=== PATIENT | male | born 1960 | race Caucasian/White ===

== ENCOUNTER → 2020-07-27 09:45 | Outpatient (BNVA) | payer OTHER, SELFPAY | PROVIDERS: PCP Family Medicine; Visit Provider Internal Medicine | DX: Z11.59 Encounter for screening for other viral diseases (principal) | CPT/HCPCS: 87635 ==

== ENCOUNTER → 2020-07-28 11:45 | Outpatient (BNVA) | payer SELFPAY | PROVIDERS: PCP Family Medicine; Referring Provider Podiatrist Foot & Ankle Surgery; Visit Provider Podiatrist Foot & Ankle Surgery | DX: F15.251 Other stimulant dependence with stimulant-induced psychotic disorder with hallucinations (principal); F10.20 Alcohol dependence, uncomplicated | CPT/HCPCS: 80305; 80306 ==

== ENCOUNTER 2020-07-31 06:17 | Day surgery (SDC) | payer SELFPAY ==
[2020-07-30 11:30] VITALS: BMI 22.1
--- NOTE | 2020-07-31 | SCC_ITS ---
Procedure Done: Closed reduction with percutaneous fixation right Lisfranc fracture dislocation CPT code 96736 17 seconds of fluoroscopic guidance, for a cumulative dose of 0.25 mGy, was provided to Dr. Staley by the radiology department. C-arm images of the RIGHT foot were saved for the patient's permanent record. [facility]
[2020-07-31 06:53] VITALS: BP 201/113; PULSE 105; RESP 18; TEMP 35.8; O2SAT 95
[2020-07-31] MEDS: sodium chloride 0.9% 1,000 ML 30 ML IV (07:01)
[2020-07-31] MEDS: labetalol 5 mg/mL SDV 20mL IVP ×2 (07:15→08:13)
[2020-07-31 07:28] LABS: Amphetamines Screen Urine Negative (Negative); Barbiturates Screen Urine Negative (Negative); Benzodiazepines Screen Urine Negative (Negative); Cocaine Screen Urine Negative (Negative); Opiate Screen Urine Negative (Negative); PCP Screen Urine Negative (Negative); THC Screen Urine Negative (Negative)
[2020-07-31 07:32] VITALS: BP 174/104; PULSE 81
--- NOTE | 2020-07-31 08:04 | P.ANESASSM_ITS ---
Pre-Anesthetic Assessment Pre-Anesthetic Assessment: Height/Weight: Height 1.75 m Weight 68.039 kg Temp Pulse Resp BP Pulse Ox 96.5 F L 81 18 174/104 95 07/31/20 06:53 07/31/20 07:32 07/31/20 06:53 07/31/20 07:32 07/31/20 06:53 Preop Diagnosis: Right Lisfranc fracture dislocation Proposed Procedure: Operation Date: 07/31/20 09:20 Proposed Procedures p Closed reduction with percutaneous fixation right tarsometatarsal fracture dislocation 03417(Right) - Kenton Staley DPM Familial anesthetic complications: No hx aneshtesia Was Beta Manuelito taken within 24 hours: Yes Last intake: Intake Last Liquid Date 07/31/20 Last Liquid Time 06:30 (water) Last Solid Date 07/30/20 Last Solid Time 19:00 Social: Social History: Alcohol and Tobacco Comment: denies recent drug us e; 1 drink daily - has been trying to reduce Exam: Pre-Anes Outpt Exam: alert, oriented x 3, clear to auscultation bilaterally and regular rate & rhythm Airway: Cervical ROM: WNL MP: 2 Dentition: False CV/HEM: CV/HEM: HTN Neuropsych: Comments: drug abuse Anesthetic Plan: Anesthesia: MAC Risk of > 500 ml blood loss (7ml/kg in children): No Meds/Allergies Current Medications: Current Medications Generic Name Dose Route Start Last Admin Trade Name Freq PRN Reason Stop Dose Admin Sodium Chloride 1,000 mls @ 30 ml s/hr 07/31/20 06:45 07/31/20 07:01 Sodium Chloride 0.9% IV 08/01/20 06:44 30 mls/hr .Q24H ROMEL Administration PFSH Anesthesia 2 PFSH: Medical History (Updated 07/28/20 @ 12:18 by Kenton Staley DPM) Alcohol dependence, uncomplicated Dyskinesia, tardive Nicotine dependence, cigarettes, uncomplicated 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 Family History Other Cancer Denies family history of CAD (coronary artery disease) Clotting disorder Chronic kidney disease (CKD) Anesthesia complication Bleeding disorder Social History Smoking and tobacco status: current every day smoker cigarettes Packs smoked per day: 1 Alcohol intake: current Alcohol intake frequency: 0-2 Drinks per Day Alcohol type: beer Data Anesthesia Other Labs: Laboratory Results - last 48 hr 07/31/20 07:05 Urine Opiates Screen Negative Ur Barbiturates Screen Negative Ur Phencyclidine Scrn Negative Ur Amphetamines Screen Negative U Benzodiazepines Scrn Negative Urine Cocaine Screen Negative U Marijuana (THC) Screen Negative Cardiac Studies: No Data to Display
--- NOTE | 2020-07-31 10:04 | W.PM.OPSUD ---
Surgery/Procedure H&P Update DATE OF PROCEDURE: July 31, 2020 DATE H&P PERFORMED: 07/28/20 H&P UPDATE INFORMATION: I have reviewed H&P completed within last 30 days, I have examined patient prior to procedure, No changes to prior documentation and H&P is in [facility] EMR on date indicated PREOP DIAGNOSIS: Right Lisfranc fracture dislocation PLANNED PROCEDURE: Operation Date: 07/31/20 09:20 Proposed Procedures p Closed reduction with percutaneous fixation right tarsometatarsal fracture dislocation 25515(Right) - Kenton Staley DPM
[2020-07-31 10:59] VITALS: BP 160/86; PULSE 74; RESP 18; TEMP 36.2; O2SAT 98
--- NOTE | 2020-07-31 11:01 | XR_ITS ---
WS: [id number] RIGHT FOOT: 3 VIEW(S) TECHNIQUE: AP, oblique and lateral. HISTORY: post op COMPARISON: 07/23/2020 Percutaneous pinning across the first tarsal metatarsal joint space. There are 2 pins crossing the lidia int space. There is a single short wire centered in the navicular. There is significant displacement along the tarsometatarsal line with the metatarsals displaced later ally with relationship to the tarsal bones. Casting material is present at the foot. XR/XR foot RT min 3V* [id number] IMPRESSION: 1. Status post percutaneous pinning across the first tarsometatarsal joint. 2. Lateral displacement of the second through fifth metatarsals with respect t o the tarsals.
[2020-07-31 11:11] VITALS: BP 174/79; PULSE 76; RESP 18; O2SAT 95
--- NOTE | 2020-07-31 11:40 | ANE.PACU2 ---
Inpatient post-anesthesia follow up: Airway intact: Yes Vital signs: Temperature 97.2 F Pulse Rate 76 Respiratory Rate 18 Blood Pressure 174/79 Pulse Oximetry 95 Oxygen Delivery Me thod Room Air Oxygen Flow Rate Fraction of Inspir ed Oxygen Hydration adequate: Yes Nausea and vomiting: No Pain level: 1 Mental status: Baseline
--- NOTE | 2020-07-31 11:47 | SUR.PHASEII ---
Pt's ride was not in the parking lot as the pt had stated. Pt was able to give a phone number. I reached someone who said they would inform the pt's sister to come back to the hospital and get him. I sat the pt in the waiting room with a drink and crackers and told him to notify Earle to call us if he needed anything, Earle, the volunteer was notified of the situation.
--- NOTE | 2020-07-31 19:40 | P.OP_ITS ---
Operative Report Date of procedure: July 31, 2020 Pre-op Diagnosis: Right Lisfranc fracture dislocation Post-op diagnosis: same Post-op Findings: Reduced first tarsometatarsal fracture dislocation right foot Procedure Done: Closed reduction with percutaneous fixation right Lisfranc fracture dislocation CPT code 50825 Implants: 0.062 K wire x2 Specimens removed/disposition: None Pathology: none sent Surgeon: Kenton Staley D.P.M. Field Account Manager: Fuad Anesthesia: MAC Estimated blood loss: Less than 5 mL Tourniquet time: No tourniquet utilized IV fluids: None Urine output: None Complications: None Findings: Displaced tarsometatarsal fracture dislocation consistent with Lisfranc injury right foot Condition: stable Disposition: PACU Brief History: Patient is a 60-year-old male who sustained a right fracture dislocation of his Lisfranc complex. Due to poor soft tissue quality swelling, fracture blister present open reduction internal fixation has not advised at this time. Visible tenting of the skin at the first metatarsal base medial cuneiform fracture dislocation with dorsal tenting of the first metatarsal base. Due to concern for localized ischemia and wound formation I am recommending a closed reduction and percutaneous pinning of the right Lisfranc injury under anesthesia. Risks include pain, bleeding, numbness, infection, failure to correct deformity, overcorrection of deformity, painful retained hardware, need for further surgical intervention, damage to adjacent soft tissue structures. Patient is agreeable wishes to proceed. Procedure: Under mild sedation the patient was brought to the operating room and placed on the operating table in supine position. A timeout was performed. Anesthesia was then administered by the anesthesia service. Local anesthesia injected by myself consisting of 30 cc of 0.5% Marcaine plain and a right ankle block fashion. Well-padded pneumatic tourniquet applied to the right ankle however this was never inflated or utilized throughout the duration of the procedure. Right lower extremity was scrubbed, prepped and draped utilizing normal aseptic technique. Attention was directed to the right dorsal foot where a fracture blister was appreciated at the dorsum of the right forefoot. This area of skin was left undisturbed. Tenting of the first metatarsal base dorsally was appreciated. Utilizing traction of the first ray and applying manual pressure at the fracture site from dorsal to plantar the fracture was reduced to anatomical position at the first metatarsal base and medial cuneiform articulation. Significant improvement in appropriate alignment appreciated followed by fixation of crossing K wires these were 0.062 K wires x2. Stability appreciated at the first metatarsal base. Further reduction of the lesser metatarsals attempted this was unsuccessful. The greatest concern was the first metatarsal due to its dorsal dislocation. This was adequately reduced. Applied Adaptic to the fracture blister site, Adaptic around the K wires followed by 4 x 4's, Kerlix, cast padding and multilayer compressive Lynn posterior splint. Patient tolerated the procedure well and was transferred to the PACU with vital signs stable and vascular status intact. Following a period of postoperative monitoring he will be discharged home is to remain strict nonweightbearing to the right foot. He was also given follow-up and discharge instructions on discharge paperwork.
== END 2020-07-31 11:47 | disposition home or self-care (01) ==
PROVIDERS: PCP Family Medicine; Visit Provider Podiatrist Foot & Ankle Surgery
PROC: (CPT 28606; principal; 2020-07-31 09:20)
DX: S93.324A Dislocation of tarsometatarsal joint of right foot, initial encounter (principal); I10 Essential (primary) hypertension; F17.210 Nicotine dependence, cigarettes, uncomplicated; W18.39XA Other fall on same level, initial encounter
CPT/HCPCS: 28606; 12345; 73630; 76000; 80306; 96365; C1713; J0690; J2704; J3010; J3490; J7030

== ENCOUNTER → 2020-08-07 10:26 | Outpatient (BNVA) | payer SELFPAY | PROVIDERS: PCP Family Medicine; Visit Provider Podiatrist Foot & Ankle Surgery | DX: Z47.89 Encounter for other orthopedic aftercare (principal); S93.324D Dislocation of tarsometatarsal joint of right foot, subsequent encounter; W19.XXXD Unspecified fall, subsequent encounter | CPT/HCPCS: 73630 ==

== ENCOUNTER → 2020-08-14 15:23 | Outpatient (BNVA) | payer SELFPAY | PROVIDERS: PCP Family Medicine; Visit Provider Podiatrist Foot & Ankle Surgery | DX: S93.324A Dislocation of tarsometatarsal joint of right foot, initial encounter (principal); S92.321A Displaced fracture of second metatarsal bone, right foot, initial encounter for closed fracture; S92.331A Displaced fracture of third metatarsal bone, right foot, initial encounter for closed fracture; S93.335A Other dislocation of left foot, initial encounter; W19.XXXA Unspecified fall, initial encounter | CPT/HCPCS: 73630 ==

== ENCOUNTER → 2020-08-18 13:37 | Outpatient (BNVA) | payer OTHER, SELFPAY | PROVIDERS: PCP Family Medicine; Visit Provider Podiatrist Foot & Ankle Surgery | DX: Z20.828 Contact with and (suspected) exposure to other viral communicable diseases (principal) | CPT/HCPCS: 87635 ==

== ENCOUNTER 2020-08-21 09:15 | Day surgery (SDC) | payer SELFPAY ==
[2020-08-21] VITALS (12 sets, daily range): BP systolic 157–196; BP diastolic 86–116; PULSE 66–99; RESP 9–31; TEMP 36.1–36.4; O2SAT 96–100
--- NOTE | 2020-08-21 | SCC_ITS ---
Procedure Done: Arthrodesis Foot midtarsal joint right 78560 [id number] ORIF second Metatarsal versus arthrodesis, right, percutaneous fixation of fourth and fifth tarsometatarsal joints,right 12 seconds of fluoroscopic guidance, for a cumulative dose of 0.3mGy, was provided to Dr. Staley by the radiology department. C-arm images of the RIGHT foot were saved for the patient's permanent record. ERIC
[2020-08-21] MEDS: sodium chloride 0.9% 1,000 ML 30 ML IV (09:56)
--- NOTE | 2020-08-21 10:07 | P.ANESASSM_ITS ---
Pre-Anesthetic Assessment Pre-Anesthetic Assessment: Height/Weight: Height 1.78 m Weight 63.503 kg Temp Pulse Resp BP Pulse Ox 96.9 F L 66 18 178/94 96 08/21/20 09:37 08/21/20 09:37 08/21/20 09:37 08/21/20 09:37 08/21/20 09:37 Preop Diagnosis: Dislocation of tarsometatarsal joint and fracture of tarsometatarsal joint right foot. Proposed Procedure: Operation Date: 08/21/20 11:15 Proposed Procedures p Arthrodesis Foot midtarsal joint right 46517 40929 18369 s93.331D s9.335F S92.321D(Right) - Kenton Staley DPM s ORIF second Metatarsal versus arthrodesis, right, percutaneous fixation of fourth and fifth tarsometatarsal joints,right(Right) - Kenton Staley DPM Was Beta Manuelito taken within 24 hours: Yes Last intake: Intake Last Liquid Date 08/20/20 Last Liquid Time 23:00 Last Solid Date 08/20/20 Last Solid Time 17:00 Social: Social History: Alcohol and Tobacco Exam: Pre-Anes Outpt Exam: alert, oriented x 3, clear to auscultation bilaterally and regular rate & rhythm Airway: Submandibular: WNL Cervical ROM: WNL MP: 1 Dentition: Full History/ROS: No significant complaints Pulmonary: Pulmonary: COPD and Cough CV/HEM: CV/HEM: None reported : : None reported Hepatic: Hepatic: None reported GI: GI: None reported Metabolic: Metabolic: None reported Musc/skel: Musc/skel: None reported Neuropsych: Neuropsych: Bipolar Anesthetic Plan: ASA status: 3 Anesthesia: General Meds/Allergies Current Medications: Current Medications Generic Name Dose Route Start Last Admin Trade Name Freq PRN Reason Stop Dose Admin Sodium Chloride 1,000 mls @ 30 ml s/hr 08/21/20 08:00 08/21/20 09:56 Sodium Chloride 0.9% IV 08/22/20 07:59 30 mls/hr .Q24H ROMEL Administration PFSH Anesthesia PFSH: Medical History (Updated 08/14/20 @ 16:06 by Kenton Staley DPM) Alcohol dependence, uncomplicated Dyskinesia, tardive Nicotine dependence, cigarettes, uncomplicated Other stimulant dependence with stimulant-induced psychotic disorder with dahiana lucinations Family History Other Cancer Denies family history of CAD (coronary artery disease) Clotting disorder Chronic kidney disease (CKD) Anesthesia complication Bleeding disorder Social History Smoking and tobacco status: current every day smoker cigarettes Packs smoked per day: 1 Alcohol intake: current Alcohol intake frequency: 0-2 Drinks per Day Alcohol type: beer Data Anesthesia Cardiac Studies: No Data to Display
[2020-08-21] MEDS: fentaNYL 50 mcg/mL INJ 2mL IVP (11:55)
--- NOTE | 2020-08-21 12:02 | P.OP_ITS ---
Operative Report Date of procedure: August 21, 2020 Pre-op Diagnosis: Dislocation of tarsometatarsal joint and fracture of tarsometatarsal joint right foot. Post-op diagnosis: same Procedure Done: Arthrodesis Foot midtarsal joint right 98433, arthrodesis of right second and third tarsometatarsal joints 08901 percutaneous pinning of right fourth and fifth tarsometatarsal joints 62379 Implants: Lisandra 4.0 mm headless compression screw x2. Fenwick 28 Lisfranc dual ray second and third tarsometatarsal plate, right, small. 3.5 mm locking screw by 24 mm, 26 mm, 28 mm and 22 mm. Fenwick 28 3.5 mm x 14 mm and 12 mm long locking screws. Specimens removed/disposition: None Pathology: none sent Surgeon: Kenton Staley D.P.M. Distribution Manager: Diandra Anesthesia: MAC and General Estimated blood loss: 5 mL Tourniquet time: See intraoperative documentation IV fluids: None Urine output: None Complications: None Findings: Dislocation of the right first tarsometatarsal joint. Fracture at the base of the right second and third metatarsals with displacement, displacement of right fourth and fifth tarsometatarsal joints. Condition: stable Disposition: PACU Brief History: Is a 60-year-old male with history of right foot trauma, sustained a right Lisfranc dislocation with fractures including the right second and third metatarsals. Post injury he developed significant fracture blisters with poor soft tissue quality, underwent percutaneous pinning with closed reduction under anesthesia for the first tarsometatarsal joint and staged procedure for open reduction internal fixation versus arthrodesis with per cutaneous pinning 1 soft tissue was amenable to surgery. Risks include pain, bleeding, numbness, infection, hardware failure, delayed healing, nonhealing, hardware irritation, persistent swelling, damage to adjacent soft tissue structures, permanent numbness, chronic swelling, loss of function and need for further surgical intervention. Patient is agreeable wishes to proceed. Patient evaluated preoperatively, informed consent obtained and signed by myself and patient, I initialed the patient's right foot, no guarantees written, expressed or implied. Patient wishes to proceed Procedure: Under sedation the patient was brought to the operating room and placed on the operating table in supine position. A timeout was performed. Anesthesia was then administered by the anesthesia service. Local anesthesia injected by myself consisting of 30 cc of 0.5% Marcaine plain and a right ankle block fashion. K wires were removed by hand at the right foot x2 without incident. Well-padded pneumatic tourniquet was applied to the right ankle. The right lower extremity was then scrubbed, prepped and draped utilizing normal aseptic technique. Right foot was examined a weighted with an Esmarch bandage and tourniquet inflated to 250 mmHg. Attention was directed to the right foot first tarsometatarsal joint where a dorsal lateral incision was made medial and parallel to the extensor pollicis longus tendon with dissection carried down through skin and subcutaneous tissue utilizing a combination of blunt and sharp technique. Care was taken to retract to preserve neurovascular and tendinous structures. All bleeders were ligated and cauterized as necessary. Periosteal incision was made at the base of the first metatarsal distal aspect of the medial cuneiform which were then evaluated, instability with tendency for dorsal dislocation of the first metatarsal base appreciated intraoperatively with complete ligamentous interruption. I proceeded with first tarsometatarsal arthrodesis by performing joint preparation via power bur, curettage, subchondral drilling and fishtailing with osteotome. Once the joint surfaces at the base of the first metatarsal and distal aspect of the medial cuneiform were appropriately prepped and reduced in close proximity with compression, utilizing standard AO technique to Lisandra 4.0 headless compression screws were inserted from dorsal distal to proximal plantar in a crossing fashion with excellent bony apposition and compression noted at the arthrodesis site. Incision site was flushed with copious amounts of sterile saline solution. Periosteal and deep structures reapproximated utilizing 2-0 Vicryl. Subcutaneous tissue reapproximated utilizing 4-0 Vicryl and skin reapproximated utilizing 4-0 nylon. Attention was then directed to the dorsum of the right foot where a linear longitudinal incision was made at the second intermetatarsal space as to access the second and third metatarsal fractures, dissection carried down through subcutaneous tissue utilizing a combination of blunt and sharp technique. Care was taken to retract and preserve neurovascular and tendinous structures. All bleeders were ligated and cauterized as necessary. Dorsal venous arch was retracted and protected distally throughout the procedure utilizing self- retaining retractor. Intraoperatively I was able to appreciate a displaced fracture at the metaphyseal diaphyseal junction of the base of the second metatarsal and third metatarsal these were evacuated of hematoma formation, I opted to fuse the second and third tarsometatarsal joints once the fractures were reduced medially and plantarly utilizing a [id number] bone reduction forcep. Articular surfaces at the second and third tarsometatarsal joints were prepped and denuded of articular surface and drilled through subchondral plate distally and proximally followed by application of Fenwick 28 dual ray plate dorsally with fixation performed utilizing accommodation of locking and nonlocking screws with excellent bony apposition and compression noted and reduction of the second third metatarsals in an anatomically corrected position. Incision site was flushed with copious amounts of sterile saline solution. Intraoperative fluoroscopy utilized to confirm placement and reduction of metatarsals noted to be appropriate. Periosteum reapproximate utilizing 2-0 Vicryl. Subcutaneous tissue reapproximated lysing 4-0 Vicryl and skin reapproximated lysing 4-0 nylon in a running interlocking fashion. Attention was then directed to the fourth and fifth tarsometatarsal joints appreciated dorsal and slight lateral displacement under live fluoroscopy these were reduced into anatomical position in all 3 cardinal planes medially and perc utaneously fixated utilizing a 0.063 K wire from dorsal distal to proximal plantar, K wires were bent at a 90 degree angle and trimmed and covered with a Darin ball. Complete reduction of the tarsometatarsal joint was appreciated. Incision sites were dressed with Adaptic, K wires also dressed with Adaptic at the pin and soft tissue interface. Further dressings consist of sterile 4 x 4's, Kerlix, cast padding and Faustino wrap. Followed by application of cam boot. Tourniquet was deflated and a prompt hyperemic response was noted to the distal digits of the right foot. Patient tolerated the procedure well and was transferred to the PACU with vital signs stable and vascular status intact. Following a period of postop monitoring he will be discharged home was given discharge at home instructions and my personal contact information on discharge paperwork with follow-up appointment.
--- NOTE | 2020-08-21 12:02 | W.PM.OPSUD ---
Surgery/Procedure H&P Update DATE OF PROCEDURE: August 21, 2020 DATE H&P PERFORMED: 08/14/20 H&P UPDATE INFORMATION: I have reviewed H&P completed within last 30 days, I have examined patient prior to procedure, No changes to prior documentation and H&P is in [facility] EMR on date indicated PREOP DIAGNOSIS: Dislocation of tarsometatarsal joint and fracture of tarsometatarsal joint right foot. PLANNED PROCEDURE: Operation Date: 08/21/20 11:15 Proposed Procedures p Arthrodesis Foot midtarsal joint right 12003 39172 09675 s93.331D s9.335F S92.321D(Right) - Kenton Staley DPM s ORIF second Metatarsal versus arthrodesis, right, percutaneous fixation of fourth and fifth tarsometatarsal joints,right(Right) - Kenton Staley DPM
--- NOTE | 2020-08-21 14:12 | SUR.PHASEI ---
1410 PATIENT TO PACU FROM OR. ORAL AIRWAY IN PLACE. SPO2 100% ON SIMPLE MASK AT 8L. PATIENT RESTING COMFORTABLE ON GURNEY, APPEARS IN NO DISTRESS. WALKING BOOT IN PLACE TO RIGHT FOOT.
--- NOTE | 2020-08-21 14:26 | SUR.PHASEI ---
1426 ORAL AIRWAY REMOVED AT THIS TIME. SPO2 100% ON SIMPLE MASK AT 8L.
[2020-08-21] MEDS: labetalol 5 mg/mL SDV 20mL IVP (14:33)
--- NOTE | 2020-08-21 14:59 | SUR.PHASEI ---
1454 PATIENT TO OPS. RR EVEN AND UNLABORED. TOLERATING ICE CHIPS. BOOT IN PLACE TO RIGHT FOOT.
[2020-08-21] MEDS: HYDROcodone-acetaminophen 5-325 mg Tablet 1 TAB PO (15:22)
--- NOTE | 2020-08-21 16:11 | SUR.PHASEII ---
pt was getting changed to be discharge and right foot leaking blood from the boot. Patient laid back in bed with foot elevated. I contacted Dr. Staley about bleeding, he came back to OPS to redo dressing. patient instructed to stay off of foot and to keep it elevated at all times, pt sister instructed as well when pt was taken to the car.
== END 2020-08-21 16:00 | disposition home or self-care (01) ==
PROVIDERS: Visit Provider Podiatrist Foot & Ankle Surgery
PROC: (CPT 28740; principal; 2020-08-21 11:15)
PROC: (CPT 28485; 2020-08-21 11:15)
PROC: (CPT 28485; 2020-08-21 11:15)
DX: S92.321A Displaced fracture of second metatarsal bone, right foot, initial encounter for closed fracture (principal); S93.324A Dislocation of tarsometatarsal joint of right foot, initial encounter; S93.331A Other subluxation of right foot, initial encounter; X58.XXXA Exposure to other specified factors, initial encounter; J44.9 Chronic obstructive pulmonary disease, unspecified; F17.210 Nicotine dependence, cigarettes, uncomplicated
CPT/HCPCS: 28485; 28606; 28730; 12345; 76000; 96365; C1713; J0690; J1100; J1885; J2405; J2704; J3010; J3490; J7030

== ENCOUNTER → 2020-09-03 15:55 | Outpatient (BNVA) | payer SELFPAY | PROVIDERS: Visit Provider Podiatrist Foot & Ankle Surgery | DX: S99.921A Unspecified injury of right foot, initial encounter (principal) | CPT/HCPCS: 73630 ==

== ENCOUNTER → 2020-09-16 11:13 | Outpatient (BNVA) | payer SELFPAY | PROVIDERS: Visit Provider Podiatrist Foot & Ankle Surgery | DX: Z47.89 Encounter for other orthopedic aftercare (principal); M81.0 Age-related osteoporosis without current pathological fracture | CPT/HCPCS: 73630 ==

== ENCOUNTER → 2020-10-05 11:17 | Outpatient (BNVA) | payer SELFPAY | PROVIDERS: Visit Provider Podiatrist Foot & Ankle Surgery | DX: Z47.1 Aftercare following joint replacement surgery (principal); S92.321D Displaced fracture of second metatarsal bone, right foot, subsequent encounter for fracture with routine healing; S92.331D Displaced fracture of third metatarsal bone, right foot, subsequent encounter for fracture with routine healing; S93.335D Other dislocation of left foot, subsequent encounter; X58.XXXD Exposure to other specified factors, subsequent encounter | CPT/HCPCS: 73630 ==

== ENCOUNTER 2021-05-18 13:10 | Inpatient (IN) | payer SELFPAY ==
[2021-05-18] VITALS (16 sets, daily range): BP systolic 76–178; BP diastolic 41–113; PULSE 89–152; RESP 13–25; TEMP 34.7; O2SAT 91–100
--- NOTE | 2021-05-18 13:14 | CTR_ITS ---
PROCEDURE INFORMATION: Exam: CT Angiography Head With Contrast, Arteriography Exam date and time: 05/18/2021 1:14 PM Age: 61 years old Clinical indication: Dizziness and giddiness and other: Fall; Patient HX: PT got dizzy and fell last night and shortly after couldn't talk. Still can't currently talk or follow commands; Additional info: Aphasia TECHNIQUE: Imaging protocol: Computed tomography angiography of the head with contrast. Exam focused on the arteries. 3D rendering (Not supervised by radiologist): MIP and/or 3D reconstructed images were created by the technologist. Radiation optimization: All CT scans at this facility use at least one of these dose optimization techniques: automated exposure control; mA and/or kV adjustment per patient size (includes targeted exams where dose is matched to clinical indication); or iterative reconstruction. Contrast material: VISI 320; Contrast volume: 95 ml; Contrast route: INTRAVENOUS (IV); COMPARISON: CT head wo con* [id number] 05/18/2021 1:08 PM RADIATION DOSE METRICS: Total DLP (mGy-cm): 2243.77 FINDINGS: ANTERIOR CIRCULATION: Right internal carotid artery: Unremarkable. Intracranial segment is patent with no significant stenosis. No aneurysm. Right middle cerebral artery: Unremarkable. No occlusion or significant stenosis. No aneurysm. Right anterior cerebral artery: Unremarkable. No occlusion or significant stenosis. No aneurysm. Left internal carotid artery: Unremarkable. Intracranial segment is patent with no significant stenosis. No aneurysm. Left middle cerebral artery: Unremarkable. No occlusion or significant stenosis. No aneurysm. Left anterior cerebral artery: Unremarkable. No occlusion or significant stenosis. No aneurysm. POSTERIOR CIRCULATION: Right vertebral artery: Unremarkable. No occlusion or significant stenosis. No aneurysm. Left vertebral artery: This vessel is not visualized and may be congenitally absent. Basilar artery: Unremarkable. No occlusion or significant stenosis. No aneurysm. Right posterior cerebral artery: Unremarkable. No occlusion or significant stenosis. No aneurysm. Left posterior cerebral artery: Unremarkable. No occlusion or significant stenosis. No aneurysm. Brain: No definite mass, mass effect, or midline shift. Cerebral ventricles: There is moderate ventriculomegaly. Bones/joints: Unremarkable. No acute fracture. Soft tissues: Unremarkable. Other findings: Otherwise No occlusion or significant stenosis. No aneurysm. IMPRESSION: 1. No large vessel stenosis or occlusion. 2. Moderate ventriculomegaly. 3. The left vertebral is not visible and may be congenitally absent PROCEDURE INFORMATION: Exam: CT Angiography Neck With Contrast Exam date and time: 05/18/2021 1:14 PM Age: 61 years old Clinical indication: Dizziness and giddiness and other: Fall; Patient HX: PT got dizzy and fell last night and shortly after couldn't talk. Still can't currently talk or follow commands; Additional info: Aphasia TECHNIQUE: Imaging protocol: Computed tomography angiography of the neck with contrast. 3D rendering (Not supervised by radiologist): MIP and/or 3D reconstructed images were created by the technologist. Radiation optimization: All CT scans at this facility use at least one of these dose optimization techniques: automated exposure control; mA and/or kV adjustment per patient size (includes targeted exams where dose is matched to clinical indication); or iterative reconstruction. Contrast material: VISI 320; Contrast volume: 95 ml; Contrast route: INTRAVENOUS (IV); COMPARISON: CT head wo con* [id number] 05/18/2021 1:08 PM RADIATION DOSE METRICS: Total DLP (mGy-cm): 2243.77 FINDINGS: Right common carotid artery: Calcifications are seen in the bulb. No stenosis. No dissection or occlusion. Right internal carotid artery: No stenosis of the extracranial segment. No dissection or occlusion. The right internal carotid is somewhat tortuous above the bifurcation. Right external carotid artery: No occlusion or stenosis of the origin. Left common carotid artery: Calcifications are present in the carotid bulb No stenosis. No dissection or occlusion. Left internal carotid artery: No stenosis of the extracranial segment. No dissection or occlusion. Left external carotid artery: No occlusion or stenosis of the origin. Right vertebral artery: No stenosis. No dissection or occlusion. Left vertebral artery: Is not visualized this may reflect congenital variation Soft tissues: Normal. No significant soft tissue swelling. Bones/joints: No acute fracture. CT/CT angio headneck* [id number] IMPRESSION: 1. Nonocclusive calcifications are present in the carotid bulb bilaterally. 2. The left vertebral artery is not well visualized and may be congenitally absent. 3. Otherwise No stenosis or occlusion. REFERENCES: NASCET CRITERIA. The degree of internal carotid artery stenosis is based on NASCET criteria. Normal is no stenosis. Mild is less than 50% stenosis. Moderate is 50-69% stenosis. Severe is 70% to 99% stenosis. Total occlusion is no detectable patent lumen. Radiation Dose CTDIVOL = (mGy): DLP = 2243.77~2243.77 (mGy-cm)
--- NOTE | 2021-05-18 13:14 | XRR_ITS ---
PROCEDURE INFORMATION: Exam: XR Chest Exam date and time: 05/18/2021 1:14 PM Age: 61 years old Clinical indication: Injury or trauma; Fall; Blunt trauma (contusions or hematomas); Patient HX: PT unable to answer questions, AMS; Additional info: Fatigue, head trauma TECHNIQUE: Imaging protocol: XR of the chest. Views: 1 view. COMPARISON: SR C-arm Mini [id number] 08/21/2020 1:04 PM FINDINGS: Lungs: Unremarkable. No consolidation. Pleural spaces: Unremarkable. No pleural effusion. No pneumothorax. Heart/Mediastinum: Unremarkable. No cardiomegaly. Bones/joints: Unremarkable. XR/XR chest 1V portable [id number] IMPRESSION: No acute findings.
--- NOTE | 2021-05-18 13:15 | ECG_ITS ---
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: : 1960 Requested By: Nate Pacheco Order Number: [id number] Reading MD: LAURO CURIEL Measurements Intervals Melba Rate: 88 P: 82 WY: 166 QRS: 47 QRSD: 79 T: 75 QT: 324 QTc: 394 Interpretive Statements SINUS RHYTHM POSSIBLE LEFT ATRIAL ENLARGEMENT [-0.1mV P WAVE IN V1/V2] SEPTAL MYOCARDIAL INFARCTION [40+ ms Q WAVE IN V1/V2], indeterminate aga Compared to ECG 07/18/2017 18:39:27 Myocardial infarct finding now present Electronically Signed On 05-18-2021 20:12:08 CDT by LAURO CURIEL [id number] f
--- NOTE | 2021-05-18 13:15 | CT_ITS ---
WS: [id number] CT HEAD NONCONTRAST HISTORY: Aphasia TECHNIQUE: Contiguous axial imaging performed through the brain in 2.5 mm imaging. Bone and soft tiss ue windows. Sagittal and coronal reformats reviewed. All CT scans at [facility] use at ast one of these dose optimization techniques: automated exposure control; mA and/or kV adjustment pe r patient size (includes targeted exams where dose is matched to clinical indication); or iterative r econstruction. DLP: 959.58 mGy-cm. COMPARISON: None available. No acute intracranial hemorrhage, midline shift or mass effect. Mild atrophy and several small lacunar infarcts are noted within the basal ganglia and external capsu les. Ventricles: Normal size with no hydrocephalus. Paranasal sinuses: Small amount of fluid in the RIGHT maxillary sinus. Mucoperiosteal thickening in t he posterior RIGHT sphenoid sinus. Mastoid air cells: Well pneumatized. Calvarium and scalp: Skull is intact with no soft tissue edema or swelling. Mild atherosclerotic plaque within the intracranial carotid arteries above the cavernous sinuses. CT/CT head wo con* [id number] IMPRESSION: 1. No acute intracranial hemorrhage or edema. 2. Mild atrophy and a few scattered lacunar infarcts. No acute infarct identif ied. 3. Intracranial atherosclerosis carotid arteries.
--- NOTE | 2021-05-18 13:34 | W.ED.AMS ---
HPI - Altered Mental Status General: Chief Complaint: Altered Mental Status Stated Complaint: FALL, AMS Time Seen by Provider: 05/18/21 13:14 Source: EMS Mode of arrival: EMS Limitations: altered mental status (Patient is awake but obviously confused. Patient is also cold.) History of Present Illness: HPI narrative: See nursing assessment. Patient is unable to give any history. He does mumble a little bit. Patient is cold to the touch. He appears to be moving all his extremities fairly well. Patient appears delirious. Patient reportedly had a fall last night. Appears to have a superficial abrasion to his right forehead. Someone called paramedics as a due to decreased responsiveness today. MD complaint: altered mental status, confusion and decreased responsiveness Onset (ago): day(s) (1; patient reportedly had a fall last night. Someone called EMS today) Timing confirmed by: other (Unknown; last known well time last night.) Severity: severe Consistency of symptoms: Constant Context: other (Patient has psychiatric history.) Treatments prior to arrival: other (See nursing assessment) Review of Systems General: Reports: ROS unobtainable due to medical condition, ROS unobtainable due to mental status and Other (Patient is unable to give a history.) Neuro: Reports: behavioral changes and other (Patient is unable give any history.) [facility] ED PFSH: Medical History (Updated 05/18/21 @ 16:27 by Nate Ramírez MD) Alcohol dependence, uncomplicated Dyskinesia, tardive Nicotine dependence, cigarettes, uncomplicated 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 ) NUTRITIONAL APPEARANCE: thin OTHER: Patient cold to touch. Slightly catatonic HENMT: COMMON NORMALS: normocephalic and Normal external nose present HEAD & SCALP: normocephalic and abrasion (Mild superficial abrasion to right lower forehead. No step-off.) FACE & SINUS: normal facial exam NOSE: Normal external nose present MOUTH: other (Membranes in the mouth appear slightly dry.) THROAT: posterior oropharynx normal Eye: COMMON NORMALS: Equal, round and reactive pupils present and EOMs intact bilaterally PUPIL: Yes Equal, round and reactive pupils present Neck/C-Spine: COMMON NORMALS: full ROM, no lymphadenopathy, supple, no meningeal signs and no JVD GENERAL: Yes normal visual inspection Lymph: LYMPHATIC: no lymphadenopathy noted Chest: COMMONS NORMALS: normal inspection of the chest and normal palpation of entire chest wall CHEST: No Ecchymosis present and No rash Resp: COMMON NORMALS: normal respiratory effort, No retractions and clear to auscultation bilaterally EFFORT & INSPECTION: No respiratory distress AUSCULTATION: clear to auscultation bilaterally Cardio: COMMON NORMALS: no JVD, regular rate, regular rhythm and Peripheral pulses 2+ throughout JUGULAR VENOUS DISTENTION: no JVD RATE: regular rate RHYTHM: regular rhythm PERIPHERAL PULSES: Peripheral pulses 2+ throughout GI: COMMON NORMALS: Normal to inspection, nondistended, normoactive bowel sounds present, Soft to palpation, non-tender and No hepatosplenomegaly present PALPATION: Yes Soft to palpation and Yes No hepatosplenomegaly present Extremity: COMMON NORMALS: full ROM and capillary refill normal NARRATIVE EXTREMITY EXAM: Patient has some mild trauma to the left first toenail. Toenail appears to be lifted up a little bit. Neuro: QUETA COMA SCALE: document GCS findings [place] coma scale eye opening: To sound [place] coma scale verbal response: Words [place] coma scale motor response: Localising [place] coma scale total score: 11 COMMON NORMALS: CN's II-XII intact bilaterally SENSORIUM/ORIENTATION: Yes somnolent and Yes other (Patient appears slightly catatonic. He does move all extremities well.) MENINGEAL SIGNS: Yes no meningeal signs SPEECH: abnormal speech and expressive aphasia Psych: COMMON NORMALS: mental status grossly normal and Normal thought process present THOUGHT PROCESS: Normal thought process present Skin: COMMON NORMALS: no rashes or lesions noted and no wounds GENERAL SKIN EXAM: no rashes or lesions noted Course Vital Signs: Vital signs: Vital Signs Temperature 94.5 F L 05/18/21 13:19 Pulse Rate 89 07/06/21 13:27 Respiratory Rate 16 05/18/21 13:19 Blood Pressure 153/105 05/18/21 13:27 Pulse Oximetry 93 05/18/21 13:27 MDM - Altered Mental Status MDM Narrative: Medical decision making narrative: 1625: Discussed with Dr. Panchal hospitalist. He will admit the patient to the ICU. He will order hypertonic saline. Lab Data: Attestation: I reviewed the patient's lab results. Labs: Lab Results 05/18/21 05/18/21 05/18/21 Range/Units 13:50 13:50 13:50 WBC 17.3 H (4.0-10.0) 10^3/ uL RBC 4.24 (4.1-5.3) 10^6/u L Hgb 15.1 (11.7-16.6) g/dL Hct 39.2 L (42.0-52.0) % MCV 92.5 (80-94) fL MCH 35.6 H (28.0-34.0) pg MCHC 38.5 H (30.0-36.0) g/dL RDW 11.2 L (12.1-15.1) % Plt Count 185 (130-400) 10^3/c mm MPV 9.6 (7.4-10.4) fL Neut % (Auto) 90.5 % Lymph % (Auto) 2.5 % Hooker % (Auto) 5.8 % Eos % (Auto) 0.5 % Baso % (Auto) 0.2 % Neut # (Auto) 15.62 H (1.8-7.7) 10^3/u L Lymph # (Auto) 0.4 L (0.8-4.8) 10^3/u L Hooker # (Auto) 1.0 H (0.2-0.9) 10^3/u L Eos # (Auto) 0.1 (0.0-0.8) 10^3/u L Baso # (Auto) 0.0 (0.0-0.1) 10^3/u L Nucleated RBC % (a uto) 0 % Nucleated RBCs # 0.0 /100WBC Sodium 103 L* (136-145) mmol/L Potassium 5.8 H (3.5-5.1) mmol/L Chloride 67 L (98-107) mmol/L Carbon Dioxide 21 L (22-29) mmol/L Anion Gap 20.8 H (5-19) BUN 20 (6-20) mg/dL Creatinine 0.6 L (0.7-1.2) mg/dL GFR Calculation 137.9 H (90-130) mL/min Glucose 109 (65-115) mg/dL POC Glucose (70-110) mg/dL Calculated Osmolal ity 219 L (285-295) mOsm/k g Lactate 3.6 H (0.5-2.2) mmol/L Calcium 8.8 (8.5-10.5) mg/dL Total Bilirubin 1.8 H (0.15-1.2) mg/dL AST 521 H (0-40) U/L ALT 277 H (0-41) U/L Alkaline Phosphata se 102 (40-130) IU/L Ammonia Troponin T Baselin e (0-15) ng/L Total Protein 5.5 L (6.6-8.7) g/dL Albumin 3.6 (3.5-5.2) g/dL Globulin 1.9 (1.3-4.6) g/dL Salicylates < 0.3 L (3-10) mg/dL Acetaminophen < 5.0 L (10-30) ug/mL Ethyl Alcohol < 10 (0-10) mg/dL 05/18/21 05/18/21 05/18/21 Range/Units 13:50 13:58 15:59 WBC (4.0-10.0) 10^3/ uL RBC (4.1-5.3) 10^6/u L Hgb (11.7-16.6) g/dL Hct (42.0-52.0) % MCV (80-94) fL MCH (28.0-34.0) pg MCHC (30.0-36.0) g/dL RDW (12.1-15.1) % Plt Count (130-400) 10^3/c mm MPV (7.4-10.4) fL Neut % (Auto) % Lymph % (Auto) % Hooker % (Auto) % Eos % (Auto) % Baso % (Auto) % Neut # (Auto) (1.8-7.7) 10^3/u L Lymph # (Auto) (0.8-4.8) 10^3/u L Hooker # (Auto) (0.2-0.9) 10^3/u L Eos # (Auto) (0.0-0.8) 10^3/u L Baso # (Auto) (0.0-0.1) 10^3/u L Nucleated RBC % (a uto) % Nucleated RBCs # /100WBC Sodium (136-145) mmol/L Potassium (3.5-5.1) mmol/L Chloride (98-107) mmol/L Carbon Dioxide (22-29) mmol/L Anion Gap (5-19) BUN (6-20) mg/dL Creatinine (0.7-1.2) mg/dL GFR Calculation (90-130) mL/min Glucose (65-115) mg/dL POC Glucose 133 H (70-110) mg/dL Calculated Osmolal ity (285-295) mOsm/k g Lactate (0.5-2.2) mmol/L Calcium (8.5-10.5) mg/dL Total Bilirubin (0.15-1.2) mg/dL AST (0-40) U/L ALT (0-41) U/L Alkaline Phosphata se (40-130) IU/L Ammonia Cancelled Troponin T Baselin e 20 H (0-15) ng/L Total Protein (6.6-8.7) g/dL Albumin (3.5-5.2) g/dL Globulin (1.3-4.6) g/dL Salicylates (3-10) mg/dL Acetaminophen (10-30) ug/mL Ethyl Alcohol (0-10) mg/dL Imaging Data^: CXR: Attestation: I personally reviewed and interpreted this imaging study as follows: My impression: copd; ? mild fibrosis Radiologist's impression: Fred SamanoUnit #: [id number]: 2Acct#:[id number]/Sex: 61 / MADM Date: 05/18/21Loc: ERRoom/Bed:Attending Dr: Ordering Provider/Ordering MD: Nate Ramírez MD Date of Service: 05/18/21 Procedure(s): XR chest 1V portable [id number] Accession Number(s): [id number] Report Number: [id number] PROCEDURE INFORMATION: Exam: XR Chest Exam date and time: 05/18/2021 1:14 PM Age: 61 years old Clinical indication: Injury or trauma; Fall; Blunt trauma (contusions or hematomas); Patient HX: PT unable to answer questions, AMS; Additional info: Fatigue, head trauma TECHNIQUE: Imaging protocol: XR of the chest. Views: 1 view. COMPARISON: SR C-arm Mini [id number] 08/21/2020 1:04 PM FINDINGS: Lungs: Unremarkable. No consolidation. Pleural spaces: Unremarkable. No pleural effusion. No pneumothorax. Heart/Mediastinum: Unremarkable. No cardiomegaly. Bones/joints: Unremarkable. XR/XR chest 1V portable [id number] IMPRESSION: No acute findings. Dictated By:Dean Lynn By:Dean Lynn Date/Time:05/18/[address] Head: Radiologist's impression: Fred SamanoUnit #: [id number]: 2Acct#:[id number]/Sex: 61 / MADM Date: 05/18/21Loc: ERRoom/Bed:Attending Dr: Ordering Provider/Ordering MD: Nate Ramírez MD Date of Service: 05/18/21 Procedure(s): CT head wo con* [id number] Accession Number(s): [id number] Report Number: [id number] WS: [id number] CT HEAD NONCONTRAST HISTORY: Aphasia TECHNIQUE: Contiguous axial imaging performed through the brain in 2.5 mm imaging. Bone and soft tissue windows. Sagittal and coronal reformats reviewed. All CT scans at [facility] use at least one of these dose optimization techniques: automated exposure control; mA and/or kV adjustment per patient size (includes targeted exams where dose is matched to clinical indication); or iterative reconstruction. DLP: 959.58 mGy-cm. COMPARISON: None available. No acute intracranial hemorrhage, midline shift or mass effect. Mild atrophy and several small lacunar infarcts are noted within the basal ganglia and external capsules. Ventricles: Normal size with no hydrocephalus. Paranasal sinuses: Small amount of fluid in the RIGHT maxillary sinus. Mucoperiosteal thickening in the posterior RIGHT sphenoid sinus. Mastoid air cells: Well pneumatized. Calvarium and scalp: Skull is intact with no soft tissue edema or swelling. Mild atherosclerotic plaque within the intracranial carotid arteries above the cavernous sinuses. CT/CT head wo con* [id number] IMPRESSION: 1. No acute intracranial hemorrhage or edema. 2. Mild atrophy and a few scattered lacunar infarcts. No acute infarct identified. 3. Intracranial atherosclerosis carotid arteries. Dictated By:Ann Yates DOSigned By:Ann Yates DOSigned Date/Time:05/18/[address]: Radiologist's impression: SelwynFred #: [id number]: 1962cct#:[id number]/Sex: 61 / MADM Date: 05/18/21Loc: ERRoom/Bed:Attending Dr: Ordering Provider/Ordering MD: Nate Ramírez MD Date of Service: 05/18/21 Procedure(s): CT angio headneck* [id number] Accession Number(s): [id number] Report Number: [id number] PROCEDURE INFORMATION: Exam: CT Angiography Head With Contrast, Arteriography Exam date and time: 05/18/2021 1:14 PM Age: 61 years old Clinical indication: Dizziness and giddiness and other: Fall; Patient HX: PT got dizzy and fell last night and shortly after couldn't talk. Still can't currently talk or follow commands; Additional info: Aphasia TECHNIQUE: Imaging protocol: Computed tomography angiography of the head with contrast. Exam focused on the arteries. 3D rendering (Not supervised by radiologist): MIP and/or 3D reconstructed images were created by the technologist. Radiation optimization: All CT scans at this facility use at least one of these dose optimization techniques: automated exposure control; mA and/or kV adjustment per patient size (includes targeted exams where dose is matched to clinical indication); or iterative reconstruction. Contrast material: VISI 320; Contrast volume: 95 ml; Contrast route: INTRAVENOUS (IV); COMPARISON: CT head wo con* [id number] 05/18/2021 1:08 PM RADIATION DOSE METRICS: Total DLP (mGy-cm): 2243.77 FINDINGS: ANTERIOR CIRCULATION: Right internal carotid artery: Unremarkable. Intracranial segment is patent with no significant stenosis. No aneurysm. Right middle cerebral artery: Unremarkable. No occlusion or significant stenosis. No aneurysm. Right anterior cerebral artery: Unremarkable. No occlusion or significant stenosis. No aneurysm. Left internal carotid artery: Unremarkable. Intracranial segment is patent with no significant stenosis. No aneurysm. Left middle cerebral artery: Unremarkable. No occlusion or significant stenosis. No aneurysm. Left anterior cerebral artery: Unremarkable. No occlusion or significant stenosis. No aneurysm. POSTERIOR CIRCULATION: Right vertebral artery: Unremarkable. No occlusion or significant stenosis. No aneurysm. Left vertebral artery: This vessel is not visualized and may be congenitally absent. Basilar artery: Unremarkable. No occlusion or significant stenosis. No aneurysm. Right posterior cerebral artery: Unremarkable. No occlusion or significant stenosis. No aneurysm. Left posterior cerebral artery: Unremarkable. No occlusion or significant stenosis. No aneurysm. Brain: No definite mass, mass effect, or midline shift. Cerebral ventricles: There is moderate ventriculomegaly. Bones/joints: Unremarkable. No acute fracture. Soft tissues: Unremarkable. Other findings: Otherwise No occlusion or significant stenosis. No aneurysm. IMPRESSION: 1. No large vessel stenosis or occlusion. 2. Moderate ventriculomegaly. 3. The left vertebral is not visible and may be congenitally absent PROCEDURE INFORMATION: Exam: CT Angiography Neck With Contrast Exam date and time: 05/18/2021 1:14 PM Age: 61 years old Clinical indication: Dizziness and giddiness and other: Fall; Patient HX: PT got dizzy and fell last night and shortly after couldn't talk. Still can't currently talk or follow commands; Additional info: Aphasia TECHNIQUE: Imaging protocol: Computed tomography angiography of the neck with contrast. 3D rendering (Not supervised by radiologist): MIP and/or 3D reconstructed images were created by the technologist. Radiation optimization: All CT scans at this facility use at least one of these dose optimization techniques: automated exposure control; mA and/or kV adjustment per patient size (includes targeted exams where dose is matched to clinical indication); or iterative reconstruction. Contrast material: VISI 320; Contrast volume: 95 ml; Contrast route: INTRAVENOUS (IV); COMPARISON: CT head wo con* [id number] 05/18/2021 1:08 PM RADIATION DOSE METRICS: Total DLP (mGy-cm): 2243.77 FINDINGS: Right common carotid artery: Calcifications are seen in the bulb. No stenosis. No dissection or occlusion. Right internal carotid artery: No stenosis of the extracranial segment. No dissection or occlusion. The right internal carotid is somewhat tortuous above the bifurcation. Right external carotid artery: No occlusion or stenosis of the origin. Left common carotid artery: Calcifications are present in the carotid bulb No stenosis. No dissection or occlusion. Left internal carotid artery: No stenosis of the extracranial segment. No dissection or occlusion. Left external carotid artery: No occlusion or stenosis of the origin. Right vertebral artery: No stenosis. No dissection or occlusion. Left vertebral artery: Is not visualized this may reflect congenital variation Soft tissues: Normal. No significant soft tissue swelling. Bones/joints: No acute fracture. CT/CT angio headneck* [id number] IMPRESSION: 1. Nonocclusive calcifications are present in the carotid bulb bilaterally. 2. The left vertebral artery is not well visualized and may be congenitally absent. 3. Otherwise No stenosis or occlusion. REFERENCES: NASCET CRITERIA. The degree of internal carotid artery stenosis is based on NASCET criteria. Normal is no stenosis. Mild is less than 50% stenosis. Moderate is 50-69% stenosis. Severe is 70% to 99% stenosis. Total occlusion is no detectable patent lumen. Radiation Dose CTDIVOL = (mGy): DLP = 2243.77~2243.77 (mGy-cm) Dictated By:Dean Lynn By:Dean Lynn Date/Time:05/18/21 1457 EKG Data^: EKG 1: Attestation: I personally reviewed and interpreted this EKG as follows: EKG interpretation date: 05/18/21 EKG interpretation time: 13:25 Prior EKG tracings: not available for review Interpretation: Normal sinus rhythm with heart rate of 88. LVH, normal axis, left atrial enlargement, normal MN interval, normal QRS, normal ST segment, normal T waves. Impression normal sinus rhythm with left atrial enlargement and LVH. Critical Care Time Critical Care Time: Critical Care Time: Yes Total Critical Care Time: 80 Attestation: See orders, hospitalist admission to ICU Discharge Plan Discharge Patient Disposition: Admitted As Inpatient Clinical Impression: Delirium due to general medical condition, Hyponatremia Altered mental status Qualifiers: Altered mental status type: stupor Qualified Code(s): R40.1 - Stupor Condition: Stable Coding Level of Care Code ED Oyster Harvester for Jorge Fwd Exam Comprehensive
[2021-05-18 14:02] LABS: Glucose Point of Care 133 mg/dL (70-110)
[2021-05-18 14:08] LABS: Basophils % 0.2 %; Eosinophils # 0.1 10^3/uL (0.0-0.8); Eosinophils % 0.5 %; Hematocrit 39.2 % (42.0-52.0); Hemoglobin 15.1 g/dL (11.7-16.6); Lymphocytes # 0.4 10^3/uL (0.8-4.8); Lymphocytes % 2.5 %; Mean Corpuscular HGB Conc 38.5 g/dL (30.0-36.0); Mean Corpuscular Hemoglobin 35.6 pg (28.0-34.0); Mean Corpuscular Volume 92.5 fL (80-94); Mean Platelet Volume 9.6 fL (7.4-10.4); Monocytes % 5.8 %; Neutrophils # 15.62 10^3/uL (1.8-7.7); Neutrophils % 90.5 %; Nucleated Red Blood Cells % 0 %; Platelet Count 185 10^3/cmm (130-400); Red Blood Count 4.24 10^6/uL (4.1-5.3); Red Cell Distribution Width 11.2 % (12.1-15.1); White Blood Count 17.3 10^3/uL (4.0-10.0)
[2021-05-18] MEDS: iodixanol 320 mg/mL 100mL Btl IV (14:09)
[2021-05-18 14:30] LABS: Alanine Aminotransferase 277 U/L (0-41); Albumin Level 3.6 g/dL (3.5-5.2); Alkaline Phosphatase 102 IU/L (40-130); Aspartate Amino Transferase 521 U/L (0-40); Blood Urea Nitrogen 20 mg/dL (6-20); Calcium 8.8 mg/dL (8.5-10.5); Carbon Dioxide 21 mmol/L (22-29); Chloride 67 mmol/L (98-107); Globulin 1.9 g/dL (1.3-4.6); Glomerular Filtration Rate 137.9 mL/min (90-130); Glucose 109 mg/dL (65-115); Osmolality Calculated 219 mOsm/kg (285-295); Total Bilirubin 1.8 mg/dL (0.15-1.2); Total Protein 5.5 g/dL (6.6-8.7); Troponin(5th) Baseline 20 ng/L (0-15)
[2021-05-18 14:31] LABS: Lactate (Lactic Acid level) 3.6 mmol/L (0.5-2.2)
[2021-05-18 14:39] LABS: Acetaminophen < 5.0 ug/mL (10-30); Alcohol Level < 10 mg/dL (0-10); Anion Gap 20.8 (5-19); Salicylate < 0.3 mg/dL (3-10); Sodium 103 mmol/L (136-145)
[2021-05-18 14:40] LABS: Potassium 5.8 mmol/L (3.5-5.1)
[2021-05-18 14:49] LABS: Slide Review Slide Review Perform
[2021-05-18 16:34] LABS: Troponin 5 2HR 21.72 ng/L (0-15); Troponin 5 2HR Delta 1.72 ABS# (0-10)
[2021-05-18] MEDS: sodium chloride 0.9% 1,000 ML 150 ML IV (16:39)
--- NOTE | 2021-05-18 17:05 | P.HP_ITS ---
Providers/Chief Complaint Chief Complaint: FALL, AMS History of Present Illness Fred Samano is a 61 year old male with pmh of psychotic disorder with hallucinations, alcohol abuse, was brought in by the EMS as his found him disoriented today in the morning,history taking from the patient is not possible as he is not communicating appropriately all that he does is to stare in blank. Upon arrival in the ER he was worked up for above mention complain. Imaging studies: C.T head without contrast : No acute intracranial hemorrhage or edema.Mild atrophy and a few scattered lacunar infarcts. No acute infarct identified. CT angio head neck: No large vessel stenosis or occlusion. Moderate ventriculomegaly. Xray chest : no infiltrates Pertinent Labs : WBC : 17.3 T, H/H : 15/39 , PLT Count : 185 Serum Na:103, Serum k: 5.8 , BUN/SCR : BUN/SCR: 15/0.5 , Lactic acid :3.6 Phosphorus :1.7 ,T.Bili:1.8, AST : 521,ALT : 277, ALP: 102 ,Troponin trend :Flat COVID Rapid :Negative,U/A :Clean Review of Systems Narrative: Could not be obtained Medications/Allergies Home Medications Medication Instructions Recorded Confirmed Last Taken Type Unable to Assess 05/18/21 05/18/21 Unknown History Allergies Allergy/AdvReac Type Severity Reaction Status Date / Time No Known Allergies Allergy Verified 10/05/20 11:05 PFSH Acute PFSH: Medical History (Updated 05/19/21 @ 00:02 by Reed Panchal MD) Alcohol dependence, uncomplicated Dyskinesia, tardive Nicotine dependence, cigarettes, uncomplicated 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 Family History Other Cancer Denies family history of CAD (coronary artery disease) Clotting disorder Chronic kidney disease (CKD) Anesthesia complication Bleeding disorder Social History Smoking and tobacco status: current every day smoker cigarettes Packs smoked per day: 1 Alcohol intake: current Alcohol intake frequency: 0-2 Drinks per Day Alcohol type: beer Vitals/I&O/Wt Last Vital Signs Temp 94.5 F L 05/18/21 13:19 Pulse 89 05/18/21 13:27 Resp 16 05/18/21 13:19 BP 153/105 05/18/21 13:27 Pulse Ox 93 05/18/21 13:27 Physical Exam Narrative: EXAM NARRATIVE: AO*0 HENMT: COMMON NORMALS: normocephalic and atraumatic HEAD & SCALP: normocephalic and atraumatic Resp: COMMON NORMALS: clear to auscultation bilaterally AUSCULTATION: clear to auscultation bilaterally Cardio: COMMON NORMALS: regular rate, regular rhythm, S1 normal heart sound present, S2 normal heart sound present, No gallops present (Cardio), No murmurs present (Cardio), No rub (Cardio) and Peripheral pulses 2+ throughout RATE: regular rate RHYTHM: regular rhythm HEART SOUNDS: S1 normal heart sound present and S2 normal heart sound present PERIPHERAL PULSES: Peripheral pulses 2+ throughout GI: COMMON NORMALS: Normal to inspection, nondistended, normoactive bowel sounds present, Soft to palpation, non-tender, No hepatosplenomegaly present and no masses AUSCULTATION: Yes normoactive bowel sounds PALPATION: Yes Soft to palpation and Yes No hepatosplenomegaly present RECTAL EXAM: Yes deferred Extremity: COMMON NORMALS: no clubbing, cyanosis or edema and no pedal edema Data : 05/18/21 13:50 05/18/21 21:25 Micro: Microbiology 05/18/21 15:59 Blood Culture - Preliminary Blood SPECIMEN COLLECTED 05/18/21 15:59 Blood Culture - Preliminary Blood SPECIMEN COLLECTED A&P Assessment and plan (1) Acute encephalopathy: Acute Metabolic Encephalopathy 2/2 to severe Hyponatremia Received 3% N.s 100 cc Given the fact that the patient serum sodium is extremely low he is at very high risk for ODS ( Osmotic Demyelination Syndrome ) Goal Sodium correction in next 24 h is 111 TSH Random Cortisol Urine analysis Urine electrolytes Urine osmolality Serum Osmolality BMP Q4H Renal on Board Status: Acute (2) Hyponatremia: Hypovolemic Hyponatremia likely 2/2 to poor oral inatke. Status: Acute (3) Sepsis: Supported by Leukocytosis, elevated lactic acid, hypothermia, tachycardia, tachypnea. Severe dehydration can give conflicting findings. Blood Cultures Urine Culture Procalcitonin Trend lactic acid Ceftriaxone 1 gm q24h Status: Acute (4) Hyperkalemia: Serum k :5.8 Tele Monitor BMP Status: Acute Additional A&P Information Code Status:Full Code DVT PPx: Lovenox Attestations Medical Necessity Statement*: Patient needs to be in hospital for the management of acute metabolic encephalopathy.Anticipated LOS Greater then 2 midnights. Time Spent in Patient Care: Greater than 35 minutes The high probability of a clinically significant, sudden or life threatening deterioration of the patient's [] system(s) required my full and direct attention, intervention and personal management. The critical care time is as shown. This time is in addition to time spent performing any reported procedures but includes the following: [x] Data and vital sign review and interpretation [x] Patient assessment, examination and intervention [x] Documentation [x] Medication orders and management Critical Care Time: Critical Care Time (min): 90 Coding Level of Care Code Acute Brim Stretching Machine Operator for Jorge Conklin Diagnoses Acute encephalopathy G93.40 Hyponatremia E87.1 Sepsis A41.9 Hyperkalemia E87.5
--- NOTE | 2021-05-18 17:18 | P.CONIM_ITS ---
Providers/Reason For Consult Consulting Physician/Specialty*: jovon salomon md/ telenephrology Reason for Consult*: symptomatic hyponatremia Requesting Physician: Dr. Reed Panchal Attending Physician: Dr. Reed Panchal History of Present Illness History of Present Illness Fred Samano is a 61 year old male h/o ETOH use and podiatric surgeries. Pt found disoriented by his this am. when brought to ER he appeared volume depleted and required a sternal rub to respond. NA found to be 103. Pt on ns ivf. Pt being admitted to MICU- renal called for assistance w/ hyponatremia management Review of Systems General: Reports: ROS unobtainable due to mental status Meds/Allergies Home Medications and Allergies Home Medications Medication Instructions Recorded Confirmed Last Taken Type Unable to Assess 05/18/21 05/18/21 Unknown History Allergies Allergy/AdvReac Type Severity Reaction Status Date / Time No Known Allergies Allergy Verified 10/05/20 11:05 Current Medications Current Medications Generic Name Dose Route Start Last Admin Trade Name Freq PRN Reason Stop Dose Admin Sodium Chloride 1,000 mls @ 150 mls/hr 05/18/21 16:15 05/18/21 16:39 Sodium Chloride 0.9% IV 150 mls/hr .Q6H40M ROMEL Administration PFSH Acute PFSH: Medical History (Updated 05/18/21 @ 16:27 by Nate Ramírez MD) Alcohol dependence, uncomplicated Dyskinesia, tardive Nicotine dependence, cigarettes, uncomplicated 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 Family History Other Cancer Denies family history of CAD (coronary artery disease) Clotting disorder Chronic kidney disease (CKD) Anesthesia complication Bleeding disorder Social History Smoking and tobacco status: current every day smoker cigarettes Packs smoked p er day: 1 Alcohol intake: current Alcohol intake frequency: 0-2 Drinks per Day Alcohol type: beer Vitals/I&O/Wt Last Vital Signs Temp 94.5 F L 05/18/21 13:19 Pulse 89 05/18/21 13:27 Resp 16 05/18/21 13:19 BP 153/105 05/18/21 13:27 Pulse Ox 93 05/18/21 13:27 Physical Exam Narrative: EXAM NARRATIVE: ill appearing, confused, skin lesions and brusing vs noted heent- nca/t neck supple lungs clear heart reg, no rub abd soft, nt, nd, +BS ext no edema skin- lesions and breakdown. poor turgor neuro- minimally responsive to pain and voice Data Micro: Micro: Microbiology 05/18/21 15:59 Blood Culture - Pr eliminary Blood SPECIMEN [facility] JESSE 05/18/21 15:59 Blood Culture - Pr eliminary Blood SPECIMEN [facility] JESSE A&P Additional A&P Information 61 yr old man w/ AMS and na of 103 1. hyponatremia- likely prerenal -will check tsh, cortisol -check ur na, cr, osm -monitor in and out -as AMS and hyponatremic- consider head ct -full infection eval -3% saline bolus as AMS -plan slow correction to 111 sodium in 24 hrs- may need demopressin if we over- correct -high risk for osmotic demyelination syndrome as serum na <105 -fluid restrict 2. hyperkalemia- monitor w/ NS iv pt seen w/ RN- telehealth visit- case discussed w/ rN and Dr. Panchal in detail Consult Attestations Medical Necessity Statement: symptomatic hyponatremia Time Spent in Patient Care: Greater than 35 minutes (>than 50% of time spent in counselling and/or direct pt care on unit) . Coding Level of Care Code Acute Spool Sorter for Jorge Conklin
[2021-05-18 17:27] LABS: SARS Covid-2 Antigen Negative (Negative)
[2021-05-18 17:32] LABS: Add Urine Microscopic? YES; Bilirubin Urine 1+ (Negative); Blood Urine 3+ (Negative); Glucose Urine UA 4+ (Normal); Ketones Urine 1+ (Negative); Leukocyte Esterase Urine Negative (Negative); Nitrate Urine Negative (Negative); Protein Urine Trace (Negative); Urine Appearance Clear (CLEAR); Urine Color Yellow (Yellow); Urobilinogen Urine 1 mg/dL (Negative); pH Urine 5 (5-7)
[2021-05-18 17:33] LABS: Add Urine Culture? No; Bacteria Urine TRACE /hpf; Mucus Urine TRACE /hpf; RBC Urine 0-4 /hpf (0-2); Squamous Epithelial Cell Urine 0-4 /hpf (0-5)
[2021-05-18] MEDS: sodium chloride 3% 500 ML 100 ML IV (18:50)
--- NOTE | 2021-05-18 19:36 | PM.ACPR ---
Acute Procedures Central Line Placement^: Right Femoral: Time out performed: Yes Patient placed on monitor/pulse ox: Yes MD prep: mask, gown and gloves Central line prep: Chlorhexidine scrub and sterile drapes applied Local anesthesia used: lidocaine 1% Ultrasound used for placement: Yes Central line lumen inserted: triple Post procedure: sutured in place, good blood return, all ports aspirated, flushed, capped and sterile dressing applied Patient tolerated procedure: well Complications: none
--- NOTE | 2021-05-18 19:39 | PC.NURSE ---
assumed care of patient at 1900 form DYLAN Quijano.
[2021-05-18 19:55] LABS: Cortisol Random 52.68 ug/dL (2.47-19.5)
[2021-05-18 20:13] LABS: Potassium, Radom Urine 41 mmol/L; Urine Creatinine 77 mg/dL (39-259)
[2021-05-18 20:15] LABS: Urine Random Chloride 14 mmol/L; Urine Random Sodium 10 mmol/L
--- NOTE | 2021-05-18 20:23 | XRR_ITS ---
PROCEDURE INFORMATION: Exam: XR Chest Exam date and time: 05/18/2021 8:23 PM Age: 61 years old Clinical indication: Device placement; Other: Central line; Additional info: Line placement TECHNIQUE: Imaging protocol: XR of the chest. Views: 1 view. Total images: 1 COMPARISON: CR XR chest 1V portable [id number] 05/18/2021 1:43 PM FINDINGS: Tubes, catheters and devices: No visible central line. Lungs: Subtle small foci of ground-glass interstitial lung disease right upper lobe and right lung base which could reflect focal interstitial pneumonitis. No consolidated alveolar airspace disease. COPD/chronic bronchitis. Pleural spaces: Unremarkable. No pleural effusion. No pneumothorax. Heart/Mediastinum: Cardiac structures and configuration stable. Bones/joints: Unremarkable. XR/XR chest 1V portable [id number] IMPRESSION: 1. Subtle small foci of ground-glass interstitial lung disease right upper lobe and right lung base which could reflect focal interstitial pneumonitis. No consolidated alveolar airspace disease. 2. COPD/chronic bronchitis. 3. No visible central line.
[2021-05-18 20:26] LABS: Amphetamines Screen Urine Negative (Negative); Barbiturates Screen Urine Negative (Negative); Benzodiazepines Screen Urine Negative (Negative); Cocaine Screen Urine Negative (Negative); Opiate Screen Urine Positive (Negative); PCP Screen Urine Negative (Negative); THC Screen Urine Negative (Negative)
--- NOTE | 2021-05-18 21:28 | PC.NURSE ---
Addendum entered by Nazario Magallanes RN 05/18/21 21:37: t.o. to start D5w 150 ml/hr given Original Note: Dr Razo called, asked for update on patient, informed this nurse that the 3% saline was only supposed to run for one hour and to stop immediately and to draw a stat chem 7
--- NOTE | 2021-05-18 21:32 | PC.NURSE ---
arrived from ED 2049, AO to self and being in hospital, had no response when asked which hospital day and month or why patient was in hospital, was able to general ledger bookkeeper hands on command but not able to raise arms or move legs on command, no facial droop noted, supine 30 degrees call light within reach
--- NOTE | 2021-05-18 21:35 | PC.NURSE ---
Dr. Noble notified that Lovenox from 1700 and Benztropine from 1330 has not been scanned on JAN, awaiting orders
--- NOTE | 2021-05-18 21:49 | ECG_ITS ---
[facility] Test Date: 2021-05-18 Pat Name: Fred Samano Department: Room: ICU07 Gender: Male Organizational Effectiveness Director: : 1960 Requested By: Kamala Noble Order Number: [id number] Aysha MD: Franca Rosario M.D. Measurements Intervals [place] Rate: 127 P: UT: QRS: 37 QRSD: 85 T: 72 QT: 283 QTc: 412 Interpretive Statements ATRIAL FIBRILLATION WITH RAPID VENTRICULAR RESPONSE ABNORMAL RHYTHM ECG Compared to ECG 05/18/2021 13:24:54 Sinus rhythm no longer present Myocardial infarct finding no longer present Electronically Signed On 05-19-2021 22:49:33 CDT by Franca Rosario M.D. [id number]
[2021-05-18 21:53] LABS: Anion Gap 16.1 (5-19); Blood Urea Nitrogen 15 mg/dL (6-20); Calcium 7.7 mg/dL (8.5-10.5); Carbon Dioxide 19 mmol/L (22-29); Chloride 77 mmol/L (98-107); Glomerular Filtration Rate 170.2 mL/min (90-130); Glucose 92 mg/dL (65-115); Osmolality Calculated 226 mOsm/kg (285-295); Potassium 4.1 mmol/L (3.5-5.1)
[2021-05-18 21:57] LABS: Sodium 108 mmol/L (136-145)
--- NOTE | 2021-05-18 22:00 | PC.NURSE ---
Dr. valle notified of new onset Tachycardia 120s reaching 140s to 150s at times, HCP to put in lab orders and EKG order
--- NOTE | 2021-05-18 22:06 | PC.NURSE ---
Dr. Razo notified of current Na of 108, t.o. given to draw BMP and mg q3 hours and to notify Dr. Razo with each new result, Dr. Razo gave t.o. to continue previous D5w order at 150 ml/hr, Dr. Noble is aware of order and advise this nurse to wait until all the lab results come back
[2021-05-18 22:47] LABS: Lactic Sepsis W/Reflex 1.2 mmol/L (0.5-2.2); Magnesium 1.9 mg/dL (1.7-2.3); Phosphorus 1.7 mg/dL (2.5-4.5)
--- NOTE | 2021-05-18 22:53 | PC.NURSE ---
Benztropine not given, per Dr. Noble, Lovenox was retimed per Dr. Noble
[2021-05-18] MEDS: cefTRIAXone 1,000 MG in sodium chloride 0.9% (plus) 50 ML 100 MG IV (23:01)
[2021-05-18] MEDS: enoxaparin 40 mg/0.4 mL Syringe SUBCUT ×2 (23:02→23:20)
[2021-05-18] MEDS: dextrose 5% 1,000 ML 150 ML IV (23:18)
--- NOTE | 2021-05-18 23:51 | P.EN_ITS ---
Event Note Event Note: Patient in afib with RVR with HR ranging 120s-160s. K+ 4.1, Mag 1.9, Phos 1.7. Currently on d5w at 150. Sodium up to 109. BP soft in 80s so opted to give 2.5 mg IVP metoprolol. With this converted to SR in 80s and BP increased to upper 90s. Will monitor for need to initiate schedule beta blo ckade.
[2021-05-19] VITALS (25 sets, daily range): BP systolic 84–157; BP diastolic 49–89; PULSE 84–125; RESP 8–28; TEMP 36.3–36.4; O2SAT 92–100
--- NOTE | 2021-05-19 00:21 | PC.NURSE ---
Dr. Noble at bedside, saw systolic in the 70s and HR 120s to 140s
--- NOTE | 2021-05-19 00:25 | PC.NURSE ---
Metoprolol order clarified with Dr. Rahman who informed this nurse it is a small dose to correct the tachy cardia to improve the BP
[2021-05-19] MEDS: metoprolol tartrate 1 mg/1 mL SDV 5 mL 2.5 MG IV (00:27)
[2021-05-19 00:29] LABS: Anion Gap 16.2 (5-19); Blood Urea Nitrogen 14 mg/dL (6-20); Calcium 7.8 mg/dL (8.5-10.5); Carbon Dioxide 21 mmol/L (22-29); Chloride 76 mmol/L (98-107); Glomerular Filtration Rate 170.2 mL/min (90-130); Glucose 114 mg/dL (65-115); Osmolality Calculated 229 mOsm/kg (285-295); Potassium 4.2 mmol/L (3.5-5.1)
[2021-05-19 00:29] LABS: Troponin 5 6HR 21.63 ng/L (0-15); Troponin 5 6HR Delta 1.63 ng/L (0-12)
[2021-05-19 00:31] LABS: Sodium 109 mmol/L (136-145)
--- NOTE | 2021-05-19 00:43 | PC.NURSE ---
this nurse notified Dr. Razo of current Na of 109 per request, t.o. given to increase D5 to 200 ml/hr and to call with next lab results
--- NOTE | 2021-05-19 02:00 | ECG_ITS ---
[facility] Test Date: 2021-05-19 Pat Name: Fred Samano Department: Room: ICU07 Gender: Male Patient Intake Coordinator: : 1960 Requested By: Kamala Noble Order Number: [id number] Aysha MD: Franca Rosario M.D. Measurements Intervals [place] Rate: 101 P: 66 CT: 147 QRS: 31 QRSD: 90 T: 68 QT: 329 QTc: 426 Interpretive Statements SINUS TACHYCARDIA POSSIBLE LEFT ATRIAL ENLARGEMENT [-0.1mV P WAVE IN V1/V2] ABNORMAL RHYTHM ECG Compared to ECG 05/18/2021 22:06:39 Atrial fibrillation no longer present Electronically Signed On 05-19-2021 22:57:54 CDT by Franca Rosario M.D. [id number]
[2021-05-19 02:19] LABS: Blood Urea Nitrogen 14 mg/dL (6-20); Calcium 7.7 mg/dL (8.5-10.5); Carbon Dioxide 21 mmol/L (22-29); Chloride 77 mmol/L (98-107); Glomerular Filtration Rate 170.2 mL/min (90-130); Glucose 141 mg/dL (65-115); Magnesium 1.8 mg/dL (1.7-2.3); Osmolality Calculated 229 mOsm/kg (285-295)
[2021-05-19 02:24] LABS: Sodium 108 mmol/L (136-145)
--- NOTE | 2021-05-19 02:35 | PC.NURSE ---
Dr. Razo informed of current Na of 108, t.o. order given to hold fluids and redraw in 4 hours
[2021-05-19 06:26] LABS: Lactate (Lactic Acid level) 1.2 mmol/L (0.5-2.2)
[2021-05-19 06:32] LABS: Cortisol Random 23.25 ug/dL (2.47-19.5)
[2021-05-19 06:33] LABS: Procalcitonin 1.15 ng/mL (0-0.5)
--- NOTE | 2021-05-19 06:35 | PC.NURSE ---
Dr. Noble approved order to place Angy
[2021-05-19 06:44] LABS: Alanine Aminotransferase 187 U/L (0-41); Albumin Level 2.9 g/dL (3.5-5.2); Alkaline Phosphatase 74 IU/L (40-130); Anion Gap 14.8 (5-19); Aspartate Amino Transferase 286 U/L (0-40); Blood Urea Nitrogen 11 mg/dL (6-20); Calcium 7.7 mg/dL (8.5-10.5); Carbon Dioxide 21 mmol/L (22-29); Chloride 76 mmol/L (98-107); Globulin 1.6 g/dL (1.3-4.6); Glomerular Filtration Rate 170.2 mL/min (90-130); Glucose 129 mg/dL (65-115); Magnesium 1.8 mg/dL (1.7-2.3); Osmolality Calculated 227 mOsm/kg (285-295); Phosphorus 1.2 mg/dL (2.5-4.5); Potassium 3.8 mmol/L (3.5-5.1); Total Protein 4.5 g/dL (6.6-8.7)
[2021-05-19 07:12] LABS: Sodium 108 mmol/L (136-145)
--- NOTE | 2021-05-19 07:28 | PM.PN ---
Subjective Subjective: Interval history: more awake- responds and knows name and hospital Medications: Reviewed: Yes Medication Review Details: Current Medications Acetaminophen (Acetaminophen 325 Mg Tablet) 650 mg PO Q6H PRN PRN Reason: Mild/Mod Pain Or Temp >/= 101 Bisacodyl (Bisacodyl 5 Mg Tablet) 10 mg PO DAILY PRN; Protocol PRN Reason: Constipation (see protocol) Enoxaparin Sodium (Enoxaparin 40 Mg/0.4 Ml Syringe) 40 mg SUBCUT Q24H RMOEL Last Admin: 05/18/21 23:20 Dose: 40 mg Documented by: Sodium Chloride (Sodium Chloride 0.9%) 1,000 mls @ 150 mls/hr IV .Q6H40M ROMEL Last Admin: 05/19/21 05:07 Dose: Not Given Documented by: Ceftriaxone Sodium 1,000 mg/ (Sodium Chloride) 50 mls @ 100 mls/hr IV Q24H ROMEL; Protocol Last Admin: 05/18/21 23:01 Dose: 100 mls/hr Documented by: Dextrose (D5w) 1,000 mls @ 200 mls/hr IV .Q5H ROMEL Last Admin: 05/19/21 02:38 Dose: Not Given Documented by: Naloxone HCl (Naloxone 0.4 Mg/Ml Sdv) 0.1 mg IVP Q2M PRN PRN Reason: OPIATERV Ondansetron HCl (Ondansetron 2 Mg/Ml Sdv 2 Ml) 4 mg IVP Q8H PRN PRN Reason: vomiting, or N/V if npo Oxycodone/Acetaminophen (Oxycodone-Apap 5-325 Mg Tablet) 1 tab PO Q4H PRN PRN Reason: SEVERE PAIN Vitals/I&O/Wt Last Vital Signs Temp 97.6 F 05/19/21 05:36 Pulse 85 05/19/21 06:00 Resp 18 05/19/21 05:00 BP 126/88 05/19/21 04:00 Pulse Ox 95 05/19/21 05:00 05/18/21 05/19/21 05/19/21 22:59 06:59 14:59 Intake Total 500.000 / 500.000 585.833 / 1085.833 Balance 500.000 / 500.000 585.833 / 1085.833 Weight last 48 hrs Weight 57.153 kg Physical Exam Narrative: EXAM NARRATIVE: ill appearing, more awake, remains confused, skin lesions vs noted and stable heent- nca/t, eomi neck supple lungs clear heart reg, no rub abd soft, nt, nd, +BS ext no edema skin- turgor improving neuro- more awake, knows name and hospital- follows simple commands Data : 05/18/21 13:50 05/19/21 06:00 Micro: Microbiology 05/18/21 15:59 Blood Culture - Preliminary Blood SPECIMEN COLLECTED 05/18/21 15:59 Blood Culture - Preliminary Blood SPECIMEN COLLECTED A&P Additional A&P Information 61 yr old man w/ AMS and na of 103 1. hyponatremia- likely prerenal -na upto 108 overnight- aim for 115 by am -low ur na- give ns ivf -normal tsh, cortisol -u/a glu 4+, 3+ blood -monitor in and out - head ct reviewed - may need demopressin if we over-correct -high risk for osmotic demyelination syndrome as serum na <105 on presentation -fluid restrict 2. cxr- small foci of ground-glass interstitial lung disease right upper lobe and right lung base which could reflect focal interstitial pneumonitis. No consolidated alveolar airspace disease. - abx per medicine 3. COPD 4. replace kphos, magnesium 5. inc LFT's improving 6. + opiates pt seen w/ RN- telehealth visit- case discussed w/ RN in detail Attestations Medical Necessity Statement*: symptomatic hyponatremia Time Spent in Patient Care: 16 - 35 minutes (>than 50% of time spent in counselling and/or direct pt care on unit). Coding Level of Care Code Acute Industrial Engineering Director for Jorge Conklin
[2021-05-19] MEDS: sodium chloride 0.9% 1,000 ML 100 ML IV (08:53)
[2021-05-19 09:02] LABS: Basophils % 0.1 %; Hematocrit 34.1 % (42.0-52.0); Hemoglobin 12.7 g/dL (11.7-16.6); Lymphocytes # 0.4 10^3/uL (0.8-4.8); Lymphocytes % 3.4 %; Mean Corpuscular HGB Conc 37.2 g/dL (30.0-36.0); Mean Corpuscular Hemoglobin 35.7 pg (28.0-34.0); Mean Corpuscular Volume 95.8 fL (80-94); Mean Platelet Volume 9.7 fL (7.4-10.4); Monocytes # 0.5 10^3/uL (0.2-0.9); Monocytes % 4.7 %; Neutrophils # 10.44 10^3/uL (1.8-7.7); Neutrophils % 91.2 %; Nucleated Red Blood Cells % 0 %; Platelet Count 157 10^3/cmm (130-400); Positive M 1; Red Blood Count 3.56 10^6/uL (4.1-5.3); Red Cell Distribution Width 11.8 % (12.1-15.1); White Blood Count 11.5 10^3/uL (4.0-10.0)
--- NOTE | 2021-05-19 09:11 | PC.NURSE ---
difficulty putting in tee, fha underwriter met resistance, when attempting to give additional pressure to advance a pop was felt and immediate urine returned. 2000 out immediatly dark tea color.
--- NOTE | 2021-05-19 10:19 | PC.CHAP ---
Pastoral Care Encounter/Spiritual Assessment Type of Contact [] Declined arts and crafts instructor visit [] Patient/Family/Request visit [] Outpatient visit [] Follow-up visit [] Physician referral [] Code/Alert [x] Routine visit [] Staff referral [] Actively dying [x] Patient sleeping [] Family support [] [] Out of room [] Palliative care [] [] Receiving care in room [] Pre-surgical visit [] Trauma [] Long length of stay [x] ICU visit [] Other: Relational/Emotional Strength [] Patient feels connected with others/family/visitors/staff [] Distress [] Loneliness/isolation [] Abandonment Spirituality of Patient [] Person of Arianna [] Attends Orthodox of their Arianna [] Believes in Prayer [] Reads Bible or Latter-Day materials [] There are Spiritual issues to be addressed Car Dumper Operator Interventions [x] Prayer [] Active listening [] Non-anxious presence [] Spiritual/emotional support [] Crisis/trauma care [] Spiritual counseling [] Bereavement support [] Provided bereavement packet [] Provided Bible/devotional materials [] Provided toy/stuffed animal, coloring book to patient or family member [] Provided Communion [] Anointing/[facility] [] Salvation [x] Completed spiritual assessment [] Other: Impact on Illness or Injury [] Angry [] Fearful [] Anxious [] Often cries [] Exhaustion [] Unable to work [] Unable to attend pentecostal [] Unable to walk/stand [] Unable to read [] Unable to drive [] Unable to eat/drink [] Unable to sleep [] Unable to be with family [] Patient intubated [] Other: Summary Time spent with patient
[2021-05-19 10:57] LABS: Anion Gap 15.9 (5-19); Blood Urea Nitrogen 10 mg/dL (6-20); Calcium 7.5 mg/dL (8.5-10.5); Carbon Dioxide 22 mmol/L (22-29); Chloride 77 mmol/L (98-107); Glomerular Filtration Rate 220.2 mL/min (90-130); Glucose 101 mg/dL (65-115); Magnesium 1.8 mg/dL (1.7-2.3); Osmolality Calculated 231 mOsm/kg (285-295); Potassium 3.9 mmol/L (3.5-5.1)
[2021-05-19 11:05] LABS: Sodium 111 mmol/L (136-145)
[2021-05-19] MEDS: sodium chloride 0.45% 1,000 ML 100 ML IV (12:02)
--- NOTE | 2021-05-19 12:29 | PM.PN ---
Subjective Subjective: Interval history: Patient was seen and examined this morning, bit more responsive today, knows his name knows the place, asking for food. Had an episode of A. fib with RVR overnight, responded well to metoprolol 12.5 mg IV one-time dose.Converted back to normal sinus rhythm. Medications: Reviewed: Yes Medication Review Details: Current Medications Acetaminophen (Acetaminophen 325 Mg Tablet) 650 mg PO Q6H PRN PRN Reason: Mild/Mod Pain Or Temp >/= 101 Bisacodyl (Bisacodyl 5 Mg Tablet) 10 mg PO DAILY PRN; Protocol PRN Reason: Constipation (see protocol) Enoxaparin Sodium (Enoxaparin 40 Mg/0.4 Ml Syringe) 40 mg SUBCUT Q24H [facility] Last Admin: 05/18/21 23:20 Dose: 40 mg Documented by: Sodium Chloride (Sodium Chloride 0.9%) 1,000 mls @ 150 mls/hr IV .Q6H40M [facility] Last Admin: 05/19/21 05:07 Dose: Not Given Documented by: Ceftriaxone Sodium 1,000 mg/ (Sodium Chloride) 50 mls @ 100 mls/hr IV Q24H ROMEL; Protocol Last Admin: 05/18/21 23:01 Dose: 100 mls/hr Documented by: Dextrose (D5w) 1,000 mls @ 200 mls/hr IV .Q5H ROMEL Last Admin: 05/19/21 02:38 Dose: Not Given Documented by: Naloxone HCl (Naloxone 0.4 Mg/Ml Sdv) 0.1 mg IVP Q2M PRN PRN Reason: OPIATERV Ondansetron HCl (Ondansetron 2 Mg/Ml Sdv 2 Ml) 4 mg IVP Q8H PRN PRN Reason: vomiting, or N/V if npo Oxycodone/Acetaminophen (Oxycodone-Apap 5-325 Mg Tablet) 1 tab PO Q4H PRN PRN Reason: SEVERE PAIN Vitals/I&O/Wt Last Vital Signs Temp 97.4 F L 05/19/21 08:00 Pulse 87 05/19/21 08:00 Resp 13 05/19/21 08:00 BP 98/62 05/19/21 08:00 Pulse Ox 97 05/19/21 08:00 05/18/21 05/19/21 05/19/21 22:59 06:59 14:59 Intake Total 500.000 / 790.682 8739.833 / 2085.833 1000.000 / 1000.000 Output Total 1974 Balance 500.000 / 380.368 6218.833 / 2085.833 -975.000 / -975.000 Weight last 48 hrs Weight 57.153 kg Physical Exam Narrative: EXAM NARRATIVE: AO*0 HENMT: COMMON NORMALS: normocephalic and atraumatic HEAD & SCALP: normocephalic and atraumatic Resp: COMMON NORMALS: clear to auscultation bilaterally AUSCULTATION: clear to auscultation bilaterally Cardio: COMMON NORMALS: regular rate, regular rhythm, S1 normal heart sound present, S2 normal heart sound present, No gallops present (Cardio), No rub (Cardio) and Peripheral pulses 2+ throughout RATE: regular rate RHYTHM: regular rhythm HEART SOUNDS: S1 normal heart sound present and S2 normal heart sound present PERIPHERAL PULSES: Peripheral pulses 2+ throughout OTHER: Pansystolic murmur in mitral area. GI: COMMON NORMALS: Normal to inspection, nondistended, normoactive bowel sounds present, Soft to palpation, non-tender, No hepatosplenomegaly present and no masses AUSCULTATION: Yes normoactive bowel sounds PALPATION: Yes Soft to palpation and Yes No hepatosplenomegaly present RECTAL EXAM: Yes deferred Extremity: COMMON NORMALS: no clubbing, cyanosis or edema and no pedal edema Urinary Catheter Management^: Tee: Cath Placed During This Visit: yes Urinary Catheter Date of Insertion: 05/19/21 Urinary Catheter Time of Insertion: : Data : 05/19/21 06:00 05/19/21 10:25 Micro: Microbiology 05/18/21 15:59 Blood Culture - Preliminary Blood SPECIMEN COLLECTED 05/18/21 15:59 Blood Culture - Preliminary Blood SPECIMEN COLLECTED A&P Assessment and plan (1) Acute encephalopathy: Acute Metabolic Encephalopathy 2/2 to severe Hyponatremia 2/2 Hypovolemic Hyponatremia likely 2/2 to poor oral inatke. Received 3% N.s 100 cc. Given the fact that the patient serum sodium is extremely low he is at very high risk for ODS ( Osmotic Demyelination Syndrome ) Goal Sodium correction in next 24 h is 115 TSH: 1.20 Random Cortisol :52.68 A.m. cortisol: 23.25 Urine analysis Urine electrolytes: Urine random sodium:10, urine random potassium:41, urine random chloride:14, urine creatinine:77 U tox: Salicylate less than 0.3, urine acetaminophen less than 5 Urine osmolality Serum Osmolality BMP Q4H Renal on Board Status: Acute (2) Hyponatremia: Hypovolemic Hyponatremia likely 2/2 to poor oral inatke. Status: Acute (3) Sepsis: Supported by Leukocytosis, elevated lactic acid, hypothermia, tachycardia, tachypnea. Severe dehydration can give conflicting findings. Blood Cultures Urine Culture Procalcitonin: 1.15 lactic acid : 3.6--->1.2 Ceftriaxone 1 gm q24h Status: Acute (4) Atrial fibrillation with RVR: Patient had an episode of atrial fibrillation with RVR overnight: Responded well to metoprolol 12.5 mg IV one-time dose. Converted to normal sinus rhythm. likely Precipitant of A. fib is sepsis and electrolyte abnormality. [id number] score 0 Status: Acute (5) Hyperkalemia: Resolved Admission serum potassium :5.8 ---: Current serum potassium is: 3.9 Tele Monitor BMP Status: Acute (6) Transaminitis: Transaminitis likely secondary to hypotension. Is improving. Hepatitis panel HIV Monitor LFTs for now Status: Acute (7) Heart murmur: Follow-up 2D echo Status: Acute (8) Acute urinary retention: Patient was experiencing acute urinary retention : pt had a large PVR w/ tee - approx 2 liters out. Once he is more medically stable will do a voiding trial. If he fails will consult urology. Flomax 0.4 mg p.o. daily Status: Acute Additional A&P Information Code Status:Full Code DVT PPx: Lovenox Attestations Medical Necessity Statement*: Patient needs to be in hospital for management of acute encephalopathy , severe hyponatremia Coding Level of Care Code Acute Computer Security Specialist for [facility] Fwd Exam Detailed Diagnoses Acute encephalopathy G93.40 Hyponatremia E87.1 Sepsis A41.9 Atrial fibrillation with RVR I48.91 Hyperkalemia E87.5 Transaminitis R74.01 Heart murmur R01.1 Acute urinary retention R33.8
[2021-05-19] MEDS: desmopressin 4 mcg/mL INJ 1 MCG SUBCUT (12:59)
--- NOTE | 2021-05-19 15:46 | PC.NURSE ---
Pt pulled out his Central line in the left groin. Cath tip intact.
--- NOTE | 2021-05-19 16:48 | PC.NURSE ---
speech in room evaluating his swallowing.
[2021-05-19 16:54] LABS: Sodium 113 mmol/L (136-145)
--- NOTE | 2021-05-19 17:45 | PC.NURSE ---
Coccyx wound left open to air. Pt is easily reminded and encouraged to stay off his buttocks and roll from side to side.
[2021-05-19] MEDS: dextrose 5% 1,000 ML 100 ML IV (17:49)
[2021-05-19 20:26] LABS: Phosphorus 1.5 mg/dL (2.5-4.5)
[2021-05-19 20:39] LABS: Anion Gap 14.4 (5-19); Blood Urea Nitrogen 7 mg/dL (6-20); Calcium 7.6 mg/dL (8.5-10.5); Carbon Dioxide 24 mmol/L (22-29); Chloride 77 mmol/L (98-107); Glomerular Filtration Rate 220.2 mL/min (90-130); Glucose 151 mg/dL (65-115); Osmolality Calculated 235 mOsm/kg (285-295); Potassium 3.4 mmol/L (3.5-5.1)
[2021-05-19 20:41] LABS: Sodium 112 mmol/L (136-145)
--- NOTE | 2021-05-19 20:53 | PC.NURSE ---
Na of [address] Razo t.o. to stop D5 and start NS 75 ml/hr
[2021-05-19] MEDS: cefTRIAXone 1,000 MG in sodium chloride 0.9% (plus) 50 ML 100 MG IV (21:16)
[2021-05-19] MEDS: sodium chloride 0.9% 1,000 ML 75 ML IV (21:26)
[2021-05-20] VITALS (21 sets, daily range): BP systolic 83–167; BP diastolic 47–84; PULSE 80–122; RESP 13–25; TEMP 36.7–36.8; O2SAT 92–100
[2021-05-20 00:32] LABS: Blood Urea Nitrogen 6 mg/dL (6-20); Calcium 7.8 mg/dL (8.5-10.5); Carbon Dioxide 24 mmol/L (22-29); Chloride 82 mmol/L (98-107); Glomerular Filtration Rate 220.2 mL/min (90-130); Glucose 97 mg/dL (65-115); Osmolality Calculated 240 mOsm/kg (285-295)
[2021-05-20 00:33] LABS: Anion Gap 13.6 (5-19); Potassium 3.6 mmol/L (3.5-5.1); Sodium 116 mmol/L (136-145)
--- NOTE | 2021-05-20 00:36 | PC.NURSE ---
new Na of [address] Razo, t.o. given to stop NS and to sart D5 at 125 ml/hr
[2021-05-20] MEDS: dextrose 5% 1,000 ML 125 ML IV (00:56)
[2021-05-20 04:50] LABS: Basophils # 0.1 10^3/uL (0.0-0.1); Basophils % 0.6 %; Eosinophils % 0.1 %; Hematocrit 30.1 % (42.0-52.0); Hemoglobin 11.5 g/dL (11.7-16.6); Lymphocytes # 0.4 10^3/uL (0.8-4.8); Lymphocytes % 4.4 %; Mean Corpuscular HGB Conc 38.2 g/dL (30.0-36.0); Mean Corpuscular Hemoglobin 35.5 pg (28.0-34.0); Mean Corpuscular Volume 92.9 fL (80-94); Mean Platelet Volume 9.3 fL (7.4-10.4); Monocytes # 0.5 10^3/uL (0.2-0.9); Monocytes % 6.5 %; Neutrophils # 6.96 10^3/uL (1.8-7.7); Nucleated Red Blood Cells % 0 %; Platelet Count 179 10^3/cmm (130-400); Red Blood Count 3.24 10^6/uL (4.1-5.3); Red Cell Distribution Width 11.3 % (12.1-15.1)
[2021-05-20 05:08] LABS: Alanine Aminotransferase 188 U/L (0-41); Albumin Level 2.6 g/dL (3.5-5.2); Alkaline Phosphatase 73 IU/L (40-130); Anion Gap 11.1 (5-19); Aspartate Amino Transferase 288 U/L (0-40); Blood Urea Nitrogen 4 mg/dL (6-20); Calcium 7.4 mg/dL (8.5-10.5); Carbon Dioxide 25 mmol/L (22-29); Chloride 80 mmol/L (98-107); Glomerular Filtration Rate 306.9 mL/min (90-130); Glucose 150 mg/dL (65-115); Magnesium 1.9 mg/dL (1.7-2.3); Osmolality Calculated 236 mOsm/kg (285-295); Potassium 3.1 mmol/L (3.5-5.1); Total Bilirubin 0.7 mg/dL (0.15-1.2); Total Protein 4.6 g/dL (6.6-8.7)
[2021-05-20 05:14] LABS: Hepatitis B Surface Antigen Non-Reactive (Nonreactive); Hepatitis C Virus Antibody Reactive (Nonreactive)
[2021-05-20 05:16] LABS: Sodium 113 mmol/L (136-145)
[2021-05-20 05:17] LABS: Slide Review Slide Review Perform
[2021-05-20 05:22] LABS: Folate Level 3.7 ng/mL (4.5-32.2)
[2021-05-20 05:23] LABS: Vitamin B12 1095 pg/mL (232-1245)
--- NOTE | 2021-05-20 05:23 | PC.NURSE ---
Na of [address] Razo t.simón. given to hold fluids at this time
[2021-05-20] MEDS: sodium chloride 0.9% 1,000 ML 100 ML IV (06:35)
--- NOTE | 2021-05-20 06:59 | P.PN_ITS ---
Subjective Subjective: Interval history: more awake, Large PVR w/ tee yesterday. knows he is in hospital. follows some simple commands. Medications: Reviewed: Yes Medication Review Details: Current Medications Acetaminophen (Acetaminophen 325 Mg Tablet) 650 mg PO Q6H PRN PRN Reason: Mild/Mod Pain Or Temp >/= 101 Bisacodyl (Bisacodyl 5 Mg Tablet) 10 mg PO DAILY PRN; Protocol PRN Reason: Constipation (see protocol) Enoxaparin Sodium (Enoxaparin 40 Mg/0.4 Ml Syringe) 40 mg SUBCUT Q24H [facility] Last Admin: 05/18/21 23:20 Dose: 40 mg Documented by: Ceftriaxone Sodium 1,000 mg/ (Sodium Chloride) 50 mls @ 100 mls/hr IV Q24H [facility]; Protocol Last Admin: 05/19/21 21:16 Dose: 100 mls/hr Documented by: Dextrose (D5w) 1,000 mls @ 125 mls/hr IV .Q8H [facility] Last Infusion: 05/20/21 05:23 Dose: 0 mls/hr Documented by: Potassium Phosphate 15 mmol/ (Sodium Chloride) 105 mls @ 47 mls/hr IV ONCE ONE Stop: 05/20/21 09:44 Last Admin: 05/20/21 06:59 Dose: 47 mls/hr Documented by: Sodium Chloride (Sodium Chloride 0.9%) 1,000 mls @ 100 mls/hr IV .Q10H [facility] Last Admin: 05/20/21 06:35 Dose: 100 mls/hr Documented by: Lorazepam (Lorazepam 2 Mg/Ml Inj 1 Ml) 2 mg IVP Q4H PRN PRN Reason: ANXIETY Naloxone HCl (Naloxone 0.4 Mg/Ml Sdv) 0.1 mg IVP Q2M PRN PRN Reason: OPIATERV Ondansetron HCl (Ondansetron 2 Mg/Ml Sdv 2 Ml) 4 mg IVP Q8H PRN PRN Reason: vomiting, or N/V if npo Oxycodone/Acetaminophen (Oxycodone-Apap 5-325 Mg Tablet) 1 tab PO Q4H PRN PRN Reason: SEVERE PAIN Tamsulosin HCl (Tamsulosin 0.4 Mg Capsule) 0.4 mg PO DAILY [facility] Vitals/I&O/Wt Last Vital Signs Temp 97.4 F L 05/19/21 08:00 Pulse 93 05/20/21 06:00 Resp 25 H 05/20/21 04:00 BP 103/53 05/20/21 04:00 Pulse Ox 100 05/20/21 04:00 05/19/21 05/19/21 05/20/21 14:59 22:59 06:59 Intake Total 1360.000 / 1360.000 500 / 1860.000 556.25 / 2416.250 Output Total 2775 / 2775 800 / 3575 Balance -1415.000 / -1415.000 500 / -915.000 -243.75 / -1158.750 Weight last 48 hrs Weight 57.153 kg Physical Exam Narrative: EXAM NARRATIVE: ill appearing, more awake, less confused, skin lesions vs noted - BP on low side heent- nca/t, eomi neck supple lungs clear heart reg, no rub abd soft, nt, nd, +BS ext no edema skin- turgor improving neuro- more awake, knows name and hospital- follows simple commands Urinary Catheter Management^: Tee: Cath Placed During This Visit: yes Reason for Continuing Indwelling Catheter: Accurate Measurement of Urinary Output in Critically Ill Patients Urinary Catheter Date of Insertion: 05/19/21 Urinary Catheter Time of Insertion: : Data : 05/20/21 04:30 05/20/21 04:30 Micro: Microbiology 05/18/21 15:59 Blood Culture - Preliminary Blood NEGATIVE TO DATE 05/18/21 15:59 Blood Culture - Preliminary Blood NEGATIVE TO DATE 05/19/21 14:00 Occult Blood (FIT) - Final Stool - Stool Aspirate A&P Additional A&P Information 61 yr old man w/ AMS and na of 103 1. hyponatremia- likely prerenal -na up to 108 by 77/ am, now 113- aim for 120 by am -low ur na- continue ns ivf -normal tsh, cortisol -u/a glu 4+, 3+ blood -monitor in and out - head ct reviewed - may need demopressin if we over-correct -high risk for osmotic demyelination syndrome as serum na <105 on presentation -fluid restrict -as pt had urinary obstruction- may contribute to his hyponatremia -if fails TOV, please have urology see pt- start flomax 2. cxr- small foci of ground-glass interstitial lung disease right upper lobe and right lung base which could reflect focal interstitial pneumonitis. No consolidated alveolar airspace disease. - abx per medicine 3. COPD 4. replace k, phos, magnesium as needed 5. inc LFT's improving- Hep C+ 6. 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
--- NOTE | 2021-05-20 07:08 | PC.RESP ---
SMOKING CESSATION INFORMATION SENT TO PATIENT.
[2021-05-20] MEDS: tamsulosin 0.4 mg Capsule PO (08:01)
--- NOTE | 2021-05-20 08:55 | PC.CHAP ---
Pastoral Care Encounter/Spiritual Assessment Type of Contact [] Declined sandwich artist visit [] Patient/Family/Request visit [] Outpatient visit [] Follow-up visit [] Physician referral [] Code/Alert [x] Routine visit [] Staff referral [] Actively dying [x] Patient sleeping [] Family support [] [] Out of room [] Palliative care [] [] Receiving care in room [] Pre-surgical visit [] Trauma [] Long length of stay [x] ICU visit [] Other: Relational/Emotional Strength [] Patient feels connected with others/family/visitors/staff [] Distress [] Loneliness/isolation [] Abandonment Spirituality of Patient [] Person of Arianna [] Attends Sikhism of their Arianna [] Believes in Prayer [] Reads Bible or Mandaen materials [] There are Spiritual issues to be addressed Skid Strapper Interventions [x] Prayer [] Active listening [] Non-anxious presence [] Spiritual/emotional support [] Crisis/trauma care [] Spiritual counseling [] Bereavement support [] Provided bereavement packet [] Provided Bible/devotional materials [] Provided toy/stuffed animal, coloring book to patient or family member [] Provided Communion [] Anointing/[place] [] Salvation [x] Completed spiritual assessment [] Other: Impact on Illness or Injury [] Angry [] Fearful [] Anxious [] Often cries [] Exhaustion [] Unable to work [] Unable to attend oriental orthodox [] Unable to walk/stand [] Unable to read [] Unable to drive [] Unable to eat/drink [] Unable to sleep [] Unable to be with family [] Patient intubated [] Other: Summary Time spent with patient
[2021-05-20 09:01] LABS: Anion Gap 14.2 (5-19); Blood Urea Nitrogen 4 mg/dL (6-20); Calcium 7.7 mg/dL (8.5-10.5); Carbon Dioxide 24 mmol/L (22-29); Chloride 79 mmol/L (98-107); Glomerular Filtration Rate 306.9 mL/min (90-130); Glucose 107 mg/dL (65-115); Osmolality Calculated 235 mOsm/kg (285-295); Potassium 3.2 mmol/L (3.5-5.1)
--- NOTE | 2021-05-20 09:06 | USCV_ITS ---
Fred Samano Age: 61 Gender: M : 1960 Exam Date: 05/20/2021 06:31 Ordering Phys: Reed Panchal MD Technologist: Kari Garg Exam Location: [facility] [place] Indication: SHORTNESS OF BREATH BP: 105 / 66 HR: 87 Rhythm: Sinus Technical Quality: Very technically difficult study MEASUREMENTS (Male / Female) Normal Values 2D ECHO LV Diastolic Diameter PLAX 2.7 cm 4.2 - 5.9 / 3.9 - 5.3 cm LV Systolic Diameter PLAX 1.5 cm IVS Diastolic Thickness 1.5 cm 0.6 - 1.0 / 0.6 - 0.9 cm IVS Systolic Thickness 2.4 cm LVPW Diastolic Thickness 1.6 cm 0.6 - 1.0 / 0.6 - 0.9 cm LVPW Systolic Thickness 1.6 cm LVOT Diameter 2.0 cm LV Ejection Fraction 2D Teich 75.5 % LA Diameter 2.5 cm Aorta at Sinotubular Diameter 2.3 cm DOPPLER LVOT Peak Velocity 148.0 cm/s MV Area PHT 4.2 cm squared Mitral E to A Ratio 0.9 MV E' Velocity 32.0 cm/s Mitral E to MV E' Ratio 6.7 Mitral E to LV E' Lateral Ratio 5.4 Mitral E to LV E' Septal Ratio 8.9 TR Peak Velocity 179.0 cm/s TR Peak Gradient 12.8 mmHg TV Peak E Velocity 58.0 cm/s Right Atrial Pressure 3.0 mmHg Pulmonary Artery Systolic Pressu 15.8 mmHg PV Peak Velocity 136.0 cm/s RV Acceleration Time 0.1 s RV Ejection Time 0.2 s RV AcT/ET 0.4 FINDINGS Left Ventricle Normal left ventricular cavity size. Mild left ventricular hypertrophy. Left ventricle function is hyperdynamic.left ventricular ejection fraction is estimated at 75 %. Grade I/IV diastolic dysfunction (abnormal relaxation filling pattern), normal to mildly elevated filling pressures. Right Ventricle The right ventricle is normal in size and function. Right Atrium The right atrium is normal in size. Left Atrium The left atrium is normal in size. Mitral Valve Structurally normal mitral valve without significant stenosis or prolapse. There is no mitral regurgitation. Aortic Valve Structurally normal aortic valve without significant sclerosis or stenosis. There is no aortic regurgitation. Tricuspid Valve Structurally normal tricuspid valve without significant stenosis or regurgitation. Pulmonary artery systolic pressure is normal. Pulmonic Valve Structurally normal pulmonic valve without significant stenosis. There is no pulmonic regurgitation. Pericardium Normal pericardium without effusion. Aorta Normal ascending aorta dimension. CONCLUSIONS 1-Normal left ventricular cavity size. Mild left ventricular hypertrophy. Left ventricle function is hyperdynamic.left ventricular ejection fraction is estimated at 75 %. Grade I/IV diastolic dysfunction (abnormal relaxation filling pattern), normal to mildly elevated filling pressures. 2-There is no pericardial effusion. 3-No significant valve abnormalities. 4-Pulmonary artery systolic pressure is within normal limits. 5-Right atrial pressure is around 5 mm of mercury. 6-There are no prior echocardiogram studies to compare. Mike Barrera MD (Electronically Signed) Final Date: 20 May 2021 15:13 S
[2021-05-20 09:09] LABS: Sodium 114 mmol/L (136-145)
--- NOTE | 2021-05-20 12:52 | PC.NUTR ---
Nutrition assessment completed due to presence of wound and low BMI. Recommend to advance diet as tolerated and when medically appropriate. Recommend Ensure clear with meals to provide additional kcal/protein will on clear liquid diet. When diet advanced, recommend Ensure Plus as it is higher in protein/kcal. See RD assessment for further details.
[2021-05-20 13:11] LABS: Blood Urea Nitrogen 3 mg/dL (6-20); Calcium 7.5 mg/dL (8.5-10.5); Carbon Dioxide 22 mmol/L (22-29); Chloride 80 mmol/L (98-107); Glomerular Filtration Rate 306.9 mL/min (90-130); Glucose 126 mg/dL (65-115); Osmolality Calculated 236 mOsm/kg (285-295)
[2021-05-20 13:16] LABS: Anion Gap 15.2 (5-19); Potassium 3.2 mmol/L (3.5-5.1)
[2021-05-20 13:17] LABS: Sodium 114 mmol/L (136-145)
[2021-05-20] MEDS: potassium chloride ER 20 mEq Tablet 40 MEQ PO (14:21)
--- NOTE | 2021-05-20 14:42 | P.PN_ITS ---
Subjective Subjective: Interval history: Patient was seen and examined this morning, awake and alert today, says that he is hungry wants to eat, tolerated clear liquid diet, will advance the diet as tolerated. Medications: Reviewed: Yes Medication Review Details: Current Medications Acetaminophen (Acetaminophen 325 Mg Tablet) 650 mg PO Q6H PRN PRN Reason: Mild/Mod Pain Or Temp >/= 101 Bisacodyl (Bisacodyl 5 Mg Tablet) 10 mg PO DAILY PRN; Protocol PRN Reason: Constipation (see protocol) Enoxaparin Sodium (Enoxaparin 40 Mg/0.4 Ml Syringe) 40 mg SUBCUT Q24H [facility] Last Admin: 05/18/21 23:20 Dose: 40 mg Documented by: Ceftriaxone Sodium 1,000 mg/ (Sodium Chloride) 50 mls @ 100 mls/hr IV Q24H [facility]; Protocol Last Admin: 05/19/21 21:16 Dose: 100 mls/hr Documented by: Dextrose (D5w) 1,000 mls @ 125 mls/hr IV .Q8H [facility] Last Infusion: 05/20/21 05:23 Dose: 0 mls/hr Documented by: Potassium Phosphate 15 mmol/ (Sodium Chloride) 105 mls @ 47 mls/hr IV ONCE ONE Stop: 05/20/21 09:44 Last Admin: 05/20/21 06:59 Dose: 47 mls/hr Documented by: Sodium Chloride (Sodium Chloride 0.9%) 1,000 mls @ 100 mls/hr IV .Q10H [facility] Last Admin: 05/20/21 06:35 Dose: 100 mls/hr Documented by: Lorazepam (Lorazepam 2 Mg/Ml Inj 1 Ml) 2 mg IVP Q4H PRN PRN Reason: ANXIETY Naloxone HCl (Naloxone 0.4 Mg/Ml Sdv) 0.1 mg IVP Q2M PRN PRN Reason: OPIATERV Ondansetron HCl (Ondansetron 2 Mg/Ml Sdv 2 Ml) 4 mg IVP Q8H PRN PRN Reason: vomiting, or N/V if npo Oxycodone/Acetaminophen (Oxycodone-Apap 5-325 Mg Tablet) 1 tab PO Q4H PRN PRN Reason: SEVERE PAIN Tamsulosin HCl (Tamsulosin 0.4 Mg Capsule) 0.4 mg PO DAILY [facility] Vitals/I&O/Wt Last Vital Signs Temp 98.3 F 05/20/21 12:00 Pulse 95 05/20/21 13:00 Resp 25 H 05/20/21 12:00 BP 103/53 05/20/21 12:00 Pulse Ox 99 05/20/21 12:17 05/19/21 05/20/21 05/20/21 22:59 06:59 14:59 Intake Total 500 / 1860.000 556.25 / 2416.250 3562.7579 / 3562.7579 Output Total 800 / 3575 500 / 500 Balance 500 / -915.000 -243.75 / -9815.752 9462.7579 / 3062.7579 Weight last 48 hrs Weight 57.153 kg Physical Exam HENMT: COMMON NORMALS: normocephalic and atraumatic HEAD & SCALP: normocephalic and atraumatic Resp: COMMON NORMALS: clear to auscultation bilaterally AUSCULTATION: clear to auscultation bilaterally Cardio: COMMON NORMALS: regular rate, regular rhythm, S1 normal heart sound present, S2 normal heart sound present, No gallops present (Cardio), No rub (Cardio) and Peripheral pulses 2+ throughout RATE: regular rate RHYTHM: regular rhythm HEART SOUNDS: S1 normal heart sound present and S2 normal heart sound present PERIPHERAL PULSES: Peripheral pulses 2+ throughout OTHER: Systolic murmur in mitral area GI: COMMON NORMALS: Normal to inspection, nondistended, normoactive bowel sounds present, Soft to palpation, non-tender, No hepatosplenomegaly present and no masses AUSCULTATION: Yes normoactive bowel sounds PALPATION: Yes Soft to palpation and Yes No hepatosplenomegaly present RECTAL EXAM: Yes deferred Extremity: COMMON NORMALS: no clubbing, cyanosis or edema and no pedal edema Urinary Catheter Management^: Tee: Cath Placed During This Visit: yes Reason for Continuing Indwelling Catheter: Accurate Measurement of Urinary Output in Critically Ill Patients Urinary Catheter Date of Insertion: 05/19/21 Urinary Catheter Time of Insertion: : Data : 05/20/21 04:30 05/20/21 12:15 Micro: Microbiology 05/18/21 16:58 Urine Culture - Preliminary Urine Catheterized 05/18/21 15:59 Blood Culture - Preliminary Blood NEGATIVE TO DATE 05/18/21 15:59 Blood Culture - Preliminary Blood NEGATIVE TO DATE 05/19/21 14:00 Occult Blood (FIT) - Final Stool - Stool Aspirate A&P Assessment and plan (1) Acute encephalopathy: Acute Metabolic Encephalopathy 2/2 to severe Hyponatremia 2/2 Hypo volemic Hyponatremia likely 2/2 to poor oral inatke. Received 3% N.s 100 cc. Given the fact that the patient serum sodium is extremely low he is at very high risk for ODS ( Osmotic Demyelination Syndrome ) Within goal Sodium correction TSH: 1.20 Random Cortisol :52.68 A.m. cortisol: 23.25 Urine analysis Urine electrolytes: Urine random sodium:10, urine random potassium:41, urine random chloride:14, urine creatinine:77 U tox: Salicylate less than 0.3, urine acetaminophen less than 5 Urine osmolality Serum Osmolality BMP Q4H Renal on Board Status: Acute (2) Hyponatremia: Hypovolemic Hyponatremia likely 2/2 to poor oral inatke. Status: Acute (3) Sepsis: Supported by Leukocytosis, elevated lactic acid, hypothermia, tachycardia, tachypnea. Severe dehydration can give conflicting findings. Blood Cultures : NTD Urine Culture: NTD Procalcitonin: 1.15 lactic acid : 3.6--->1.2 Ceftriaxone 1 gm q24h Status: Acute (4) Atrial fibrillation with RVR: Patient had an episode of atrial fibrillation with RVR overnight: Respond ed well to metoprolol 12.5 mg IV one-time dose. Converted to normal sinus rhythm. likely Precipitant of A. fib is sepsis and electrolyte abnormality. [id number] score 0 Status: Acute (5) Hyperkalemia: Resolved Admission serum potassium :5.8 ---: Current serum potassium is: 3.9 Tele Monitor BMP Status: Acute (6) Transaminitis: Transaminitis likely secondary to hypotension. Is improving. Hepatitis panel HIV Monitor LFTs for now Status: Acute (7) Heart murmur: 2D echo: Normal left ventricular cavity size. Mild left ventricular hyper trophy. Left ventricle function is hyperdynamic.left ventricular ejection fraction is estimated at 75 %. Grade I/IV diastolic dysfunction (abnormal relaxation filling pattern), normal to mildly elevated filling pressures. There is no pericardial effusion. No significant valve abnormalities.Pulmonary artery systolic pressure is within normal limits. Status: Acute (8) Acute urinary retention: Patient was experiencing acute urinary retention : pt had a large PVR w/ tee - approx 2 liters out. Once he is more medically stable will do a voiding trial. If he fails will consult urology. Flomax 0.4 mg p.o. daily. 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
[2021-05-20] MEDS: sodium chloride 0.9% 1,000 ML 150 ML IV (16:02)
[2021-05-20 18:42] LABS: Anion Gap 14.2 (5-19); Blood Urea Nitrogen 3 mg/dL (6-20); Calcium 7.4 mg/dL (8.5-10.5); Carbon Dioxide 23 mmol/L (22-29); Chloride 84 mmol/L (98-107); Glomerular Filtration Rate 306.9 mL/min (90-130); Glucose 107 mg/dL (65-115); Magnesium 2.1 mg/dL (1.7-2.3); Osmolality Calculated 243 mOsm/kg (285-295); Phosphorus 1.2 mg/dL (2.5-4.5); Potassium 3.2 mmol/L (3.5-5.1)
[2021-05-20 18:46] LABS: Sodium 118 mmol/L (136-145)
--- NOTE | 2021-05-20 19:14 | PC.NURSE ---
Report received, pt resting in bed with no s/s of pain or SOB. On RA. Denies any needs. NS dc'd per MD order. Nagy cath draining freely to BSD. Will monitor.
[2021-05-20] MEDS: cefTRIAXone 1,000 MG in sodium chloride 0.9% (plus) 50 ML 100 MG IV (20:26)
--- NOTE | 2021-05-20 20:38 | PC.NURSE ---
Called Dr. Thompson to discuss possibility of moving pt to med surg. Awaiting return call.
[2021-05-20] MEDS: enoxaparin 40 mg/0.4 mL Syringe SUBCUT (20:43)
--- NOTE | 2021-05-20 20:56 | PC.NURSE ---
Dr. Thompson agreed to move pt to med surg. Nurse to call Dr. Thompson with BMP around 2300.
--- NOTE | 2021-05-20 21:22 | PC.NURSE ---
Report given to Abbie. Pt transferred in bed per Alicia RICHARDSON. All belongings sent with pt.
[2021-05-21] VITALS (9 sets, daily range): BP systolic 108–155; BP diastolic 63–82; PULSE 89–119; RESP 16–24; TEMP 36.6–36.9; O2SAT 95–98
[2021-05-21 00:44] LABS: Blood Urea Nitrogen 3 mg/dL (6-20); Calcium 7.7 mg/dL (8.5-10.5); Carbon Dioxide 24 mmol/L (22-29); Chloride 87 mmol/L (98-107); Glomerular Filtration Rate 306.9 mL/min (90-130); Glucose 99 mg/dL (65-115); Magnesium 1.8 mg/dL (1.7-2.3); Osmolality Calculated 245 mOsm/kg (285-295); Phosphorus 1.1 mg/dL (2.5-4.5)
[2021-05-21 00:48] LABS: Sodium 119 mmol/L (136-145)
[2021-05-21 04:29] LABS: Basophils % 0.4 %; Hematocrit 31.7 % (42.0-52.0); Hemoglobin 11.9 g/dL (11.7-16.6); Lymphocytes # 0.2 10^3/uL (0.8-4.8); Lymphocytes % 4.1 %; Mean Corpuscular HGB Conc 37.5 g/dL (30.0-36.0); Mean Corpuscular Hemoglobin 35.7 pg (28.0-34.0); Mean Corpuscular Volume 95.2 fL (80-94); Mean Platelet Volume 9.1 fL (7.4-10.4); Monocytes # 0.9 10^3/uL (0.2-0.9); Monocytes % 15.7 %; Neutrophils # 4.48 10^3/uL (1.8-7.7); Neutrophils % 78.9 %; Nucleated Red Blood Cells % 0 %; Platelet Count 183 10^3/cmm (130-400); Red Blood Count 3.33 10^6/uL (4.1-5.3); Red Cell Distribution Width 11.5 % (12.1-15.1); White Blood Count 5.7 10^3/uL (4.0-10.0)
[2021-05-21 05:03] LABS: Alanine Aminotransferase 215 U/L (0-41); Albumin Level 2.9 g/dL (3.5-5.2); Alkaline Phosphatase 78 IU/L (40-130); Anion Gap 13.3 (5-19); Aspartate Amino Transferase 222 U/L (0-40); Blood Urea Nitrogen 3 mg/dL (6-20); Calcium 7.8 mg/dL (8.5-10.5); Carbon Dioxide 25 mmol/L (22-29); Chloride 89 mmol/L (98-107); Globulin 2.1 g/dL (1.3-4.6); Glomerular Filtration Rate 220.2 mL/min (90-130); Glucose 98 mg/dL (65-115); Magnesium 2.1 mg/dL (1.7-2.3); Osmolality Calculated 255 mOsm/kg (285-295); Phosphorus 2.4 mg/dL (2.5-4.5); Potassium 3.3 mmol/L (3.5-5.1); Sodium 124 mmol/L (136-145); Total Bilirubin 0.5 mg/dL (0.15-1.2)
--- NOTE | 2021-05-21 05:09 | PC.NURSE ---
Dr Reynolds was contacted at approximately 0100 to be updated on patient BMP results. Physician ordered 15mmol of potassium phosphate and 1 gm of magnesium sulfate.
[2021-05-21] MEDS: potassium chloride ER 20 mEq Tablet 40 MEQ PO (06:20)
[2021-05-21] MEDS: dextrose 5% 1,000 ML 125 ML IV ×2 (06:20→14:21)
[2021-05-21 09:54] LABS: Magnesium 2.2 mg/dL (1.7-2.3); Phosphorus 2.1 mg/dL (2.5-4.5)
[2021-05-21 10:18] LABS: Osmolality Serum 234 mOsm/kg (278-305)
[2021-05-21 10:18] LABS: Osmolality Urine 649 mOsm/kg (50-1200)
--- NOTE | 2021-05-21 10:20 | PM.PN ---
Subjective Subjective: Interval history: Mr. Samano is overall doing good,tolerating Full liquid well, diet has been increased to G.I Soft. Serum sodium was slightly above the goal hence he was started on D5 water at 125 cc an hour.Repeat Serum Sodium is 116 in the noon.D5W has been stopped. He says that he is ready to go home. Vitals and labs have been reviewed. Medications: Reviewed: Yes Medication Review Details: Current Medications Acetaminophen (Acetaminophen 325 Mg Tablet) 650 mg PO Q6H PRN PRN Reason: Mild/Mod Pain Or Temp >/= 101 Bisacodyl (Bisacodyl 5 Mg Tablet) 10 mg PO DAILY PRN; Protocol PRN Reason: Constipation (see protocol) Enoxaparin Sodium (Enoxaparin 40 Mg/0.4 Ml Syringe) 40 mg SUBCUT Q24H [facility] Last Admin: 05/18/21 23:20 Dose: 40 mg Documented by: Ceftriaxone Sodium 1,000 mg/ (Sodium Chloride) 50 mls @ 100 mls/hr IV Q24H [facility]; Protocol Last Admin: 05/19/21 21:16 Dose: 100 mls/hr Documented by: Dextrose (D5w) 1,000 mls @ 125 mls/hr IV .Q8H [facility] Last Infusion: 05/20/21 05:23 Dose: 0 mls/hr Documented by: Potassium Phosphate 15 mmol/ (Sodium Chloride) 105 mls @ 47 mls/hr IV ONCE ONE Stop: 05/20/21 09:44 Last Admin: 05/20/21 06:59 Dose: 47 mls/hr Documented by: Sodium Chloride (Sodium Chloride 0.9%) 1,000 mls @ 100 mls/hr IV .Q10H [facility] Last Admin: 05/20/21 06:35 Dose: 100 mls/hr Documented by: Lorazepam (Lorazepam 2 Mg/Ml Inj 1 Ml) 2 mg IVP Q4H PRN PRN Reason: ANXIETY Naloxone HCl (Naloxone 0.4 Mg/Ml Sdv) 0.1 mg IVP Q2M PRN PRN Reason: OPIATERV Ondansetron HCl (Ondansetron 2 Mg/Ml Sdv 2 Ml) 4 mg IVP Q8H PRN PRN Reason: vomiting, or N/V if npo Oxycodone/Acetaminophen (Oxycodone-Apap 5-325 Mg Tablet) 1 tab PO Q4H PRN PRN Reason: SEVERE PAIN Tamsulosin HCl (Tamsulosin 0.4 Mg Capsule) 0.4 mg PO DAILY [facility] Vitals/I&O/Wt Last Vital Signs Temp 97.9 F 05/21/21 08:23 Pulse 103 H 05/21/21 08:23 Resp 17 05/21/21 08:23 BP 133/67 05/21/21 08:23 Pulse Ox 97 05/21/21 08:23 05/20/21 05/21/21 05/21/21 22:59 06:59 14:59 Intake Total 2763.333 / 6378.0909 157 / 6535.0909 50 / 50 Output Total 1200 / 1700 750 / 2450 Balance 1563.333 / 4678.0909 -593 / 4085.0909 50 / 50 Physical Exam Narrative: EXAM NARRATIVE: AO*0 HENMT: COMMON NORMALS: normocephalic and atraumatic HEAD & SCALP: normocephalic and atraumatic Resp: COMMON NORMALS: clear to auscultation bilaterally AUSCULTATION: clear to auscultation bilaterally Cardio: COMMON NORMALS: regular rate, regular rhythm, S1 normal heart sound present, S2 normal heart sound present, No gallops present (Cardio), No murmurs present (Cardio), No rub (Cardio) and Peripheral pulses 2+ throughout RATE: regular rate RHYTHM: regular rhythm HEART SOUNDS: S1 normal heart sound present and S2 normal heart sound present PERIPHERAL PULSES: Peripheral pulses 2+ throughout OTHER: Systolic murmur in mitral area GI: COMMON NORMALS: Normal to inspection, nondistended, normoactive bowel sounds present, Soft to palpation, non-tender, No hepatosplenomegaly present and no masses AUSCULTATION: Yes normoactive bowel sounds PALPATION: Yes Soft to palpation and Yes No hepatosplenomegaly present RECTAL EXAM: Yes deferred Extremity: COMMON NORMALS: no clubbing, cyanosis or edema and no pedal edema Urinary Catheter Management^: Tee: Cath Placed During This Visit: yes Reason for Continuing Indwelling Catheter: Accurate Measurement of Urinary Output in Critically Ill Patients Urinary Catheter Date of Insertion: 05/19/21 Urinary Catheter Time of Insertion: 08: Data : 05/21/21 04:00 05/21/21 12:30 Micro: Microbiology 05/18/21 16:58 Urine Culture - Final Urine Catheterized A&P Assessment and plan (1) Acute encephalopathy: Resolved Acute Metabolic Encephalopathy 2/2 to severe Hyponatremia 2/2 Hypovolemic Hyponatremia likely 2/2 to poor oral inatke. Received 3% N.s 100 cc. Given the fact that the patient serum sodium is extremely low he is at very high risk for ODS ( Osmotic Demyelination Syndrome ) Within goal Sodium correction TSH: 1.20 Random Cortisol :52.68 A.m. cortisol: 23.25 Urine analysis Urine electrolytes: Urine random sodium:10, urine random potassium:41, urine random chloride:14, urine creatinine:77 U tox: Salicylate less than 0.3, urine acetaminophen less than 5 Urine osmolality Serum Osmolality BMP Q4H Renal on Board Status: Acute (2) Hyponatremia: Hypovolemic Hyponatremia likely 2/2 to poor oral inatke. Status: Acute (3) Sepsis: Supported by Leukocytosis, elevated lactic acid, hypothermia, tachycardia, tachypnea. Severe dehydration can give conflicting findings. Blood Cultures : NTD Urine Culture: NTD Procalcitonin: 1.15 lactic acid : 3.6--->1.2 Ceftriaxone 1 gm q24h Status: Acute (4) Atrial fibrillation with RVR: Patient had an episode of atrial fibrillation with RVR overnight: Responded well to metoprolol 12.5 mg IV one-time dose. Converted to normal sinus rhythm. likely Precipitant of A. fib is sepsis and electrolyte abnormality. [id number] score 0 Status: Acute (5) Hyperkalemia: Resolved Admission serum potassium :5.8 ---: Current serum potassium is: Normal Tele Monitor BMP Status: Acute (6) Transaminitis: Transaminitis likely secondary to hypotension. Is improving. Hepatitis panel: Hepatitis B surface antigen negative: Hepatitis C core antibody positive: Ultrasound abdomen; HIV Monitor LFTs for now Status: Acute (7) Heart murmur: 2D echo: Normal left ventricular cavity size. Mild left ventricular hypertrophy. Left ventricle function is hyperdynamic.left ventricular ejection fraction is estimated at 75 %. Grade I/IV diastolic dysfunction (abnormal relaxation filling pattern), normal to mildly elevated filling pressures. There is no pericardial effusion. No significant valve abnormalities.Pulmonary artery systolic pressure is within normal limits. Status: Acute (8) Acute urinary retention: Patient was experiencing acute urinary retention : pt had a large PVR w/ tee - approx 2 liters out. Once he is more medically stable will do a voiding trial. If he fails will consult urology. Flomax 0.4 mg p.o. daily. Status: Acute Additional A&P Information Code Status:Full Code DVT PPx: Lovenox Attestations Medical Necessity Statement*: Patient needs to be in hospital for the management of severe hyponatremia. 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
[2021-05-21] MEDS: tamsulosin 0.4 mg Capsule PO (10:56)
--- NOTE | 2021-05-21 11:09 | P.PN_ITS ---
Subjective Subjective: Interval history: Mr. Samano feels okay with no acute problems. He is awake, lucid, asking to eat and drink. D5W at 125 mL/h is currently running. No extremity edema, s hortness of breath or other hypervolemic symptoms. Hemodynamics reviewed and remained stable. Vitals/I&O/Wt Last Vital Signs Temp 97.9 F 05/21/21 08:23 Pulse 103 H 05/21/21 08:23 Resp 17 05/21/21 08:23 BP 133/67 05/21/21 08:23 Pulse Ox 97 05/21/21 08:23 05/20/21 05/21/21 05/21/21 22:59 06:59 14:59 Intake Total 2763.333 / 6378.0909 157 / 6535.0909 50 / 50 Output Total 1200 / 1700 750 / 2450 Balance 1563.333 / 4678.0909 -593 / 4085.0909 50 / 50 Physical Exam Narrative: EXAM NARRATIVE: Constitutional: Awake, comfortable HEENT: Wet mucosa, no jvp, non icteric Lungs: Bilaterally clear without discernible wheeze, rales in all lung zones CVS: S1 S2, no murmurs Abdo: Soft, BS ok Ext 4: Minimal edema, peripheral perfusion with no cyanosis Neurological: Grossly non-focal Urinary Catheter Management^: Nagy: Cath Placed During This Visit: yes Reason for Continuing Indwelling Catheter: Accurate Measurement of Urinary Output in Critically Ill Patients Urinary Catheter Date of Insertion: 05/19/21 Urinary Catheter Time of Insertion: 08:21 Data : 05/21/21 04:00 05/21/21 04:00 Micro: Microbiology 05/18/21 16:58 Urine Culture - Final Urine Catheterized A&P Additional A&P Information 1. Hypovolemic hyponatremia. Appears to be multifactorial on admission, with urine chemistry consistent with prerenal picture. Likely high fluid intake and low solute intake prior to admission. Sodium levels a little above goal today and will cont D5w at 125mL/hr Goal today is 121, currently at 124 Goal tomorrow morning will be in the mid 120s Oral intake of water is also now encouraged, no free water restriction Okay to advance diet 2. Hypokalemia to be replaced. 3. Hypophosphatemia to be replaced. 4. Hemodynamics current currently looks stable, A. fib with RVR responding to metoprolol. 5. Acute urinary retention status post Nagy catheter placement. 6. Recent alcohol use, management per Dr. Panchal, [facility] protocol etc. Arnulfo Calixto MD Nephrology [phone] Patient seen and examined via telemedicine, with the assistance of the bedside RN > 25 min spent in evaluation and mgmt of patient Attestations Medical Necessity Statement*: Eval for hypoNA Coding Level of Care Code Acute Machine Shop Apprentice for Jorge Conklin
[2021-05-21 13:29] LABS: Blood Urea Nitrogen 3 mg/dL (6-20); Calcium 8.1 mg/dL (8.5-10.5); Carbon Dioxide 22 mmol/L (22-29); Chloride 85 mmol/L (98-107); Glomerular Filtration Rate 306.9 mL/min (90-130); Glucose 172 mg/dL (65-115); Magnesium 1.9 mg/dL (1.7-2.3); Osmolality Calculated 243 mOsm/kg (285-295); Phosphorus 1.3 mg/dL (2.5-4.5)
[2021-05-21 13:37] LABS: Anion Gap 12.7 (5-19); Potassium 3.7 mmol/L (3.5-5.1); Sodium 116 mmol/L (136-145)
--- NOTE | 2021-05-21 14:18 | PC.CHAP ---
Pastoral Care Encounter/Spiritual Assessment Type of Contact [] Declined steward/stewardess second class visit [] Patient/Family/Request visit [] Outpatient visit [xx] Follow-up visit [] Physician referral [] Code/Alert [xx] Routine visit [] Staff referral [] Actively dying [xx] Patient sleeping [] Family support [] [] Out of room [] Palliative care [] [] Receiving care in room [] Pre-surgical visit [] Trauma [xx] Long length of stay [] ICU visit [] Other: Relational/Emotional Strength [] Patient feels connected with others/family/visitors/staff [] Distress [] Loneliness/isolation [] Abandonment Spirituality of Patient [] Person of Arianna [] Attends Bahai of their Arianna [] Believes in Prayer [] Reads Bible or Jehovah'S Witness materials [] There are Spiritual issues to be addressed Dialysis Social Worker Interventions [] Prayer [] Active listening [] Non-anxious presence [] Spiritual/emotional support [] Crisis/trauma care [] Spiritual counseling [] Bereavement support [] Provided bereavement packet [] Provided Bible/devotional materials [] Provided toy/stuffed animal, coloring book to patient or family member [] Provided Communion [] Anointing/[place] [] Salvation [] Completed spiritual assessment [] Other: Impact on Illness or Injury [] Angry [] Fearful [] Anxious [] Often cries [] Exhaustion [] Unable to work [] Unable to attend roman catholic [] Unable to walk/stand [] Unable to read [] Unable to drive [] Unable to eat/drink [] Unable to sleep [] Unable to be with family [] Patient intubated [] Other: Summary Patient sleeping. Do another follow up visit later. Time spent with patient 1 minute
[2021-05-21 18:39] LABS: Magnesium 1.8 mg/dL (1.7-2.3); Phosphorus 1.3 mg/dL (2.5-4.5)
[2021-05-21] MEDS: enoxaparin 40 mg/0.4 mL Syringe SUBCUT (20:52)
[2021-05-21] MEDS: cefTRIAXone 1,000 MG in sodium chloride 0.9% (plus) 50 ML 100 MG IV (20:53)
[2021-05-22] VITALS (7 sets, daily range): BP systolic 147–196; BP diastolic 77–96; PULSE 93–116; RESP 16–24; TEMP 36.3–36.7; O2SAT 98–100
[2021-05-22 01:16] LABS: Phosphorus 1.7 mg/dL (2.5-4.5)
[2021-05-22 06:22] LABS: Magnesium 1.8 mg/dL (1.7-2.3); Phosphorus 1.8 mg/dL (2.5-4.5)
--- NOTE | 2021-05-22 07:00 | USR_ITS ---
PROCEDURE INFORMATION: Exam: US Abdomen Complete Exam date and time: 05/22/2021 7:00 AM Age: 61 years old Clinical indication: Condition or disease; Other: Hepatitis c; Additional info: Hep c, ruq for liver evaluation TECHNIQUE: Imaging protocol: Real-time ultrasound of the abdomen with image documentation. COMPARISON: No relevant prior studies available. FINDINGS: Liver: Normal. No mass. Gallbladder: Normal. No gallstones. There is no gallbladder wall thickening. Negative sonographic Dawn's sign. Common bile duct: Normal. No stones. No dilation. Pancreas: Obscured by overlying bowel gas. Right kidney: Normal. No mass. No hydronephrosis. Left kidney: Normal. No mass. No hydronephrosis. Spleen: Normal. No splenomegaly. Aorta: Obscured by overlying bowel gas. Inferior vena cava: Normal. US/US abdomen complete* [id number] IMPRESSION: No acute findings.
[2021-05-22 08:50] LABS: Anion Gap 15.6 (5-19); Blood Urea Nitrogen 4 mg/dL (6-20); Calcium 7.8 mg/dL (8.5-10.5); Carbon Dioxide 25 mmol/L (22-29); Chloride 82 mmol/L (98-107); Glomerular Filtration Rate 220.2 mL/min (90-130); Glucose 102 mg/dL (65-115); Osmolality Calculated 245 mOsm/kg (285-295); Potassium 3.6 mmol/L (3.5-5.1)
[2021-05-22 08:54] LABS: Sodium 119 mmol/L (136-145)
[2021-05-22 09:02] LABS: Basophils % 0.4 %; Eosinophils % 0.1 %; Hematocrit 32.5 % (42.0-52.0); Lymphocytes # 0.5 10^3/uL (0.8-4.8); Lymphocytes % 6.7 %; Mean Corpuscular HGB Conc 36.9 g/dL (30.0-36.0); Mean Corpuscular Hemoglobin 35.9 pg (28.0-34.0); Mean Corpuscular Volume 97.3 fL (80-94); Mean Platelet Volume 9.2 fL (7.4-10.4); Monocytes % 13.3 %; Neutrophils # 5.74 10^3/uL (1.8-7.7); Neutrophils % 78.5 %; Nucleated Red Blood Cells % 0 %; Platelet Count 225 10^3/cmm (130-400); Red Blood Count 3.34 10^6/uL (4.1-5.3); Red Cell Distribution Width 11.9 % (12.1-15.1); White Blood Count 7.3 10^3/uL (4.0-10.0)
[2021-05-22] MEDS: tamsulosin 0.4 mg Capsule PO (09:30)
--- NOTE | 2021-05-22 11:17 | P.PN_ITS ---
Subjective Subjective: Interval history: Feels ok, with no new issues. Remains very comfortable. High water intake yesterday. D5w held overnight due to acute drop in sodium levels No edema and no other volume related symptoms Eating and drinking well today Quite a happy bautista, no complaints on the medical floor today Medications: Reviewed: Yes Medication Review Details: Current Medications Acetaminophen (Acetaminophen 325 Mg Tablet) 650 mg PO Q6H PRN PRN Reason: Mild/Mod Pain Or Temp >/= 101 Bisacodyl (Bisacodyl 5 Mg Tablet) 10 mg PO DAILY PRN; Protocol PRN Reason: Constipation (see protocol) Enoxaparin Sodium (Enoxaparin 40 Mg/0.4 Ml Syringe) 40 mg SUBCUT Q24H [facility] Last Admin: 05/18/21 23:20 Dose: 40 mg Documented by: Ceftriaxone Sodium 1,000 mg/ (Sodium Chloride) 50 mls @ 100 mls/hr IV Q24H [facility]; Protocol Last Admin: 05/19/21 21:16 Dose: 100 mls/hr Documented by: Dextrose (D5w) 1,000 mls @ 125 mls/hr IV .Q8H [facility] Last Infusion: 05/20/21 05:23 Dose: 0 mls/hr Documented by: Potassium Phosphate 15 mmol/ (Sodium Chloride) 105 mls @ 47 mls/hr IV ONCE ONE Stop: 05/20/21 09:44 Last Admin: 05/20/21 06:59 Dose: 47 mls/hr Documented by: Sodium Chloride (Sodium Chloride 0.9%) 1,000 mls @ 100 mls/hr IV .Q10H [facility] Last Admin: 05/20/21 06:35 Dose: 100 mls/hr Documented by: Lorazepam (Lorazepam 2 Mg/Ml Inj 1 Ml) 2 mg IVP Q4H PRN PRN Reason: ANXIETY Naloxone HCl (Naloxone 0.4 Mg/Ml Sdv) 0.1 mg IVP Q2M PRN PRN Reason: OPIATERV Ondansetron HCl (Ondansetron 2 Mg/Ml Sdv 2 Ml) 4 mg IVP Q8H PRN PRN Reason: vomiting, or N/V if npo Oxycodone/Acetaminophen (Oxycodone-Apap 5-325 Mg Tablet) 1 tab PO Q4H PRN PRN Reason: SEVERE PAIN Tamsulosin HCl (Tamsulosin 0.4 Mg Capsule) 0.4 mg PO DAILY [facility] Vitals/I&O/Wt Last Vital Signs Temp 97.9 F 05/22/21 08:00 Pulse 102 H 05/22/21 08:00 Resp 18 05/22/21 08:00 BP 151/84 05/22/21 08:00 Pulse Ox 99 05/22/21 08:00 05/21/21 05/22/21 05/22/21 22:59 06:59 14:59 Intake Total 410.417 / 1930.417 960 / 2890.417 240 / 240 Output Total 3200 / 3200 3300 / 6500 Balance -2789.583 / -1269.583 -2340 / -3609.583 240 / 240 Physical Exam Narrative: EXAM NARRATIVE: Constitutional: Awake, comfortable HEENT: Wet mucosa, no jvp, non icteric Lungs: Bilaterally clear without discernible wheeze, rales in all lung zones CVS: S1 S2, no murmurs Abdo: Soft, BS ok Ext 4: Minimal edema, peripheral perfusion with no cyanosis Neurological: Grossly non-focal Urinary Catheter Management^: Nagy: Cath Placed During This Visit: yes Reason for Continuing Indwelling Catheter: Acute Urinary Retention or Obstruction Urinary Catheter Date of Insertion: 05/19/21 Urinary Catheter Time of Insertion: 08:21 Data : 05/22/21 05:25 05/22/21 05:25 Micro: Microbiology 05/18/21 16:58 Urine Culture - Final Urine Catheterized A&P Additional A&P Information 1. Hypovolemic hyponatremia. Appears to be multifactorial on admission, with urine chemistry consistent with prerenal picture. Likely high fluid intake and low solute intake prior to admission. Sodium levels dropped again acutely yesterday 119 this morning, within safe range of ascension goal will be mid to high 120s tomorrow given this acute drop Q12 sodium levels ok D5w held I have asked him not to drink excessively but will not implement a strict fluid restriction Okay to advance diet 2. Hypokalemia to be replaced. 3. Hypophosphatemia to be replaced. 4. Hemodynamics current currently looks stable, A. fib with RVR responding to metoprolol. 5. Acute urinary retention status post Nagy catheter placement. 6. Recent alcohol use, management per Dr. Panchal, [facility] protocol etc. 7. DC planning, will likely need SNF? Arnulfo Calixto MD Nephrology [phone] Patient seen and examined via telemedicine, with the assistance of the bedside RN > 25 min spent in evaluation and mgmt of patient Attestations Medical Necessity Statement*: eval for hypoNa Coding Level of Care Code Acute Equipment Specialist for Chg Rubin
--- NOTE | 2021-05-22 15:27 | P.PN_ITS ---
Subjective Subjective: Interval history: Mr. Samano is overall doing good,he is participating well with Physical therapy.Oral intake is good.B/P has been on higher side today. Medications: Reviewed: Yes Medication Review Details: Current Medications Acetaminophen (Acetaminophen 325 Mg Tablet) 650 mg PO Q6H PRN PRN Reason: Mild/Mod Pain Or Temp >/= 101 Bisacodyl (Bisacodyl 5 Mg Tablet) 10 mg PO DAILY PRN; Protocol PRN Reason: Constipation (see protocol) Enoxaparin Sodium (Enoxaparin 40 Mg/0.4 Ml Syringe) 40 mg SUBCUT Q24H [facility] Last Admin: 05/18/21 23:20 Dose: 40 mg Documented by: Ceftriaxone Sodium 1,000 mg/ (Sodium Chloride) 50 mls @ 100 mls/hr IV Q24H [facility]; Protocol Last Admin: 05/19/21 21:16 Dose: 100 mls/hr Documented by: Dextrose (D5w) 1,000 mls @ 125 mls/hr IV .Q8H [facility] Last Infusion: 05/20/21 05:23 Dose: 0 mls/hr Documented by: Potassium Phosphate 15 mmol/ (Sodium Chloride) 105 mls @ 47 mls/hr IV ONCE ONE Stop: 05/20/21 09:44 Last Admin: 05/20/21 06:59 Dose: 47 mls/hr Documented by: Sodium Chloride (Sodium Chloride 0.9%) 1,000 mls @ 100 mls/hr IV .Q10H [facility] Last Admin: 05/20/21 06:35 Dose: 100 mls/hr Documented by: Lorazepam (Lorazepam 2 Mg/Ml Inj 1 Ml) 2 mg IVP Q4H PRN PRN Reason: ANXIETY Naloxone HCl (Naloxone 0.4 Mg/Ml Sdv) 0.1 mg IVP Q2M PRN PRN Reason: OPIATERV Ondansetron HCl (Ondansetron 2 Mg/Ml Sdv 2 Ml) 4 mg IVP Q8H PRN PRN Reason: vomiting, or N/V if npo Oxycodone/Acetaminophen (Oxycodone-Apap 5-325 Mg Tablet) 1 tab PO Q4H PRN PRN Reason: SEVERE PAIN Tamsulosin HCl (Tamsulosin 0.4 Mg Capsule) 0.4 mg PO DAILY [facility] Vitals/I&O/Wt Last Vital Signs Temp 98.1 F 05/22/21 15:10 Pulse 102 H 05/22/21 15:10 Resp 20 H 05/22/21 15:10 BP 187/94 05/22/21 15:10 Pulse Ox 99 05/22/21 15:10 05/22/21 05/22/21 05/22/21 06:59 14:59 22:59 Intake Total 960 / 2890.417 480 / 480 Output Total 3300 / 6500 Balance -2340 / -3609.583 480 / 480 Physical Exam Narrative: EXAM NARRATIVE: AO*0 HENMT: COMMON NORMALS: normocephalic and atraumatic HEAD & SCALP: normocephalic and atraumatic Resp: COMMON NORMALS: clear to auscultation bilaterally AUSCULTATION: clear to auscultation bilaterally Cardio: COMMON NORMALS: regular rate, regular rhythm, S1 normal heart sound present, S2 normal heart sound present, No gallops present (Cardio), No murmurs present (Cardio), No rub (Cardio) and Peripheral pulses 2+ throughout RATE: regular rate RHYTHM: regular rhythm HEART SOUNDS: S1 normal heart sound present and S2 normal heart sound present PERIPHERAL PULSES: Peripheral pulses 2+ throughout OTHER: Systolic murmur in mitral area GI: COMMON NORMALS: Normal to inspection, nondistended, normoactive bowel sounds present, Soft to palpation, non-tender, No hepatosplenomegaly present and no masses AUSCULTATION: Yes normoactive bowel sounds PALPATION: Yes Soft to palpation and Yes No hepatosplenomegaly present RECTAL EXAM: Yes deferred Extremity: COMMON NORMALS: no clubbing, cyanosis or edema and no pedal edema Urinary Catheter Management^: Tee: Cath Placed During This Visit: yes Reason for Continuing Indwelling Catheter: Acute Urinary Retention or Obstruction Urinary Catheter Date of Insertion: 05/19/21 Urinary Catheter Time of Insertion: 08:21 Data : 05/22/21 05:25 05/22/21 05:25 A&P Assessment and plan (1) Acute encephalopathy: Resolved Acute Metabolic Encephalopathy 2/2 to severe Hyponatremia 2/2 Hypovolemic Hyponatremia likely 2/2 to poor oral inatke. Received 3% N.s 100 cc. Given the fact that the patient serum sodium is extremely low he is at very high risk for ODS ( Osmotic Demyelination Syndrome ) Within goal Sodium correction TSH: 1.20 Random Cortisol :52.68 A.m. cortisol: 23.25 Urine analysis Urine electrolytes: Urine random sodium:10, urine random potassium:41, urine random chloride:14, urine creatinine:77 U tox: Salicylate less than 0.3, urine acetaminophen less than 5 Urine osmolality Serum Osmolality BMP Q4H Renal on Board Status: Acute (2) Hyponatremia: Hypovolemic Hyponatremia likely 2/2 to poor oral inatke. Status: Acute (3) Sepsis: Supported by Leukocytosis, elevated lactic acid, hypothermia, tachycardia, tachypnea. Severe dehydration can give conflicting findings. Blood Cultures : NTD Urine Culture: NTD Procalcitonin: 1.15 lactic acid : 3.6--->1.2 He was on Ceftriaxone 1 gm q24h.Was stopped on 05/22 Status: Acute (4) Atrial fibrillation with RVR: Patient had an episode of atrial fibrillation with RVR overnight: Responded well to metoprolol 12.5 mg IV one-time dose. Converted to normal sinus rhythm. likely Precipitant of A. fib is sepsis and electrolyte abnormality. [id number] score 0 Status: Acute (5) Hyperkalemia: Resolved Admission serum potassium :5.8 ---: Current serum potassium is: Normal Tele Monitor BMP Status: Acute (6) Transaminitis: Transaminitis likely secondary to hypotension. Is improving. Hepatitis panel: Hepatitis B surface antigen negative: Hepatitis C core antibody positive: Ultrasound abdomen; No acute findings. HIV Monitor LFTs for now Status: Acute (7) Heart murmur: 2D echo: Normal left ventricular cavity size. Mild left ventricular hypertrophy. Left ventricle function is hyperdynamic.left ventricular ejection fraction is estimated at 75 %. Grade I/IV diastolic dysfunction (abnormal relaxation filling pattern), normal to mildly elevated filling pressures. There is no pericardial effusion. No significant valve abnormalities.Pulmonary artery systolic pressure is within normal limits. Status: Acute (8) Acute urinary retention: Patient was experiencing acute urinary retention : pt had a large PVR w/ tee - approx 2 liters out. Once he is more medically stable will do a voiding trial. If he fails will consult urology. Flomax 0.4 mg p.o. daily. Status: Acute Additional A&P Information Code Status:Full Code DVT PPx: Lovenox Attestations Medical Necessity Statement*: Patient needs to be in hospital for the management of Severe symptomatic hyponatremia. Coding Level of Care Code Acute Golf Sales Associate for Chg Fwd Diagnoses Acute encephalopathy G93.40 Hyponatremia E87.1 Sepsis A41.9 Atrial fibrillation with RVR I48.91 Hyperkalemia E87.5 Transaminitis R74.01 Heart murmur R01.1 Acute urinary retention R33.8
[2021-05-22] MEDS: sodium chloride 0.9% 1,000 ML 75 ML IV (18:40)
[2021-05-22 19:44] LABS: Anion Gap 12.5 (5-19); Blood Urea Nitrogen 5 mg/dL (6-20); Calcium 8.1 mg/dL (8.5-10.5); Carbon Dioxide 22 mmol/L (22-29); Chloride 82 mmol/L (98-107); Glomerular Filtration Rate 306.9 mL/min (90-130); Glucose 123 mg/dL (65-115); Osmolality Calculated 235 mOsm/kg (285-295); Potassium 3.5 mmol/L (3.5-5.1)
[2021-05-22 19:54] LABS: Sodium 113 mmol/L (136-145)
[2021-05-22] MEDS: amlodipine 5 mg Tablet PO (20:09)
[2021-05-22] MEDS: enoxaparin 40 mg/0.4 mL Syringe SUBCUT (20:13)
[2021-05-22] MEDS: sodium chloride 1 gm Tablet 2 GM PO (21:40)
[2021-05-23] VITALS (7 sets, daily range): BP systolic 136–163; BP diastolic 68–94; PULSE 71–110; RESP 14–22; TEMP 36.4–37.2; O2SAT 91–99
[2021-05-23 03:05] LABS: Anion Gap 12.4 (5-19); Blood Urea Nitrogen 4 mg/dL (6-20); Calcium 7.9 mg/dL (8.5-10.5); Carbon Dioxide 25 mmol/L (22-29); Chloride 83 mmol/L (98-107); Glomerular Filtration Rate 306.9 mL/min (90-130); Glucose 89 mg/dL (65-115); Osmolality Calculated 240 mOsm/kg (285-295); Potassium 3.4 mmol/L (3.5-5.1)
[2021-05-23 03:06] LABS: Sodium 117 mmol/L (136-145)
[2021-05-23] MEDS: tamsulosin 0.4 mg Capsule PO (09:13)
[2021-05-23] MEDS: sodium chloride 1 gm Tablet 2 GM PO ×2 (09:13→17:31)
[2021-05-23] MEDS: amlodipine 5 mg Tablet PO (09:13)
--- NOTE | 2021-05-23 09:45 | P.PN_ITS ---
Subjective Subjective: Interval history: Mr. Samano feels relatively well with no new concerns. He is quite comfortable, eating and drinking, participating in physical and Occupational Therapy. Sodium level did drift down, he was reinitiated on a free water restriction, normal saline is resumed and salt tablets are resumed. Repeat sodium levels now pending. No extremity edema, shortness of breath, cognitively unchanged over the last few days. Medications: Reviewed: Yes Medication Review Details: Current Medications Acetaminophen (Acetaminophen 325 Mg Tablet) 650 mg PO Q6H PRN PRN Reason: Mild/Mod Pain Or Temp >/= 101 Bisacodyl (Bisacodyl 5 Mg Tablet) 10 mg PO DAILY PRN; Protocol PRN Reason: Constipation (see protocol) Enoxaparin Sodium (Enoxaparin 40 Mg/0.4 Ml Syringe) 40 mg SUBCUT Q24H [facility] Last Admin: 05/18/21 23:20 Dose: 40 mg Documented by: Ceftriaxone Sodium 1,000 mg/ (Sodium Chloride) 50 mls @ 100 mls/hr IV Q24H [facility]; Protocol Last Admin: 05/19/21 21:16 Dose: 100 mls/hr Documented by: Dextrose (D5w) 1,000 mls @ 125 mls/hr IV .Q8H [facility] Last Infusion: 05/20/21 05:23 Dose: 0 mls/hr Documented by: Potassium Phosphate 15 mmol/ (Sodium Chloride) 105 mls @ 47 mls/hr IV ONCE ONE Stop: 05/20/21 09:44 Last Admin: 05/20/21 06:59 Dose: 47 mls/hr Documented by: Sodium Chloride (Sodium Chloride 0.9%) 1,000 mls @ 100 mls/hr IV .Q10H [facility] Last Admin: 05/20/21 06:35 Dose: 100 mls/hr Documented by: Lorazepam (Lorazepam 2 Mg/Ml Inj 1 Ml) 2 mg IVP Q4H PRN PRN Reason: ANXIETY Naloxone HCl (Naloxone 0.4 Mg/Ml Sdv) 0.1 mg IVP Q2M PRN PRN Reason: OPIATERV Ondansetron HCl (Ondansetron 2 Mg/Ml Sdv 2 Ml) 4 mg IVP Q8H PRN PRN Reason: vomiting, or N/V if npo Oxycodone/Acetaminophen (Oxycodone-Apap 5-325 Mg Tablet) 1 tab PO Q4H PRN PRN Reason: SEVERE PAIN Tamsulosin HCl (Tamsulosin 0.4 Mg Capsule) 0.4 mg PO DAILY [facility] Vitals/I&O/Wt Last Vital Signs Temp 97.6 F 05/23/21 08:00 Pulse 103 H 05/23/21 08:00 Resp 16 05/23/21 08:00 BP 163/82 05/23/21 08:00 Pulse Ox 91 05/23/21 08:00 05/22/21 05/23/21 05/23/21 22:59 06:59 14:59 Intake Total 1040 / 1520 1000 / 1000 Output Total 1400 / 1400 1600 / 3000 Balance -360 / 120 -1600 / -1480 1000 / 1000 Physical Exam Narrative: EXAM NARRATIVE: Constitutional: Awake, comfortable HEENT: Wet mucosa, no jvp, non icteric Lungs: Bilaterally clear without discernible wheeze, rales in all lung zones CVS: S1 S2, no murmurs Abdo: Soft, BS ok Ext 4: Minimal edema, peripheral perfusion with no cyanosis Neurological: Grossly non-focal Urinary Catheter Management^: Nagy: Cath Placed During This Visit: yes Reason for Continuing Indwelling Catheter: Acute Urinary Retention or Obstruction Urinary Catheter Date of Insertion: 05/19/21 Urinary Catheter Time of Insertion: : Data : 05/22/21 05:25 05/23/21 02:05 A&P Additional A&P Information 1. Hypovolemic hyponatremia. Appears to be multifactorial on admission, with urine chemistry consistent with prerenal picture. Likely high fluid intake and low solute intake prior to admission. Salt tablets, normal saline, free water restriction all now in place goal will be mid to high 120s tomorrow given this acute drop Q12 sodium levels ok Okay to advance diet 2. Hypokalemia to be replaced. 3. Hemodynamics current currently looks stable, A. fib with RVR responding to metoprolol. 4. Acute urinary retention status post Nagy catheter placement. 5. Recent alcohol use, management per Dr. Panchal, [facility] protocol etc. 6. DC planning, will likely need SNF? Arnulfo Calixto MD Nephrology [phone] Patient seen and examined via telemedicine, with the assistance of the bedside RN > 25 min spent in evaluation and mgmt of patient Attestations Medical Necessity Statement*: Eval for hypoNa Coding Level of Care Code Acute Quality Control Manager for Jorge Conklin
[2021-05-23 10:15] LABS: Anion Gap 14.2 (5-19); Blood Urea Nitrogen 5 mg/dL (6-20); Calcium 7.9 mg/dL (8.5-10.5); Carbon Dioxide 27 mmol/L (22-29); Chloride 81 mmol/L (98-107); Glomerular Filtration Rate 220.2 mL/min (90-130); Glucose 99 mg/dL (65-115); Osmolality Calculated 245 mOsm/kg (285-295); Potassium 3.2 mmol/L (3.5-5.1)
[2021-05-23 11:05] LABS: Sodium 119 mmol/L (136-145)
--- NOTE | 2021-05-23 15:34 | PC.NUTR ---
Nutrition follow up: As diet has advanced since last review, will change Ensure Clear to Ensure Plus. Question rationale for GI soft diet and not Mechanical soft diet, as previous PRODUCTION TEAM MANAGER evaluations indicated difficulty with mastication, however 05/23/21 PRODUCTION TEAM MANAGER eval indicating pt tolerating diet at this time. See RD assessments for further details.
--- NOTE | 2021-05-23 16:07 | P.PN_ITS ---
Subjective Subjective: Interval history: Mr. Samano is overall doing good,he is participating well with Physical therapy.Oral intake is good.Serum sodium is slowly improving.Currently on gentle I.V hydration.Salt tablets as well as fluid restriction. Medications: Reviewed: Yes Medication Review Details: Current Medications Acetaminophen (Acetaminophen 325 Mg Tablet) 650 mg PO Q6H PRN PRN Reason: Mild/Mod Pain Or Temp >/= 101 Bisacodyl (Bisacodyl 5 Mg Tablet) 10 mg PO DAILY PRN; Protocol PRN Reason: Constipation (see protocol) Enoxaparin Sodium (Enoxaparin 40 Mg/0.4 Ml Syringe) 40 mg SUBCUT Q24H [facility] Last Admin: 05/18/21 23:20 Dose: 40 mg Documented by: Ceftriaxone Sodium 1,000 mg/ (Sodium Chloride) 50 mls @ 100 mls/hr IV Q24H [facility]; Protocol Last Admin: 05/19/21 21:16 Dose: 100 mls/hr Documented by: Dextrose (D5w) 1,000 mls @ 125 mls/hr IV .Q8H [facility] Last Infusion: 05/20/21 05:23 Dose: 0 mls/hr Documented by: Potassium Phosphate 15 mmol/ (Sodium Chloride) 105 mls @ 47 mls/hr IV ONCE ONE Stop: 05/20/21 09:44 Last Admin: 05/20/21 06:59 Dose: 47 mls/hr Documented by: Sodium Chloride (Sodium Chloride 0.9%) 1,000 mls @ 100 mls/hr IV .Q10H [facility] Last Admin: 05/20/21 06:35 Dose: 100 mls/hr Documented by: Lorazepam (Lorazepam 2 Mg/Ml Inj 1 Ml) 2 mg IVP Q4H PRN PRN Reason: ANXIETY Naloxone HCl (Naloxone 0.4 Mg/Ml Sdv) 0.1 mg IVP Q2M PRN PRN Reason: OPIATERV Ondansetron HCl (Ondansetron 2 Mg/Ml Sdv 2 Ml) 4 mg IVP Q8H PRN PRN Reason: vomiting, or N/V if npo Oxycodone/Acetaminophen (Oxycodone-Apap 5-325 Mg Tablet) 1 tab PO Q4H PRN PRN Reason: SEVERE PAIN Tamsulosin HCl (Tamsulosin 0.4 Mg Capsule) 0.4 mg PO DAILY [facility] Vitals/I&O/Wt Last Vital Signs Temp 98.9 F 05/23/21 11:24 Pulse 71 05/23/21 11:24 Resp 14 05/23/21 11:24 BP 136/68 05/23/21 11:24 Pulse Ox 97 05/23/21 11:24 05/23/21 05/23/21 05/23/21 06:59 14:59 22:59 Intake Total 1240 / 1240 Output Total 1600 / 3000 Balance -1600 / -1480 1240 / 1240 Physical Exam Narrative: EXAM NARRATIVE: AO*0 HENMT: COMMON NORMALS: normocephalic and atraumatic HEAD & SCALP: normocephalic and atraumatic Resp: COMMON NORMALS: clear to auscultation bilaterally AUSCULTATION: clear to auscultation bilaterally Cardio: COMMON NORMALS: regular rate, regular rhythm, S1 normal heart sound present, S2 normal heart sound present, No gallops present (Cardio), No murmurs present (Cardio), No rub (Cardio) and Peripheral pulses 2+ throughout RATE: regular rate RHYTHM: regular rhythm HEART SOUNDS: S1 normal heart sound present and S2 normal heart sound present PERIPHERAL PULSES: Peripheral pulses 2+ throughout OTHER: Systolic murmur in mitral area GI: COMMON NORMALS: Normal to inspection, nondistended, normoactive bowel sounds present, Soft to palpation, non-tender, No hepatosplenomegaly present and no masses AUSCULTATION: Yes normoactive bowel sounds PALPATION: Yes Soft to palpation and Yes No hepatosplenomegaly present RECTAL EXAM: Yes deferred Extremity: COMMON NORMALS: no clubbing, cyanosis or edema and no pedal edema Urinary Catheter Management^: Tee: Cath Placed During This Visit: yes Reason for Continuing Indwelling Catheter: Acute Urinary Retention or Obstructio n Urinary Catheter Date of Insertion: 05/19/21 Urinary Catheter Time of Insertion: 08:21 Data : 05/22/21 05:25 05/23/21 09:42 A&P Assessment and plan (1) Acute encephalopathy: Resolved Acute Metabolic Encephalopathy 2/2 to severe Hyponatremia 2/2 Hypovolemic Hyponatremia likely 2/2 to poor oral inatke. Received 3% N.s 100 cc. Given the fact that the patient serum sodium is extremely low he is at very high risk for ODS ( Osmotic Demyelination Syndrome ) Within goal Sodium correction TSH: 1.20 Random Cortisol :52.68 A.m. cortisol: 23.25 Urine analysis : Urine electrolytes: Urine random sodium:10, urine random potassium:41, urine random chloride:14, urine creatinine:77 U tox: Salicylate less than 0.3, urine acetaminophen less than 5 Urine osmolality : 649 Serum Osmolality : 234 BMP Q4H Renal on Board Status: Acute (2) Hyponatremia: Hypovolemic Hyponatremia likely 2/2 to poor oral inatke. Status: Acute (3) Sepsis: Supported by Leukocytosis, elevated lactic acid, hypothermia, tachycardia, tachypnea. Severe dehydration can give conflicting findings. Blood Cultures : NTD Urine Culture: NTD Procalcitonin: 1.15 lactic acid : 3.6--->1.2 He was on Ceftriaxone 1 gm q24h.Was stopped on 05/22 Status: Acute (4) Atrial fibrillation with RVR: Patient had an episode of atrial fibrillation with RVR overnight: Responded well to metoprolol 12.5 mg IV one-time dose. Converted to normal sinus rhythm. likely Precipitant of A. fib is sepsis and electrolyte abnormality. [id number]-LTTw score 0 2D echo: Normal left ventricular cavity size. Mild left ventricular hypertrophy. Left ventricle function is hyperdynamic.left ventricular ejection fraction is estimated at 75 %. Grade I/IV diastolic dysfunction (abnormal relaxation filling pattern), normal to mildly elevated filling pressures. There is no pericardial effusion. No significant valve abnormalities.Pulmonary artery systolic pressure is within normal limits. Status: Acute (5) Hyperkalemia: Resolved Admission serum potassium :5.8 ---: Current serum potassium is: Normal Tele Monitor BMP Status: Acute (6) Transaminitis: Transaminitis likely secondary to hypotension. Is improving. Hepatitis panel: Hepatitis B surface antigen negative: Hepatitis C core antibody positive: Ultrasound abdomen; No acute findings. HIV Monitor LFTs for now Status: Acute (7) Heart murmur: 2D echo: Normal left ventricular cavity size. Mild left ventricular hypertrophy. Left ventricle function is hyperdynamic.left ventricular ejection fraction is estimated at 75 %. Grade I/IV diastolic dysfunction (abnormal relaxation filling pattern), normal to mildly elevated filling pressures. There is no pericardial effusion. No significant valve abnormalities.Pulmonary artery systolic pressure is within normal limits. Status: Acute (8) Acute urinary retention: Patient was experiencing acute urinary retention : pt had a large PVR w/ tee - approx 2 liters out. Initially had tee catheter in place Was removed on 05/23.Voiding trial. If he fails will consult urology. Flomax 0.4 mg p.o. daily. Status: Acute Additional A&P Information Code Status:Full Code DVT PPx: Lovenox. Disposition: Patient situation was discussed in detail with the social psychologist as well as with his family member.Currently patient do not have insurance.Social service on board with the given insurance issues.Patient currently doing well with physical therapy. Patient will unlikely qualify for any shelter placement.Discharge to home once medically more stable. Attestations Medical Necessity Statement*: Patient needs to be in the hospital for the management of severe hyponatremia Coding Level of Care Code Acute Visual Merchandising Manager for [facility] Fwd Exam Detailed Diagnoses Acute encephalopathy G93.40 Hyponatremia E87.1 Sepsis A41.9 Atrial fibrillation with RVR I48.91 Hyperkalemia E87.5 Transaminitis R74.01 Heart murmur R01.1 Acute urinary retention R33.8
[2021-05-23] MEDS: sodium chloride 0.9% 1,000 ML 75 ML IV (17:30)
[2021-05-23 18:29] LABS: Anion Gap 18.8 (5-19); Blood Urea Nitrogen 5 mg/dL (6-20); Calcium 8.1 mg/dL (8.5-10.5); Carbon Dioxide 21 mmol/L (22-29); Chloride 84 mmol/L (98-107); Glomerular Filtration Rate 220.2 mL/min (90-130); Glucose 128 mg/dL (65-115); Osmolality Calculated 249 mOsm/kg (285-295); Potassium 3.8 mmol/L (3.5-5.1); Sodium 120 mmol/L (136-145)
[2021-05-23] MEDS: enoxaparin 40 mg/0.4 mL Syringe SUBCUT (22:32)
[2021-05-24] VITALS (9 sets, daily range): BP systolic 120–146; BP diastolic 61–80; PULSE 80–110; RESP 17–18; TEMP 36.6–37.8; O2SAT 95–98
[2021-05-24 05:19] LABS: Blood Urea Nitrogen 5 mg/dL (6-20); Calcium 7.7 mg/dL (8.5-10.5); Carbon Dioxide 24 mmol/L (22-29); Chloride 87 mmol/L (98-107); Glomerular Filtration Rate 306.9 mL/min (90-130); Glucose 92 mg/dL (65-115); Osmolality Calculated 251 mOsm/kg (285-295); Sodium 122 mmol/L (136-145)
[2021-05-24 05:26] LABS: Anion Gap 14.4 (5-19); Potassium 3.4 mmol/L (3.5-5.1)
[2021-05-24] MEDS: sodium chloride 0.9% 1,000 ML 75 ML IV (05:55)
[2021-05-24] MEDS: potassium chloride ER 20 mEq Tablet 40 MEQ PO (10:21)
[2021-05-24] MEDS: amlodipine 5 mg Tablet PO (10:21)
[2021-05-24] MEDS: tamsulosin 0.4 mg Capsule PO (10:21)
[2021-05-24] MEDS: sodium chloride 1 gm Tablet 2 GM PO ×2 (10:21→18:34)
--- NOTE | 2021-05-24 10:47 | PM.PN ---
Subjective Subjective: Interval history: Mr Samano feels well today. Good oral intake. Intravenous fluids still running although a note it has been discontinued. Sodium levels improving nicely now. No extremity edema, shortness of breath or other hypervolemic symptoms. Medications: Reviewed: Yes Medication Review Details: Current Medications Acetaminophen (Acetaminophen 325 Mg Tablet) 650 mg PO Q6H PRN PRN Reason: Mild/Mod Pain Or Temp >/= 101 Bisacodyl (Bisacodyl 5 Mg Tablet) 10 mg PO DAILY PRN; Protocol PRN Reason: Constipation (see protocol) Enoxaparin Sodium (Enoxaparin 40 Mg/0.4 Ml Syringe) 40 mg SUBCUT Q24H [facility] Last Admin: 05/18/21 23:20 Dose: 40 mg Documented by: Ceftriaxone Sodium 1,000 mg/ (Sodium Chloride) 50 mls @ 100 mls/hr IV Q24H [facility]; Protocol Last Admin: 05/19/21 21:16 Dose: 100 mls/hr Documented by: Dextrose (D5w) 1,000 mls @ 125 mls/hr IV .Q8H [facility] Last Infusion: 05/20/21 05:23 Dose: 0 mls/hr Documented by: Potassium Phosphate 15 mmol/ (Sodium Chloride) 105 mls @ 47 mls/hr IV ONCE ONE Stop: 05/20/21 09:44 Last Admin: 05/20/21 06:59 Dose: 47 mls/hr Documented by: Sodium Chloride (Sodium Chloride 0.9%) 1,000 mls @ 100 mls/hr IV .Q10H [facility] Last Admin: 05/20/21 06:35 Dose: 100 mls/hr Documented by: Lorazepam (Lorazepam 2 Mg/Ml Inj 1 Ml) 2 mg IVP Q4H PRN PRN Reason: ANXIETY Naloxone HCl (Naloxone 0.4 Mg/Ml Sdv) 0.1 mg IVP Q2M PRN PRN Reason: OPIATERV Ondansetron HCl (Ondansetron 2 Mg/Ml Sdv 2 Ml) 4 mg IVP Q8H PRN PRN Reason: vomiting, or N/V if npo Oxycodone/Acetaminophen (Oxycodone-Apap 5-325 Mg Tablet) 1 tab PO Q4H PRN PRN Reason: SEVERE PAIN Tamsulosin HCl (Tamsulosin 0.4 Mg Capsule) 0.4 mg PO DAILY [facility] Vitals/I&O/Wt Last Vital Signs Temp 99.6 F 05/24/21 07:19 Pulse 101 H 05/24/21 07:19 Resp 18 05/24/21 07:19 BP 135/61 05/24/21 07:19 Pulse Ox 95 05/24/21 07:19 0705/24/21 05/24/21 22:59 06:59 14:59 Intake Total 470 / 1950 931.25 / 2881.25 360 / 360 Output Total 600 / 600 Balance 470 / 1950 331.25 / 2281.25 360 / 360 Physical Exam Narrative: EXAM NARRATIVE: Constitutional: Awake, comfortable HEENT: Wet mucosa, no jvp, non icteric Lungs: Bilaterally clear without discernible wheeze, rales in all lung zones CVS: S1 S2, no murmurs Abdo: Soft, BS ok Ext 4: Minimal edema, peripheral perfusion with no cyanosis Neurological: Grossly non-focal Urinary Catheter Management^: Nagy: Cath Placed During This Visit: yes, but has since been removed by the nurse Reason for Continuing Indwelling Catheter: Decision to DC Catheter Urinary Catheter Date of Insertion: 05/19/21 Urinary Catheter Time of Insertion: 08:21 Date Urinary Catheter Removed: 05/23/21 Time Urinary Catheter Discontinued: 18:50 Data : 05/22/21 05:25 05/24/21 04:07 Micro: Microbiology 05/18/21 15:59 Blood Culture - Final Blood NO GROWTH AFTER 5 DAYS 05/18/21 15:59 Blood Culture - Final Blood NO GROWTH AFTER 5 DAYS A&P Additional A&P Information 1. Hypovolemic hyponatremia. Appears to be multifactorial on admission, with urine chemistry consistent with prerenal picture. Likely high fluid intake and low solute intake prior to admission. Salt tablets, free water restriction all now in place nice ascension rate now Q12 sodium levels ok Okay to advance diet 2. Hypokalemia to be replaced. 3. Hemodynamics current currently looks stable, A. fib with RVR responding to metoprolol. 4. Acute urinary retention status post Nagy catheter placement. 5. Recent alcohol use, management per Dr. Panchal, [facility] protocol etc. 6. DC planning, ok for DC this afternoon if sodium 125 or higher Arnulfo Calixto MD Nephrology [phone] Patient seen and examined via telemedicine, with the assistance of the bedside RN > 25 min spent in evaluation and mgmt of patient Attestations Medical Necessity Statement*: eval for hypoNa Coding Level of Care Code Acute Fishing Rod Trimmer for Jorge Conklin
[2021-05-24 14:18] LABS: Anion Gap 11.8 (5-19); Blood Urea Nitrogen 6 mg/dL (6-20); Calcium 7.3 mg/dL (8.5-10.5); Carbon Dioxide 24 mmol/L (22-29); Chloride 89 mmol/L (98-107); Glomerular Filtration Rate 220.2 mL/min (90-130); Glucose 186 mg/dL (65-115); Osmolality Calculated 254 mOsm/kg (285-295); Potassium 3.8 mmol/L (3.5-5.1); Sodium 121 mmol/L (136-145)
--- NOTE | 2021-05-24 14:49 | XRR_ITS ---
PROCEDURE INFORMATION: Exam: XR Chest Exam date and time: 05/24/2021 2:49 PM Age: 61 years old Clinical indication: Fever; Patient HX: AMS; Additional info: Elevated temp TECHNIQUE: Imaging protocol: XR of the chest. Views: 1 view. COMPARISON: CR (CHEST, ) 05/18/2021 8:22 PM FINDINGS: Lungs: Faint right upper lobe opacity is noted, which may represent early pneumonia. Pleural spaces: Unremarkable. No pleural effusion. No pneumothorax. Heart/Mediastinum: Unremarkable. No cardiomegaly. Bones/joints: Unremarkable. XR/XR chest 1V portable [id number] IMPRESSION: Early right upper lobe pneumonia.
--- NOTE | 2021-05-24 15:17 | PM.PN ---
Subjective Subjective: Interval history: Fred reports that he is doing okay. No specific complaints today. History and physical reviewed as well as daily progress notes. He denies any chest discomfort, nausea. Medications: Reviewed: Yes Vitals/I&O/Wt Last Vital Signs Temp 100.0 F H 05/24/21 11:26 Pulse 100 05/24/21 11:26 Resp 18 05/24/21 11:26 BP 125/71 05/24/21 11:26 Pulse Ox 96 05/24/21 11:26 05/24/21 05/24/21 05/24/21 06:59 14:59 22:59 Intake Total 931.25 / 2881.25 360 / 360 Output Total 600 / 600 Balance 331.25 / 2281.25 360 / 360 Physical Exam Narrative: EXAM NARRATIVE: General exam is no apparent distress Neck is supple no lymphadenopathy or thyromegaly Cardiovascular regular rate and rhythm without murmur Lungs clear Abdomen is soft with positive bowel sounds Extremities no cyanosis clubbing or edema. Urinary Catheter Management^: Nagy: Cath Placed During This Visit: yes, but has since been removed by the nurse Reason for Continuing Indwelling Catheter: Decision to DC Catheter Urinary Catheter Date of Insertion: 05/19/21 Urinary Catheter Time of Insertion: 08:21 Date Urinary Catheter Removed: 05/23/21 Time Urinary Catheter Discontinued: 18:50 Data : 05/22/21 05:25 05/24/21 13:35 Micro: Microbiology 05/18/21 15:59 Blood Culture - Final Blood NO GROWTH AFTER 5 DAYS 05/18/21 15:59 Blood Culture - Final Blood NO GROWTH AFTER 5 DAYS A&P Assessment and plan (1) Hyponatremia: Sodium still significantly low Lasix 20 mg IV Increase fluid restriction Discontinue saline Repeat BMP later today Status: Acute (2) Acute encephalopathy: Resolved Status: Acute (3) Sepsis: Resolved Status: Acute (4) Atrial fibrillation with RVR: Resolved Status: Acute (5) Hyperkalemia: Resolved Status: Acute (6) Transaminitis: Hepatitis C positive. Will need outpatient follow-up Status: Acute (7) Acute urinary retention: Nagy has since been discontinued Continue Flomax Monitor for retention Status: Acute Additional A&P Information Low-grade temperature. Monitor closely. Check urinalysis. Check chest x-ray. Full code Lovenox for DVT prophylaxis Attestations Medical Necessity Statement*: Needs continued hospitalization for further treatment of hyponatremia. Coding Level of Care Code Acute [place]spring Strip Inspector for [facility]g Fwd Diagnoses Hyponatremia E87.1 Acute encephalopathy G93.40 Sepsis A41.9 Atrial fibrillation with RVR I48.91 Hyperkalemia E87.5 Transaminitis R74.01 Acute urinary retention R33.8
[2021-05-24] MEDS: FUROsemide 10 mg/mL SDV 2mL 20 MG IVP (16:08)
[2021-05-24 17:09] LABS: Bilirubin Urine Neg (Negative); Blood Urine Neg (Negative); Glucose Urine UA 4+ (Normal); Ketones Urine Negative (Negative); Leukocyte Esterase Urine Negative (Negative); Nitrate Urine Negative (Negative); Protein Urine Neg (Negative); Urine Appearance Clear (CLEAR); Urine Color Yellow (Yellow); Urobilinogen Urine Norm (Negative); pH Urine 7 (5-7)
[2021-05-24 17:16] LABS: Bacteria Urine 1+ /hpf; RBC Urine 0-4 /hpf (0-2); Squamous Epithelial Cell Urine 0-4 /hpf (0-5); WBC Urine 0-4 /hpf (0-5)
[2021-05-24 17:18] LABS: Add Urine Culture? No
[2021-05-24] MEDS: enoxaparin 40 mg/0.4 mL Syringe SUBCUT (22:20)
[2021-05-25] VITALS (8 sets, daily range): BP systolic 126–161; BP diastolic 63–84; PULSE 92–116; RESP 16–20; TEMP 36.6–37; O2SAT 95–100
[2021-05-25 06:29] LABS: Basophils % 0.3 %; Eosinophils % 0.1 %; Hematocrit 32.4 % (42.0-52.0); Hemoglobin 11.7 g/dL (11.7-16.6); Lymphocytes # 0.5 10^3/uL (0.8-4.8); Lymphocytes % 4.6 %; Mean Corpuscular HGB Conc 36.1 g/dL (30.0-36.0); Mean Corpuscular Hemoglobin 35.3 pg (28.0-34.0); Mean Corpuscular Volume 97.9 fL (80-94); Mean Platelet Volume 8.8 fL (7.4-10.4); Monocytes # 0.5 10^3/uL (0.2-0.9); Monocytes % 4.6 %; Neutrophils # 10.28 10^3/uL (1.8-7.7); Nucleated Red Blood Cells % 0 %; Platelet Count 231 10^3/cmm (130-400); Red Blood Count 3.31 10^6/uL (4.1-5.3); White Blood Count 11.4 10^3/uL (4.0-10.0)
[2021-05-25 06:35] LABS: Anion Gap 13.5 (5-19); Blood Urea Nitrogen 5 mg/dL (6-20); Calcium 7.9 mg/dL (8.5-10.5); Carbon Dioxide 27 mmol/L (22-29); Chloride 81 mmol/L (98-107); Glomerular Filtration Rate 306.9 mL/min (90-130); Glucose 109 mg/dL (65-115); Magnesium 1.7 mg/dL (1.7-2.3); Osmolality Calculated 244 mOsm/kg (285-295); Potassium 3.5 mmol/L (3.5-5.1)
[2021-05-25 07:17] LABS: Sodium 118 mmol/L (136-145)
--- NOTE | 2021-05-25 09:45 | PM.PN ---
Subjective Subjective: Interval history: Remains relatively asymptomatic. Picking at food, keeping to fluid restriction. No edema and no other hypervolemic Sx mobilizing well Medications: Reviewed: Yes Medication Review Details: Current Medications Acetaminophen (Acetaminophen 325 Mg Tablet) 650 mg PO Q6H PRN PRN Reason: Mild/Mod Pain Or Temp >/= 101 Bisacodyl (Bisacodyl 5 Mg Tablet) 10 mg PO DAILY PRN; Protocol PRN Reason: Constipation (see protocol) Enoxaparin Sodium (Enoxaparin 40 Mg/0.4 Ml Syringe) 40 mg SUBCUT Q24H [facility] Last Admin: 05/18/21 23:20 Dose: 40 mg Documented by: Ceftriaxone Sodium 1,000 mg/ (Sodium Chloride) 50 mls @ 100 mls/hr IV Q24H [facility]; Protocol Last Admin: 05/19/21 21:16 Dose: 100 mls/hr Documented by: Dextrose (D5w) 1,000 mls @ 125 mls/hr IV .Q8H [facility] Last Infusion: 05/20/21 05:23 Dose: 0 mls/hr Documented by: Potassium Phosphate 15 mmol/ (Sodium Chloride) 105 mls @ 47 mls/hr IV ONCE ONE Stop: 05/20/21 09:44 Last Admin: 05/20/21 06:59 Dose: 47 mls/hr Documented by: Sodium Chloride (Sodium Chloride 0.9%) 1,000 mls @ 100 mls/hr IV .Q10H [facility] Last Admin: 05/20/21 06:35 Dose: 100 mls/hr Documented by: Lorazepam (Lorazepam 2 Mg/Ml Inj 1 Ml) 2 mg IVP Q4H PRN PRN Reason: ANXIETY Naloxone HCl (Naloxone 0.4 Mg/Ml Sdv) 0.1 mg IVP Q2M PRN PRN Reason: OPIATERV Ondansetron HCl (Ondansetron 2 Mg/Ml Sdv 2 Ml) 4 mg IVP Q8H PRN PRN Reason: vomiting, or N/V if npo Oxycodone/Acetaminophen (Oxycodone-Apap 5-325 Mg Tablet) 1 tab PO Q4H PRN PRN Reason: SEVERE PAIN Tamsulosin HCl (Tamsulosin 0.4 Mg Capsule) 0.4 mg PO DAILY [facility] Vitals/I&O/Wt Last Vital Signs Temp 98.1 F 05/25/21 07:40 Pulse 103 H 05/25/21 07:40 Resp 18 05/25/21 07:40 BP 143/83 05/25/21 07:40 Pulse Ox 97 05/25/21 07:40 05/24/21 05/25/21 05/25/21 22:59 06:59 14:59 Intake Total 600 / 1200 Output Total 300 / 300 Balance 600 / 1200 -300 / 900 Physical Exam Narrative: EXAM NARRATIVE: Constitutional: Awake, comfortable HEENT: Wet mucosa, no jvp, non icteric Lungs: Bilaterally clear without discernible wheeze, rales in all lung zones CVS: S1 S2, no murmurs Abdo: Soft, BS ok Ext 4: Minimal edema, peripheral perfusion with no cyanosis Neurological: Grossly non-focal Urinary Catheter Management^: Nagy: Cath Placed During This Visit: yes, but has since been removed by the nurse Reason for Continuing Indwelling Catheter: Decision to DC Catheter Urinary Catheter Date of Insertion: 05/19/21 Urinary Catheter Time of Insertion: 08: Date Urinary Catheter Removed: 05/23/21 Time Urinary Catheter Discontinued: 18:50 Data : 05/25/21 05:24 05/25/21 05:24 A&P Additional A&P Information 1. Hypovolemic hyponatremia. Not behaving like simple beer potomania/pre-renal as sodium keeps dropping and now is more consistent with SIADH CXR ok, CT head no acute, cortisol WNL and TSH ok Salt tablets, free water restriction all now in place > increase salt tabs to 2g tid, add protein with meals NS resumed if fails to correct will add Demeclocylcine (consider Vaptan therapy) Q12 sodium levels ok Okay to advance diet 2. Hypokalemia to be replaced. 3. Hemodynamics current currently looks stable, A. fib with RVR responding to metoprolol. 4. Acute urinary retention status post Nagy catheter placement. 5. Recent alcohol use, management per Dr. Panchal, [facility] protocol etc. 6. DC planning, ok for DC when Na > 125 Arnulfo Calixto MD Nephrology [phone] Patient seen and examined via telemedicine, with the assistance of the bedside RN > 25 min spent in evaluation and mgmt of patient Attestations Medical Necessity Statement*: eval for HypoNa Coding Level of Care Code Acute Manufacturers Representative for Jorge Conklin
[2021-05-25] MEDS: amlodipine 5 mg Tablet PO (09:54)
[2021-05-25] MEDS: sodium chloride 1 gm Tablet 2 GM PO ×3 (09:55→23:04)
[2021-05-25] MEDS: tamsulosin 0.4 mg Capsule PO (09:55)
--- NOTE | 2021-05-25 10:24 | PC.NURSE ---
IV Iv in R AC was pulled out by patient on accident. Attempted restart x2 with 20 ga unsuccessful. - BW
--- NOTE | 2021-05-25 11:57 | P.PN_ITS ---
Subjective Subjective: Interval history: Fred reports he is doing good. He has no concerns. Medications: Reviewed: Yes Vitals/I&O/Wt Last Vital Signs Temp 98.6 F 05/25/21 11:16 Pulse 101 H 05/25/21 11:16 Resp 20 H 05/25/21 11:16 BP 126/66 05/25/21 11:16 Pulse Ox 95 05/25/21 11:16 0705/25/21 05/25/21 22:59 06:59 14:59 Intake Total 600 / 1200 360 / 360 Output Total 300 / 300 Balance 600 / 1200 -300 / 900 360 / 360 Physical Exam 2 Narrative: EXAM NARRATIVE: General exam is no apparent distress Neck is supple no lymphadenopathy or thyromegaly Cardiovascular regular rate and rhythm without murmur Lungs clear Abdomen is soft with positive bowel sounds Extremities no cyanosis clubbing or edema. Urinary Catheter Management^: Nagy: Cath Placed During This Visit: yes, but has since been removed by the nurse Reason for Continuing Indwelling Catheter: Decision to DC Catheter Urinary Catheter Date of Insertion: 05/19/21 Urinary Catheter Time of Insertion: 08: Date Urinary Catheter Removed: 05/23/21 Time Urinary Catheter Discontinued: 18:50 Data : 05/25/21 05:24 05/25/21 05:24 A&P Assessment and plan (1) Hyponatremia: Sodium still significantly low Lasix, discontinuing saline did not help yesterday Saline restarted Continue salt tabs. Increased by nephrology. Continue fluid restriction If does not improve, nephrology considering demeclocycline. Check BMP this afternoon Status: Acute (2) Acute encephalopathy: Resolved Status: Acute (3) Sepsis: Resolved Status: Acute (4) Atrial fibrillation with RVR: Resolved Status: Acute (5) Hyperkalemia: Resolved Status: Acute (6) Transaminitis: Hepatitis C positive. Will need outpatient follow-up Status: Acute (7) Acute urinary retention: Nagy has since been discontinued Continue Flomax Monitor for retention. I spoke with nursing. He appears to be voiding well. Status: Acute Additional A&P Information Low-grade temperature. No further recurrence. Urinalysis negative. Chest x- ray demonstrated concern of early right upper lobe pneumonia. Oral antibiotic initiated. Full code Lovenox for DVT prophylaxis Attestations Medical Necessity Statement*: Needs continued hospital stay for correction of sodium in this patient with moderate to severe hyponatremia Coding Level of Care Code Acute Loading Machine Tool Setter for g Fwd Diagnoses Hyponatremia E87.1 Acute encephalopathy G93.40 Sepsis A41.9 Atrial fibrillation with RVR I48.91 Hyperkalemia E87.5 Transaminitis R74.01 Acute urinary retention R33.8
--- NOTE | 2021-05-25 12:43 | PC.NUTR ---
Nutrition note: Nurse Susanna requesting this RD to add Ensure Plus with all meals, stating health consultant has ordered this but doesn't know how to enter into system. Noted that pt is already receiving Ensure Plus with meals per RD recommendation (see previous notes/assessments), however have entered as order per Dr. Calixto as well at this time.
[2021-05-25] MEDS: levoFLOXacin 750 mg Tablet PO (13:20)
[2021-05-25] MEDS: sodium chloride 0.9% 1,000 ML 75 ML IV (13:24)
[2021-05-25 14:30] LABS: Anion Gap 13.2 (5-19); Blood Urea Nitrogen 7 mg/dL (6-20); Calcium 7.6 mg/dL (8.5-10.5); Carbon Dioxide 25 mmol/L (22-29); Chloride 86 mmol/L (98-107); Glomerular Filtration Rate 306.9 mL/min (90-130); Glucose 111 mg/dL (65-115); Osmolality Calculated 251 mOsm/kg (285-295); Potassium 3.2 mmol/L (3.5-5.1); Sodium 121 mmol/L (136-145)
[2021-05-25] MEDS: potassium chloride ER 20 mEq Tablet 40 MEQ PO (23:04)
[2021-05-25] MEDS: enoxaparin 40 mg/0.4 mL Syringe SUBCUT (23:04)
[2021-05-25] MEDS: magnesium sulfate premix 2 GM/50 ML PIGGYBACK IV (23:05)
[2021-05-26] VITALS (9 sets, daily range): BP systolic 102–158; BP diastolic 54–97; PULSE 62–113; RESP 16–20; TEMP 36.4–36.8; O2SAT 90–97
[2021-05-26] MEDS: levoFLOXacin 750 mg Tablet PO (05:55)
[2021-05-26 06:29] LABS: Alanine Aminotransferase 116 U/L (0-41); Albumin Level 2.8 g/dL (3.5-5.2); Alkaline Phosphatase 64 IU/L (40-130); Anion Gap 13.2 (5-19); Aspartate Amino Transferase 95 U/L (0-40); Blood Urea Nitrogen 5 mg/dL (6-20); Calcium 7.3 mg/dL (8.5-10.5); Carbon Dioxide 25 mmol/L (22-29); Chloride 84 mmol/L (98-107); Globulin 2.5 g/dL (1.3-4.6); Glomerular Filtration Rate 306.9 mL/min (90-130); Glucose 93 mg/dL (65-115); Osmolality Calculated 245 mOsm/kg (285-295); Potassium 3.2 mmol/L (3.5-5.1); Total Bilirubin 0.4 mg/dL (0.15-1.2); Total Protein 5.3 g/dL (6.6-8.7)
[2021-05-26 06:38] LABS: Sodium 119 mmol/L (136-145)
--- NOTE | 2021-05-26 10:20 | PM.PN ---
Subjective Subjective: Interval history: Fred reports he is doing okay. No specific complaints. Medications: Reviewed: Yes Vitals/I&O/Wt Last Vital Signs Temp 97.9 F 05/26/21 07:44 Pulse 107 H 05/26/21 07:44 Resp 16 05/26/21 07:44 BP 142/97 05/26/21 07:44 Pulse Ox 91 05/26/21 07:44 05/25/21 05/26/21 05/26/21 22:59 06:59 14:59 Intake Total 240 / 1080 100 / 1180 Output Total 700 / 700 450 / 1150 Balance -460 / 380 -350 / 30 Physical Exam Narrative: EXAM NARRATIVE: General exam is no apparent distress Neck is supple no lymphadenopathy or thyromegaly Cardiovascular regular rate and rhythm without murmur Lungs clear Abdomen is soft with positive bowel sounds Extremities no cyanosis clubbing or edema. Urinary Catheter Management^: Nagy: Cath Placed During This Visit: yes, but has since been removed by the nurse Reason for Continuing Indwelling Catheter: Decision to DC Catheter Urinary Catheter Date of Insertion: 05/19/21 Urinary Catheter Time of Insertion: : Date Urinary Catheter Removed: 05/23/21 Time Urinary Catheter Discontinued: 18:50 Data : 05/25/21 05:24 05/26/21 05:45 A&P Assessment and plan (1) Hyponatremia: Sodium still significantly low. No improvement from yesterday Despite saline, fluid restriction, salt tablets, dose of Lasix, sodium remains low Nephrology was planning on consideration of demeclocycline today. From my understanding is not on formulary. Conivaptan is available. I will defer this to them. For the time being IV fluids were discontinued, fluid restriction tightened, Lasix 40 mg IV, BMP this afternoon Status: Acute (2) Acute encephalopathy: Resolved Status: Acute (3) Sepsis: Resolved Status: Acute (4) Atrial fibrillation with RVR: Resolved Status: Acute (5) Hyperkalemia: Resolved. Now slightly hypokalemic. Will supplement Status: Acute (6) Transaminitis: Hepatitis C positive. Will need outpatient follow-up Status: Acute (7) Acute urinary retention: Nagy has since been discontinued Continue Flomax Monitor for retention. I spoke with nursing. He appears to be voiding well. Status: Acute Additional A&P Information Low-grade temperature. No further recurrence. Urinalysis negative. Chest x-ray demonstrated concern of early right upper lobe pneumonia. Levaquin initiated. No further fevers. Full code Lovenox for DVT prophylaxis Attestations Medical Necessity Statement*: Needs continued hospitalization secondary to persistent hyponatremia. Coding Level of Care Code Acute Administrative Support Technician for Ch[facility] Fwd Diagnoses Hyponatremia E87.1 Acute encephalopathy G93.40 Sepsis A41.9 Atrial fibrillation with RVR I48.91 Hyperkalemia E87.5 Transaminitis R74.01 Acute urinary retention R33.8
[2021-05-26] MEDS: amlodipine 5 mg Tablet PO (10:49)
[2021-05-26] MEDS: potassium chloride ER 20 mEq Tablet 40 MEQ PO ×2 (10:49→15:44)
[2021-05-26] MEDS: sodium chloride 1 gm Tablet 2 GM PO ×3 (10:49→21:14)
[2021-05-26] MEDS: tamsulosin 0.4 mg Capsule PO (10:49)
[2021-05-26] MEDS: FUROsemide 10 mg/mL SDV 4mL 40 MG IVP (10:50)
--- NOTE | 2021-05-26 11:53 | PM.PN ---
Subjective Subjective: Interval history: He feels well with no new issues. He is adhering to his fluid restriction, taking 50% of protein shakes. Hemodynamics reviewed and ok, no other acute issues Medications: Reviewed: Yes Medication Review Details: Current Medications Acetaminophen (Acetaminophen 325 Mg Tablet) 650 mg PO Q6H PRN PRN Reason: Mild/Mod Pain Or Temp >/= 101 Bisacodyl (Bisacodyl 5 Mg Tablet) 10 mg PO DAILY PRN; Protocol PRN Reason: Constipation (see protocol) Enoxaparin Sodium (Enoxaparin 40 Mg/0.4 Ml Syringe) 40 mg SUBCUT Q24H ROMEL Last Admin: 05/18/21 23:20 Dose: 40 mg Documented by: Ceftriaxone Sodium 1,000 mg/ (Sodium Chloride) 50 mls @ 100 mls/hr IV Q24H ROMEL; Protocol Last Admin: 05/19/21 21:16 Dose: 100 mls/hr Documented by: Dextrose ([email or web address]) 1,000 mls @ 125 mls/hr IV .Q8H [facility] Last Infusion: 05/20/21 05:23 Dose: 0 mls/hr Documented by: Potassium Phosphate 15 mmol/ (Sodium Chloride) 105 mls @ 47 mls/hr IV ONCE ONE Stop: 05/20/21 09:44 Last Admin: 05/20/21 06:59 Dose: 47 mls/hr Documented by: Sodium Chloride (Sodium Chloride 0.9%) 1,000 mls @ 100 mls/hr IV .Q10H [facility] Last Admin: 05/20/21 06:35 Dose: 100 mls/hr Documented by: Lorazepam (Lorazepam 2 Mg/Ml Inj 1 Ml) 2 mg IVP Q4H PRN PRN Reason: ANXIETY Naloxone HCl (Naloxone 0.4 Mg/Ml Sdv) 0.1 mg IVP Q2M PRN PRN Reason: OPIATERV Ondansetron HCl (Ondansetron 2 Mg/Ml Sdv 2 Ml) 4 mg IVP Q8H PRN PRN Reason: vomiting, or N/V if npo Oxycodone/Acetaminophen (Oxycodone-Apap 5-325 Mg Tablet) 1 tab PO Q4H PRN PRN Reason: SEVERE PAIN Tamsulosin HCl (Tamsulosin 0.4 Mg Capsule) 0.4 mg PO DAILY ROMEL Vitals/I&O/Wt Last Vital Signs Temp 97.9 F 05/26/21 11:01 Pulse 85 05/26/21 11:01 Resp 20 H 05/26/21 11:01 BP 146/62 05/26/21 11:01 Pulse Ox 95 05/26/21 11:01 05/25/21 05/26/21 05/26/21 22:59 06:59 14:59 Intake Total 240 / 1080 100 / 1180 Output Total 700 / 700 450 / 1150 Balance -460 / 380 -350 / 30 Physical Exam Narrative: EXAM NARRATIVE: Constitutional: Awake, comfortable HEENT: Wet mucosa, no jvp, non icteric Lungs: Bilaterally clear without discernible wheeze, rales in all lung zones CVS: S1 S2, no murmurs Abdo: Soft, BS ok Ext 4: Minimal edema, peripheral perfusion with no cyanosis Neurological: Grossly non-focal Urinary Catheter Management^: Nagy: Cath Placed During This Visit: yes, but has since been removed by the nurse Reason for Continuing Indwelling Catheter: Decision to DC Catheter Urinary Catheter Date of Insertion: 05/19/21 Urinary Catheter Time of Insertion: 08: Date Urinary Catheter Removed: 05/23/21 Time Urinary Catheter Discontinued: 18:50 Data : 05/25/21 05:24 05/26/21 05:45 A&P Additional A&P Information 1. Hypovolemic hyponatremia. Not behaving like simple beer potomania/pre-renal as sodium keeps dropping and now is more consistent with SIADH CXR ok, CT head no acute, cortisol WNL and TSH ok Recheck urine osmolality, urine sodium. Serum osmo appropriately so doubt pseudohypoNa Salt tablets, free water restriction all now in place > increase salt tabs to 2g tid, add protein with meals, increase lasix to bid D/w pharmacy to look into urea powder and demeclocycline Q12 sodium levels ok Diet encouraged, leopoldo protein 2. Hypokalemia to be replaced. 3. Hemodynamics current currently looks stable, A. fib with RVR responding to metoprolol. 4. Acute urinary retention status post Nagy catheter placement. 5. Recent alcohol use, management per Dr. Panchal, VIGNESH protocol etc. 6. 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
[2021-05-26 15:09] LABS: Chol HDL Ratio 2.77 mg/dL (1.0-5.00); Cholesterol 86 mg/dL (0-200); HDL Cholesterol 31 mg/dL (60-100); LDL Cholesterol Calculated 42 mg/dL (50-129); LDL HDL Ratio 1.35 RATIO (0.00-3.22); Triglycerides 65 mg/dL (0-150)
[2021-05-26] MEDS: FUROsemide 40 mg Tablet PO (15:44)
[2021-05-26 16:05] LABS: Anion Gap 13.6 (5-19); Blood Urea Nitrogen 6 mg/dL (6-20); Calcium 7.5 mg/dL (8.5-10.5); Carbon Dioxide 25 mmol/L (22-29); Chloride 87 mmol/L (98-107); Glomerular Filtration Rate 306.9 mL/min (90-130); Glucose 117 mg/dL (65-115); Osmolality Calculated 253 mOsm/kg (285-295); Potassium 3.6 mmol/L (3.5-5.1); Sodium 122 mmol/L (136-145)
[2021-05-26] MEDS: enoxaparin 40 mg/0.4 mL Syringe SUBCUT (21:15)
[2021-05-26 21:41] LABS: Urine Random Sodium 73 mmol/L
[2021-05-27] VITALS (9 sets, daily range): BP systolic 105–160; BP diastolic 60–88; PULSE 59–106; RESP 16–20; TEMP 36.4–37.2; O2SAT 90–98
[2021-05-27] MEDS: levoFLOXacin 750 mg Tablet PO (05:45)
[2021-05-27 07:13] LABS: Basophils % 0.2 %; Eosinophils % 0.2 %; Hematocrit 31.1 % (42.0-52.0); Hemoglobin 11.1 g/dL (11.7-16.6); Lymphocytes # 0.8 10^3/uL (0.8-4.8); Lymphocytes % 11.9 %; Mean Corpuscular HGB Conc 35.7 g/dL (30.0-36.0); Mean Corpuscular Hemoglobin 34.7 pg (28.0-34.0); Mean Corpuscular Volume 97.2 fL (80-94); Mean Platelet Volume 9.2 fL (7.4-10.4); Monocytes # 0.5 10^3/uL (0.2-0.9); Monocytes % 8.5 %; Neutrophils # 5.05 10^3/uL (1.8-7.7); Neutrophils % 78.9 %; Nucleated Red Blood Cells % 0 %; Platelet Count 256 10^3/cmm (130-400); Red Cell Distribution Width 12.1 % (12.1-15.1); White Blood Count 6.4 10^3/uL (4.0-10.0)
[2021-05-27 07:36] LABS: Alanine Aminotransferase 106 U/L (0-41); Albumin Level 2.9 g/dL (3.5-5.2); Alkaline Phosphatase 82 IU/L (40-130); Anion Gap 13.1 (5-19); Aspartate Amino Transferase 94 U/L (0-40); Blood Urea Nitrogen 5 mg/dL (6-20); Calcium 8.1 mg/dL (8.5-10.5); Carbon Dioxide 28 mmol/L (22-29); Chloride 91 mmol/L (98-107); Globulin 2.7 g/dL (1.3-4.6); Glomerular Filtration Rate 306.9 mL/min (90-130); Glucose 94 mg/dL (65-115); Magnesium 1.9 mg/dL (1.7-2.3); Osmolality Calculated 263 mOsm/kg (285-295); Potassium 4.1 mmol/L (3.5-5.1); Sodium 128 mmol/L (136-145); Total Bilirubin 0.4 mg/dL (0.15-1.2); Total Protein 5.6 g/dL (6.6-8.7)
[2021-05-27] MEDS: sodium chloride 1 gm Tablet 2 GM PO ×3 (08:50→21:27)
[2021-05-27] MEDS: FUROsemide 40 mg Tablet PO ×2 (08:50→16:47)
[2021-05-27] MEDS: amlodipine 5 mg Tablet PO (08:50)
[2021-05-27] MEDS: tamsulosin 0.4 mg Capsule PO (08:50)
--- NOTE | 2021-05-27 10:02 | PM.PN ---
Subjective Subjective: Interval history: no complaints. states he is urinating well Medications: Reviewed: Yes Medication Review Details: received first dose of Urea today Vitals/I&O/Wt Last Vital Signs Temp 98.9 F 05/27/21 07:18 Pulse 101 H 05/27/21 07:18 Resp 16 05/27/21 07:18 BP 147/88 05/27/21 07:18 Pulse Ox 90 05/27/21 07:18 05/26/21 05/27/21 05/27/21 22:59 06:59 14:59 Intake Total 320 / 1560 100 / 1660 120 / 120 Output Total 0 / 0 Balance 320 / 1560 100 / 1660 120 / 120 Physical Exam Const: COMMON NORMALS: no acute distress Extremity: GENERAL: No edema Urinary Catheter Management^: Nagy: Cath Placed During This Visit: yes, but has since been removed by the nurse Reason for Continuing Indwelling Catheter: Decision to DC Catheter Urinary Catheter Date of Insertion: 05/19/21 Urinary Catheter Time of Insertion: 08:21 Date Urinary Catheter Removed: 05/23/21 Time Urinary Catheter Discontinued: 18:50 Data : 05/27/21 06:01 05/27/21 06:01 Other Labs: urine Na 73 A&P Additional A&P Information Impression: Hyponatremia, improved prior to initiating urea, which will be difficult for him to acquire as outpatient. Recommend: stable for discharge. Discontinue urea. Continue NaCl tablets, reduce furosemide to 40 mg daily. water restrict. Repeat BMP in one week. 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
[2021-05-27] MEDS: urea 15 gm Powder PO ×3 (11:26→21:27)
--- NOTE | 2021-05-27 12:31 | P.DS_ITS ---
Discharge Providers Date of Admission: 05/18/21 16:28 Date of Discharge: May 27, 2021 Attending Provider at Admission: Reed Panchal MD Attending Provider at Discharge: Dominick Wheat MD Diagnoses at Discharge Discharge Diagnosis (1) Hyponatremia: Status: Acute (2) Acute encephalopathy: Status: Acute (3) Sepsis: Status: Acute (4) Atrial fibrillation with RVR: Status: Acute (5) Hyperkalemia: Status: Acute (6) Transaminitis: Status: Acute (7) Acute urinary retention: Status: Acute Reason for Visit Reason for Visit: FALL, Hospital Course Hospital Course Fred is a 61-year-old white male who presented on May 18 with severe hyponatremia, and confusion. There was concern initially of sepsis. He was placed on ceftriaxone, hyperkalemia was addressed, and 3% saline was used for his severe hyponatremia. Atrial fibrillation with rapid ventricular rate developed as well requiring IV metoprolol. Nephrology was consulted for help with his hyponatremia. With fluid restriction, saline infusion, Nagy placement for urinary retention he had gradual improvement in his encephalopathy cleared. Eventually urinary catheter was able to be removed and he was able to void on his own. The rest of his hospital stay was spent in adjusting medications to i ncrease sodium. He was treated for pneumonia, seen on his chest x-ray May 24. He will finish up 5 more days of Levaquin. He will take salt tablets, fluid restrict, and Lasix for his sodium. He will need a repeat sodium early next week with follow-up with primary care. Multiple studies were done while in the hospital including cortisol levels which were normal, TSH which was normal echocardiogram which was normal with the exception of 1/4 diastolic dysfunction, normal abdominal ultrasound, normal CT head. Physical Exam Narrative: EXAM NARRATIVE: General exam is no apparent distress Neck is supple no lymphadenopathy or thyromegaly Cardiovascular regular rate and rhythm without murmur Lungs clear Abdomen is soft, positive bowel sounds Extremities no cyanosis clubbing or edema Urinary Catheter Management^: Nagy: Cath Placed During This Visit: yes, but has since been removed by the nurse Reason for Continuing Indwelling Catheter: Decision to DC Catheter Urinary Catheter Date of Insertion: 05/19/21 Urinary Catheter Time of Insertion: 08:21 Date Urinary Catheter Removed: 05/23/21 Time Urinary Catheter Discontinued: 18:50 Discharge Data Data Completed and Pending: Completed Studies During Hospitalization Category Date Time Status CT angio headneck * [id number] Stat Cat Scan 05/18/21 13:[address] head wo con* 7 [id number] Stat Cat Scan 05/18/21 13:15 Completed XR chest 1V nikolas ble [id number] Routine Exams 05/24/21 14:49 Completed XR chest 1V nikolas ble [id number] Stat Exams 05/18/21 13:14 Completed XR chest 1V nikolas ble [id number] Stat Exams 05/18/21 20:23 Completed CV. echo complete * [id number] Routine Ultrasound 05/20/21 09:06 Completed US abdomen comple te* [id number] Routine Ultrasound 05/22/21 07:00 Completed Pending at discharge Category Date Time Status Osmolality Urine Urgent Lab 05/26/21 21:10 Received Labs from last 24 hours 05/27/21 05/27/21 05/26/21 06:01 06:01 21:10 WBC 6.4 RBC 3.20 L Hgb 11.1 L Hct 31.1 L MCV 97.2 H MCH 34.7 H MCHC 35.7 RDW 12.1 Plt Count 256 MPV 9.2 Neut % (Auto) 78.9 Lymph % (Auto) 11.9 Will % (Auto) 8.5 Eos % (Auto) 0.2 Baso % (Auto) 0.2 Neut # (Auto) 5.05 Lymph # (Auto) 0.8 Will # (Auto) 0.5 Eos # (Auto) 0.0 Baso # (Auto) 0.0 Nucleated RBC % (a uto) 0 Nucleated RBCs # 0.0 Sodium 128 L Potassium 4.1 Chloride 91 L Carbon Dioxide 28 Anion Gap 13.1 BUN 5 L Creatinine 0.3 L GFR Calculation 306.9 H Glucose 94 Calculated Osmolal ity 263 L Calcium 8.1 L Magnesium 1.9 Total Bilirubin 0.4 AST 94 H ALT 106 H Alkaline Phosphata se 82 Total Protein 5.6 L Albumin 2.9 L Globulin 2.7 Triglycerides Cholesterol LDL Cholesterol, C alc HDL Cholesterol LDL/HDL Ratio Cholesterol/HDL Ra korey Urine Osmolality Pending Ur Random Sodium 05/26/21 05/26/21 05/26/21 21:10 15:08 05:45 WBC RBC Hgb Hct MCV MCH MCHC RDW Plt Count MPV Neut % (Auto) Lymph % (Auto) Will % (Auto) Eos % (Auto) Baso % (Auto) Neut # (Auto) Lymph # (Auto) Will # (Auto) Eos # (Auto) Baso # (Auto) Nucleated RBC % (a uto) Nucleated RBCs # Sodium 122 L Potassium 3.6 Chloride 87 L Carbon Dioxide 25 Anion Gap 13.6 BUN 6 Creatinine 0.3 L GFR Calculation 306.9 H Glucose 117 H Calculated Osmolal ity 253 L Calcium 7.5 L Magnesium Total Bilirubin AST ALT Alkaline Phosphata se Total Protein Albumin Globulin Triglycerides 65 Cholesterol 86 LDL Cholesterol, C alc 42 L HDL Cholesterol 31 L LDL/HDL Ratio 1.35 Cholesterol/HDL Ra korey 2.77 Urine Osmolality Ur Random Sodium 73 Vitals: Last Vital Signs Temp 98.5 F 05/27/21 11:46 Pulse 103 H 05/27/21 11:46 Resp 16 05/27/21 11:46 BP 160/84 05/27/21 11:46 Pulse Ox 90 05/27/21 11:46 Discharge Plan Discharge Patient Disposition: Home Health Service Condition: Stable Prescriptions: New tamsulosin 0.4 mg Capsule 0.4 mg PO DAILY Qty: 30 RF: 0 amlodipine 5 mg Tablet 5 mg PO DAILY Qty: 30 RF: 0 sodium chloride 1 gram Tablet 2 g PO TID Qty: 180 RF: 0 levofloxacin 750 mg Tablet 750 mg PO DAILY@0600 Qty: 5 RF: 0 furosemide [Lasix] 40 mg tablet 40 mg PO DAILY Qty: 30 RF: 0 No Action Unable to Assess RF: 0 Discharge Orders: Discharge Order (Routine); Ordered 05/27/21 Ordered By: Dominick Wheat Discharge Diet: GI Soft Discharge Activity: Increase activity as tolerated Patient Instructions: Opioid Safety Activity Restrictions/Additional Instructions: Fluid restriction 1000 cc in 24 hours Follow-up with primary care provider, BMP on follow-up. Make sure he has a primary care provider, and discharge summary goes to them. Soft diet, upright while eating Discharge Attestations Time Spent in Discharge Care*: greater than 30 min Quality Metrics Clinical Quality Measures During this hospital stay, did patient experience: None Coding Level of Care Code Acute Chg FW DC note Diagnoses Hyponatremia E87.1 Acute encephalopathy G93.40 Sepsis A41.9 Atrial fibrillation with RVR I48.91 Hyperkalemia E87.5 Transaminitis R74.01 Acute urinary retention R33.8
--- NOTE | 2021-05-27 14:46 | PC.NURSE ---
attempted to contact patient's family [phone] and [phone] multiple times with no contact with family.
[2021-05-27] MEDS: enoxaparin 40 mg/0.4 mL Syringe SUBCUT (21:27)
[2021-05-28 03:35] VITALS: BP 108/66; PULSE 88; RESP 16; TEMP 36.3; O2SAT 96
[2021-05-28] MEDS: levoFLOXacin 750 mg Tablet PO (05:34)
[2021-05-28 06:00] VITALS: PULSE 89
[2021-05-28 07:49] VITALS: BP 157/90; PULSE 103; RESP 16; TEMP 36.9; O2SAT 97
--- NOTE | 2021-05-28 08:18 | PC.SOCIAL ---
Attempted to contact patient's sister Paulina at this time, she still does not answer the phone.
--- NOTE | 2021-05-28 10:12 | PM.PN ---
Subjective Subjective: Interval history: Family refused to take patient yesterday. Discharge planning working on disposition. Patient without complaints. Medications: Reviewed: Yes Medication Review Details: received first dose of Urea today Vitals/I&O/Wt Last Vital Signs Temp 98.4 F 05/28/21 07:49 Pulse 103 H 05/28/21 07:49 Resp 16 05/28/21 07:49 BP 157/90 05/28/21 07:49 Pulse Ox 97 05/28/21 07:49 05/27/21 05/28/21 05/28/21 22:59 06:59 14:59 Intake Total 100 / 460 400 / 860 480 / 480 Balance 100 / 460 400 / 860 480 / 480 Physical Exam Narrative: EXAM NARRATIVE: General exam is no apparent distress Neck is supple no lymphadenopathy or thyromegaly Cardiovascular regular rate and rhythm without murmur Lungs clear Abdomen is soft, positive bowel sounds Extremities no cyanosis clubbing or edema Urinary Catheter Management^: Nagy: Cath Placed During This Visit: yes, but has since been removed by the nurse Reason for Continuing Indwelling Catheter: Decision to DC Catheter Urinary Catheter Date of Insertion: 05/19/21 Urinary Catheter Time of Insertion: 08: Date Urinary Catheter Removed: 05/23/21 Time Urinary Catheter Discontinued: 18:50 Data : 05/27/21 06:01 05/27/21 06:01 A&P Assessment and plan (1) Hyponatremia: Recheck sodium today. Was improved yesterday Currently on urea, Lasix, fluid restriction, salt tablets Status: Acute (2) Acute encephalopathy: Resolved Status: Acute (3) Sepsis: Resolved Status: Acute (4) Atrial fibrillation with RVR: Resolved Status: Acute (5) Hyperkalemia: Recheck today Status: Acute (6) Transaminitis: Hepatitis C positive. Will need outpatient follow-up Status: Acute (7) Acute urinary retention: Nagy has since been discontinued Continue Flomax Monitor for retention. I spoke with nursing. He appears to be voiding well. Status: Acute Additional A&P Information Low-grade temperature. No further recurrence. Urinalysis negative. Chest x-ray demonstrated concern of early right upper lobe pneumonia. Levaquin initiated. No further fevers. Full code Lovenox for DVT prophylaxis Await laboratory for today. Awaiting placement. Hopefully he will be able to discharge home but resistance was met yesterday by family. Patient himself is not capable of doing ADLs by himself from what he is demonstrated here at the hospital. 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
[2021-05-28 10:38] LABS: Anion Gap 12.5 (5-19); Blood Urea Nitrogen 14 mg/dL (6-20); Calcium 8.4 mg/dL (8.5-10.5); Carbon Dioxide 26 mmol/L (22-29); Chloride 95 mmol/L (98-107); Glomerular Filtration Rate 220.2 mL/min (90-130); Glucose 142 mg/dL (65-115); Magnesium 1.8 mg/dL (1.7-2.3); Osmolality Calculated 273 mOsm/kg (285-295); Potassium 3.5 mmol/L (3.5-5.1); Sodium 130 mmol/L (136-145)
[2021-05-28] MEDS: sodium chloride 1 gm Tablet 2 GM PO ×2 (10:46→16:40)
[2021-05-28] MEDS: FUROsemide 40 mg Tablet PO (10:47)
[2021-05-28] MEDS: tamsulosin 0.4 mg Capsule PO (10:47)
[2021-05-28] MEDS: urea 15 gm Powder PO (10:57)
[2021-05-28 11:45] VITALS: BP 146/77; PULSE 110; RESP 16; TEMP 36.6; O2SAT 93
[2021-05-28 16:00] VITALS: BP 137/63; PULSE 72; RESP 14; TEMP 36.7; O2SAT 92
[2021-05-28 16:03] LABS: Osmolality Urine 317 mOsm/kg (50-1200)
--- NOTE | 2021-05-28 16:36 | PC.NUTR ---
Nutrition follow up: Continue to question rationale for GI soft diet (see previous RD assessment). Recommend to encourage po intakes of meals/supplements within limitation of 800 cc fluid restriction. Recommend to increase fluid provision when medically safe to do so, as current supplement order provides 711 cc fluid, not including any other fluid provision. See RD assessments for further details.
== END 2021-05-28 17:04 | disposition home health service (06) | DRG 871 ==
LOC: ER 17:01 → ICU 19:02 → MEDSURG 05-20 21:25
PROVIDERS: Hospitalist; Internal Medicine Nephrology; Admitting Provider Internal Medicine; Emergency Provider Family Medicine; Visit Provider Internal Medicine
DX: A41.9 Sepsis, unspecified organism (principal); G93.41 Metabolic encephalopathy; J18.9 Pneumonia, unspecified organism; E87.1 Hypo-osmolality and hyponatremia; F10.151 Alcohol abuse with alcohol-induced psychotic disorder with hallucinations; F17.210 Nicotine dependence, cigarettes, uncomplicated; I48.91 Unspecified atrial fibrillation; E86.0 Dehydration; B19.20 Unspecified viral hepatitis C without hepatic coma
CPT/HCPCS: 36415; 36416; 36592; 51702; 70450; 70496; 70498; 71045; 76700; 80048; 80053; 80061; 80306; 80307; 81001; 82274; 82436; 82533; 82570; 82607; 82746; 82962; 83605; 83735; 83930; 83935; 84100; 84133; 84145; 84295; 84300; 84443; 84484; 85025; 86803; 87040; 87086; 87340; 87426; 92523; 92526; 92610; 93005; 93306; 96372; 97110; 97161; 97530; C1751; J0696; J1650; J1940; J2597; J3475; J3490; J7030; J7131; Q3014; Q9967

== ENCOUNTER 2022-02-28 09:34 | Outpatient (CLI) | payer OTHER, SELFPAY ==
--- NOTE | 2022-02-28 09:59 | XR_ITS ---
WS: [email or web address] Exam: XR hand LT 2V [id number] Date/Time of Exam: 02/28/2022 10:03 AM Reason For Exam: L HAND PAIN No acute fracture or dislocation. [id number] degenerative changes in the IP joints. Moderate de generative change in the first and second MP joints. No soft tissue foreign bodies. XR/XR hand LT 2V [id number] IMPRESSION: 1. Degenerative changes. No fracture or dislocation.
--- NOTE | 2022-02-28 09:59 | XR_ITS ---
WS: [id number] Exam: XR hip RT 2-3V wo/w pel* [id number] Date/Time of Exam: 02/28/2022 10:03 AM Reason For Exam: R HIP PAIN No acute fracture or dislocation. The joint compartment relatively well maintained. Mild degenerative change of the acetabulum. XR/XR hip RT 2-3V wo/w pel* [id number] IMPRESSION: 1. No fracture or dislocation. Minimal DJD along the acetabular rim.
--- NOTE | 2022-02-28 09:59 | XR_ITS ---
WS: [email or web address] Exam: XR cervical spine 3V* [id number] Date/Time of Exam: 02/28/2022 10:03 AM Reason For Exam: NECK PAIN No fracture or dislocation noted. Mild degenerative disc narrowing at C5-6 and C6-7. Facet arthropath y at all levels. No prevertebral soft tissue widening noted. Extensive bilateral carotid artery calci fications noted. XR/XR cervical spine 3V* [id number] IMPRESSION: 1. Mild to moderate degenerative changes of the C-spine as detailed above. No f racture or malalignment. 2. Extensive bilateral carotid artery calcifications.
== END 2022-02-28 09:35 | disposition home or self-care (01) ==
PROVIDERS: Visit Provider Dermatology
DX: M16.11 Unilateral primary osteoarthritis, right hip (principal); M19.042 Primary osteoarthritis, left hand; M47.892 Other spondylosis, cervical region; M25.551 Pain in right hip
CPT/HCPCS: 72040; 73120; 73502

== ENCOUNTER 2022-12-18 17:57 | Inpatient (IN) | payer MEDICAID, SELFPAY ==
[2022-12-18 17:58] VITALS: BMI 20.7
[2022-12-18 18:10] VITALS: BP 198/92; PULSE 81; RESP 16; TEMP 36.7; O2SAT 98
--- NOTE | 2022-12-18 18:18 | ECG_ITS ---
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 Measurements Intervals [place] Rate: 99 P: 73 KS: 127 QRS: 53 QRSD: 90 T: 70 QT: 340 QTc: 437 Interpretive Statements SINUS RHYTHM POSSIBLE RIGHT ATRIAL ENLARGEMENT [0.25mV P-WAVE] LEFT ATRIAL ENLARGEMENT [-0.15mV P-WAVE IN V1/V2] POSSIBLE RIGHT VENTRICULAR CONDUCTION DELAY [RSR (QR) IN V1/V2] MINIMAL ST DEPRESSION [0.025+ mV ST DEPRESSION] Compared to ECG 05/19/2021 02:24:53 ST (T wave) deviation now present Sinus tachycardia no longer present Electronically Signed On 12-22-2022 0:03:09 DOCUMENT IMAGING MANAGER by Franca Rosario M.D. [id number]
--- NOTE | 2022-12-18 18:18 | XRR_ITS ---
PROCEDURE INFORMATION: Exam: XR Left Foot Exam date and time: 12/18/2022 6:26 PM Age: 62 years old Clinical indication: Pain; Foot; Left; Additional info: L foot pain, discoloration TECHNIQUE: Imaging protocol: Radiologic exam of the Left foot. Views: 3 or more views. COMPARISON: No relevant prior studies available. FINDINGS: Bones/joints: No fracture or bone destruction. Soft tissues: There is soft tissue swelling in the plantar foot at the 5th metatarsal-phalangeal joint. No abnormal gas collection XR/XR foot LT min 3V* [id number] IMPRESSION: Plantar swelling at the 5th metatarsal phalangeal joint
--- NOTE | 2022-12-18 18:18 | XRR_ITS ---
PROCEDURE INFORMATION: Exam: XR Right Foot Exam date and time: 12/18/2022 6:29 PM Age: 62 years old Clinical indication: Pain; Foot; Right; Additional info: R foot pain, discoloration TECHNIQUE: Imaging protocol: Radiologic exam of the Right foot. Views: 3 or more views. COMPARISON: No relevant prior studies available. FINDINGS: Bones/joints: No acute fracture or dislocation. 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 The hardware appears intact. Soft tissues: Normal. XR/XR foot RT min 3V* [id number] IMPRESSION: No acute findings
--- NOTE | 2022-12-18 18:18 | XRR_ITS ---
PROCEDURE INFORMATION: Exam: XR Chest Exam date and time: 12/18/2022 6:26 PM Age: 62 years old Clinical indication: Dyspnea; Additional info: AMS TECHNIQUE: Imaging protocol: Radiologic exam of the chest. Views: 1 view. COMPARISON: CR XR chest 1V portable [id number] 05/24/2021 6:19 PM FINDINGS: Lungs: A previously seen right upper lobe infiltrate has resolved. The lungs are clear. Pleural spaces: Unremarkable. No pleural effusion. No pneumothorax. Heart/Mediastinum: Unremarkable. No cardiomegaly. Bones/joints: Incidental spurs from both humeral heads. XR/XR chest 1V portable [id number] IMPRESSION: No significant findings
--- NOTE | 2022-12-18 18:22 | W.ED.PSYCHS ---
Documented by User: Thanh Callahan DO 12/19/22 07:16 HPI - Psych General: Chief Complaint: Psychiatric Symptoms Stated Complaint: PSYCH EVAL Time Seen by Provider: 12/18/22 18:00 Source: patient and EMS History of Present Illness: 62-year-old male with a history of psychiatric problems. He also has a history of alcohol dependence and severe hyponatremia in the past. He presents after acting strangely for his family. EMS found him duct to a chair covered in blanket naked otherwise. Family states that he keeps trying to run off, and the duct tape was to keep him from running off until EMS arrived. He has abrasions on both knees, and cold purpleish colored feet. He notes that he ran through the [place], possibly for more than 1 day. Family had told EMS that he had quit taking his psychiatric medication. MD complaint: altered mental status Onset (ago): unknown Duration: constant History of same: Yes Relieving factors: none Exacerbating factors: none Context: not taking psychiatric medications Associated psychiatric symptoms: auditory hallucinations, visual hallucinations and delusions Associated symptoms: Reports auditory hallucinations, visual hallucinations and delusions Review of Systems General: Reports: ROS unobtainable due to medical condition and ROS unobtainable due to mental status Const: Denies: fever(s) Card: Denies: chest pain Resp: Denies: dyspnea Psych: Reports: visual hallucinations and auditory hallucinations [facility] PFSH: Medical History (Updated 12/21/22 @ 06:24 by Armando Mi DO) Alcohol dependence, uncomplicated Atrial fibrillation with RVR Dyskinesia, tardive Nicotine dependence, cigarettes, uncomplicated 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 Family History Other Cancer Denies family history of CAD (coronary artery disease) Clotting disorder Chronic kidney disease (CKD) Anesthesia complication Bleeding disorder Social History Smoking and tobacco status: current every day smoker cigarettes Packs smoked per day: 1 Alcohol intake: current Alcohol intake frequency: 0-2 Drinks per Day Alcohol type: beer Physical Exam Const: COMMON NORMALS: no acute distress and alert GENERAL APPEARANCE: disheveled and appears older than stated age; not ill appearing and not frail appearing HENMT: COMMON NORMALS: normocephalic, atraumatic and Normal external nose present HEAD & SCALP: normocephalic and atraumatic FACE & SINUS: normal facial exam and face symmetric NOSE: Normal external nose present Eye: COMMON NORMALS: Equal, round and reactive pupils present and EOMs intact bilaterally PUPIL: Yes Equal, round and reactive pupils present Chest: CHEST: Yes Symmetrical chest wall rise Resp: COMMON NORMALS: normal respiratory effort, No use of accessory muscles and clear to auscultation bilaterally AUSCULTATION: clear to auscultation bilaterally Cardio: COMMON NORMALS: regular rate and regular rhythm RATE: regular rate RHYTHM: regular rhythm GI: COMMON NORMALS: Normal to inspection, nondistended, normoactive bowel sounds present and Soft to palpation PALPATION: Yes Soft to palpation Extremity: NARRATIVE EXTREMITY EXAM: Exam of the bilateral lower extremities reveals abrasions to the anterior knees bilaterally. His knees anteriorly are covered in a purpleish substance which he says is a dog antibiotic . Exam of the bilateral feet reveal cold, dusky, purple-colored feet. They do appear ecchymotic. Capillary refill is intact, minimally delayed. Sensation is intact. No deformities. There are multiple abrasions. Neuro: BETH COMA SCALE: document GCS findings Brockwell coma scale eye opening: Spontaneous Brockwell coma scale verbal response: Confused Beth coma scale motor response: Obey commands Beth coma scale total score: 14 SENSORIUM/ORIENTATION: Yes alert SENSORY EXAM: Yes extremities (Intact) MOTOR EXAM: Normal motor muscle tone present throughout Psych: ATTITUDE: Yes paranoid and Yes Guarded attititude/behavior present ACTIVITY/MOTOR BEHAVIOR: Yes psychomotor agitation SPEECH: Yes minimal MOOD & AFFECT: Yes apathetic and Yes constricted affect THOUGHT PROCESS: disorganized THOUGHT CONTENT: Yes delusions Course Vital Signs: Vital signs: Vital Signs Temperature 98.1 F 12/20/22 19:38 Pulse Rate 88 12/20/22 19:38 Respiratory Rate 18 12/20/22 19:38 Blood Pressure 110/62 12/20/22 14:00 Pulse Oximetry 96 12/20/22 19:38 Oxygen Delivery Me thod 12/19/22 16:19 [facility] - Psych Medical Decision Making This patient exhibits quite strange behavior. He has auditory and visual hallucinations. He is obviously a danger to himself. He has been out in the [place] naked, with cold exposure, although he does not appear worse for wear currently. Medically he is quite stable. His CK is slightly elevated, but this is not affecting his renal function at all. This is likely from activity more so than anything x-rays of the feet reveal some mild swelling without definite fracture. Laboratories otherwise stable. Head CT shows a chronic right temporal lobe infarct with some lacunar infarcts that are chronic as well. Nothing acute. We do not have any psychiatric beds available at our facility. Given that he does not have a medical cause at this point, I believe he would benefit from psychiatric admission. He is placed under 96-hour hold This patient CK level is coming down now. He remains medically stable. He was mildly agitated and was given Haldol and Ativan with resolution. We spoken to multiple facilities, as we have no beds available currently for this patient. We are still awaiting a bed either at our facility to open, or another facility. He will be checked out to the oncoming physician at shift change. Lab Data 12/18/22 18:27 12/18/22 18:27 Radiology Impressions Chest X-Ray 12/18/22 18:18 IMPRESSION: No significant findings Foot X-Ray 12/18/22 18:18 IMPRESSION: Plantar swelling at the 5th metatarsal phalangeal joint Head CT 12/18/22 19:47 IMPRESSION: 1. No acute findings. 2. 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 Also chronic lacunar infarcts bilaterally in the basal ganglia and thalami. 3. Microangiopathy. Laboratory Results WBC 11.2 10^3/uL (4.0-10.0) H 12/18/22 18: RBC 4.54 10^6/uL (4.1-5.3) 12/18/22 18: Hgb 15.5 g/dL (11.7-16.6) 12/18/22 18: Hct 45.8 % (42.0-52.0) 12/18/22 18: MCV 100.9 fl (80-94) H 12/18/22 18: MCH 34.1 pg (28.0-34.0) H 12/18/22 18: MCHC 33.8 g/dL (30.0-36.0) 12/18/22 18: RDW 13.2 % (12.1-15.1) 12/18/22 18: Plt Count 234 10^3/cmm (130-400) 12/18/22 18: MPV 9.2 fL (7.4-10.4) 12/18/22 18: Neut % (Auto) 75.5 % 12/18/22 18: Lymph % (Auto) 17.1 % 12/18/22 18: [place] % (Auto) 6.3 % 12/18/22 18: Eos % (Auto) 0.5 % 12/18/22 18: Baso % (Auto) 0.3 % 12/18/22 18: Neut # (Auto) 8.45 10^3/uL (1.8-7.7) H 12/18/22: Lymph # (Auto) 1.9 10^3/uL (0.8-4.8) 12/18/22 18: [place] # (Auto) 0.7 10^3/uL (0.2-0.9) 12/18/22 18: Eos # (Auto) 0.1 10^3/uL (0.0-0.8) 12/18/22: Baso # (Auto) 0.0 10^3/uL (0.0-0.1) 12/18/22 18: Nucleated RBC % (auto) 0 % 12/18/22 18: Nucleated RBCs # 0.0 /100WBC 12/18/22 18: Sodium 135 mmol/L (136-145) L 12/19/22 15:51 Potassium 3.8 mmol/L (3.5-5.1) 12/19/22 15:51 Chloride 102 mmol/L (98-107) 12/19/22 15:51 Carbon Dioxide 26 mmol/L (22-29) 12/19/22 15:51 Anion Gap 10.8 (5-19) 12/19/22 15:51 BUN 13 mg/dL (8-23) 12/19/22 15:51 Creatinine 0.7 mg/dL (0.7-1.2) 12/19/22 15:51 GFR Calculation 115.0 mL/min (90-130) 12/19/22 15:51 Glucose 116 mg/dL (65-115) H 12/19/22 15:51 Calculated Osmolality 281 mOsm/kg (285-295) L 12/19/22 15:51 Calcium 8.8 mg/dL (8.5-10.5) 12/19/22 15:51 Total Bilirubin 0.2 mg/dL (0.15-1.2) 12/18/22 18:27 AST 39 U/L (0-40) 12/18/22 18:27 ALT 16 U/L (0-41) 12/18/22 18:27 Alkaline Phosphatase 104 U/L (40-130) 12/18/22 18:27 Ammonia 24 umol/L (16-60) 12/18/22 18:27 Creatine Kinase 891 U/L (39-308) H* 12/19/22 11:40 Total Protein 6.6 g/dL (6.6-8.7) 12/18/22 18: Albumin 4.2 g/dL (3.5-5.2) 12/18/22 18: Globulin 2.4 g/dL (1.3-4.6) 12/18/22 18:27 Urine Color Yellow (Yellow) 12/18/22 20:17 Urine Appearance Clear (CLEAR) 12/18/22 20:17 Urine pH 5 (5-7) 12/18/22 20:17 Ur Specific [place] 1.020 (1.005-1.030) 12/18/22 20:17 Urine Protein Neg (Negative) 12/18/22 20:17 Urine Glucose (UA) 1+ (Normal) H 12/18/22 20:17 Urine Ketones Negative (Negative) 12/18/22 20:17 Urine Blood Neg (Negative) 12/18/22 20:17 Urine Nitrate Negative (Negative) 12/18/22 20:17 Urine Bilirubin Neg (Negative) 12/18/22 20:17 Urine Urobilinogen Neg mg/dL (Negative) 12/18/22 20:17 Ur Leukocyte Esterase Trace (Negative) H 12/18/22 20:17 Urine RBC 0-4 /hpf (0-2) H 12/18/22 20:17 Urine WBC 15-25 /hpf (0-5) H 12/18/22 20:17 Ur Squamous Epith Cells 0-4 /hpf (0-5) H 12/18/22 20:17 Amorphous Sediment Not Reportable 12/18/22 20:17 Urine Bacteria Trace /hpf (NONE) 12/18/22 20:17 Urine Mucus 1+ /hpf 12/18/22 20:17 Salicylates < 0.3 mg/dL (3-10) L 12/18/22 18:27 Urine Opiates Screen Negative ng/mL (Negative) 12/18/22 20:17 Acetaminophen < 5.0 ug/mL (10-30) L 12/18/22 18:27 Ur Barbiturates Screen Negative ng/mL (Negative) 12/18/22 20:17 Ur Phencyclidine Scrn Negative ng/mL (Negative) 12/18/22 20:17 Ur Amphetamines Screen Negative ng/mL (Negative) 12/18/22 20:17 U Benzodiazepines Scrn Negative ng/mL (Negative) 12/18/22 20:17 Urine Cocaine Screen Negative ng/mL (Negative) 12/18/22 20:17 U Marijuana (THC) Screen Negative ng/mL (Negative) 12/18/22 20:17 Ethyl Alcohol < 10 mg/dL (0-10) 12/18/22 18:27 SARS-CoV-2 Ag (Rapid) negative (Negative) 12/18/22 20:11 Discharge Plan Discharge Patient Disposition: Admitted As Inpatient Admit Provider: Cristian Brunson Clinical Impression: Rhabdomyolysis, Acute psychosis, Alcohol dependence, Cystitis Condition: Stable Sign Out Sign Out Data: Patient Sign Out occurred on 12/19/22 at 07:20. Patient's care was discussed, and care was transferred from to Armando Mi DO. 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 Family History Other Cancer Denies family history of CAD (coronary artery disease) Clotting disorder Chronic kidney disease (CKD) Anesthesia complication Bleeding disorder Social History Smoking and tobacco status: current every day smoker cigarettes Packs smoked per day: 1 Alcohol intake: current Alcohol intake frequency: 0-2 Drinks per Day Alcohol type: beer Physical Exam Neuro: BETH COMA SCALE: document GCS findings Brockwell coma scale total score: 14 Course Vital Signs: Vital signs: Vital Signs Temperature 98.1 F 12/20/22 19:38 Pulse Rate 88 12/20/22 19:38 Respiratory Rate 18 12/20/22 19:38 Blood Pressure 110/62 12/20/22 14:00 Pulse Oximetry 96 12/20/22 19:38 Oxygen Delivery Me thod 12/19/22 16:19 [facility] - Psych Medical Decision Making This patient exhibits quite strange behavior. He has auditory and visual hallucinations. He is obviously a danger to himself. He has been out in the [place] naked, with cold exposure, although he does not appear worse for wear currently. Medically he is quite stable. His CK is slightly elevated, but this is not affecting his renal function at all. This is likely from activity more so than anything x-rays of the feet reveal some mild swelling without definite fracture. Laboratories otherwise stable. Head CT shows a chronic right temporal lobe infarct with some lacunar infarcts that are chronic as well. Nothing acute. We do not have any psychiatric beds available at our facility. Given that he does not have a medical cause at this point, I believe he would benefit from psychiatric admission. He is placed under 96-hour hold This patient CK level is coming down now. He remains medically stable. He was mildly agitated and was given Haldol and Ativan with resolution. We spoken to multiple facilities, as we have no beds available currently for this patient. We are still awaiting a bed either at our facility to open, or another facility. He will be checked out to the oncoming physician at shift change. Care assumed at change of shift CPKs pending down we had been looking for alternative placement for the patient however we have not been able to find anywhere that will accept him. Discussed with Dr. Brunson a bed has become available now. Recommend that we have hospitalist continue to monitor him while he is on LINUX ARCHIT[employer] you for his rhabdomyolysis. Hospitalist service consulted and discussed Dr. Sequeira he will see the patient. See Dr. Callahan's note for the remainder of evaluation. Lab Data 12/18/22 18:27 12/18/22 18:27 Radiology Impressions Chest X-Ray 12/18/22 18:18 IMPRESSION: No significant findings Foot X-Ray 12/18/22 18:18 IMPRESSION: Plantar swelling at the 5th metatarsal phalangeal joint Head CT 12/18/22 19:47 IMPRESSION: 1. No acute findings. 2. 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 Also chronic lacunar infarcts bilaterally in the basal ganglia and thalami. 3. Microangiopathy. Laboratory Results WBC 11.2 10^3/uL (4.0-10.0) H 12/18/22 18: RBC 4.54 10^6/uL (4.1-5.3) 12/18/22 18: Hgb 15.5 g/dL (11.7-16.6) 12/18/22 18: Hct 45.8 % (42.0-52.0) 12/18/22 18: MCV 100.9 fl (80-94) H 12/18/22 18: MCH 34.1 pg (28.0-34.0) H 12/18/22 18: MCHC 33.8 g/dL (30.0-36.0) 12/18/22 18: RDW 13.2 % (12.1-15.1) 12/18/22 18: Plt Count 234 10^3/cmm (130-400) 12/18/22 18: MPV 9.2 fL (7.4-10.4) 12/18/22 18: Neut % (Auto) 75.5 % 12/18/22 18: Lymph % (Auto) 17.1 % 12/18/22 18: [place] % (Auto) 6.3 % 12/18/22 18:27 Eos % (Auto) 0.5 % 12/18/22 18: Baso % (Auto) 0.3 % 12/18/22 18: Neut # (Auto) 8.45 10^3/uL (1.8-7.7) H 12/18/22 18: Lymph # (Auto) 1.9 10^3/uL (0.8-4.8) 12/18/22 18: [place] # (Auto) 0.7 10^3/uL (0.2-0.9) 12/18/22 18: Eos # (Auto) 0.1 10^3/uL (0.0-0.8) 12/18/22 18: Baso # (Auto) 0.0 10^3/uL (0.0-0.1) 12/18/22 18: Nucleated RBC % (auto) 0 % 12/18/22 18: Nucleated RBCs # 0.0 /100WBC 12/18/22 18: Sodium 135 mmol/L (136-145) L 12/19/22 15:51 Potassium 3.8 mmol/L (3.5-5.1) 12/19/22 15:51 Chloride 102 mmol/L (98-107) 12/19/22 15:51 Carbon Dioxide 26 mmol/L (22-29) 12/19/22 15:51 Anion Gap 10.8 (5-19) 12/19/22 15:51 BUN 13 mg/dL (8-23) 12/19/22 15:51 Creatinine 0.7 mg/dL (0.7-1.2) 12/19/22 15:51 GFR Calculation 115.0 mL/min (90-130) 12/19/22 15:51 Glucose 116 mg/dL (65-115) H 12/19/22 15:51 Calculated Osmolality 281 mOsm/kg (285-295) L 12/19/22 15:51 Calcium 8.8 mg/dL (8.5-10.5) 12/19/22 15:51 Total Bilirubin 0.2 mg/dL (0.15-1.2) 12/18/22 18: AST 39 U/L (0-40) 12/18/22 18: ALT 16 U/L (0-41) 12/18/22 18:27 Alkaline Phosphatase 104 U/L (40-130) 12/18/22 18: Ammonia 24 umol/L (16-60) 12/18/22 18: Creatine Kinase 891 U/L (39-308) H* 12/19/22 11:40 Total Protein 6.6 g/dL (6.6-8.7) 12/18/22 18: Albumin 4.2 g/dL (3.5-5.2) 12/18/22 18: Globulin 2.4 g/dL (1.3-4.6) 12/18/22 18:27 Urine Color Yellow (Yellow) 12/18/22 20:17 Urine Appearance Clear (CLEAR) 12/18/22 20:17 Urine pH 5 (5-7) 12/18/22 20:17 Ur Specific [place] 1.020 (1.005-1.030) 12/18/22 20:17 Urine Protein Neg (Negative) 12/18/22 20:17 Urine Glucose (UA) 1+ (Normal) H 12/18/22 20:17 Urine Ketones Negative (Negative) 12/18/22 20:17 Urine Blood Neg (Negative) 12/18/22 20:17 Urine Nitrate Negative (Negative) 12/18/22 20:17 Urine Bilirubin Neg (Negative) 12/18/22 20:17 Urine Urobilinogen Neg mg/dL (Negative) 12/18/22 20:17 Ur Leukocyte Esterase Trace (Negative) H 12/18/22 20:17 Urine RBC 0-4 /hpf (0-2) H 12/18/22 20:17 Urine WBC 15-25 /hpf (0-5) H 12/18/22 20:17 Ur Squamous Epith Cells 0-4 /hpf (0-5) H 12/18/22 20:17 Amorphous Sediment Not Reportable 12/18/22 20:17 Urine Bacteria Trace /hpf (NONE) 12/18/22 20:17 Urine Mucus 1+ /hpf 12/18/22 20:17 Salicylates < 0.3 mg/dL (3-10) L 12/18/22 18:27 Urine Opiates Screen Negative ng/mL (Negative) 12/18/22 20:17 Acetaminophen < 5.0 ug/mL (10-30) L 12/18/22 18:27 Ur Barbiturates Screen Negative ng/mL (Negative) 12/18/22 20:17 Ur Phencyclidine Scrn Negative ng/mL (Negative) 12/18/22 20:17 Ur Amphetamines Screen Negative ng/mL (Negative) 12/18/22 20:17 U Benzodiazepines Scrn Negative ng/mL (Negative) 12/18/22 20:17 Urine Cocaine Screen Negative ng/mL (Negative) 12/18/22 20:17 U Marijuana (THC) Screen Negative ng/mL (Negative) 12/18/22 20:17 Ethyl Alcohol < 10 mg/dL (0-10) 12/18/22 18:27 SARS-CoV-2 Ag (Rapid) negative (Negative) 12/18/22 20:11 Discharge Plan Discharge Patient Disposition: Admitted As Inpatient Admit Provider: Cristian Brunson Clinical Impression: Rhabdomyolysis, Acute psychosis, Alcohol dependence, Cystitis Condition: Stable Sign Out Sign Out Data: Patient Sign Out occurred on 12/19/22 at 07:20. Patient's care was discussed, and care was transferred from to Armando Mi DO. Coding Level of Care Code ED Depositing Machine Operator for Jorge Conklin
[2022-12-18] MEDS: haloperidol inj 5 mg/mL INJ 1 mL IV (18:30)
[2022-12-18 18:34] LABS: Basophils % 0.3 %; Eosinophils # 0.1 10^3/uL (0.0-0.8); Eosinophils % 0.5 %; Hematocrit 45.8 % (42.0-52.0); Hemoglobin 15.5 g/dL (11.7-16.6); Lymphocytes # 1.9 10^3/uL (0.8-4.8); Lymphocytes % 17.1 %; Mean Corpuscular HGB Conc 33.8 g/dL (30.0-36.0); Mean Corpuscular Hemoglobin 34.1 pg (28.0-34.0); Mean Corpuscular Volume 100.9 fl (80-94); Mean Platelet Volume 9.2 fL (7.4-10.4); Monocytes # 0.7 10^3/uL (0.2-0.9); Monocytes % 6.3 %; Neutrophils # 8.45 10^3/uL (1.8-7.7); Neutrophils % 75.5 %; Nucleated Red Blood Cells % 0 %; Platelet Count 234 10^3/cmm (130-400); Red Blood Count 4.54 10^6/uL (4.1-5.3); Red Cell Distribution Width 13.2 % (12.1-15.1); White Blood Count 11.2 10^3/uL (4.0-10.0)
--- NOTE | 2022-12-18 18:39 | PC.NURSE ---
attempted to find pedal pulses via dopplar. unable to find right pedal pulse, able to dopplar right posterior tibial pulse. able to dopplar left pedal pulse. Pt also noted to exit bed and attempt to walk down the [place] because he hears someone talking to him. pt redirected back to room.Dr. Callahan notified.
[2022-12-18 18:55] LABS: Alanine Aminotransferase 16 U/L (0-41); Albumin Level 4.2 g/dL (3.5-5.2); Alkaline Phosphatase 104 U/L (40-130); Anion Gap 11.7 (5-19); Aspartate Amino Transferase 39 U/L (0-40); Blood Urea Nitrogen 21 mg/dL (8-23); Calcium 9.9 mg/dL (8.5-10.5); Carbon Dioxide 31 mmol/L (22-29); Chloride 100 mmol/L (98-107); Globulin 2.4 g/dL (1.3-4.6); Glucose 131 mg/dL (65-115); Osmolality Calculated 293 mOsm/kg (285-295); Potassium 3.7 mmol/L (3.5-5.1); Sodium 139 mmol/L (136-145); Total Bilirubin 0.2 mg/dL (0.15-1.2); Total Protein 6.6 g/dL (6.6-8.7)
[2022-12-18 18:58] LABS: Acetaminophen < 5.0 ug/mL (10-30); Alcohol Level < 10 mg/dL (0-10); Salicylate < 0.3 mg/dL (3-10)
[2022-12-18 18:59] LABS: Creatine Phosphokinase 1117 U/L (39-308)
[2022-12-18 19:03] LABS: Ammonia 24 umol/L (16-60)
--- NOTE | 2022-12-18 19:47 | CTR_ITS ---
PROCEDURE INFORMATION: Exam: CT Head Without Contrast Exam date and time: 12/18/2022 9:10 PM Age: 62 years old Clinical indication: Altered mental status/memory loss; Confusion or disorientation; Additional info: AMS TECHNIQUE: Imaging protocol: Computed tomography of the head without contrast. Radiation optimization: All CT scans at this facility use at least one of these dose optimization techniques: automated exposure control; mA and/or kV adjustment per patient size (includes targeted exams where dose is matched to clinical indication); or iterative reconstruction. Other protocol: This patient has received 0 known CTs and 0 known cardiac nuclear medicine studies in the 12 months prior to the current study. COMPARISON: CT head wo con* [id number] 05/18/2021 1:08 PM RADIATION DOSE METRICS: Total DLP (mGy-cm): 1306.08 FINDINGS: Brain: No CT evidence for acute ischemia, mass or hemorrhage. Chronic lacunar infarcts in both thalami and in the basal ganglia. Chronic symmetric periventricular microangiopathy. Chronic infarct in the anterior right temporal lobe. Mild sulcal widening is consistent with age. Cerebral ventricles: Mild age related large mint. Paranasal sinuses: There is scattered mucosal thickening in the ethmoid sinuses. Mastoid air cells: Visualized mastoid air cells are well aerated. Bones/joints: Unremarkable. No acute fracture. Soft tissues: Unremarkable. Vasculature: Extensive calcified plaque in the distal internal carotid arteries and moderate plaque in the vertebral arteries. CT/CT head wo con* [id number] IMPRESSION: 1. No acute findings. 2. 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 Also chronic lacunar infarcts bilaterally in the basal ganglia and thalami. 3. Microangiopathy.
[2022-12-18 20:34] LABS: Add Urine Microscopic? YES; Bilirubin Urine Neg (Negative); Blood Urine Neg (Negative); Glucose Urine UA 1+ (Normal); Ketones Urine Negative (Negative); Leukocyte Esterase Urine Trace (Negative); Nitrate Urine Negative (Negative); Protein Urine Neg (Negative); Urine Appearance Clear (CLEAR); Urine Color Yellow (Yellow); Urobilinogen Urine Neg (Negative); pH Urine 5 (5-7)
[2022-12-18 20:35] LABS: Bacteria Urine TRACE /hpf; Mucus Urine 1+ /hpf; RBC Urine 0-4 /hpf (0-2); Squamous Epithelial Cell Urine 0-4 /hpf (0-5); WBC Urine 15-25 /hpf (0-5)
[2022-12-18 20:36] LABS: Add Urine Culture? No
[2022-12-18 20:43] LABS: Amphetamines Screen Urine Negative (Negative); Barbiturates Screen Urine Negative (Negative); Benzodiazepines Screen Urine Negative (Negative); Cocaine Screen Urine Negative (Negative); Opiate Screen Urine Negative (Negative); PCP Screen Urine Negative (Negative); THC Screen Urine Negative (Negative)
[2022-12-18 20:49] LABS: SARS Covid-2 Antigen negative (Negative)
[2022-12-19 00:22] LABS: Creatine Phosphokinase 1265 U/L (39-308)
[2022-12-19] MEDS: sodium chloride 0.9% 1,000 ML 999 ML IV ×2 (01:25→07:41)
[2022-12-19] MEDS: haloperidol inj 5 mg/mL INJ 1 mL IVP (02:20)
[2022-12-19] MEDS: LORazepam 2 mg/mL INJ 1 mL IVP (02:20)
[2022-12-19 05:37] LABS: Creatine Phosphokinase 1069 U/L (39-308)
--- NOTE | 2022-12-19 05:47 | PC.NURSE ---
Spoke with Sherwin at [facility]. Stated he'd speak with family and call back
[2022-12-19 06:00] VITALS: BP 169/87; PULSE 89; RESP 18; TEMP 36.6; O2SAT 98
--- NOTE | 2022-12-19 08:30 | PC.NURSE ---
Gave patient breakfast.
--- NOTE | 2022-12-19 08:32 | PC.NURSE ---
Gave patient breakfast tray.
[2022-12-19 12:04] LABS: Creatine Phosphokinase 891 U/L (39-308)
[2022-12-19 15:08] VITALS: BP 123/75; PULSE 102; O2SAT 97
--- NOTE | 2022-12-19 15:42 | P.CONIM_ITS ---
Providers/Reason For Consult Consulting Physician/Specialty*: Hospitalist Reason for Consult*: CPK elevation History of Present Illness History of Present Illness Fred Samano is a 62 year old male who was admitted to neuropsychiatric unit for psychosis. Hospital service has been requested because of mild CPK elevation. Patient is not able to provide any history he stating that he is in the hospital to the care of his mom. When I questioned him why he thinks he needs to take care of his mom he stated she has cancer. As per the ER physician patient was found naked, constrained to a metal bench with duct tape. In the ER he is showing normal hemodynamics without any fever, mild leukocytosis, CPK trending down no signs of acidosis no creatinine elevation or signs of kidney injury, current CPK 891, pyuria noted, drug screen negative, Patient endorses to drinking 6 cans of beer every day and smoking 2 packs of cigarettes every day Trauma scan unremarkable Review of Systems General: Reports: ROS unobtainable due to mental status Medications/Allergies Home Medications Medication Instructions Recorded Confirmed Last Taken Type No Known Home Medications 12/18/22 12/18/22 Unknown History Allergies Allergy/AdvReac Type Severity Reaction Status Date / Time No Known Allergies Allergy Verified 10/05/20 11:05 PFSH Acute PFSH: Medical History (Updated 12/19/22 @ 15:47 by Mike Sequeira MD) Alcohol dependence, uncomplicated Atrial fibrillation with RVR Dyskinesia, tardive Nicotine dependence, cigarettes, uncomplicated 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 Family History Other Cancer Denies family history of CAD (coronary artery disease) Clotting disorder Chronic kidney disease (CKD) Anesthesia complication Bleeding disorder Social History Smoking and tobacco status: current every day smoker cigarettes Packs smoked per day: 1 Alcohol intake: current Alcohol intake frequency: 0-2 Drinks per Day Alcohol t ype: beer Vitals/I&O/Wt Last Vital Signs Temp 98 F 12/19/22 06:00 Pulse 102 H 12/19/22 15:08 Resp 18 12/19/22 06:00 BP 123/75 12/19/22 15:08 Pulse Ox 97 12/19/22 15:08 O2 Del Method 12/19/22 15:08 12/19/22 12/19/22 12/19/22 06:59 14:59 22:59 Intake Total 1000 / 1000 1000 / 1000 Balance 1000 / 1000 1000 / 1000 Weight last 48 hrs Weight 65.771 kg Physical Exam Narrative: Patient is calm and cooperative Hemodynamically stable Disorganized thinking Disabled Unkept Multiple bruises and skin sloughing around extremities especially around knees No active sign of cellulitis No audible stridor or wheezing S1, S2 Nonfocal neuro exam Abdomen soft Able to answer my questions Data 12/18/22 18:27 12/18/22 18:27 A&P Assessment and plan (1) Rhabdomyolysis: (2) Acute psychosis: (3) Dyskinesia, tardive: (4) Alcohol dependence: Plan Acute psychosis Alcohol abuse Nicotine addiction Unkept appearance Mild muscle injury: CPK trending down, no need of aggressive IV fluid no kidney injury Monitor CPK for now Patient can be transferred to neuropsychiatric unit Will follow along I will continue thiamine and folic acid Abnormal UA, pyuria, will give him levofloxacin 750 mg daily, monitor QTc interval Previous history of hyponatremia, currently sodium is normal he was asked to take salt tablets, alcohol abuse history Previous documented history of A-fib RVR Consult Attestations Medical Necessity Statement: As per neuropsych Coding Level of Care Code 98437 Diagnoses Rhabdomyolysis M62.82 Acute psychosis F23 Dyskinesia, tardive G24.01 Alcohol dependence F10.20 Time Spent (min) 35
--- NOTE | 2022-12-19 15:58 | PC.NURSE ---
report called to donovan shemran in [facility].
[2022-12-19 16:17] VITALS: BP 126/81; PULSE 106; RESP 18; TEMP 36.9; O2SAT 99
[2022-12-19 16:25] VITALS: BP 123/75; PULSE 102; RESP 18; TEMP 36.6; O2SAT 97
[2022-12-19 16:31] LABS: Anion Gap 10.8 (5-19); Blood Urea Nitrogen 13 mg/dL (8-23); Calcium 8.8 mg/dL (8.5-10.5); Carbon Dioxide 26 mmol/L (22-29); Chloride 102 mmol/L (98-107); Glucose 116 mg/dL (65-115); Osmolality Calculated 281 mOsm/kg (285-295); Potassium 3.8 mmol/L (3.5-5.1); Sodium 135 mmol/L (136-145)
[2022-12-19 18:56] VITALS: BMI 18.2
[2022-12-19 20:28] VITALS: BP 135/80; PULSE 103; RESP 18; O2SAT 98
[2022-12-19] MEDS: trazodone 50 mg Tablet PO (20:37)
[2022-12-20] MEDS: thiamine 100 mg Tablet PO (08:31)
[2022-12-20] MEDS: levoFLOXacin 750 mg Tablet PO (08:31)
[2022-12-20] MEDS: folic acid 1 mg Tablet PO (08:31)
[2022-12-20 09:06] LABS: Alanine Aminotransferase 17 U/L (0-41); Albumin Level 3.4 g/dL (3.5-5.2); Alkaline Phosphatase 96 U/L (40-130); Anion Gap 13.3 (5-19); Aspartate Amino Transferase 43 U/L (0-40); Blood Urea Nitrogen 12 mg/dL (8-23); Calcium 8.4 mg/dL (8.5-10.5); Carbon Dioxide 26 mmol/L (22-29); Chloride 100 mmol/L (98-107); Globulin 2.4 g/dL (1.3-4.6); Glomerular Filtration Rate 137.4 mL/min (90-130); Glucose 137 mg/dL (65-115); Osmolality Calculated 282 mOsm/kg (285-295); Potassium 4.3 mmol/L (3.5-5.1); Sodium 135 mmol/L (136-145); Total Bilirubin 0.6 mg/dL (0.15-1.2); Total Protein 5.8 g/dL (6.6-8.7)
[2022-12-20 09:21] LABS: Creatine Phosphokinase 659 U/L (39-308)
[2022-12-20 14:00] VITALS: BP 110/62; PULSE 106; RESP 18; TEMP 36.6; O2SAT 96
--- NOTE | 2022-12-20 14:01 | P.NPUHP_ITS ---
Providers/Chief Complaint Admitting Physician: Cristian Brunson MD Chief Complaint: PSYCH EVAL HPI NPU History of Present Illness Fred Samano is a 62 year old male admitted to the emergency department with the following report: History of Present Illness Fred Samano is a 62 year old male who was admitted to neuropsychiatric unit for psychosis. Hospital service has been requested be cause of mild CPK elevation. Patient is not able to provide any history he stating that he is in the hospital to the care of his mom. When I questioned him why he thinks he needs to take care of his mom he stated she has cancer. As per the ER physician patient was found naked, constrained to a metal bench with duct tape. In the ER he is showing normal hemodynamics without any fever, mild leuk ocytosis, CPK trending down no signs of acidosis no creatinine elevation or signs of kidney injury, current CPK 891, pyuria noted, drug screen negative, Patient endorses to drinking 6 cans of beer every day and smoking 2 packs of cigarettes every day Trauma scan unremarkable The patient was admitted to the neuropsychiatric unit for definitive treatment of those issues. He is not currently taking any psychiatric medications. He presents today reporting his sister found him laying in the mud and thought he should get checked out which is why he presented to the psychiatric hospital. He has not been psychiatrically hospitalized, cannot remember receiving outpatient services but believes he was on psychiatric medications at one point. He reports smoking 2 packs of cigarettes a day and a can of chew a day, alcohol daily all day, denies marijuana, has tried methamphetamine and cocaine and last used a week ago. He has been to a rehab before, had 3 DUIs and possibly had some other drug and alcohol related charges. He endorses having memory issues currently and is having a hard time recalling a lot of the information asked during the interview. We discussed checking his history to see if he has been on medications before and discussed starting thiamine in case his memory issues are related to his alcohol use. Patient was a very limited and confused historian. He had 3 hospitalizations in 2017 and follow-up at [facility] for years after that. An excerpt of his last hospitalization is included below for history and context. Psychiatric History: As above. Substance Abuse History: As above. Medical History: He denies any known allergies to medications. Per his 08/16/2017 [facility] inpatient psychiatric hospitalization: Date of Service: Aug 16, 2017 Chief Complaint: Just shot my gun out in the veliz. HPI: The pt reports HPI: The patient is a 57-year-old male re-admitted on 96 hour hold for reported paranoia and homicidal ideation.? Affidavits are reviewed on the chart for 96 hour hold which was filed August 14 had indicated that the patient was having apparent auditory hallucinations and paranoia at that time.? Also referenced aggressive ideation from incident back in June 2017 and did not explain a timeframe for recent reported homicidal ideation/planning/preparation.? He did reference that on August 14 the patient was firing his gun into the veliz and talking to people that were not there due to paranoid delusions.? At the time of this interview, the patient continues to be paranoid and very irritable.? He reports that he does not wish to have word associations or to be asked the same questions multiple times.? He denies suicidal or homicidal ideation however he then states If I do, that's my own damn problems. .? He reports that he has the right to bear arms and shoot his firearms whenever he wants.? He is reporting that prior to this admission I was shootin' at some brush because I wanted to. ? He reports this is the 3rd time his family has placed a 96 hour hold on him.? He reports that his family has bugs like TV screens, light bulbs in his house spying on him.? He is disorganized talking about his antiques and living on an burial ground.? He reports that he is upset about his family due to some issue regarding traveling in boat containers, pornography. Psychiatric review of systems:? Pt report his mood is good and denies depression/anhedonia or suicidal ideation.? He denies new particular problems with sleep or appetite.? Denies any history of overt manic episode off of drugs.? But urine drug screen is currently negative and he is significantly irritable and somewhat hyper with racing thoughts.? He is evasive and uncooperative with answering other questions pertaining to his mood at this time.? Denies any auditory or visual hallucinations but per collateral information/affidavits, he was yelling at people who weren't there in the veliz at night.? He has apparent paranoid delusions expressed during interview today.? He reports that his family gets upset with him when he goes to buy alcohol but then denies that he has been drinking at all for quite some time but will not specify.? 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 He is declining to take any psychotropic medications at this time.? Family reports were that he has a prior diagnosis of schizophrenia and has been noncompliant with his prior medications. Past psychiatric history:? Last admission to NPU in February and again overnight in July 2017 for psychosis unspecified in the context of acute meth and alcohol intoxication.? Was on Zyprexa 10mg BID during a prior admission but had refused medication during his last admission and was not exhibiting any acute psychotic symptoms during that time.? He reports that Zyprexa made him feel groggy.? NO OP psychiatrist.? He does endorse a history of fighting but no SA. Past medical history:? 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 Surgeries- left digit separation (webbed at hands/ feet with skin).? Family history:? Brother- psychosis/ DID? Social history: single, lives alone next to his family, unemployed currently, not on disability, has had recent court related to assaulting his sister but not wish to discuss the issue at this time.? Hx IVDU meth, last use within the past 1-2 months, MJ occasional per history but currently refuses to answer questions.? Alcohol- daily 2-12 beers daily previously reported but patient is denying any alcohol use over the past few weeks and alcohol level was negative upon admission, no complicated WD.? Denies hx CD treatment. 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 No abnormal movements except for psy chomotor retardation. Cooperative with exam in mild to moderate distress. Speech was decreased rate and volume. Mood described as not bad, affect is congruent. Thought process, linear. Thought content: patient denies suicidal or homicidal ideation, reports paranoia but no delusions noted and endorses auditory and visual hallucinations. Attention and concentration are intact and memory appeared impaired though none were formally tested. He is alert and oriented times person and at times place. Insight and judgment are impaired. Impulse control is impaired. 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 1. Continue current medications 2. Encourage individual, group and milieu therapy 3. Continue q-15 minute check for safety 4. Recommend sober living treatment at the highest level of care to which the patient is willing to commit. 5. Memory difficulties likely secondary to drinking versus that in combination with methamphetamines. Involuntary Hold Information 96 Hour Hold: 96 Hour Involuntary Admission: Yes 96 Hour Hold Ending Date: 12/23/22 96 Hour Hold Ending Time: 12:01 Attestations NPU Medical Necessity Statement*: Inpatient hospitalization is medically necessary and the clinically appropriate intervention at this time. We will monitor medications and make changes as indicated. Patient will be in the hospital for over two midnights. Likely length of stay is 4-6 days. 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
[2022-12-20 19:38] VITALS: PULSE 88; RESP 18; TEMP 36.7; O2SAT 96
[2022-12-20] MEDS: trazodone 50 mg Tablet PO (20:44)
[2022-12-21] MEDS: levoFLOXacin 750 mg Tablet PO (09:19)
[2022-12-21] MEDS: thiamine 100 mg Tablet PO (09:19)
[2022-12-21] MEDS: folic acid 1 mg Tablet PO (09:19)
[2022-12-21 14:00] VITALS: BP 161/95; PULSE 91; RESP 18; TEMP 36.7; O2SAT 98
--- NOTE | 2022-12-21 16:14 | P.NPUPN_ITS ---
Subjective NPU Subjective: Patient presented today reporting limited understanding of what happened prior to admission. Continues to answer questions in a hedged manner demonstrating lack of clarity of just about everything. We discussed the possibility of starting Invega. Mental Status Exam MSE Comments: This is an slender white male looking older than his stated age, with limited grooming and eye contact. No abnormal movements except for psychomotor retardation. Cooperative with exam in mild to moderate distress. Spe ech was decreased rate and volume. Mood described as not bad, affect is congruent this. Thought process, linear. Thought content: patient denies suicidal or homicidal ideation, reports paranoia but no delusions noted and endorses auditory and visual hallucinations. Attention and concentration are in tact and memory appeared impaired though none were formally tested. He is alert and oriented times person and at times place. Insight and judgment are impaired. Impulse control is impaired. 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 1. Continue current medications. We will consider Invega given success with Risperdal in the past. 2. Encourage individual, group and milieu therapy 3. Continue q-15 minute check for safety 4. Recommend sober living treatment at the highest level of care to which the patient is willing to commit. 5. Memory difficulties likely secondary to drinking versus that in combination with methamphetamines. We will likely need 21-day hold and possibly guardianship given memory difficulties. Involuntary Hold Information 96 Hour Hold: 96 Hour Involuntary Admission: Yes 96 Hour Hold Ending Date: 12/23/22 96 Hour Hold Ending Time: 12:01 Attestations NPU Medical Necessity Statement*: Inpatient hospitalization is medically necessary and the clinically appropriate intervention at this time. We will monitor medications and make changes as indicated. Likely length of stay is 4-6 days. Longer stay likely with possible 21-day versus guardianship versus both. 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
[2022-12-22] MEDS: thiamine 100 mg Tablet PO (08:39)
[2022-12-22] MEDS: folic acid 1 mg Tablet PO (08:39)
[2022-12-22] MEDS: levoFLOXacin 750 mg Tablet PO (08:39)
[2022-12-22 14:00] VITALS: BP 170/89; PULSE 78; RESP 18; TEMP 36.6; O2SAT 98
--- NOTE | 2022-12-22 15:21 | P.NPUPN_ITS ---
Subjective NPU Subjective: Patient presented today unchanged and continuing to be confused. He did not know the month, the day, the date and was saying it was 1981 or 1988. He continued to answer I will know too many questions and we discussed the fact that we had concerns that this might represent some sort of Warneke's situation. We discussed him having a MARIANO performed and that did occur. With very poor results. He has no spontaneous thoughts or ideas about anything at this point and continues to isolate to his room. Mental Status Exam MSE Comments: This is an slender white male looking older than his stated age, with poor grooming and eye contact. No abnormal movements except for psychomotor retardation. Cooperative with exam in mild distress. Speech was decreased rate and volume. Mood described as okay, affect is congruent and subdued. Thought process, linear. Thought content: patient denies suicidal or homicidal ideation, reports paranoia but no delusions noted and endorses auditory and visual halluc inations. Attention and concentration are intact and memory appeared impaired though none were formally tested. He is alert and oriented times person and at times place. Insight and judgment are impaired. Impulse control is impaired. 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 1. Continue current medications. We will consider Invega given success with Risperdal in the past. 2. Encourage individual, group and milieu therapy 3. Continue q-15 minute check for safety 4. Recommend sober living treatment at the highest level of care to which the patient is willing to commit. 5. Memory difficulties likely secondary to drinking versus that in combination with methamphetamines. 21-day hearing on Monday. Had a MARIANO done and did poorly in every section. Involuntary Hold Information 96 Hour Hold: 96 Hour Involuntary Admission: Yes 96 Hour Hold Ending Date: 12/23/22 96 Hour Hold Ending Time: 12:01 Attestations NPU Medical Necessity Statement*: Inpatient hospitalization is medically necessary and the clinically appropriate intervention at this time. We will monitor medications and make changes as indicated. Likely length of stay is 4-6 days. Longer stay likely with possible 21-day versus guardianship versus both. 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
[2022-12-23] MEDS: folic acid 1 mg Tablet PO (09:33)
[2022-12-23] MEDS: thiamine 100 mg Tablet PO (09:33)
[2022-12-23] MEDS: levoFLOXacin 750 mg Tablet PO (09:33)
[2022-12-23 14:00] VITALS: BP 148/88; PULSE 95; RESP 18; TEMP 36.6; O2SAT 98
--- NOTE | 2022-12-23 16:42 | W.PM.NPUPNS ---
Subjective NPU Subjective: Patient presented today with no demonstrative changes in his presentation. He did not choose to go to the hearing and we did discuss when we returned the fact that he had been placed on a 21-day hold. It is unclear that he really understands what is going on or what the implications are of these proceedings. He continues to be limited in spontaneous interaction, thoughts or expressed interests. He is taking medications as prescribed and denied any issues. Mental Status Exam MSE Comments: This is an slender white male looking older than his stated age, with poor grooming and eye contact. No abnormal movements except for psychomotor retardation. Cooperative with exam in mild distress. Speech was decreased rate and volume. Mood described as okay, affect is congruent and subdued. Thought process, linear. Thought content: patient denies suicidal or homicidal ideation, reports paranoia but no delusions noted and endorses auditory and visual hallucinations. Attention and concentration are intact and memory appeared impaired though none were formally tested. He is alert and oriented times person and at times place. Insight and judgment are impaired. Impulse control is impaired. 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 1. Continue current medications. Start Invega 3 mg daily and titrate to effect. 2. Encourage individual, group and milieu therapy 3. Continue q-15 minute check for safety 4. Recommend sober living treatment at the highest level of care to which the patient is willing to commit. 5. Memory difficulties likely secondary to drinking versus that in combination with methamphetamines. 21-day granted 12/23/2022. Had a MARIANO done and did poorly in every section. Involuntary Hold Information 96 Hour Hold: 96 Hour Involuntary Admission: Yes 96 Hour Hold Ending Date: 12/23/22 96 Hour Hold Ending Time: 12:01 Attestations NPU Medical Necessity Statement*: Inpatient hospitalization is medically necessary and the clinically appropriate intervention at this time. We will monitor medications and make changes as indicated. Likely length of stay is 10-14 days. Longer stay likely with possible 21-day versus guardianship versus both. 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
[2022-12-24 06:00] VITALS: RESP 18
[2022-12-24] MEDS: levoFLOXacin 750 mg Tablet PO (08:49)
[2022-12-24] MEDS: folic acid 1 mg Tablet PO (08:49)
[2022-12-24] MEDS: thiamine 100 mg Tablet PO (08:49)
--- NOTE | 2022-12-24 10:14 | P.NPUPN_ITS ---
Subjective NPU Subjective: Patient presented today with no significant changes in his presentation. He did not seem to understand what the 21-day hold meant. He did not appear to understand what guardianship was either. He continues to be limited in spontaneous interaction, thoughts or expressed interests. He is taki ng medications as prescribed and denied any issues. Mental Status Exam MSE Comments: This is an slender white male looking older than his stated age, with poor grooming and eye contact. No abnormal movements except for psychomotor retardation. Cooperative with exam in mild distress. Speech was slow with diminished volume. Mood described as all right. His affect is mood incongruent and subdued. Thought process was linear but superficial. Thought content: patient denies suicidal or homicidal ideation, reports paranoia but no delusions noted and endorses auditory but denied visual hallucinations today. His attention and concentration are intact and memory appeared impaired. He thought the year was 1979 something then said 2021, did not know month, day of week or date. He was alert and oriented to person but not place. Insight and judgment are impaired. Impulse control is impaired. 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 1. Continue current medications. Started Invega 3 mg daily and titrate to effect. 2. Encourage individual, group and milieu therapy 3. Continue q-15 minute check for safety 4. Recommend sober living treatment at the highest level of care to which the patient is willing to commit. 5. Memory difficulties likely secondary to drinking versus that in combination with methamphetamines. 21-day granted 12/23/2022. Had a MARIANO done and did poorly in every section. Involuntary Hold Information 96 Hour Hold: 96 Hour Involuntary Admission: Yes 96 Hour Hold Ending Date: 12/23/22 96 Hour Hold Ending Time: 12:01 Attestations NPU Medical Necessity Statement*: Inpatient hospitalization is medically necessary and the clinically appropriate intervention at this time. We will monitor medications and make changes as indicated. Likely length of stay is 10-14 days. Longer stay likely with possible 21-day versus guardianship versus both. 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
[2022-12-24] MEDS: paliperidone ER 3 mg Tablet PO (11:23)
[2022-12-24 14:00] VITALS: BP 140/70; PULSE 79; RESP 17; TEMP 36.2; O2SAT 94
[2022-12-24] MEDS: nicotine 21 mg Patch 1 PATCH TRANSDERMA (15:15)
[2022-12-25 04:51] VITALS: BMI 18.2
[2022-12-25] MEDS: folic acid 1 mg Tablet PO (09:19)
[2022-12-25] MEDS: thiamine 100 mg Tablet PO (09:19)
[2022-12-25] MEDS: levoFLOXacin 750 mg Tablet PO (09:19)
[2022-12-25] MEDS: paliperidone ER 3 mg Tablet PO (09:19)
--- NOTE | 2022-12-25 13:18 | P.NPUPN_ITS ---
Subjective NPU Subjective: Fred is a 62-year-old male with a history of alcohol dependence who was admitted with problems with active paranoia and reports of auditory and visual hallucinations. The patient continued to appear confused on the unit. He had been placed on a 21-day hold. He acknowledged that he had been using alcohol for several years and stated that he had been living in a [place] of town prior to coming here. He had also acknowledged using methamphetamine and stated that he had only used a little bit . He is taking medications as prescribed and denied any issues. The the patient was unable to elaborate regarding his living situation prior to entering into the hospital. There was no demonstrable changes reported by staff today. Mental Status Exam MSE Comments: This is an slender white male looking older than his stated age, with poor grooming and eye contact. No abnormal movements except for psychomotor retardation. Cooperative with exam in mild distress. Speech was slow with di minished volume. Mood described as all right. His affect is mood incongruent and subdued. Thought process was linear but superficial. Thought content: patient denies suicidal or homicidal ideation, reports paranoia but no delusions noted and endorses auditory but denied visual hallucinations today. His attention and concentration are intact and memory appeared impaired. He thought the year was 2021, did not know month, day of week or date. He was alert and oriented to person but not place. Insight and judgment are impaired. Impulse control is impaired. 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 1. Continue current medications. Continue Invega 3 mg daily and titrate to effect. 2. Encourage individual, group and milieu therapy 3. Continue q-15 minute check for safety 4. Recommend sober living treatment at the highest level of care to which the patient is willing to commit. 5. Memory difficulties likely secondary to drinking versus that in combination with methamphetamines. 21-day granted 12/23/2022. Had a MARIANO done and did poorly in every section. Involuntary Hold Information 96 Hour Hold: 96 Hour Involuntary Admission: Yes 96 Hour Hold Ending Date: 12/23/22 96 Hour Hold Ending Time: 12:01 Attestations NPU Medical Necessity Statement*: Inpatient hospitalization is medically necessary and the clinically appropriate intervention at this time. We will monitor medications and make changes as indicated. Likely length of stay is 10-14 days. Longer stay likely with possible 21-day versus guardianship versus both. 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
[2022-12-25 14:00] VITALS: BP 107/66; PULSE 114; RESP 18; TEMP 36.7; O2SAT 98
[2022-12-25 19:36] VITALS: BP 136/74; PULSE 85; RESP 16; TEMP 36.6; O2SAT 96
[2022-12-25] MEDS: trazodone 50 mg Tablet PO (21:00)
[2022-12-26] MEDS: paliperidone ER 3 mg Tablet PO (08:48)
[2022-12-26] MEDS: thiamine 100 mg Tablet PO (08:48)
[2022-12-26] MEDS: levoFLOXacin 750 mg Tablet PO (08:48)
[2022-12-26] MEDS: folic acid 1 mg Tablet PO (08:48)
[2022-12-26] MEDS: ibuprofen 600 mg Tablet PO (10:59)
[2022-12-26 13:44] VITALS: BP 134/71; PULSE 86; RESP 18; TEMP 36.4; O2SAT 96
--- NOTE | 2022-12-26 15:59 | W.PM.NPUPNS ---
Subjective NPU Subjective: Fred is a 62-year-old male with a history of alcohol dependence who was admitted with problems with active paranoia and reports of auditory and visual hallucinations. The patient continued to appear confused on the unit. He had been placed on a 21-day hold. Patient was seen lying in bed and appeared somewhat tired. He was minimally engaged in group today. He had acknowledged feeling tired and depressed. He admitted to use of alcohol and reported having problems with remembering things. He had also admitted to the use of methamphetamine. Mental Status Exam MSE Comments: This is an slender white male looking older than his stated age, with poor grooming and minimal eye contact. No abnormal movements except for psychomotor retardation. He was minimally cooperative with exam in mild distress. Speech was slow with diminished volume. Mood described as okay.. His affect is mood incongruent and subdued. Thought process was linear but superficial. Thought content: patient denies suicidal or homicidal ideation, There was no delusions noted and he denies auditory or visual hallucinations. His attention and concentration are intact and memory appeared impaired. He thought the year was 2021 again, did not know month, day of week or date. He was alert and oriented to person but not place. Insight and judgment are impaired. Impulse control is impaired. He appears uncertain as to whether we had met yesterday during the interview today. 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 1. Increase Invega to 6 mg daily 2. Encourage individual, group and milieu therapy 3. Continue q-15 minute check for safety 4. Recommend sober living treatment at the highest level of care to which the patient is willing to commit. 5. Memory difficulties likely secondary to drinking versus that in combination with methamphetamines. 21-day granted 12/23/2022. Had a MARIANO done and did poorly in every section. Involuntary Hold Information 96 Hour Hold: 96 Hour Involuntary Admission: Yes 96 Hour Hold Ending Date: 12/23/22 96 Hour Hold Ending Time: 12:01 Attestations NPU Medical Necessity Statement*: Inpatient hospitalization is medically necessary and the clinically appropriate intervention at this time. We will monitor medications and make changes as indicated. Likely length of stay is 10-14 days with possible 21-day versus guardianship while awaiting placement. 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
[2022-12-26 19:51] VITALS: BP 144/70; PULSE 80; RESP 18; TEMP 37; O2SAT 96
[2022-12-27] MEDS: folic acid 1 mg Tablet PO (08:39)
[2022-12-27] MEDS: paliperidone ER 3 mg Tablet 6 MG PO (08:39)
[2022-12-27] MEDS: levoFLOXacin 750 mg Tablet PO (08:39)
[2022-12-27] MEDS: thiamine 100 mg Tablet PO (08:39)
[2022-12-27 08:40] VITALS: BP 151/79; PULSE 58; RESP 20; TEMP 36.4; O2SAT 98
--- NOTE | 2022-12-27 08:48 | W.PM.NPUPNS ---
Subjective NPU Subjective: Fred is a 62-year-old male with a history of alcohol dependence who was admitted with problems with active paranoia and reports of auditory and visual hallucinations. Patient continued to appear to isolate himself on the milieu. He has been staying in his room throughout most of the day. He had admitted to significant alcohol and methamphetamine use and stated that his sister had thought that he was unable to care for himself. The patient had engaged in consumption of food and water. He had reported significant weight loss outside of this facility over the past few months. The patient was unable to recall the details regarding how he was brought in or why he was brought in other than the information provided above. The patient had reported having thoughts in his head that were distracting but was unable to elaborate. Mental Status Exam MSE Comments: This is an slender white male looking older than his stated age, with poor grooming, poor hygiene and minimal eye contact as he was lying in a dark room with his head underneath the covers. There is continued evidence of psychomotor retardation and lack of motivation. He was minimally cooperative with exam in mild distress with increased latency in speech and diminished volume. Mood described as okay. His affect is mood incongruent and subdued. Thought process was linear but superficial. Thought content: patient denies suicidal or homicidal ideation, There was no delusions noted and he denies auditory or visual hallucinations. There was overall poverty of content during the interview. His attention and concentration are poor and memory appeared impaired. He was alert but not oriented to date or time. He had minimal ability to abstract. 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 1. Continue Invega at 6 mg daily 2. Encourage individual, group and milieu therapy 3. Continue q-15 minute check for safety 4. Recommend sober living treatment at the highest level of care to which the patient is willing to commit. 5. Memory difficulties likely secondary to drinking versus that in combination with methamphetamines. 21-day granted 12/23/2022. Had a MARIANO done and did poorly in every section. Involuntary Hold Information 96 Hour Hold: 96 Hour Involuntary Admission: Yes 96 Hour Hold Ending Date: 12/23/22 96 Hour Hold Ending Time: 12:01 Attestations NPU Medical Necessity Statement*: Inpatient hospitalization is medically necessary and the clinically appropriate intervention at this time. We will monitor medications and make changes as indicated. Likely length of stay is 10-14 days while awaiting placement. 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
[2022-12-27 14:00] VITALS: BP 154/70; PULSE 70; RESP 18; TEMP 36.5; O2SAT 97
[2022-12-27 20:03] VITALS: BP 145/79; PULSE 83; RESP 16; TEMP 36.7; O2SAT 96
[2022-12-28 06:00] VITALS: BP 173/84; PULSE 70; RESP 18; TEMP 36.7; O2SAT 96
[2022-12-28] MEDS: thiamine 100 mg Tablet PO (08:35)
[2022-12-28] MEDS: levoFLOXacin 750 mg Tablet PO (08:35)
[2022-12-28] MEDS: folic acid 1 mg Tablet PO (08:35)
[2022-12-28] MEDS: paliperidone ER 3 mg Tablet 6 MG PO (08:36)
[2022-12-28 14:00] VITALS: BP 131/81; PULSE 81; RESP 18; TEMP 36.5; O2SAT 96
--- NOTE | 2022-12-28 16:37 | W.PM.NPUPNS ---
Subjective NPU Subjective: Fred is a 62-year-old male with a history of alcohol dependence who was admitted with problems with active paranoia and reports of auditory and visual hallucinations. Patient had left the room to briefly attend groups and to eat his meals. He had reported that he was willing to live forever his sister stated he needed to go after discharge from here. He had reported a complete inability to care for himself over the past few months. He still was unable to recall the specifics of how he had arrived in the hospital but stated that he had been a nuisance to his family. He continued to require some prompting for engaging in self-care including showering and brushing his teeth. Mental Status Exam MSE Comments: This is an slender white male looking older than his stated age, with poor grooming, poor hygiene and minimal eye contact on interview. There is continued evidence of apathy and lack of motivation. His speech continues to show evidence of increased latency at times. He described his mood is all right today. His affect was blunted. Thought process was linear and less superficial today. Thought content: patient denies suicidal or homicidal ideation, There was no delusions noted and he denies auditory or visual hallucinations. The patient was more elaborative and more willing to engage in conversation today. Registration of 3 words was 3 out of 3. Recall after 5 minutes of the 3 words was 2 out of 3. He had reported the date is being December 2021. Abstraction regarding similarities and proverbs was poor today. He was unable to perform basic calculations. His insight appeared limited. His judgment remains poor. His impulse control appeared guarded at this time. 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 1. Continue Invega at 6 mg daily 2. Encourage individual, group and milieu therapy 3. Continue q-15 minute check for safety 4. Recommend sober living treatment at the highest level of care to which the patient is willing to commit. 5. Memory difficulties likely secondary to drinking versus that in combination with methamphetamines. 21-day granted 12/23/2022. Had a MARIANO done and did poorly in every section thus showing evidence of patient requiring 24 hour assistance in any environment. Involuntary Hold Information 96 Hour Hold: 96 Hour Involuntary Admission: Yes 96 Hour Hold Ending Date: 12/23/22 96 Hour Hold Ending Time: 12:01 Attestations NPU Medical Necessity Statement*: Inpatient hospitalization is medically necessary and the clinically appropriate intervention at this time. We will monitor medications and make changes as indicated. Likely length of stay is 10-14 days while awaiting placement. 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
[2022-12-29 06:00] VITALS: BP 177/93; PULSE 65; RESP 18; TEMP 36.6; O2SAT 99
[2022-12-29] MEDS: paliperidone ER 3 mg Tablet 6 MG PO (08:45)
[2022-12-29] MEDS: thiamine 100 mg Tablet PO (08:45)
[2022-12-29] MEDS: levoFLOXacin 750 mg Tablet PO (08:45)
[2022-12-29] MEDS: folic acid 1 mg Tablet PO (08:45)
[2022-12-29 14:00] VITALS: BP 133/70; PULSE 74; RESP 18; TEMP 36.8; O2SAT 98
--- NOTE | 2022-12-29 17:06 | P.NPUPN_ITS ---
Subjective NPU Subjective: Fred is a 62-year-old male with a history of alcohol dependence who was admitted with problems with active paranoia and reports of auditory and visual hallucinations. She reported no side effects from his medication. He has been taking his Invega 6 mg without any issue. He had reported that he did not wish to consider intramuscular Invega sustenna. He stated that he would be willing to take his medications and return to the care of his sister. The patient had reported that his consumption of alcohol had been of concern to many of his family members and acknowledged having behaved oddly while continuing to drink more alcohol. The patient had reported having significant losses in his life including occupation and relationships secondary to his alcohol consumption. He had also reported that his attention span and his ability to recall details had diminished as well with the continued use of alcohol. . Mental Status Exam MSE Comments: This is an slender white male looking older than his stated age, with poor grooming, poor hygiene and improved contact on interview. There is continued evidence of apathy and lack of motivation. His speech continues to show evidence of increased latency at times. He described his mood is better. His affect remained odd and subdued. Thought process was linear and less superficial today. Thought content: patient denies suicidal or homicidal ideation, There was no delusions noted and he denies auditory or visual hallucinations. The patient was more open on interview and engaged in detail conversation. He still report that the date as 2021. He was unable to perform basic calculations. His insight appeared limited. His judgment remains poor. His impulse control appeared guarded at this time. 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 1. Continue Invega at 6 mg daily 2. Encourage individual, group and milieu therapy 3. Continue q-15 minute check for safety 4. Recommend sober living treatment at the highest level of care to which the patient is willing to commit. 5. Memory difficulties likely secondary to drinking versus that in combination with methamphetamines. 21-day granted 12/23/2022. Had a MARIANO done and did poorly in every section thus showing evidence of patient requiring 24 hour assistance in any environment. Involuntary Hold Information 96 Hour Hold: 96 Hour Involuntary Admission: Yes 96 Hour Hold Ending Date: 12/23/22 96 Hour Hold Ending Time: 12:01 Attestations NPU Medical Necessity Statement*: Inpatient hospitalization is medically necessary and the clinically appropriate intervention at this time. We will monitor medications and make changes as indicated. Likely length of stay is 5-10 days while awaiting placement. 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
[2022-12-30] MEDS: levoFLOXacin 750 mg Tablet PO (10:10)
[2022-12-30] MEDS: thiamine 100 mg Tablet PO (10:10)
[2022-12-30] MEDS: folic acid 1 mg Tablet PO (10:10)
[2022-12-30] MEDS: paliperidone ER 3 mg Tablet 6 MG PO (10:10)
[2022-12-30 14:00] VITALS: BP 124/76; PULSE 105; RESP 20; TEMP 36.6; O2SAT 97
--- NOTE | 2022-12-30 16:07 | P.NPUPN_ITS ---
Subjective NPU Subjective: Fred is a 62-year-old male with a history of alcohol dependence who was admitted with problems with active paranoia and reports of auditory and visual hallucinations. The patient continued to show evidence of improvement as he appeared more interactive and cooperative on the milieu. He reported no side effects from his medications at this time. He reported no thoughts of hurting himself. He reports that he felt comfortable with returning to live with his sister. He states that his sister will be coming to visit in the next few days. He reported no cravings for alcohol and reported no desire to use methamphetamine. There were no substantial changes in his mood but some level o f improvement in regards to his cognition. Mental Status Exam MSE Comments: This is an slender white male looking older than his stated age, with improved grooming, and improved hygiene and improved contact on interview. There was some improvement in motivation but still appeared sluggish throughout the day. There was evidence of bucco-oral facial involuntary movements. His speech continues to show evidence of increased latency at times. He described his mood is better. His affect remained odd and subdued. Thought process was linear and less superficial today. Thought content: patient denies suicidal or homicidal ideation, There was no delusions noted and he denies auditory or visual hallucinations. The patient was more open on interview and engaged in detail conversation. He still report that the date as 2021. He was unable to perform basic calculations. His insight appeared limited. His judgment remains poor. His impulse control appeared guarded at this time. 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 1. Continue Invega at 6 mg daily, add B6 500mg to target tardive dyskinesia. 2. Encourage individual, group and milieu therapy 3. Continue q-15 minute check for safety 4. Recommend sober living treatment at the highest level of care to which the patient is willing to commit. 5. Memory difficulties likely secondary to drinking versus that in combination with methamphetamines. 21-day granted 12/23/2022. Had a MARIANO done and did poorly in every section thus showing evidence of patient requiring 24 hour assistance in any environment. Involuntary Hold Information 96 Hour Hold: 96 Hour Involuntary Admission: Yes 96 Hour Hold Ending Date: 12/23/22 96 Hour Hold Ending Time: 12:01 Attestations NPU Medical Necessity Statement*: Inpatient hospitalization is medically necessary and the clinically appropriate intervention at this time. We will monitor me dications and make changes as indicated. Likely length of stay is 5-10 days with patient sister likely seeking guardianship. 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
[2022-12-30 21:30] VITALS: BP 155/81; PULSE 84; RESP 18; TEMP 37.2; O2SAT 97
[2022-12-31 06:00] VITALS: BP 120/74; PULSE 90; RESP 16; TEMP 36.8; O2SAT 97
[2022-12-31] MEDS: thiamine 100 mg Tablet PO (08:50)
[2022-12-31] MEDS: paliperidone ER 3 mg Tablet 6 MG PO (08:50)
[2022-12-31] MEDS: folic acid 1 mg Tablet PO (08:50)
[2022-12-31] MEDS: levoFLOXacin 750 mg Tablet PO (08:50)
[2022-12-31] MEDS: pyridoxine 50 mg Tablet 100 MG PO (08:50)
[2022-12-31 14:00] VITALS: BP 120/74; PULSE 71; RESP 16; TEMP 36.6; O2SAT 99
--- NOTE | 2022-12-31 14:13 | W.PM.NPUPNS ---
Subjective NPU Subjective: Fred is a 62-year-old male with a history of alcohol dependence who was admitted with problems with active paranoia and reports of auditory and visual hallucinations. He had been out of his room more today but continued to keep more to himself. He had reported feeling a little better. He had continued to report having good support from his sister and stated that he would like to remain on his property but supervised by his sister when he returned home. Patient was redirectable and did appear to be more open to attending groups although he did report that he tended to avoid social groups in general. There have been no substantiated changes in his behavior, cognition or mood over the past few days. Mental Status Exam MSE Comments: This is an slender white male looking older than his stated age, with improved grooming, and improved hygiene and improved contact on interview. There was some improvement in motivation but still appeared sluggish throughout the day. There was evidence of bucco-oral facial involuntary movements. His speech continues to show evidence of increased latency at times. He described his mood is better. His affect remained odd and subdued. Thought process was linear and less superficial today. Thought content: patient denies suicidal or homicidal ideation, There was no delusions noted and he denies auditory or visual hallucinations. The patient was more open on interview and engaged in detail conversation. He continued to report the month as december, day of week was correct but the year as 2021 and the incorrect date. He was unable to perform basic calculations. His insight appeared limited. His judgment remains poor. His impulse control appeared guarded at this time. 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 1. Continue Invega at 6 mg daily, add B6 200mg to target tardive dyskinesia. 2. Encourage individual, group and milieu therapy 3. Continue q-15 minute check for safety 4. Recommend sober living treatment at the highest level of care to which the patient is willing to commit. 5. Memory difficulties likely secondary to drinking versus that in combination with methamphetamines. 21-day granted 12/23/2022. Had a MARIANO done and did poorly in every section thus showing evidence of patient requiring 24 hour assistance in any environment. Involuntary Hold Information 96 Hour Hold: 96 Hour Involuntary Admission: Yes 96 Hour Hold Ending Date: 12/23/22 96 Hour Hold Ending Time: 12:01 Attestations NPU Medical Necessity Statement*: Inpatient hospitalization is medically necessary and the clinically appropriate intervention at this time. We will monitor medications and make changes as indicated. Likely length of stay is 5-10 days with patient sister likely seeking guardianship. 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
[2022-12-31 21:21] VITALS: BP 174/94; PULSE 102; RESP 16; TEMP 36.5; O2SAT 98
[2023-01-01 06:00] VITALS: BP 161/79; PULSE 80; RESP 16; TEMP 36.7; O2SAT 96
[2023-01-01] MEDS: folic acid 1 mg Tablet PO (08:17)
[2023-01-01] MEDS: paliperidone ER 3 mg Tablet 6 MG PO (08:17)
[2023-01-01] MEDS: levoFLOXacin 750 mg Tablet PO (08:17)
[2023-01-01] MEDS: pyridoxine 50 mg Tablet 100 MG PO (08:17)
[2023-01-01] MEDS: thiamine 100 mg Tablet PO (08:17)
[2023-01-01 14:00] VITALS: BP 165/89; PULSE 82; RESP 16; TEMP 36.7; O2SAT 99
--- NOTE | 2023-01-01 15:54 | P.NPUPN_ITS ---
Subjective NPU Subjective: Fred is a 62-year-old male with a history of alcohol dependence who was admitted with problems with active paranoia and reports of auditory and visual hallucinations. No changes reported by staff although he continues to be more active and less isolative on the milieu. He denied any depressed mood at this time. He reported no distractions from his thoughts. He had reported struggles with executing and making decisions and continued to require prompting for engaging in self-care including bathing and brushing his teeth. He had expressed desire to return to live with his sister and stated that he would oblige and continue to take his medications if it helped with keeping him out of the hospital. Mental Status Exam MSE Comments: This is an slender white male looking older than his stated age, with improved grooming, and improved hygiene and improved contact on interview. There was some improvement in motivation but still appeared sluggish throughout the day. There was decrease in facial movements noted. His speech was more productive with less latency noted. He described his mood is okay. His affect remained odd and subdued. Thought process was linear and less superficial today. Thought content: patient denies suicidal or homicidal ideation, There was no delusions noted and he denies auditory or visual hallucinations. He remained unable to remember the year but did appear to remember the month and day of the week today. He was unable to perform basic calculations. His insight appeared limited. His judgment remains poor. His impulse control appeared guarded at this time. 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 1. Continue Invega at 6 mg daily, add B6 200mg to target tardive dyskinesia. 2. Encourage individual, group and milieu therapy 3. Continue q-15 minute check for safety 4. Recommend sober living treatment at the highest level of care to which the patient is willing to commit. 5. Memory difficulties likely secondary to drinking versus that in combination with methamphetamines. 21-day granted 12/23/2022. Had a MARIANO done and did poorly in every section thus showing evidence of patient requiring 24 hour assistance in any environment. Will discuss with sister whether patient could return home while awaiting guardianship hearing. Involuntary Hold Information 96 Hour Hold: 96 Hour Involuntary Admission: Yes 96 Hour Hold Ending Date: 12/23/22 96 Hour Hold Ending Time: 12:01 Attestations NPU Medical Necessity Statement*: Inpatient hospitalization is medically necessary and the clinically appropriate intervention at this time. We will monitor medications and make changes as indicated. Likely length of stay is 5-10 days with patient sister likely seeking guardianship. 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
[2023-01-01 21:09] VITALS: BP 149/76; PULSE 78; RESP 16; TEMP 36.6; O2SAT 98
[2023-01-02 06:00] VITALS: BP 143/78; PULSE 79; TEMP 36.4; O2SAT 98
[2023-01-02] MEDS: paliperidone ER 3 mg Tablet 6 MG PO (07:57)
[2023-01-02] MEDS: pyridoxine 50 mg Tablet 100 MG PO (07:57)
[2023-01-02] MEDS: folic acid 1 mg Tablet PO (07:57)
[2023-01-02] MEDS: thiamine 100 mg Tablet PO (07:57)
[2023-01-02] MEDS: levoFLOXacin 750 mg Tablet PO (07:57)
--- NOTE | 2023-01-02 11:17 | W.PM.NPUDCS ---
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 Hospital service has been requested because of mild CPK elevation.? Patient is not able to provide any history he stating that he is in the hospital to the care of his mom.? When I questioned him why he thinks he needs to take care of his mom he stated she has cancer. As per the ER physician patient was found naked, constrained to a metal bench with duct tape. In the ER he is showing normal hemodynamics without any fever, mild leukocytosis, CPK trending down no signs of acidosis no creatinine elevation or signs of kidney injury, current CPK 891, pyuria noted, drug screen negative, Patient endorses to drinking 6 cans of beer every day and smoking 2 packs of cigarettes every day Trauma scan unremarkable The patient was admitted to the neuropsychiatric unit for definitive treatment of those issues. He is not currently taking any psychiatric medications. He presents today reporting his sister found him laying in the mud and thought he should get checked out which is why he presented to the psychiatric hospital. He has not been psychiatrically hospitalized, cannot remember receiving outpatient services but believes he was on psychiatric medications at one point. He reports smoking 2 packs of cigarettes a day and a can of chew a day, alcohol daily all day, denies marijuana, has tried methamphetamine and cocaine and last used a week ago. He has been to a rehab before, had 3 DUIs and possibly had some other drug and alcohol related charges. He endorses having memory issues currently and is having a hard time recalling a lot of the information asked during the interview. We discussed checking his history to see if he has been on medications before and discussed starting thiamine in case his memory issues are related to his alcohol use.? Patient was a very limited and confused historian.? He had 3 hospitalizations in 2017 and follow-up at [facility] [place] for years after that.? An excerpt of his last hospitalization is included below for history and context. Psychiatric History: As above. Substance Abuse History: As above. Medical History: He denies any known allergies to medications. Per his 08/16/2017 [facility] inpatient psychiatric hospitalization: Date of Service: Aug 16, 2017 Chief Complaint: Just shot my gun out in the [place]. HPI: The pt reports HPI: The patient is a 57-year-old male re-admitted on 96 hour hold for reported paranoia and homicidal ideation.? Affidavits are reviewed on the chart for 96 hour hold which was filed August 14 had indicated that the patient was having apparent auditory hallucinations and paranoia at that time.? Also referenced aggressive ideation from incident back in June 2017 and did not explain a timeframe for recent reported homicidal ideation/planning/preparation.? He did reference that on August 14 the patient was firing his gun into the veliz and talking to people that were not there due to paranoid delusions.? At the time of this interview, the patient continues to be paranoid and very irritable.? He reports that he does not wish to have word associations or to be asked the same questions multiple times.? He denies suicidal or homicidal ideation however he then states If I do, that's my own damn problems. .? He reports that he has the right to bear arms and shoot his firearms whenever he wants.? He is reporting that prior to this admission I was shootin' at some brush because I wanted to. ? He reports this is the 3rd time his family has placed a 96 hour hold on him.? He reports that his family has bugs like TV screens, light bulbs in his house spying on him.? He is disorganized talking about his antiques and living on an burial ground.? He reports that he is upset about his family due to some issue regarding traveling in boat containers, pornography. Psychiatric review of systems:? Pt report his mood is good and denies depression/anhedonia or suicidal ideation.? He denies new particular problems with sleep or appetite.? Denies any history of overt manic episode off of drugs.? But urine drug screen is currently negative and he is significantly irritable and somewhat hyper with racing thoughts.? He is evasive and uncooperative with answering other questions pertaining to his mood at this time.? Denies any auditory or visual hallucinations but per collateral information/affidavits, he was yelling at people who weren't there in the veliz at night.? He has apparent paranoid delusions expressed during interview today.? He reports that his family gets upset with him when he goes to buy alcohol but then denies that he has been drinking at all for quite some time but will not specify.? 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 He is declining to take any psychotropic medications at this time.? Family reports were that he has a prior diagnosis of schizophrenia and has been noncompliant with his prior medications. Past psychiatric history:? Last admission to NPU in February and again overnight in July 2017 for psychosis unspecified in the context of acute meth and alcohol intoxication.? Was on Zyprexa 10mg BID during a prior admission but had refused medication during his last admission and was not exhibiting any acute psychotic symptoms during that time.? He reports that Zyprexa made him feel groggy.? NO OP psychiatrist.? He does endorse a history of fighting but no SA. Past medical history:? 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 Surgeries- left digit separation (webbed at hands/ feet with skin).? Family history:? Brother- psychosis/ DID? Social history: single, lives alone next to his family, unemployed currently, not on disability, has had recent court related to assaulting his sister but not wish to discuss the issue at this time.? Hx IVDU meth, last use within the past 1-2 months, MJ occasional per history but currently refuses to answer questions.? Alcohol- daily 2-12 beers daily previously reported but patient is denying any alcohol use over the past few weeks and alcohol level was negative upon admission, no complicated WD.? Denies hx CD treatment. Hospital Course Hospital Course Discharge Summary: During the hospitalization, patient had routine laboratory studies which were within normal limits except for few outliers. The patient appeared quite confused throughout his hospital stay often isolating himself on the unit. He showed great improvement after many days in the hospital with the titration of paliperidone up to 6 mg daily. He did appear to show some evidence of tardive dyskinesia and B6 was provided to treat this at a dose of 200 mg daily. An Occupational Therapy evaluation had suggested that the patient would not be able to take care of himself and required significant assistance. The patient's sister was willing to file guardianship and assume responsibility for the patient. The patient on discharge had expressed that she would continue to follow the instructions of her sister and take his medication as prescribed and was also supportive of needing a guardian. Additionally, there was a general medical evaluation which was also within normal limits and revealed no new acute processes. At the time of discharge, lethality was denied and psychosis was resolving. Mood and anxiety were well managed. Patient endorsed a plan to avoid all drugs of abuse and follow-up with the aftercare recommendations of the treatment team. Patient was evaluated and deemed to be absent credible lethality, and had achieved the maximum benefit from an inpatient hospitalization, so was discharged. Involuntary Hold Information 96 Hour Hold: 96 Hour Involuntary Admission: Yes 96 Hour Hold Ending Date: 12/23/22 96 Hour Hold Ending Time: 12:01 Mental Status Exam MSE Comments: This is an slender white male looking older than his stated age, with improved grooming, and improved hygiene and improved contact on interview. There was some improvement in motivation but still appeared sluggish throughout the day. There was continued oral-buccal facial movements noted. His speech was more productive with less latency noted. He described his mood is okay. His affect remained blunted. Thought process was linear and less superficial today. Thought content: patient denies suicidal or homicidal ideation, There was no delusions noted and he denies auditory or visual hallucinations. He remained unable to remember the year but did appear to remember the month and day of the week today. He was unable to perform basic calculations. His insight appeared limited. His judgment remains limited. His impulse control appeared guarded at this time. Discharge Data Studies Completed and Pending: Completed Studies During Hospitalization Category Date Time Status CT head wo con* [id number] Stat Cat Scan 12/18/22 19:47 Completed XR chest 1V nikolas ble [id number] Stat Exams 12/18/22 18:18 Completed XR foot LT min 3V * [id number] Stat Exams 12/18/22 18:18 Completed XR foot RT min 3V * [id number] Stat Exams 12/18/22 18:18 Completed Radiology Impressions Chest X-Ray 12/18/22 18:18 IMPRESSION: No significant findings Foot X-Ray 12/18/22 18:18 IMPRESSION: Plantar swelling at the 5th metatarsal phalangeal joint Head CT 12/18/22 19:47 IMPRESSION: 1. No acute findings. 2. 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 Also chronic lacunar infarcts bilaterally in the basal ganglia and thalami. 3. Microangiopathy. Laboratory Results WBC 11.2 10^3/uL (4.0 -10.0) H 12/18/22 18: RBC 4.54 10^6/uL (4.1 -5.3) 12/18/22 18: Hgb 15.5 g/dL (11.7-1 6.6) 12/18/22 18: Hct 45.8 % (42.0-52.0 ) 12/18/22 18: MCV 100.9 fl (80-94) H 12/18/22 18: MCH 34.1 pg (28.0-34. 0) H 12/18/22 18: MCHC 33.8 g/dL (30.0-3 6.0) 12/18/22 18: RDW 13.2 % (12.1-15.1 ) 12/18/22 18: Plt Count 234 10^3/cmm (130 -400) 12/18/22 18: MPV 9.2 fL (7.4-10.4) 12/18/22 18: Neut % (Auto) 75.5 % 12/18/22 18: Lymph % (Auto) 17.1 % 12/18/22 18: [place] % (Auto) 6.3 % 12/18/22 18: Eos % (Auto) 0.5 % 12/18/22 18: Baso % (Auto) 0.3 % 12/18/22 18: Neut # (Auto) 8.45 10^3/uL (1.8 -7.7) H 12/18/22 18: Lymph # (Auto) 1.9 10^3/uL (0.8- 4.8) 12/18/22 18: [place] # (Auto) 0.7 10^3/uL (0.2- 0.9) 12/18/22 18: Eos # (Auto) 0.1 10^3/uL (0.0- 0.8) 12/18/22 18:27 Baso # (Auto) 0.0 10^3/uL (0.0- 0.1) 12/18/22 18:27 Nucleated RBC % (a uto) 0 % 12/18/22 18: Nucleated RBCs # 0.0 /100WBC 12/18/22 18:27 Sodium 135 mmol/L (136-1 45) L 12/20/22 08:35 Potassium 4.3 mmol/L (3.5-5 .1) 12/20/22 08:35 Chloride 100 mmol/L (98-10 7) 12/20/22 08:35 Carbon Dioxide 26 mmol/L (22-29) 12/20/22 08:35 Anion Gap 13.3 (5-19) 12/20/22 08:35 BUN 12 mg/dL (8-23) 12/20/22 08:35 Creatinine 0.6 mg/dL (0.7-1. 2) L 12/20/22 08:35 GFR Calculation 137.4 mL/min (90- 130) H 12/20/22 08:35 Glucose 137 mg/dL (65-115 ) H 12/20/22 08:35 Calculated Osmolal ity 282 mOsm/kg (285- 295) L 12/20/22 08:35 Calcium 8.4 mg/dL (8.5-10 .5) L 12/20/22 08:35 Total Bilirubin 0.6 mg/dL (0.15-1 .2) 12/20/22 08:35 AST 43 U/L (0-40) H 12/20/22 08:35 ALT 17 U/L (0-41) 12/20/22 08:35 Alkaline Phosphata se 96 U/L (40-130) 12/20/22 08:35 Ammonia 24 umol/L (16-60) 12/18/22 18:27 Creatine Kinase 659 U/L (39-308) H* 12/20/22 08:35 Total Protein 5.8 g/dL (6.6-8.7 ) L 12/20/22 08:35 Albumin 3.4 g/dL (3.5-5.2 ) L 12/20/22 08:35 Globulin 2.4 g/dL (1.3-4.6 ) 12/20/22 08:35 Urine Color Yellow (Yellow) 12/18/22 20:17 Urine Appearance Clear (CLEAR) 12/18/22 20:17 Urine pH 5 (5-7) 12/18/22 20:17 Ur Specific Gravit y 1.020 (1.005-1.0 30) 12/18/22 20:17 Urine Protein Neg (Negative) 12/18/22 20:17 Urine Glucose (UA) 1+ (Normal) H 12/18/22 20:17 Urine Ketones Negative (Negati ve) 12/18/22 20:17 Urine Blood Neg (Negative) 12/18/22 20:17 Urine Nitrate Negative (Negati ve) 12/18/22 20:17 Urine Bilirubin Neg (Negative) 12/18/22 20:17 Urine Urobilinogen Neg mg/dL (Negati ve) 12/18/22 20:17 Ur Leukocyte X[place] a[place] Trace (Negative) H 12/18/22 20:17 Urine RBC 0-4 /hpf (0-2) H 12/18/22 20:17 Urine WBC 15-25 /hpf (0-5) H 12/18/22 20:17 Ur Squamous Epith Cells 0-4 /hpf (0-5) H 12/18/22 20:17 Amorphous Sediment Not Reportable 12/18/22 20:17 Urine Bacteria Trace /hpf (NONE) 12/18/22 20:17 Urine Mucus 1+ /hpf 12/18/22 20:17 Salicylates < 0.3 mg/dL (3-10 ) L 12/18/22 18:27 Urine Opiates Scre en Negative ng/mL (N egative) 12/18/22 20:17 Acetaminophen < 5.0 ug/mL (10-3 0) L 12/18/22 18:27 Ur Barbiturates Sc reen Negative ng/mL (N egative) 12/18/22 20:17 Ur Phencyclidine S crn Negative ng/mL (N egative) 12/18/22 20:17 Ur Amphetamines Sc reen Negative ng/mL (N egative) 12/18/22 20:17 U Benzodiazepines Scrn Negative ng/mL (N egative) 12/18/22 20:17 Urine Cocaine Scre en Negative ng/mL (N egative) 12/18/22 20:17 U Marijuana (THC) Screen Negative ng/mL (N egative) 12/18/22 20:17 Ethyl Alcohol < 10 mg/dL (0-10) 12/18/22 18:27 SARS-CoV-2 Ag (Rap id) negative (Negati ve) 12/18/22 20:11 Vitals: Last Vital Signs Temp 97.6 F 01/02/23 06:00 Pulse 79 01/02/23 06:00 Resp 16 01/01/23 21:09 BP 143/78 01/02/23 06:00 Pulse Ox 98 01/02/23 06:00 O2 Del Method 01/02/23 06:00 Discharge Plan Discharge Patient Disposition: Home Condition: Stable Prescriptions: New paliperidone 3 mg Tablet Extended Release 24 Hr 6 mg PO DAILY 30 Days Qty: 60 1RF pyridoxine (vitamin B6) 50 mg Tablet 100 mg PO BID 30 Days Qty: 120 1RF Vitamin B-1 (mononitrate) 100 mg Tablet 100 mg PO DAILY 30 Days Qty: 30 1RF Discharge Orders: Discharge Order (Routine); Ordered 01/02/23 Ordered By: Baron Chaney Referrals: [facility] [Outside] - 01/09/23 11:30 am (Initial assessment set 01/09/23 check in at 11:30 am.) Tre Acharya MD [Physician] - 01/10/23 8:30 am (Establish Care ) Discharge Diet: Usual diet Discharge Activity: Resume usual activity Patient Instructions: Vitamin B Complex (By mouth) (B-50 Complex, B6-Folic Acid, Balanced..., Paliperidone (By mouth) (Invega), Brief Psychotic Disorder (DC), Opioid Safety Discharge Attestations NPU Time Spent in Discharge Care*: less than 30 min Specific Discharge Activities: Specific discharge activities: educating patient, discussing with case making machine operator/social workers/dc planners, documenting/other paperwork and evaluating patient/reviewing data Coding Level of Care Code Acute Chg FW DC note Diagnoses Alcohol dependence F10.20 Acute psychosis F23 Rhabdomyolysis M62.82 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
[2023-01-02 12:00] VITALS: BP 143/78; PULSE 79; RESP 16; TEMP 36.4; O2SAT 98
== END 2023-01-02 12:17 | disposition home or self-care (01) | DRG 897 ==
LOC: ER 12-19 07:20 → NP 12-19 16:25
PROVIDERS: Emergency Medicine; Internal Medicine; Admitting Provider Psychiatry & Neurology Psychiatry; Emergency Provider Family Medicine; Visit Provider Psychiatry & Neurology Psychiatry
DX: F15.251 Other stimulant dependence with stimulant-induced psychotic disorder with hallucinations (principal); M62.82 Rhabdomyolysis; F10.20 Alcohol dependence, uncomplicated; Z91.14 Patient's other noncompliance with medication regimen; I48.91 Unspecified atrial fibrillation; G24.01 Drug induced subacute dyskinesia; F17.210 Nicotine dependence, cigarettes, uncomplicated; F17.220 Nicotine dependence, chewing tobacco, uncomplicated; Z86.73 Personal history of transient ischemic attack (TIA), and cerebral infarction without residual deficits
CPT/HCPCS: 36415; 70450; 71045; 73630; 80048; 80053; 80306; 80307; 81001; 82140; 82550; 85025; 87426; 93005; 96361; 96374; 96375; 96376; 97150; 97165; 97167; 99238; 99285; J1630; J2060; J7030

== ENCOUNTER 2024-08-04 22:27 | Inpatient (IN) | payer MEDICARE, MEDICAID, SELFPAY ==
[2024-08-04 22:29] VITALS: BMI 17.7
--- NOTE | 2024-08-04 22:42 | CTR_ITS ---
PROCEDURE INFORMATION: Exam: CT Head Without Contrast Exam date and time: 08/04/2024 11:27 PM Age: 64 years old Clinical indication: Altered mental status/memory loss; Patient HX: EMS arrival for AMS. Per EMS family states PT has not been acting right over the last four days. ETOH and drugs on board. TECHNIQUE: Imaging protocol: Computed tomography of the head without contrast. Radiation optimization: All CT scans at this facility use at least one of these dose optimization techniques: automated exposure control; mA and/or kV adjustment per patient size (includes targeted exams where dose is matched to clinical indication); or iterative reconstruction. COMPARISON: CT head wo con* [id number] 12/18/2022 9:10 PM RADIATION DOSE METRICS: Total DLP (mGy-cm): 1366.25 FINDINGS: Brain: No hemorrhage. No edema, mass effect or midline shift. Periventricular and deep white matter hypodensities compatible with chronic microvascular ischemic changes. Right anterior temporal encephalomalacia. Cerebral ventricles: No ventriculomegaly. Paranasal sinuses: Visualized sinuses are unremarkable. No fluid levels. Mastoid air cells: No mastoid effusion. Bones: Unremarkable. No acute fracture. Soft tissues: Unremarkable. CT/CT head wo con* [id number] IMPRESSION: No acute intracranial abnormality.
--- NOTE | 2024-08-04 22:42 | XRR_ITS ---
PROCEDURE INFORMATION: Exam: XR Chest Exam date and time: 08/04/2024 10:46 PM Age: 64 years old Clinical indication: Patient HX: AMS; Cough TECHNIQUE: Imaging protocol: Radiologic exam of the chest. Views: 1 view. COMPARISON: CR XR chest 1V portable [id number] 12/18/2022 6:26 PM FINDINGS: Lungs: No consolidation. Pleural spaces: Unremarkable. No pleural effusion. No pneumothorax. Heart/Mediastinum: No cardiomegaly. Bones/joints: No acute fracture. XR/XR chest 1V portable [id number] IMPRESSION: No acute findings.
--- NOTE | 2024-08-04 22:43 | ECG_ITS ---
[facility] Test Date: 2024-08-04 Pat Name: Fred Samano Department: Room: Gender: Male [employer]ices Representative: : 1960 Requested By: Paige Sheikh Order Number: [id number] Aysha MD: Franca Rosario M.D. Measurements Intervals [place] Rate: 104 P: 57 SD: 144 QRS: 39 QRSD: 92 T: 67 QT: 347 QTc: 458 Interpretive Statements SINUS TACHYCARDIA POSSIBLE RIGHT VENTRICULAR CONDUCTION DELAY [RSR (QR) IN V1/V2] ABNORMAL RHYTHM ECG WARNING: DATA QUALITY MAY AFFECT INTERPRETATION Compared to ECG 12/18/2022 20:15:20 Sinus rhythm no longer present Atrial abnormality no longer present ST (T wave) deviation no longer present Electronically Signed On 08-05-2024 23:29:12 CDT by Franca Rosario M.D. [email or web address]
--- NOTE | 2024-08-04 22:46 | W.ED.AMS ---
Documented by User: Paige Sheikh MD 08/05/24 01:01 HPI - Altered Mental Status General: Chief Complaint: Altered Mental Status Stated Complaint: AMS Time Seen by Provider: 08/04/24 22:40 Source: EMS Mode of arrival: EMS Limitations: altered mental status History of Present Illness: 64-year-old male has a history of alcoholism along with drug abuse and psychosis patient brought in by EMS sister states that he has been drinking and doing drugs and has been completely out of the last 4 days she states today sat outside in the rain all day long here patient is altered he is really only able to tell me his name and is combative he is disheveled no signs of any injuries here. No known recent illness Related Data Home Medications Medication Instructions Recorded Confirmed No Known Home Medications 08/05/24 08/05/24 Allergies Allergy/AdvReac Type Severity Reaction Status Date / Time No Known Allergies Allergy Verified 10/05/20 11:05 Review of Systems General: Reports: ROS unobtainable due to mental status 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 Dyskinesia, tardive Family History Other Cancer Denies family history of CAD (coronary artery disease) Clotting disorder Chronic kidney disease (CKD) Anesthesia complication Bleeding disorder Social History Smoking and tobacco/nicotine status: current every day tobacco/nicotine user cigarettes Packs smoked per day: 1 Alcohol intake: current Alcohol intake frequency: 0-2 Drinks per Day Alcohol type: beer Physical Exam Const: COMMON NORMALS: negative for patient oriented x3 GENERAL APPEARANCE: combative HENMT: COMMON NORMALS: normocephalic and atraumatic HEAD & SCALP: normocephalic and atraumatic Eye: COMMON NORMALS: Equal, round and reactive pupils present and EOMs intact bilaterally PUPIL: Yes Equal, round and reactive pupils present Neck/C-Spine: COMMON NORMALS: full ROM and supple Chest: COMMONS NORMALS: normal inspection of the chest Resp: COMMON NORMALS: normal respiratory effort, No retractions, No use of accessory muscles and clear to auscultation bilaterally AUSCULTATION: clear to auscultation bilaterally Cardio: COMMON NORMALS: regular rate, regular rhythm and No murmurs present (Cardio) RATE: regular rate RHYTHM: regular rhythm GI: COMMON NORMALS: Normal to inspection, nondistended, normoactive bowel sounds present, Soft to palpation, non-tender and no masses PALPATION: Yes Soft to palpation Extremity: COMMON NORMALS: normal to inspection and full ROM Neuro: COMMON NORMALS: moves all extremities and no focal motor deficits; negative for patient oriented x3 Psych: COMMON NORMALS: negative for mental status grossly normal Skin: COMMON NORMALS: no rashes or lesions noted and no wounds GENERAL SKIN EXAM: no rashes or lesions noted Course Reevaluation(s): Reevaluation #1: Patient has been combative here was not able to get withdrawals or CT did have to give him ketamine to sedate him for labs Time: 23:37 Vital Signs: Vital signs: Vital Signs Temperature 97.5 F L 08/07/24 07:42 Pulse Rate 86 08/09/24 14:00 Respiratory Rate 17 08/09/24 14:00 Blood Pressure 106/71 08/09/24 14:00 Pulse Oximetry 97 08/09/24 14:00 Oxygen Delivery Me thod Room Air 08/05/24 16:00 MDM - Altered Mental Status Medical Decision Making Patient presents with altered mental status along with acute psychosis been combative he has had a history of this in the past he has no signs of infection her head CT is normal did speak to hospitalist will admit at this time I also spoke to psychiatrist for consult. Medical Records I reviewed the patient's medical records. Lab Data I reviewed the patient's lab results. 08/04/24 23:20 08/04/24 23:20 Radiology Impressions Chest X-Ray 08/04/24 22:42 IMPRESSION: No acute findings. Head CT 08/04/24 22:42 IMPRESSION: No acute intracranial abnormality. KUB X-Ray 08/07/24 11:02 IMPRESSION: 1. No acute findings. 2. Negative for colonic fecal stasis 3. Negative for bowel obstruction. Laboratory Results WBC 12.52 10^3/uL (3.29-11.43) H 08/04/24 23:20 RBC 4.39 10^6/uL (3.85-5.65) 08/04/24 23:20 Hgb 15.50 g/dL (11.27-16.99) 08/04/24 23:20 Hct 45.5 % (37-53) 08/04/24 23:20 MCV 103.6 fl (82-101) H 08/04/24 23:20 MCH 35.3 pg (27-33) H 08/04/24 23:20 MCHC 34.1 g/dL (30-55) 08/04/24 23:20 RDW 13.0 % (12.1-15.1) 08/04/24 23:20 Plt Count 218 10^3/cmm (157-399) 08/04/24 23:20 MPV 9.1 fL (7.4-10.4) 08/04/24 23:20 Neut % (Auto) 75.1 % 08/04/24 23:20 Lymph % (Auto) 15.2 % 08/04/24 23:20 [place] % (Auto) 8.2 % 08/04/24 23:20 Eos % (Auto) 0.9 % 08/04/24 23:20 Baso % (Auto) 0.3 % 08/04/24 23:20 Neut # (Auto) 9.40 10^3/uL (1.8-7.7) H 08/04/24 23:20 Lymph # (Auto) 1.9 10^3/uL (0.8-4.8) 08/04/24 23:20 [place] # (Auto) 1.0 10^3/uL (0.2-0.9) H 08/04/24 23:20 Eos # (Auto) 0.1 10^3/uL (0.0-0.8) 08/04/24 23:20 Baso # (Auto) 0.0 10^3/uL (0.0-0.1) 08/04/24 23:20 Nucleated RBC % (auto) 0 % 08/04/24 23:20 Nucleated RBCs # 0.0 /100WBC 08/04/24 23:20 PT 13.30 SECONDS (12.1-14.9) 08/04/24 23:20 INR 0.98 (0.8-1.2) 08/04/24 23:20 Sodium 136 mmol/L (136-145) 08/04/24 23:20 Potassium 4.0 mmol/L (3.5-5.1) 08/04/24 23:20 Chloride 95 mmol/L (98-107) L 08/04/24 23:20 Carbon Dioxide 24 mmol/L (22-29) 08/04/24 23:20 Anion Gap 21.0 (5-19) H 08/04/24 23:20 BUN 11 mg/dL (8-23) 08/04/24 23:20 Creatinine 0.9 mg/dL (0.7-1.2) 08/04/24 23:20 GFR Calculation 85.5 mL/min (90-130) L 08/04/24 23:20 Glucose 140 mg/dL (65-115) H 08/04/24 23:20 Calculated Osmolality 284 mOsm/kg (285-295) L 08/04/24 23:20 Calcium 9.6 mg/dL (8.5-10.5) 08/04/24 23:20 Magnesium 1.9 mg/dL (1.7-2.3) 08/04/24 23:20 Total Bilirubin 0.9 mg/dL (0.15-1.2) 08/04/24 23:20 AST 27 U/L (0-40) 08/04/24 23:20 ALT 13 U/L (0-41) 08/04/24 23:20 Alkaline Phosphatase 83 U/L (40-130) 08/04/24 23:20 Creatine Kinase 283 U/L (39-308) 08/04/24 23:20 Total Protein 7.5 g/dL (6.6-8.7) 08/04/24 23:20 Albumin 4.4 g/dL (3.5-5.2) 08/04/24 23:20 Globulin 3.1 g/dL (1.3-4.6) 08/04/24 23:20 TSH 1.30 uIU/mL (0.27-4.20) 08/04/24 23:20 Ethyl Alcohol < 10 mg/dL (0-10) 08/04/24 23:20 All radiology interpretation(s) finalized by discharge Discharge Plan Discharge Patient Disposition: Admitted As Inpatient Admit Provider: Marlo Abdullahi Clinical Impression: Altered mental status, Acute psychosis Condition: Stable Coding Level of Care Code ED Reverberatory Furnace Supervisor for Chg Fwd Documented by User: COOKIE Robb 08/09/24 17:40 HPI - Altered Mental Status General: Chief Complaint: Altered Mental Status Stated Complaint: AMS Time Seen by Provider: 08/04/24 22:40 Related Data Home Medications Medication Instructions Recorded Confirmed No Known Home Medications 08/05/24 08/05/24 Allergies Allergy/AdvReac Type Severity Reaction Status Date / Time No Known Allergies Allergy Verified 10/05/20 11:05 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 Dyskinesia, tardive Family History Other Cancer Denies family history of CAD (coronary artery disease) Clotting disorder Chronic kidney disease (CKD) Anesthesia complication Bleeding disorder Social History Smoking and tobacco/nicotine status: current every day tobacco/nicotine user cigarettes Packs smoked per day: 1 Alcohol intake: current Alcohol intake frequency: 0-2 Drinks per Day Alcohol type: beer Course Vital Signs: Vital signs: Vital Signs Temperature 97.5 F L 08/07/24 07:42 Pulse Rate 86 08/09/24 14:00 Respiratory Rate 17 08/09/24 14:00 Blood Pressure 106/71 08/09/24 14:00 Pulse Oximetry 97 08/09/24 14:00 Oxygen Delivery Me thod Room Air 08/05/24 16:00 MDM - Altered Mental Status Lab Data 08/04/24 23:20 08/04/24 23:20 Radiology Impressions Chest X-Ray 08/04/24 22:42 IMPRESSION: No acute findings. Head CT 08/04/24 22:42 IMPRESSION: No acute intracranial abnormality. KUB X-Ray 08/07/24 11:02 IMPRESSION: 1. No acute findings. 2. Negative for colonic fecal stasis 3. Negative for bowel obstruction. Laboratory Results WBC 12.52 10^3/uL (3.29-11.43) H 08/04/24 23:20 RBC 4.39 10^6/uL (3.85-5.65) 08/04/24 23:20 Hgb 15.50 g/dL (11.27-16.99) 08/04/24 23:20 Hct 45.5 % (37-53) 08/04/24 23:20 MCV 103.6 fl (82-101) H 08/04/24 23:20 MCH 35.3 pg (27-33) H 08/04/24 23:20 MCHC 34.1 g/dL (30-55) 08/04/24 23:20 RDW 13.0 % (12.1-15.1) 08/04/24 23:20 Plt Count 218 10^3/cmm (157-399) 08/04/24 23:20 MPV 9.1 fL (7.4-10.4) 08/04/24 23:20 Neut % (Auto) 75.1 % 08/04/24 23:20 Lymph % (Auto) 15.2 % 08/04/24 23:20 [place] % (Auto) 8.2 % 08/04/24 23:20 Eos % (Auto) 0.9 % 08/04/24 23:20 Baso % (Auto) 0.3 % 08/04/24 23:20 Neut # (Auto) 9.40 10^3/uL (1.8-7.7) H 08/04/24 23:20 Lymph # (Auto) 1.9 10^3/uL (0.8-4.8) 08/04/24 23:20 [place] # (Auto) 1.0 10^3/uL (0.2-0.9) H 08/04/24 23:20 Eos # (Auto) 0.1 10^3/uL (0.0-0.8) 08/04/24 23:20 Baso # (Auto) 0.0 10^3/uL (0.0-0.1) 08/04/24 23:20 Nucleated RBC % (auto) 0 % 08/04/24 23:20 Nucleated RBCs # 0.0 /100WBC 08/04/24 23:20 PT 13.30 SECONDS (12.1-14.9) 08/04/24 23:20 INR 0.98 (0.8-1.2) 08/04/24 23:20 Sodium 136 mmol/L (136-145) 08/04/24 23:20 Potassium 4.0 mmol/L (3.5-5.1) 08/04/24 23:20 Chloride 95 mmol/L (98-107) L 08/04/24 23:20 Carbon Dioxide 24 mmol/L (22-29) 08/04/24 23:20 Anion Gap 21.0 (5-19) H 08/04/24 23:20 BUN 11 mg/dL (8-23) 08/04/24 23:20 Creatinine 0.9 mg/dL (0.7-1.2) 08/04/24 23:20 GFR Calculation 85.5 mL/min (90-130) L 08/04/24 23:20 Glucose 140 mg/dL (65-115) H 08/04/24 23:20 Calculated Osmolality 284 mOsm/kg (285-295) L 08/04/24 23:20 Calcium 9.6 mg/dL (8.5-10.5) 08/04/24 23:20 Magnesium 1.9 mg/dL (1.7-2.3) 08/04/24 23:20 Total Bilirubin 0.9 mg/dL (0.15-1.2) 08/04/24 23:20 AST 27 U/L (0-40) 08/04/24 23:20 ALT 13 U/L (0-41) 08/04/24 23:20 Alkaline Phosphatase 83 U/L (40-130) 08/04/24 23:20 Creatine Kinase 283 U/L (39-308) 08/04/24 23:20 Total Protein 7.5 g/dL (6.6-8.7) 08/04/24 23:20 Albumin 4.4 g/dL (3.5-5.2) 08/04/24 23:20 Globulin 3.1 g/dL (1.3-4.6) 08/04/24 23:20 TSH 1.30 uIU/mL (0.27-4.20) 08/04/24 23:20 Ethyl Alcohol < 10 mg/dL (0-10) 08/04/24 23:20 Discharge Plan Discharge Patient Disposition: Admitted As Inpatient Admit Provider: Marlo Abdullahi Clinical Impression: Altered mental status, Acute psychosis Condition: Stable Coding Level of Care Code ED Reverberatory Furnace Supervisor for Chg Fwd Face to Face Encounter Date Performed: 08/04/24 Face to Face: Restrn/Seclusion Events leading up to initiation: Combative/Striking out at staff or others ([id number]) Evaluation of patient's immediate situation: Signs of psychological distress Patient reaction since intervention applied: De-escalation/no displays of violent/destructive behavior Recent labs reviewed: Yes Review of medications: Yes Patient's current medical/behavioral condition: No new concerns since last ROS Need for restraint or seclusion is: Continued Attending notified: Yes ([id number])
[2024-08-04] MEDS: ketamine 100 mg/mL Inj 5 mL 217.7 MG IM (23:11)
[2024-08-04 23:24] LABS: Basophils % 0.3 %; Eosinophils # 0.1 10^3/uL (0.0-0.8); Eosinophils % 0.9 %; Hematocrit 45.5 % (37-53); Lymphocytes # 1.9 10^3/uL (0.8-4.8); Lymphocytes % 15.2 %; Mean Corpuscular HGB Conc 34.1 g/dL (30-55); Mean Corpuscular Hemoglobin 35.3 pg (27-33); Mean Corpuscular Volume 103.6 fl (82-101); Mean Platelet Volume 9.1 fL (7.4-10.4); Monocytes % 8.2 %; Neutrophils % 75.1 %; Nucleated Red Blood Cells % 0 %; Platelet Count 218 10^3/cmm (157-399); Red Blood Count 4.39 10^6/uL (3.85-5.65); White Blood Count 12.52 10^3/uL (3.29-11.43)
--- NOTE | 2024-08-04 23:32 | PC.NURSE ---
Manual Hold Pt refused medications, labs and all nursing interventions. Pt nonverbal at this time, not oriented, not responding appropriately verbally, pt continuously trying to hit staff during any nursing intervention. Manual hold initiated at 2311, pt medicated and manual hold released at 2317.
[2024-08-04 23:34] LABS: INR 0.98 (0.8-1.2)
[2024-08-04] MEDS: sodium chloride 0.9% 1,000 ML 999 ML IV (23:34)
[2024-08-04 23:45] VITALS: BP 143/95; PULSE 94; RESP 24; O2SAT 93
[2024-08-04 23:51] LABS: Alanine Aminotransferase 13 U/L (0-41); Albumin Level 4.4 g/dL (3.5-5.2); Alkaline Phosphatase 83 U/L (40-130); Aspartate Amino Transferase 27 U/L (0-40); Blood Urea Nitrogen 11 mg/dL (8-23); Calcium 9.6 mg/dL (8.5-10.5); Carbon Dioxide 24 mmol/L (22-29); Chloride 95 mmol/L (98-107); Creatine Phosphokinase 283 U/L (39-308); Creatinine Clr Calc Pharmacy 65.5188; Globulin 3.1 g/dL (1.3-4.6); Glomerular Filtration Rate 85.5 mL/min (90-130); Glucose 140 mg/dL (65-115); Magnesium 1.9 mg/dL (1.7-2.3); Osmolality Calculated 284 mOsm/kg (285-295); Sodium 136 mmol/L (136-145); Total Bilirubin 0.9 mg/dL (0.15-1.2); Total Protein 7.5 g/dL (6.6-8.7)
[2024-08-04 23:54] LABS: Alcohol Level < 10 mg/dL (0-10)
[2024-08-05] VITALS (100 sets, daily range): BP systolic 83–202; BP diastolic 42–105; PULSE 74–100; RESP 12–35; TEMP 36.4–36.7; O2SAT 90–100; BMI 17.9
--- NOTE | 2024-08-05 00:14 | PC.NURSE ---
Restraint Bed Pt continuously resistive to nursing care. Pt not coherent enough to follow commend or speak. Overall comprehension of surroundings is poor. Pt kicking and swinging at staff. Pt placed into restraint bed at 0005. Physician notified.
--- NOTE | 2024-08-05 01:00 | PC.NURSE ---
96 HH Pt served with copy of 96 HH. Pt not alert or oriented at time of 96.
[2024-08-05] MEDS: haloperidol inj 5 mg/mL INJ 1 mL IM (01:21)
[2024-08-05] MEDS: LORazepam 2 mg/mL INJ 1 mL IM (01:21)
[2024-08-05 01:39] LABS: Ammonia 38 umol/L (16-60)
--- NOTE | 2024-08-05 03:25 | P.HP_ITS ---
Providers/Chief Complaint 2 Admitting Physician: Marlo Abdullahi Primary Care Provider: Sarah Glasgow RN Chief Complaint: AMS History of Present Illness Fred Samano is a 64 year old male with history of atrial fibrillation, smoking, alcohol use disorder, substance use disorder, tardive dyskinesia, hyponatremia, was brought in by EMS to ER due to altered mental status. His sister reported that he had been drinking alcohol and taking drugs. On presentation in ER he is disheveled, without obvious injury, unable to provide history, he is able to give his name and not much else. He is afebrile in ER, with mild leukocytosis 12.5, normal sodium, unremarkable kidney function, glucose, liver parameters, magnesium, CK, TSH. No detected EtOH. Head CT and chest x-ray are unremarkable. Initial admission to neuropsychiatric unit considered, however, he appears to be more altered than previously, additionally was combative and was given a dose of ketamine. Case was discussed with psychiatry, admission was requested initially to hospitalist team and ICU for initial treatment and monitoring with subsequent plan for transfer to neuropsychiatric unit. During my assessment he is unable to give me his name, he is accompanied by one-to-one sitter, his nurse and warehouse traffic supervisor. He had tried to kick staff and had to be restrained. He does not answer when asked if he is in any pain or discomfort, does not provide review of systems. The only coherent thing he states is can I stand up . Review of Systems 2 General: Reports: ROS unobtainable due to mental status Medications/Allergies Home Medications Medication Instructions Recorded Confirmed Last Taken Type paliperidone 3 mg tablet,extended 6 mg (2 x 3 mg) PO DAILY 30 days 01/02/23 Unknown Rx release 24 hr #60 tabs pyridoxine (vitamin B6) 50 mg 100 mg (2 x 50 mg) PO BID 30 days 01/02/23 Unknown Rx tablet #120 tabs thiamine mononitrate (vit B1) 100 100 mg PO DAILY 30 days #30 tabs 01/02/23 Unknown Rx mg tablet (Vitamin B-1 (mononitrate)) Allergies Allergy/AdvReac Type Severity Reaction Status Date / Time No Known Allergies Allergy Verified 10/05/20 11:05 PFSH Acute 2 PFSH: Medical History Atrial fibrillation with RVR Nicotine dependence, cigarettes, uncomplicated Alcohol dependence, uncomplicated 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 Dyskinesia, tardive Family History Other Cancer Denies family history of CAD (coronary artery disease) Clotting disorder Chronic kidney disease (CKD) Anesthesia complication Bleeding disorder Social History Smoking and tobacco/nicotine status: current every day tobacco/nicotine user cigarettes Packs smoked per day: 1 Alcohol intake: current Alcohol intake frequency: 0-2 Drinks per Day Alcohol type: beer Vitals/I&O/Wt Last Vital Signs Pulse 88 08/05/24 03:03 Resp 14 08/05/24 02:47 BP 121/70 08/05/24 03:03 Pulse Ox 93 08/05/24 03:03 O2 Del Method Room Air 08/05/24 02:47 08/04/24 08/04/24 08/05/24 14:59 22:59 06:59 Intake Total 1000 / 1000 Balance 1000 / 1000 Weight last 48 hrs Weight 54.431 kg Physical Exam 2 Narrative: Refuses to be examined. Const: COMMON NORMALS: alert GENERAL APPEARANCE: cooperative O RIENTATION/CONSCIOUSNESS: Yes awake Neuro: COMMON NORMALS: moves all extremities Data 08/04/24 23:20 08/04/24 23:20 A&P Assessment and plan (1) Altered mental status: Altered mental status, possibly acute encephalopathy, versus acute psychiatric episode. With reported polysubstance use recently including alcohol, unknown recreational substances. Possible alcohol withdrawal versus substance association versus withdrawal. Does not appear to have metabolic derangements. Possible acute toxic encephalopathy or metabolic encephalopathy with withdrawal. Initial admission to intensive care unit. Agitated, combative in ER, trying to kick staff, required physical restraints, required 10 dose of ketamine/chemical restraint. Reviewed vitals, CBC, INR, CMP, magnesium, ammonia, CK, TSH, EtOH level, head CT, chest x-ray, EKG on my interpretation with sinus rhythm without sign of acute ischemia, pending official interpretation. Reviewed ER note, discussed with ER provider. Workup so far otherwise unremarkable. Continue lorazepam per [facility] protocol. One-to-one sitter. Urine Alysis and UDS requested but has not provided urine so far. Straight catheterization was attempted but with suspected BPH urine so far not obtained. Request serum drug screen. Requesting bladder scan, assess for urine retention. Obtain urine sample when possible. Once his mental status improved sufficiently, plan would be to transition to further assessment of management on neuropsychiatric unit. Psychiatry is on consult. (2) Acute psychosis: Pending psychiatric assessment. 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 Serum tox screen requested. Would benefit from options for substance use disorder rehabilitation once he is able to communicate. (4) Alcohol dependence: With possible withdrawal. EtOH level not elevated. CIWA protocol, Ativan, thiamine, folic acid, multivitamin. Would benefit from options for EtOH rehabilitation once able to take them in. Plan Conjunctivitis: Appears to have bilateral conjunctivitis, possibly allergic. Consider eyedrops, nasal spray once he is in better condition to be able to receive treatment safely. Paroxysmal atrial fibrillation: EKG reviewed, currently in sinus rhythm History of hyponatremia: Sodium reviewed, normal. Attestations 2 Medical Necessity Statement*: Admission of over 2 midnights anticipated for assessment of management of acute psychotic episode, agitation, with altered mental status, possible encephalopathy, possible substance intoxication versus withdrawal. Coding Level of Care Code Critical Care >/= 30 minutes Critical care time (in minutes): 35 The high probability of a clinically significant, sudden or life threatening deterioration, as referenced in this documentation, required my full and direct attention, intervention and personal management. The critical care time shown is in addition to time spent performing any reported separately billable procedures and includes the following: [x] Data and vital sign review and interpretation [x ] Patient assessment, examination and intervention [x] Medication orders and management [x] Patient/Family updates as able [x] Care Coordination and Documentation. 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
[2024-08-05 05:29] LABS: Glucose Point of Care 105 mg/dL (70-110)
--- NOTE | 2024-08-05 05:42 | PC.NURSE ---
Pt came to floor escorted by ER staff and security. Bladder scan was performed with a reading of 1074ml of fluid retaining in bladder. This nurse and two others were able to get the patient to attempt urinating into a urinal. Abdominal muscles on the patient flexed but he was unable to produce urine. A tee was attempted using sterile procedure and a moderate amount of daisy red blood along with a clot came down the line but we were unable to get it past the prostate. We then attempted a coude catheter and were able to get it past the prostate. A few small blood clots were noted but no more daisy blood or large clots were observed. Pt was able to void 1100ml and continued to rest after the catheter was placed. Catheter was left in place after getting confirmation from the doctor. Pt is resting comfortably, no further needs at this time.
[2024-08-05 06:19] LABS: Bilirubin Urine Negative (Negative); Blood Urine 3+ (Negative); Glucose Urine UA Negative (Normal); Ketones Urine Negative (Negative); Leukocyte Esterase Urine Trace (Negative); Nitrate Urine Negative (Negative); Protein Urine Trace (Negative); Specific Gravity, Urine 1.015 (1.005-1.030); Urine Appearance Clear (CLEAR)
[2024-08-05 06:24] LABS: Add Urine Microscopic? YES; Bacteria Urine None Seen /hpf; Hyaline Casts Urine 2.46 /lpf; RBC Urine >100 /hpf (0-2); Squamous Epithelial Cell Urine 0-5 /hpf (0-5); WBC Urine 0-5 /hpf (0-5)
[2024-08-05 06:28] LABS: Urine Color Yellow (Yellow)
[2024-08-05 06:29] LABS: Add Urine Culture? Yes
[2024-08-05] MEDS: folic acid 1 mg Tablet PO (09:59)
[2024-08-05] MEDS: multivitamin therapeutic Tablet 1 TAB PO (09:59)
[2024-08-05] MEDS: thiamine 100 mg Tablet PO (09:59)
--- NOTE | 2024-08-05 11:25 | P.MISC_ITS ---
Miscellaneous Note Note: Patient admitted this morning by facepiece line supervisor. He is currently sleeping. Sitter is bedside. He has a Nagy catheter due to retention. We will wait and see what mentation is like when he wakes up. Otherwise, agree with plan of care.
--- NOTE | 2024-08-05 14:15 | PC.NURSE ---
Nagy was removed and patient voided into toilet. No Issues reported.
--- NOTE | 2024-08-05 15:46 | PC.ADMIT ---
[address] Admission Note: The patient,Fred Samano,64 y/o, was given written information regarding hospital policies, unit procedures and contact persons. Patient's smoking status: current every day smoker. Vital Signs - 8 hr 08/05/24 07:50 08/05/24 07:55 08/05/24 08:00 Temperature Pulse Rate 80 80 81 Respiratory Rate 18 18 18 Blood Pressure 163/95 163/95 163/95 Pulse Oximetry 97 97 Oxygen Delivery Method 08/05/24 08:05 08/05/24 08:10 08/05/24 08:15 Temperature Pulse Rate 80 80 82 Respiratory Rate 18 18 19 H Blood Pressure 143/85 143/85 143/85 Pulse Oximetry 96 96 Oxygen Delivery Method 08/05/24 08:20 08/05/24 08:25 08/05/24 08:30 Temperature Pulse Rate 80 80 81 Respiratory Rate 18 18 18 Blood Pressure 141/81 141/81 141/81 Pulse Oximetry 96 96 Oxygen Delivery Method 08/05/24 08:35 08/05/24 08:40 08/05/24 08:45 Temperature Pulse Rate 81 80 81 Respiratory Rate 19 H 18 18 Blood Pressure 135/83 135/83 135/83 Pulse Oximetry 96 96 97 Oxygen Delivery Method 08/05/24 08:50 08/05/24 08:55 08/05/24 09:00 Temperature Pulse Rate 79 83 79 Respiratory Rate 18 17 17 Blood Pressure 155/92 155/92 155/92 Pulse Oximetry 96 98 Oxygen Delivery Method 08/05/24 09:05 08/05/24 09:10 08/05/24 09:15 Temperature Pulse Rate 80 79 78 Respiratory Rate 17 12 16 Blood Pressure 164/100 164/100 164/100 Pulse Oximetry 99 99 98 Oxygen Delivery Method 08/05/24 09:20 08/05/24 09:25 08/05/24 09:30 Temperature Pulse Rate 79 78 79 Respiratory Rate 16 17 16 Blood Pressure 177/89 177/89 177/89 Pulse Oximetry 99 97 97 Oxygen Delivery Method 08/05/24 09:35 08/05/24 09:40 08/05/24 09:45 Temperature Pulse Rate 79 78 77 Respiratory Rate 17 16 16 Blood Pressure 159/87 159/87 159/87 Pulse Oximetry 98 97 96 Oxygen Delivery Method 08/05/24 09:50 08/05/24 09:55 08/05/24 10:00 Temperature Pulse Rate 78 79 91 Respiratory Rate 16 17 23 H Blood Pressure 142/90 142/90 142/90 Pulse Oximetry 96 97 95 Oxygen Delivery Method 08/05/24 10:05 08/05/24 10:10 08/05/24 10:15 Temperature Pulse Rate 87 82 86 Respiratory Rate 23 H 19 H 17 Blood Pressure 121/77 121/77 121/77 Pulse Oximetry 98 100 98 Oxygen Delivery Method 08/05/24 10:20 08/05/24 10:25 08/05/24 10:30 Temperature Pulse Rate 81 80 98 Respiratory Rate 35 H 18 19 H Blood Pressure Pulse Oximetry 99 98 96 Oxygen Delivery Method 08/05/24 10:35 08/05/24 10:40 08/05/24 10:45 Temperature Pulse Rate 85 79 88 Respiratory Rate 19 H 19 H 17 Blood Pressure 178/102 178/102 178/102 Pulse Oximetry 98 98 98 Oxygen Delivery Method 08/05/24 10:50 08/05/24 10:55 08/05/24 11:00 Temperature Pulse Rate 74 85 83 Respiratory Rate 19 H 20 H 20 H Blood Pressure 145/84 145/84 145/84 Pulse Oximetry 97 97 96 Oxygen Delivery Method 08/05/24 11:05 08/05/24 11:10 08/05/24 11:15 Temperature Pulse Rate 81 83 85 Respiratory Rate 19 H 20 H 20 H Blood Pressure 115/75 115/75 115/75 Pulse Oximetry 95 95 94 Oxygen Delivery Method 08/05/24 11:20 08/05/24 11:25 08/05/24 11:30 Temperature Pulse Rate 83 84 83 Respiratory Rate 20 H 20 H 20 H Blood Pressure 90/44 90/44 90/44 Pulse Oximetry 94 94 Oxygen Delivery Method 08/05/24 11:35 08/05/24 11:40 08/05/24 11:45 Temperature Pulse Rate 83 88 86 Respiratory Rate 19 H 21 H 19 H Blood Pressure 83/42 93/46 93/46 Pulse Oximetry 94 97 99 Oxygen Delivery Method 08/05/24 11:50 08/05/24 11:55 08/05/24 12:00 Temperature Pulse Rate 77 81 80 Respiratory Rate 17 19 H 19 H Blood Pressure 166/100 166/100 166/100 Pulse Oximetry 94 94 93 Oxygen Delivery Method 08/05/24 12:05 08/05/24 12:10 08/05/24 12:15 Temperature Pulse Rate 82 80 80 Respiratory Rate 19 H 19 H 19 H Blood Pressure 142/79 142/79 142/79 Pulse Oximetry 93 93 93 Oxygen Delivery Method 08/05/24 12:20 08/05/24 12:25 08/05/24 12:30 Temperature Pulse Rate 83 83 97 Respiratory Rate 20 H 20 H 22 H Blood Pressure 143/78 143/78 143/78 Pulse Oximetry 93 93 96 Oxygen Delivery Method 08/05/24 12:35 08/05/24 12:40 08/05/24 12:45 Temperature Pulse Rate 98 100 84 Respiratory Rate 17 30 H 20 H Blood Pressure 103/89 103/89 103/89 Pulse Oximetry 96 92 94 Oxygen Delivery Method 08/05/24 12:50 08/05/24 12:55 08/05/24 13:00 Temperature Pulse Rate 86 88 90 Respiratory Rate 18 19 H 22 H Blood Pressure 173/83 173/83 173/83 Pulse Oximetry 96 95 95 Oxygen Delivery Method 08/05/24 13:05 08/05/24 13:10 08/05/24 13:15 Temperature Pulse Rate 86 94 88 Respiratory Rate 19 H 24 H 20 H Blood Pressure 147/78 147/78 147/78 Pulse Oximetry 95 96 94 Oxygen Delivery Method 08/05/24 13:20 08/05/24 13:25 08/05/24 13:30 Temperature Pulse Rate 88 88 88 Respiratory Rate 21 H 21 H 19 H Blood Pressure 127/70 127/70 127/70 Pulse Oximetry 93 93 Oxygen Delivery Method 08/05/24 13:35 08/05/24 13:40 08/05/24 13:45 Temperature Pulse Rate 87 87 86 Respiratory Rate 19 H 19 H 19 H Blood Pressure 102/53 102/53 102/53 Pulse Oximetry 92 92 Oxygen Delivery Method 08/05/24 13:50 08/05/24 13:55 08/05/24 14:00 Temperature 97.9 F Pulse Rate 98 Respiratory Rate 23 H Blood Pressure 107/55 107/55 107/55 Pulse Oximetry 94 Oxygen Delivery Method 08/05/24 14:05 08/05/24 14:10 08/05/24 14:15 Temperature Pulse Rate Respiratory Rate Blood Pressure 107/55 107/55 107/55 Pulse Oximetry Oxygen Delivery Method 08/05/24 14:20 08/05/24 14:25 08/05/24 14:30 Temperature Pulse Rate Respiratory Rate Blood Pressure 107/55 107/55 107/55 Pulse Oximetry Oxygen Delivery Method 08/05/24 15:02 Temperature Pulse Rate Respiratory Rate Blood Pressure Pulse Oximetry Oxygen Delivery Method Room Air TRANSFERRED FROM [facility] ICU AT 1434. STAFF ASSISTED TO ROOM DUE TO PT BEING UNSTEADY ON FEET. STAFF DRESSED OUT INTO SCRUBS WITH 2 STAFF ASSIST. OBSERVED SMALL SCRATCH TO RIGHT SHOULDER, DRY FEET NOTED TO TOES AND GREAT TOE WITH LONG NAILS TO BOTH TOES. PT IS UNABLE TO ANSWER QUESTIONS DUE TO POOR COGNITION. PT ALERT TO NAME ONLY .DENIES PAIN, PT SPEECH IS UNCLEAR AND SLURRED DURING ASSESSMENT. RN WAS ABLE TO UNDERSTAND PT ONCE WHEN HE ASKED DO YOU PLAY BASKETBALL. ASKED IF SUICIDAL PT STATES I DON'T KNOW. WHEN ASKED IF HOMICIDAL PT STATED NAH NOT NOW, I GOT BEAT UP BEFORE. WHEN ASKED IF HE DID DRUGS OR ALCOHOL PT STATED ALOT ALL THE TIME I THINK ALOT. RN UNABLE TO GET ANY VALUABLE INFORMATION FROM PT DUE TO ONLY BEING ORIENTATED TO SELF. PTS SISTER CALLED AND GAVE INFORMATION ON PT, SISTER ROBSON WAS INFORMED THAT RN COULD NOT GIVE HER INFORMATION AT THIS TIME. SISTER STATED THAT WAS FINE BUT STATES YOU NEED TO KNOW THIS. MY SISTER GAVE ISMAEL A VENTILATOR SPECIALIST A YEAR AGO AND HE'S NOT BEEN RIGHT SINCE. I BUY HIM ALCOHOL EVERY WEEK AND HE TAKES A HIT OFF MY JOINT EVERY NOW AND THEN WHEN HE GETS ANXIOUS. SISTER EDUCATED THAT THIS RN WOULD GIVE HER NUMBER TO HAND SILVERING SUPERVISOR SINCE SHE WAS WANTING TO SET UP HOME HEALTH FOR PT DUE TO HIM BEING COMBATIVE WITH CARES. PT CURRENTLY RESTING IN BED. ATTEMPTED TO ORIENTATE TO UNIT. ALL QUESTIONS ANSWERED AND SUPPORT WAS VOICED.
[2024-08-05] MEDS: LORazepam 2 mg Tablet PO (20:30)
[2024-08-06 04:00] VITALS: RESP 18
--- NOTE | 2024-08-06 05:15 | PC.NURSE ---
pt refused vitals resp are 18 charge nurse notified
[2024-08-06 07:46] VITALS: RESP 16
--- NOTE | 2024-08-06 07:46 | PC.NURSE ---
patient refused [facility] vitals. continues to rip the cuff off.
[2024-08-06] MEDS: multivitamin therapeutic Tablet 1 TAB PO (08:59)
[2024-08-06] MEDS: thiamine 100 mg Tablet PO (08:59)
[2024-08-06] MEDS: folic acid 1 mg Tablet PO (08:59)
[2024-08-06 12:00] VITALS: RESP 18
--- NOTE | 2024-08-06 12:04 | PC.NURSE ---
patient refused [facility] vitals.
--- NOTE | 2024-08-06 14:27 | P.NPUHP_ITS ---
Providers/Chief Complaint 2 Admitting Physician: Marlo Abdullahi Primary Care Provider: Sarah Glasgwo RN Chief Complaint: AMS HPI NPU History of Present Illness Fred Samano is a 64 year old male with a history of psychosis and depression who reports that he had been without medications for months. He had presented to the emergency department after being brought in by EMS with confusion. He had denied having used alcohol or illicit drugs. The patient had been agitated in the emergency department and received a dose of ketamine and had been placed in the intensive care unit for monitoring on 08/05/2024. He was then subsequently transferred in the afternoon on 08/05/2024 to the neuropsychiatric unit. Patient on interview stated that he had been living with a friend Hugo for an unspecified amount of time. He had reported no recent use of methamphetamine. His urine drug screen was negative for drugs or alcohol. He had denied any thoughts of hurting himself or anyone else on admission. He had reported from time to time getting depressed. He had reported that he was frequently thinking about the past. He had reported that he had been previously caring for his mother while she had had cancer but states that she had several years ago. He had acknowledged having no recent follow-up with his psychiatrist. He reported no substantial changes since his last admission. He did report some difficulties with memory and concentration. Inpatient psychiatric history: Patient had been admitted at least 1 time in the past here on the neuropsychiatric unit in December 2022. Outpatient psychiatric history: Last seen in [facility] in August 2023. Previous medications include Invega 6 mg daily and vitamin B6 200 mg daily. Previous medications include Zyprexa as well. Current medications: None Medical history: History of SIRS, hyponatremia, asbestos exposure, hx of inability to urinate. Surgeries: left digit separation. Allergies: nkda Medications: none Substance abuse history: Per previous records patient has a history of methamphetamine use along with a history of significant alcohol consumption with a history of inpatient substance abuse treatment reported. Legal history: hx of assault to sister per records, hx of DUI, Family psychiatric history: None reported Social history: He had reported having problems with learning during his childhood. He had reported that he had been close with his mother and states that his mother had a few years ago. He had previously then resided with his sister but for unspecified reasons he was unable to live with her and states that he has been living with a man named Hugo. He reports that he is currently not on disability. 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 He had not not endorsed any previous history of no marriage and has two adult aged children who he has no contact with for many years. 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 Hospital service has been requested because of mild CPK elevation.? Patient is not able to provide any history he stating that he is in the hospital to the care of his mom.? When I questioned him why he thinks he needs to take care of his mom he stated she has cancer. As per the ER physician patient was found naked, constrained to a metal bench with duct tape. In the ER he is showing normal hemodynamics without any fever, mild leukocytosis, CPK trending down no signs of acidosis no creatinine elevation or signs of kidney injury, current CPK 891, pyuria noted, drug screen negative, Patient endorses to drinking 6 cans of beer every day and smoking 2 packs of cigarettes every day Trauma scan unremarkable The patient was admitted to the neuropsychiatric unit for definitive treatment of those issues. He is not currently taking any psychiatric medications. He presents today reporting his sister found him laying in the mud and thought he should get checked out which is why he presented to the psychiatric hospital. He has not been psychiatrically hospitalized, cannot remember receiving outpatient services but believes he was on psychiatric medications at one point. He reports smoking 2 packs of cigarettes a day and a can of chew a day, alcohol daily all day, denies marijuana, has tried methamphetamine and cocaine and last used a week ago. He has been to a rehab before, had 3 DUIs and possibly had some other drug and alcohol related charges. He endorses having memory issues currently and is having a hard time recalling a lot of the information asked during the interview. We discussed checking his history to see if he has been on medications before and discussed starting thiamine in case his memory issues are related to his alcohol use.? Patient was a very limited and confused historian.? He had 3 hospitalizations in 2017 and follow-up at [facility] for years after that.? An excerpt of his last hospitalization is included below for history and context. Psychiatric History: As above. Substance Abuse History: As above. Medical History: He denies any known allergies to medications. Per his 08/16/2017 [facility] inpatient psychiatric hospitalization: Date of Service: Aug 16, 2017 Chief Complaint: Just shot my gun out in the veliz. HPI: The pt reports HPI: The patient is a 57-year-old male re-admitted on 96 hour hold for reported paranoia and homicidal ideation.? Affidavits are reviewed on the chart for 96 hour hold which was filed August 14 had indicated that the patient was having apparent auditory hallucinations and paranoia at that time.? Also referenced aggressive ideation from incident back in June 2017 and did not explain a timeframe for recent reported homicidal ideation/planning/preparation.? He did reference that on August 14 the patient was firing his gun into the veliz and talking to people that were not there due to paranoid delusions.? At the time of this interview, the patient continues to be paranoid and very irritable.? He reports that he does not wish to have word associations or to be asked the same questions multiple times.? He denies suicidal or homicidal ideation however he then states If I do, that's my own damn problems. .? He reports that he has the right to bear arms and shoot his firearms whenever he wants.? He is reporting that prior to this admission I was shootin' at some brush because I wanted to. ? He reports this is the 3rd time his family has placed a 96 hour hold on him.? He reports that his family has bugs like TV screens, light bulbs in his house spying on him.? He is disorganized talking about his antiques and living on an burial ground.? He reports that he is upset about his family due to some issue regarding traveling in boat containers, pornography. Psychiatric review of systems:? Pt report his mood is good and denies depression/anhedonia or suicidal ideation.? He denies new particular problems with sleep or appetite.? Denies any history of overt manic episode off of drugs.? But urine drug screen is currently negative and he is significantly irritable and somewhat hyper with racing thoughts.? He is evasive and uncooperative with answering other questions pertaining to his mood at this time.? Denies any auditory or visual hallucinations but per collateral information/affidavits, he was yelling at people who weren't there in the veliz at night.? He has apparent paranoid delusions expressed during interview today.? He reports that his family gets upset with him when he goes to buy alcohol but then denies that he has been drinking at all for quite some time but will not specify.? 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 He is declining to take any psychotropic medications at this time.? Family reports were that he has a prior diagnosis of schizophrenia and has been noncompliant with his prior medications. Past psychiatric history:? Last admission to NPU in February and again overnight in July 2017 for psychosis unspecified in the context of acute meth and alcohol intoxication.? Was on Zyprexa 10mg BID during a prior admission but had refused medication during his last admission and was not exhibiting any acute psychotic symptoms during that time.? He reports that Zyprexa made him feel groggy.? NO OP psychiatrist.? He does endorse a history of fighting but no SA. Past medical history:? 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 Surgeries- left digit separation (webbed at hands/ feet with skin).? Family history:? Brother- psychosis/ DID? Social history: single, lives alone next to his family, unemployed currently, not on disability, has had recent court related to assaulting his sister but not wish to discuss the issue at this time.? Hx IVDU meth, last use within the past 1-2 months, MJ occasional per history but currently refuses to answer questions.? Alcohol- daily 2-12 beers daily previously reported but patient is denying any alcohol use over the past few weeks and alcohol level was negative upon admission, no complicated WD.? Denies hx CD treatment. Hospital Course Hospital Course Discharge Summary: During the hospitalization, patient had routine laboratory studies which were within normal limits except for few outliers. The patient appeared quite confused throughout his hospital stay often isolating himself on the unit. He showed great improvement after many days in the hospital with the titration of paliperidone up to 6 mg daily. He did appear to show some evidence of tardive dyskinesia and B6 was provided to treat this at a dose of 200 mg daily. An Occupational Therapy evaluation had suggested that the patient would not be able to take care of himself and required significant assistance. The patient's sister was willing to file guardianship and assume responsibility for the patient. The patient on discharge had expressed that she would continue to follow the instructions of her sister and take his medication as prescribed and was also supportive of needing a guardian. Additionally, there was a general medical evaluation which was also within normal limits and revealed no new acute processes. At the time of discharge, lethality was denied and psychosis was resolving. Mood and anxiety were well managed. Patient endorsed a plan to avoid all drugs of abuse and follow-up with the aftercare recommendations of the treatment team. Patient was evaluated and deemed to be absent credible lethality, and had achieved the maximum benefit from an inpatient hospitalization, so was discharged. History of Present Illness Presenting Problem/Chief Complaint: Klaus is a 62 year old single heterosexual male who was seen for an assessment to determine a need for services after he was admitted into the neuropsychiatric unit for psychosis. Client appears today confused and with his sister who assists the client . The client states that he was admitted to the hospital after he was found constrained to a metal bench with duck tape. Client reported to the ER that he was there to take care of his mom . Client reports today that his mother and father has passed, that he stays with his sister most of the time. Client reports that he has a prior brain injury, that he has enough to eat, a warm place, drinking alcohol sometimes, has a long history of substance use and intense life experiences. Client reports that he is just content, that he gets social security, that he gets anxious and confused, and that his sister has filled for guardianship of her brother but it has not been granted. Client's sister reports that sometimes others take advantage of him and that they are working this out as a family to make sure that he is has good care. Current Psychiatric and Physical Symptoms:: At this time it is unlikely to have an accurate diagnosis for mental health and determine what is organic verses emotional/behavioral. Client appears confused, having sluggish speech, his sister reporting that they have always been close as a family, and appears to have involentary mouth movement appearing like tardive dyskinesia. Childhood and Family History Client stated We were close. pointing at his sister. Client appeared that this answered the open ended question of Tell me what it was like growing up and did not respond to prompts. Client's sister states that they grew up poor, that they have always lived in [place], that they had a brother that passed that was autistic, that the younger sister has been taking advantage of the client and that this sister, the older one has applied for custody of the client. She reports that their mother passed from health issues, that their father was a industrial truck mechanic passing away from 'being wild bill'. She reports that they have applied for home health care, medicaid, and she is hoping to just live in [place] . Client appeared during the session to nod and confirm his sisters statements. 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 Client added that he used to be on probation and completed his time. Abuse/Neglect/Trauma: None (Client and his siblings brought up being poor many times. ) Current/historical developmental milestones and/or delays:: Intellectual functioning (Clients sister reports that they all were in special classes. Client reports that he wants to learn to read and write better.) Accommodations: Literacy assistance Details: Client's sister reports that In his younger years, he was a badass and that his brain injuries are a combination of fights and working to hard. Family Psychiatric History: Other (Educational disability, autism. ) Social History Current Living Environment: Relative (Client reports that he would rather live on his own. ) Living environment is reported to be?: Good Reports Feeling: Safe Does patient need help completing personal and oral hygiene?: No Client?s interactions regarding social/peer relationships are: Family and Isolative Vocational Information: Disabled Financial Information: Disability Income Client's employment History Client reports that he liked working for [employer] for 17 years, that he got to travel, and see the world. Client reports that he quit school to get a job because he wasn't very good at school. Client reports that he would like to get a high school diploma, learn to read and write better. 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 Client reports that he used to like to work on cars. Individual's Strengths: Food, Stable Housing, Active Insurance, Transportation Support and Cooperative Individual's Obstacles: Substance Abuse, Limited Income, Low Self-Esteem, Limited Insight, Poor Support System and Other(Specify) (Self reported brain injury and noted in the discharge from the NPU. ) Legal Status/History: Current legal issues denied Demographics Marital Status: single Ethnicity: Cultural Background: Client reports that his father may have been [place]. Spiritual Pursuits: Moravian Do you think of yourself as: Straight/Heterosexual Gender Identity: Male What is your pronoun?: he/him/his Language(s) Spoken: Telugu Custody/Guardianship Client's sister attends the session and reports that the inpatient [facility] oncology social work was assisting the client to have a guardian and assisted the sister to apply for Medicaid and Health senior care. Education Highest Education Level Reached: high school Academic Performance: Performance below grade level Extracurricular Activities: Other (Mechanics. ) Special Accommodations: Special Classroom Arrangements Disciplinary Actions: Severe Health Is Patient in Pain?: No Primary Care Provider: No (Client's sister is working on setting this up with the oncology social work. ) Does client want PCP referral list?: No Have you been seen by your primary care provider or [facility] in the past 12 months?: No Last Physical Exam: Unknown Other Healthcare Providers Client reports that he gets sinus headaches, needs glasses and needs his medication refilled. Client is referred to his primary care provider for medication and support. Client's Medical History: Brain Injury and Seizures (Client's sister reports that she believes that the client has silent seizures and shakes. 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 No abnormal movements except for signficant psychomotor retardation. He was cooperative with exam in mild to moderate distress. Speech was decreased in rate, productivity and volume. Mood described as okay. His affect was odd and subdued. Thought process was linear, but superficial. Thought content: patient denies suicidal or homicidal ideation, reports no paranoia but no delusions noted and denies auditory and visual hallucinations. Attention span was poor. Recent and remote memory were grossly impaired. He is alert and oriented times person but not place or time. He thought the date was January 2022, Insight and judgment are impaired. Impulse control is impaired. Vitals/I&O/Wt Last Vital Signs Temp 98.0 F 08/05/24 19:46 Pulse 92 08/05/24 21:31 Resp 18 08/06/24 12:00 BP 138/79 08/05/24 21:31 Pulse Ox 90 08/05/24 19:46 O2 Del Method Room Air 08/05/24 16:00 08/05/24 08/06/24 08/06/24 22:59 06:59 14:59 Intake Total 240 / 480 Balance 240 / 480 Weight last 48 hrs Weight 53.524 kg Weight 55 kg Weight 55 kg Weight 54.431 kg Physical Exam 2 Urinary Catheter Management: Coude: Cath Placed During This Visit: yes Reason for Continuing Indwelling Catheter: Acute Urinary Retention or Obstruction Urinary Catheter Date of Insertion: 08/05/24 Urinary Catheter Time of Insertion: 04:45 Data NPU 08/04/24 23:20 08/04/24 23:20 Micro: Microbiology 08/05/24 05:24 Urine Culture - Preliminary Urine,Clean Catch Microbiology 08/05/24 05:24 Urine,Clean Catch Urine Culture - Preliminary A&P Assessment and plan (1) Acute psychosis: (2) Alcohol dependence: (3) Nicotine dependence, cigarettes, uncomplicated: Plan This is a 64 year old man with a history of methamphetamine, cocaine, tobacco and alcohol use who presents with memory issues, increased confusion and agitation denying recent use of drugs admitted with declining ability to care for self. 1. May restart previous medications. 2. Encourage individual, group and milieu therapy 3. Continue q-15 minute check for safety 4. Recommend sober living treatment at the highest level of care to which the patient is willing to commit. CIWA protocol. 5. Thiamine, folate, concern about dementia from previous etoh abuse. Involuntary Hold Information 2 96 Hour Hold: 96 Hour Involuntary Admission: Yes 96 Hour Hold Ending Date: 08/09/24 96 Hour Hold Ending Time: 00:01 Attestations NPU 2 Medical Necessity Statement*: Inpatient hospitalization is medically necessary and deemed to ?be ?the clinically appropriate intervention ?at this time.? We will monitor/initiate medications and make changes as indicated.? The patient will be in the hospital for over 2 midnights.? The patient?s likely length of stay 7-10 days. Coding Level of Care Code Acute Code for Chg Fwd Diagnoses Acute psychosis F23 Alcohol dependence F10.20 Nicotine dependence, cigarettes, uncomplicated F17.210
[2024-08-06 16:00] VITALS: RESP 18
--- NOTE | 2024-08-06 17:18 | PC.NURSE ---
patient refused vitals.
[2024-08-06 19:43] VITALS: RESP 18
--- NOTE | 2024-08-06 19:44 | PC.NURSE ---
pt refused vitals but his resp are at 18
[2024-08-06] MEDS: trazodone 50 mg Tablet PO (21:06)
[2024-08-06] MEDS: hyDROXYzine 25 mg Capsule 50 MG PO (21:06)
[2024-08-06] MEDS: tamsulosin 0.4 mg Capsule PO (21:06)
[2024-08-06 23:47] VITALS: RESP 16
--- NOTE | 2024-08-06 23:47 | PC.NURSE ---
pt refused vitals but his resp are at 16
[2024-08-07 04:00] VITALS: RESP 16
--- NOTE | 2024-08-07 05:27 | PC.NURSE ---
pt refused said that no one needed them. resp are at 16 nurse notified
[2024-08-07 07:42] VITALS: BP 147/86; PULSE 67; RESP 18; TEMP 36.4; O2SAT 99
[2024-08-07] MEDS: multivitamin therapeutic Tablet 1 TAB PO (08:27)
[2024-08-07] MEDS: folic acid 1 mg Tablet PO (08:27)
[2024-08-07] MEDS: thiamine 100 mg Tablet PO (08:27)
--- NOTE | 2024-08-07 08:52 | PC.NURSE ---
PT CURRENTLY DENIES SI/HI/AH/VH. PT CURRENTLY DENIES DEPRESSION. PT ENDORSES ANXIETY RATING IT AN 8/10 ON A 0-10 SCALE WHERE 0 IS NONE AND 10 IS THE WORST POSSIBLE. PT STATED THAT HE WOULD LIKE ATIVAN FOR HIS ANXIETY. PT DID NOT SCORE HIGH ENOUGH ON THE CIWA TO REQUIRE ATIVAN THIS NURSE EXPLAINED THAT THE ATIVAN IS GIVEN BASED ON ASSESSMENT BY THE NURSE AND THAT WE HAD OTHER OPTIONS IF HE WANTED TO TRY THOSE AT THIS TIME. PT DENIED OTHER MEDICATIONS AT THIS TIME STATING I'M JUST GOING TO TRY TO GET SOME REST. PT WAS COOPERATIVE WITH ASSESSMENT. PT REFUSED SUBOXONE DUE TO UPSET STOMACH . PHYSICIAN NOTIFIED. PT CURRENT NEEDS ARE MET AT THIS TIME.
--- NOTE | 2024-08-07 11:02 | XRR_ITS ---
PROCEDURE INFORMATION: Exam: XR Abdomen Exam date and time: 08/07/2024 12:57 PM Age: 64 years old Clinical indication: Constipation; Additional info: PT is unreliable and states last bm was a week ago TECHNIQUE: Imaging protocol: Radiologic exam of the abdomen. Views: Frontal supine view of the abdomen. 1 View. COMPARISON: CR (CHEST, ) 08/04/2024 10:46 PM FINDINGS: Gastrointestinal tract: Multiple gas-filled small bowel and colonic loops with are present. There is moderate colonic fecal stasis in the ascending colon. The transverse colon and descending colon do not show significant fecal stasis. There is no evidence of bowel obstruction Bones/joints: Unremarkable. XR/XR KUB portable [id number] IMPRESSION: 1. No acute findings. 2. Negative for colonic fecal stasis 3. Negative for bowel obstruction.
[2024-08-07 11:56] VITALS: PULSE 18
--- NOTE | 2024-08-07 11:56 | PC.NURSE ---
patient refused vitals.
[2024-08-07 13:34] VITALS: RESP 18
--- NOTE | 2024-08-07 16:59 | P.NPUPN_ITS ---
Subjective NPU 2 Subjective: Fred is a 62-year-old male with a history of alcohol dependence who was admitted with problems with depression, confusion and psychosis currently on no medications at this time. The patient had no agitation noted on the milieu. He continued to appear to struggle with completion of tasks and did appear to eat better here. He had endorsed significant weight loss. The patient's family members had stated that the patient had been requesting continued use of alcohol and was receiving small amounts of alcohol in exchange for supplementation and consumption of Ensure to help with his nutritional status. Patient had complained of constipation. He had reported having problems with his memory. Mental Status Exam 2 MSE Comments: This is an slender white male looking older than his stated age, with limited grooming, long mcarthur and fleeting eye contact. No abnormal movements except for signficant psychomotor retardation. He was cooperative with exam in mild to moderate distress. Speech was decreased in rate, productivity and volume. Mood described as fine. His affect was odd and subdued. Thought process was linear, but superficial. Thought content: patient denies suicidal or homicidal ideation, reports no paranoia but no delusions noted and denies auditory and visual hallucinations. Attention span was poor. Recent and remote memory were grossly impaired. He is alert and oriented times to person but not place or time. He thought the date was January 2022, Insight and judgment are impaired. Impulse control is impaired. Vitals/I&O/Wt Last Vital Signs Temp 97.5 F L 08/07/24 07:42 Pulse 18 L 08/07/24 11:56 Resp 18 08/07/24 13:34 BP 147/86 08/07/24 07:42 Pulse Ox 99 08/07/24 07:42 O2 Del Method Room Air 08/05/24 16:00 Weight last 48 hrs Weight 53.524 kg Weight 53.524 kg Physical Exam 2 Urinary Catheter Management: Coude: Cath Placed During This Visit: yes Reason for Continuing Indwelling Catheter: Acute Urinary Retention or Obstruction Urinary Catheter Date of Insertion: 08/05/24 Urinary Catheter Time of Insertion: 04:45 Data NPU 08/04/24 23:20 08/04/24 23:20 Micro: Microbiology 08/05/24 05:24 Urine Culture - Final Urine,Clean Catch Microbiology 08/05/24 05:24 Urine,Clean Catch Urine Culture - Final A&P Assessment and plan (1) Acute psychosis: (2) Dementia associated with alcoholism: (3) Alcohol dependence: (4) Nicotine dependence, cigarettes, uncomplicated: Plan This is a 64 year old man with a history of methamphetamine, cocaine, tobacco and alcohol use who presents with memory issues, increased confusion and agitation denying recent use of drugs admitted with declining ability to care for self. 1. Start invega 3mg at night. 2. Encourage individual, group and milieu therapy 3. Continue q-15 minute check for safety 4. Recommend sober living treatment at the highest level of care to which the patient is willing to commit. CIWA protocol. 5. Thiamine, folate, concern about dementia from previous etoh abuse. MARIANO testing today showed evidence of requiring help in all thirteen areas of functioning. He is unable to live independently and will require 24 hour supervision. Involuntary Hold Information 2 96 Hour Hold: 96 Hour Involuntary Admission: Yes 96 Hour Hold Ending Date: 08/09/24 96 Hour Hold Ending Time: 00:01 Attestations NPU 2 Medical Necessity Statement*: Inpatient hospitalization is medically necessary and deemed to ?be ?the clinically appropriate intervention ?at this time.? We will monitor/initiate medications and make changes as indicated.? ? The patient?s likely length of stay 7-10 days. Coding Level of Care Code Acute Code for [facility] Fwd Diagnoses Acute psychosis F23 Dementia associated with alcoholism F10.27 Alcohol dependence F10.20 Nicotine dependence, cigarettes, uncomplicated F17.210
--- NOTE | 2024-08-07 20:26 | PC.NURSE ---
pt refused vitals resp are at 18
[2024-08-07] MEDS: paliperidone ER 3 mg Tablet PO (20:48)
[2024-08-07] MEDS: tamsulosin 0.4 mg Capsule PO (20:48)
[2024-08-07] MEDS: trazodone 50 mg Tablet PO (20:49)
[2024-08-07] MEDS: hyDROXYzine 25 mg Capsule 50 MG PO (20:49)
--- NOTE | 2024-08-08 05:38 | PC.NURSE ---
pt refused vitals and weights pt told me no i dont have to. nurse notified resp are at 16
[2024-08-08] MEDS: thiamine 100 mg Tablet PO (08:50)
[2024-08-08] MEDS: multivitamin therapeutic Tablet 1 TAB PO (08:50)
[2024-08-08] MEDS: folic acid 1 mg Tablet PO (08:50)
[2024-08-08 14:00] VITALS: RESP 16
--- NOTE | 2024-08-08 14:50 | PC.NURSE ---
patient refused vitals
--- NOTE | 2024-08-08 17:19 | P.NPUPN_ITS ---
Subjective NPU 2 Subjective: Fred is a 62-year-old male with a history of alcohol dependence who was admitted with problems with depression, confusion and psychosis currently on no medications at this time. The patient continued to appear confused on the unit. He had been eating better. He had not been aggressive and continued to be compliant with his oral medications. He had not endorsed any thoughts of hurting himself or others. He had continued to struggle with any goal related activities including self-care without significant prompting. He had tolerated consumption of Ensure in addition to his limited oral intake. He had admitted to having problems with his memory. Mental Status Exam 2 MSE Comments: This is an slender white male looking older than his stated age, with limited grooming, long mcarthur and fleeting eye contact. No abnormal movements except for signficant psychomotor retardation. He was cooperative with exam in mild to moderate distress. Speech was decreased in rate, productivity and volume. Mood described as allright. His affect was odd and subdued. Thought process was linear, but superficial. Thought content: patient denies suicidal or homicidal ideation, reports no paranoia but no delusions noted and denies auditory and visual hallucinations. Attention span was poor. Recent and remote memory were grossly impaired. He is alert and oriented times to person but not place or time. He thought the date was January 2022, Insight and judgment are impaired. Impulse control is impaired. MMSE completed was 08/12 Vitals/I&O/Wt Last Vital Signs Temp 97.5 F L 08/07/24 07:42 Pulse 18 L 08/07/24 11:56 Resp 16 08/08/24 14:00 BP 147/86 08/07/24 07:42 Pulse Ox 99 08/07/24 07:42 O2 Del Method Room Air 08/05/24 16:00 Weight last 48 hrs Weight 53.524 kg Physical Exam 2 Urinary Catheter Management: Coude: Cath Placed During This Visit: yes Reason for Continuing Indwelling Catheter: Acute Urinary Retention or Obstruction Urinary Catheter Date of Insertion: 08/05/24 Urinary Catheter Time of Insertion: 04:45 Data NPU 08/04/24 23:20 08/04/24 23:20 A&P Assessment and plan (1) Acute psychosis: (2) Dementia associated with alcoholism: (3) Alcohol dependence: (4) Nicotine dependence, cigarettes, uncomplicated: Plan This is a 64 year old man with a history of methamphetamine, cocaine, tobacco and alcohol use who presents with memory issues, increased confusion and agitation denying recent use of drugs admitted with declining ability to care for self. 1. continue invega 3mg at night. 2. Encourage individual, group and milieu therapy 3. Continue q-15 minute check for safety 4. Recommend sober living treatment at the highest level of care to which the patient is willing to commit. CIWA protocol. 5. Thiamine, folate, concern about dementia from previous etoh abuse. MARIANO testing today showed evidence of requiring help in all thirteen areas of functioning. He is unable to live independently and will require 24 hour supervision. MMSE was today. Will consult neurology. 21 day hold filed today. Involuntary Hold Information 2 96 Hour Hold: 96 Hour Involuntary Admission: Yes 96 Hour Hold Ending Date: 08/09/24 96 Hour Hold Ending Time: 00:01 Attestations NPU 2 Medical Necessity Statement*: Inpatient hospitalization is medically necessary and deemed to ?be ?the clinically appropriate intervention ?at this time.? We will monitor/initiate medications and make changes as indicated.? ? The patient?s likely length of stay 7-10 days. Coding Level of Care Code Acute Code for [facility] Fwd Diagnoses Acute psychosis F23 Dementia associated with alcoholism F10.27 Alcohol dependence F10.20 Nicotine dependence, cigarettes, uncomplicated F17.210
--- NOTE | 2024-08-08 19:25 | PC.NURSE ---
THIS NURSE PERFORMED A MMSE WITH PT. PT SCORED A 9/30 ON THE EXAM. PHYSICIAN NOTIFIED OF THE RESULTS. NO NEW ORDERS RECEIVED.
[2024-08-08 20:19] VITALS: RESP 16
--- NOTE | 2024-08-08 20:19 | PC.NURSE ---
pt refused vitals stated he is good dont need them res are at 16 nurse was notified
[2024-08-08] MEDS: hyDROXYzine 25 mg Capsule 50 MG PO (21:08)
[2024-08-08] MEDS: tamsulosin 0.4 mg Capsule PO (21:08)
[2024-08-08] MEDS: trazodone 50 mg Tablet PO (21:08)
[2024-08-08] MEDS: paliperidone ER 3 mg Tablet PO (21:08)
--- NOTE | 2024-08-09 06:14 | PC.NURSE ---
pt refused his vitals and his weight told this keno writer/runner that he didnt not need it he was good. resp at 16
--- NOTE | 2024-08-09 09:30 | PC.NURSE ---
IN BED RESTING, AROUSES TO VOICE. WHEN ASKED QUESTIONS PT WILL CLOSE HIS EYES AND PRETEND HE IS NOT ABLE TO HEAR YOU. PT IS DELAYED WHEN ANSWERING QUESTIONS AND IS UNABLE TO COMPREHEND IT APPEARS. RATES PAIN IN LEGS /. MED NURSE TO GIVE TYLENOL ORDERED FOR PAIN. SPEECH IS DELAYED AND HAS DIFFICULTY PUTTING WORDS AND SENTENCES TOGETHER. PT IS NOTED TO HAVE DISORGANIZED THOUGHT PROCESS AND GUARDED WITH STAFF. UNABLE TO RATE ANXIETY AND DEPRESSION. PT SHAKES HEAD TO SLEEPING WELL LAST NIGHT. PT DID GET UP FOR BREAKFAST AND ATE THEN WENT BACK TO BED. ALL QUESTIONS ANSWERED AND SUPPORT VOICED.
[2024-08-09] MEDS: multivitamin therapeutic Tablet 1 TAB PO (10:49)
[2024-08-09] MEDS: thiamine 100 mg Tablet PO (10:50)
[2024-08-09] MEDS: folic acid 1 mg Tablet PO (10:50)
[2024-08-09 13:04] LABS: Amphetamine POSITIVE; Amphetamines negative; Barbiturates negative; Benzodiazepines negative; Cocaine Metabolites negative; Marijuana(Tetrahydrocannabino) negative; Methamphetamine 280 ng/mL; Methylenedioxyamphetamine negative; Methylenedioxymethamphetamine negative; Opiates negative; PCP (Phencyclidine) negative
--- NOTE | 2024-08-09 13:47 | P.NPUPN_ITS ---
Subjective NPU 2 Subjective: Fred is a 62-year-old male with a history of alcohol dependence who was admitted with problems with depression, confusion and psychosis currently on invega 3mg daily. The patient continued to appear confused on the unit. More detailed urine testing had revealed that the patient had been positive for methamphetamine on admission. He was unable to recall whether he had been using methamphetamine although previous records that indicated the patient had used methamphetamine in the past. He had continued to isolate himself on the milieu. He had appeared quite confused and required significant prompting for engaging in oral intake and showering. He had been compliant and appeared extremely confused regarding his whereabouts. Mental Status Exam 2 MSE Comments: This is an underweight white male looking older than his stated age, with limited grooming, long mcarthur and fleeting eye contact. No abnormal movements except for signficant psychomotor retardation. His gait was short stepped and narrow. He was cooperative with exam in mild to moderate distress. Speech was decreased in rate, productivity and volume. Mood described as okay. His affect was odd and subdued. Thought process was linear, but superficial. Thought content: patient denies suicidal or homicidal ideation, reports no paranoia but no delusions noted and denies auditory and visual hallucinations. Attention span was poor. Recent and remote memory were grossly impaired. He is alert and oriented times to person but not place or time. He was unable to provide a specific date. Insight and judgment are impaired. Impulse control is impaired. MMSE completed on 08/07/24 was 08/12. Vitals/I&O/Wt Last Vital Signs Temp 97.5 F L 08/07/24 07:42 Pulse 18 L 08/07/24 11:56 Resp 16 08/08/24 20:19 BP 147/86 08/07/24 07:42 Pulse Ox 99 08/07/24 07:42 O2 Del Method Room Air 08/05/24 16:00 Physical Exam 2 Urinary Catheter Management: Coude: Cath Placed During This Visit: yes Reason for Continuing Indwelling Catheter: Acute Urinary Retention or Obstruction Urinary Catheter Date of Insertion: 08/05/24 Urinary Catheter Time of Insertion: 04:45 Data NPU 08/04/24 23:20 08/04/24 23:20 A&P Assessment and plan (1) Acute psychosis: (2) Dementia associated with alcoholism: (3) Alcohol dependence: (4) Nicotine dependence, cigarettes, uncomplicated: (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 1. continue invega 3mg at night. Possible improvement may be seen for psychosis secondary to methamphetamine use now confirmed. 2. Encourage individual, group and milieu therapy 3. Continue q-15 minute check for safety 4. Recommend sober living treatment at the highest level of care to which the patient is willing to commit. CIWA protocol. 5. Thiamine, folate, concern about dementia from previous etoh abuse. MARIANO testing today showed evidence of requiring help in all thirteen areas of functioning. He is unable to live independently and will require 24 hour supervision. MMSE was 9/ 30 today. Will consult neurology. Patient now on 21 day hold. Involuntary Hold Information 2 96 Hour Hold: 96 Hour Involuntary Admission: Yes 96 Hour Hold Ending Date: 08/09/24 96 Hour Hold Ending Time: 00:01 Attestations NPU 2 Medical Necessity Statement*: Inpatient hospitalization is medically necessary and deemed to ?be ?the clinically appropriate intervention ?at this time.? We will monitor/initiate medications and make changes as indicated.? ? The patient?s likely length of stay 7-10 days. 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
[2024-08-09 14:00] VITALS: BP 106/71; PULSE 86; RESP 17; O2SAT 97
[2024-08-09] MEDS: trazodone 50 mg Tablet PO (20:04)
[2024-08-09] MEDS: tamsulosin 0.4 mg Capsule PO (20:04)
[2024-08-09] MEDS: paliperidone ER 3 mg Tablet PO (20:04)
--- NOTE | 2024-08-09 20:23 | PC.NURSE ---
pt was guarded and disorganized. Vital signs were not obtained. Respiration Rate 17. plater helper notified.
[2024-08-09 20:25] VITALS: RESP 17
--- NOTE | 2024-08-10 06:45 | PC.NURSE ---
Pt refused vital signs due to altered mental status. dobby looms pegger notified.
--- NOTE | 2024-08-10 08:11 | PC.NURSE ---
CONTINUES TO WITHDRAW TO ROOM, LAYING IN BED EACH DAY, ONLY GETTING UP FOR MEALS. PT IS EVASIVE WITH ASSESSMENT, DELAYED SPEECH AND DIFFICULTY FORMING SENTENCES. SPEECH IS SLURRED AND UNCLEAR. PT APPEARS DEPRESSED WITH FLAT AFFECT. PT IS GUARDED WITH STAFF. DENIES SI/HI AND AVH AT THIS TIME. RATES ANXIETY 3/10 AND DEPRESSION 4/10. PT SHAKES HEAD YES WHEN ASKED IF HE SLEPT WELL LAST NIGHT. PT ENCOURAGED AND ASSISTED TO MEALS, SNACKS. PT IS CONSUMING ENSURE SHAKES TID ORDERED. PT STATES NO GOAL FOR THE DAY, WHEN ASKED PT STATES OFF INTO SPACE. LITTLE TO NO CONTACT IS NOTED DURING ASSESSMENT. ALL QUESTIONS ANSWERED AND SUPPORT IS VOICED.
[2024-08-10] MEDS: thiamine 100 mg Tablet PO (08:15)
[2024-08-10] MEDS: multivitamin therapeutic Tablet 1 TAB PO (08:15)
[2024-08-10] MEDS: folic acid 1 mg Tablet PO (08:15)
--- NOTE | 2024-08-10 13:53 | P.NPUPN_ITS ---
Subjective NPU 2 Subjective: Fred is a 62-year-old male with a history of alcohol dependence who was admitted with problems with depression, confusion and psychosis currently on invega 3mg daily. Patient left her his room only to eat food and quickly returned to his room. The patient continued to report feeling tired. He had reported having problems with his memory. He had remained confused. He had acknowledged significant history of alcohol use. He did not endorse recent methamphetamine use despite his positive urine screen for methamphetamine. He had no acts of aggression here on unit. The patient reported that he would require help from someone to help him exist outside of this facility. He had reported struggling with eating and also having problems with memory apprising and remembering small details as he had been unable to describe how he would cook. Mental Status Exam 2 MSE Comments: This is an underweight white male looking older than his stated age, with limited grooming, long mcarthur and fleeting eye contact. No abnormal movements except for signficant psychomotor retardation. His gait was short stepped and narrow. He was cooperative with exam in mild to moderate distress. Speech was decreased in rate, productivity and diminished in volume. Mood described as okay. His affect was odd and subdued. Thought process was linear, but superficial. Thought content: patient denies suicidal or homicidal ideation, reports no paranoia but no delusions noted and denies auditory and visual hallucinations. Attention span was poor. Recent and remote memory were grossly impaired. He is alert and oriented times to person but not place or time. He was unable to provide a specific date. Insight and judgment are impaired. Impulse control is impaired. MMSE completed on 08/07/24 was 08/12. Vitals/I&O/Wt Last Vital Signs Temp 97.5 F L 08/07/24 07:42 Pulse 86 08/09/24 14:00 Resp 17 08/09/24 20:25 BP 106/71 08/09/24 14:00 Pulse Ox 97 08/09/24 14:00 O2 Del Method Room Air 08/05/24 16:00 08/09/24 08/10/24 08/10/24 22:59 06:59 14:59 Intake Total 240 / 240 Balance 240 / 240 Physical Exam 2 Urinary Catheter Management: Coude: Cath Placed During This Visit: yes Reason for Continuing Indwelling Catheter: Acute Urinary Retention or Obstruction Urinary Catheter Date of Insertion: 08/05/24 Urinary Catheter Time of Insertion: 04:45 Data NPU 08/04/24 23:20 08/04/24 23:20 A&P Assessment and plan (1) Acute psychosis: (2) Dementia associated with alcoholism: (3) Alcohol dependence: (4) Nicotine dependence, cigarettes, uncomplicated: (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 1. increase invega 6mg at night. Possible improvement may be seen for psychosis secondary to methamphetamine use now confirmed. 2. Encourage individual, group and milieu therapy 3. Continue q-15 minute check for safety 4. Recommend sober living treatment at the highest level of care to which the patient is willing to commit. CIWA protocol. 5. Thiamine, folate, concern about dementia from previous etoh abuse. MARIANO testing today showed evidence of requiring help in all thirteen areas of functioning. He is unable to live independently and will require 24 hour supervision. MMSE was 9/ 30 today. Will consult neurology. Patient now on 21 day hold. Involuntary Hold Information 2 96 Hour Hold: 96 Hour Involuntary Admission: Yes 96 Hour Hold Ending Date: 08/09/24 96 Hour Hold Ending Time: 00:01 Attestations NPU 2 Medical Necessity Statement*: Inpatient hospitalization is medically necessary and deemed to ?be ?the clinically appropriate intervention ?at this time.? We will monitor/initiate medications and make changes as indicated.? ? The patient?s likely length of stay 7-10 days. 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
[2024-08-10 13:57] VITALS: TEMP 36.4
--- NOTE | 2024-08-10 13:58 | PC.NURSE ---
Pt.refused all other vitals
[2024-08-10] MEDS: paliperidone ER 6 mg Tablet PO (19:57)
[2024-08-10] MEDS: tamsulosin 0.4 mg Capsule PO (19:57)
[2024-08-10] MEDS: trazodone 50 mg Tablet PO (19:57)
[2024-08-10 22:00] VITALS: BP 104/46; PULSE 79; RESP 18; TEMP 36.4
[2024-08-11 06:00] VITALS: BP 137/78; RESP 17
--- NOTE | 2024-08-11 06:21 | PC.NURSE ---
Pt refused pulse rate and oxygen level. riverboat master notified.
[2024-08-11] MEDS: multivitamin therapeutic Tablet 1 TAB PO (08:37)
[2024-08-11] MEDS: folic acid 1 mg Tablet PO (08:37)
[2024-08-11] MEDS: thiamine 100 mg Tablet PO (08:37)
--- NOTE | 2024-08-11 09:22 | PC.NURSE ---
Morning Assessment Patient is unsure of where he is, stating like a [facility] or something . Patient unable to tell me the month or year. Patient denies pain, anxiety, depression, SI, and HI. Patient said that he sometimes experiences auditory and visual hallucinations. Patient shook his head no in response to if he is told to harm himself or others. Patient returned to bed following assessment. Patient denies any needs.
[2024-08-11 14:00] VITALS: BP 129/69; PULSE 105; RESP 18; TEMP 36.6; O2SAT 97
--- NOTE | 2024-08-11 14:26 | P.NPUPN_ITS ---
Subjective NPU 2 Subjective: Fred is a 62-year-old male with a history of alcohol dependence who was admitted with problems with depression, confusion and psychosis currently on invega 6mg daily. No side effects noted from medication. He had been lying in bed and only leaving his room to eat food. He had no falls noted. He did appear to be excessively tired. He was unable to provide further information regarding his use of methamphetamine but acknowledged having drank alcohol while residing with his sisters. Patient reported no side effects from the medication currently. Mental Status Exam 2 MSE Comments: This is an underweight white male looking older than his stated age, with limited grooming, long mcarthur and fleeting eye contact. No abnormal movements except for signficant psychomotor retardation. His gait was short stepped and narrow. He was cooperative with exam in mild to moderate distress. Speech was decreased in rate, productivity and diminished in volume. Mood described as allright. His affect was odd and subdued. Thought process was linear, but superficial. Thought content: patient denies suicidal or homicidal ideation, reports no paranoia but no delusions noted and denies auditory and visual hallucinations. Attention span was poor. Recent and remote memory were grossly impaired. He is alert and oriented times to person but not place or time. He was unable to provide a specific date. Insight and judgment are impaired. Impulse control is impaired. MMSE completed on 08/07/24 was 08/12. Vitals/I&O/Wt Last Vital Signs Temp 97.8 F 08/11/24 14:00 Pulse 105 H 08/11/24 14:00 Resp 18 08/11/24 14:00 BP 129/69 08/11/24 14:00 Pulse Ox 97 08/11/24 14:00 O2 Del Method Room Air 08/11/24 14:00 Weight last 48 hrs Weight 59.137 kg Physical Exam 2 Urinary Catheter Management: Coude: Cath Placed During This Visit: yes Reason for Continuing Indwelling Catheter: Acute Urinary Retention or Obstruction Urinary Catheter Date of Insertion: 08/05/24 Urinary Catheter Time of Insertion: 04:45 Data NPU 08/04/24 23:20 08/04/24 23:20 A&P Assessment and plan (1) Acute psychosis: (2) Dementia associated with alcoholism: (3) Alcohol dependence: (4) Nicotine dependence, cigarettes, uncomplicated: (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 1. increase invega 6mg at night. Possible improvement may be seen for psychosis secondary to methamphetamine use now confirmed. 2. Encourage individual, group and milieu therapy 3. Continue q-15 minute check for safety 4. Recommend sober living treatment at the highest level of care to which the patient is willing to commit. CIWA protocol. 5. Thiamine, folate, concern about dementia from previous etoh abuse. MARIANO testing today showed evidence of requiring help in all thirteen areas of functioning. He is unable to live independently and will require 24 hour supervision. MMSE was today. Will consult neurology. Patient now on 21 day hold. Involuntary Hold Information 2 96 Hour Hold: 96 Hour Involuntary Admission: Yes 96 Hour Hold Ending Date: 08/09/24 96 Hour Hold Ending Time: 00:01 Attestations NPU 2 Medical Necessity Statement*: Inpatient hospitalization is medically necessary and deemed to ?be ?the clinically appropriate intervention ?at this time.? We will monitor/initiate medications and make changes as indicated.? ? The patient?s likely length of stay 7-10 days. 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
[2024-08-11] MEDS: paliperidone ER 6 mg Tablet PO (20:10)
[2024-08-11] MEDS: trazodone 50 mg Tablet PO (20:10)
[2024-08-11] MEDS: tamsulosin 0.4 mg Capsule PO (20:10)
[2024-08-11 21:26] VITALS: BP 152/79; PULSE 86; RESP 18; O2SAT 95
[2024-08-12 06:00] VITALS: BP 173/93; PULSE 74; RESP 16; TEMP 36.3; O2SAT 98
[2024-08-12] MEDS: folic acid 1 mg Tablet PO (08:07)
[2024-08-12] MEDS: thiamine 100 mg Tablet PO (08:07)
[2024-08-12] MEDS: multivitamin therapeutic Tablet 1 TAB PO (08:07)
--- NOTE | 2024-08-12 10:04 | PC.NURSE ---
UP IN DAYROOM EATING BREAKFAST. NOTED TO HAVE FLAT AFFECT BUT RESPONDS MORE THAN HE HAS SINCE ADMISSION. PT APPEARS MORE ALERT AND INTERACTIVE WITH PEERS AND STAFF THE PAST FEW DAYS. RATES ANXIETY AND DEPRESSION 0/10. DENIES PAIN. DENIES SI/HI AND AVH AT THIS TIME. PT DID STATE HE DOES HAVE AVH A LITTLE BIT, BUT NONE RIGHT NOW. APPEARS TO HAVE DEPRESSED MOOD. ALL QUESTIONS ANSWERED AND SUPPORT WAS VOICED.
[2024-08-12 14:00] VITALS: BP 156/81; PULSE 87; RESP 16; TEMP 36.5; O2SAT 98
--- NOTE | 2024-08-12 15:39 | P.NPUPN_ITS ---
Subjective NPU 2 Subjective: Fred is a 62-year-old male with a history of alcohol dependence who was admitted with problems with depression, confusion and psychosis currently on invega 6mg daily. He continued to isolate himself in his room only to leave the room when he wished to eat. He had been tolerating additional Ensure. He had reported adequate sleep. He denied having thoughts of hurting himself or others. He had stated that he had met his sister several days ago although it had been confirmed that the patient had indeed met his sister yesterday at visitation hours. He reported continued struggles with completing tasks at home and continue to struggle with managing his own self-care here. Mental Status Exam 2 MSE Comments: This is an underweight white male looking older than his stated age, with limited grooming, long mcarthur and fleeting eye contact. No abnormal movements except for signficant psychomotor retardation. His gait was short stepped and narrow. He was cooperative with exam in mild to moderate distress. Speech was decreased in rate, productivity and diminished in volume. Mood described as okay. His affect was odd and subdued. Thought process was linear, but superficial. Thought content: patient denies suicidal or homicidal ideation, There was no clear evidence of paranoia but no delusions noted and denies auditory and visual hallucinations. Attention span was poor. Recent and remote memory were grossly impaired. He is alert and oriented times to person but not place or time. He was unable to provide a specific date. Insight and judgment are impaired. Impulse control is impaired. MMSE completed on 08/07/24 was 08/12. Vitals/I&O/Wt Last Vital Signs Temp 97.7 F 08/12/24 14:00 Pulse 87 08/12/24 14:00 Resp 16 08/12/24 14:00 BP 156/81 08/12/24 14:00 Pulse Ox 98 08/12/24 14:00 O2 Del Method Room Air 08/12/24 14:00 Weight last 48 hrs Weight 59.024 kg Weight 59.137 kg Physical Exam 2 Urinary Catheter Management: Coude: Cath Placed During This Visit: yes Reason for Continuing Indwelling Catheter: Acute Urinary Retention or Obstruction Urinary Catheter Date of Insertion: 08/05/24 Urinary Catheter Time of Insertion: 04:45 Data NPU 08/04/24 23:20 08/04/24 23:20 A&P Assessment and plan (1) Acute psychosis: (2) Dementia associated with alcoholism: (3) Alcohol dependence: (4) Nicotine dependence, cigarettes, uncomplicated: (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 1. increase invega 6mg at night. Possible improvement may be seen for psychosis secondary to methamphetamine use now confirmed. 2. Encourage individual, group and milieu therapy 3. Continue q-15 minute check for safety 4. Recommend sober living treatment at the highest level of care to which the patient is willing to commit. CIWA protocol. 5. Thiamine, folate, concern about dementia from previous etoh abuse. MARIANO testing today showed evidence of requiring help in all thirteen areas of functioning. He is unable to live independently and will require 24 hour supervision. MMSE was 9/ 30 today. Will consult neurology. Patient now on 21 day hold. Involuntary Hold Information 2 96 Hour Hold: 96 Hour Involuntary Admission: Yes 96 Hour Hold Ending Date: 08/09/24 96 Hour Hold Ending Time: 00:01 Attestations NPU 2 Medical Necessity Statement*: Inpatient hospitalization is medically necessary and deemed to ?be ?the clinically appropriate intervention ?at this time.? We will monitor/initiate medications and make changes as indicated.? ?Guardianship likely to be pursued. The patient?s likely length of stay 7-10 days. 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
[2024-08-12] MEDS: trazodone 50 mg Tablet PO (21:01)
[2024-08-12] MEDS: tamsulosin 0.4 mg Capsule PO (21:01)
[2024-08-12] MEDS: paliperidone ER 6 mg Tablet PO (21:02)
[2024-08-12 22:00] VITALS: BP 161/85; PULSE 83; RESP 14; TEMP 36.7; O2SAT 96
[2024-08-13 06:00] VITALS: BP 104/66; PULSE 84; RESP 14; TEMP 36.4; O2SAT 98; BMI 18.9
[2024-08-13 06:49] VITALS: BMI 18.9
[2024-08-13] MEDS: multivitamin therapeutic Tablet 1 TAB PO (08:45)
[2024-08-13] MEDS: thiamine 100 mg Tablet PO (08:45)
[2024-08-13] MEDS: folic acid 1 mg Tablet PO (08:45)
[2024-08-13 14:00] VITALS: BP 134/80; PULSE 108; RESP 18; O2SAT 99
--- NOTE | 2024-08-13 16:30 | P.NPUPN_ITS ---
Subjective NPU 2 Subjective: Fred is a 62-year-old male with a history of alcohol dependence who was admitted with problems with depression, confusion and psychosis currently on invega 6mg daily. The patient had continued to appear confused. He had required prompting to shower and to eat. He had been unable to provide any information regarding why he had been hospitalized. He stated that he had used methamphetamine in the past but denied its current use despite there being evidence of there being methamphetamine in his bloodstream on admission. The patient had reported adequate sleep. He reported that he would be okay with going home with his sister to live. The patient reported continued struggles with memory. The patient had stated that he felt that he had never met me before on interview. Mental Status Exam 2 MSE Comments: This is an underweight white male looking older than his stated age, with limited grooming, long mcarthur and fleeting eye contact. No abnormal movements except for signficant psychomotor retardation. His gait was short stepped and narrow. He was cooperative with exam in mild to moderate distress. Speech was decreased in rate, productivity and diminished in volume. Mood described as allright. His affect was odd and subdued. Thought process was linear, but superficial. Thought content: patient denies suicidal or homicidal ideation, There was no clear evidence of paranoia but no delusions noted and denies auditory and visual hallucinations. Attention span was poor. Recent and remote memory were grossly impaired. He is alert and oriented times to person but not place or time. He was unable to provide a specific date. Insight and judgment are impaired. Impulse control is impaired. MMSE completed on 08/07/24 was 08/12. Vitals/I&O/Wt Last Vital Signs Temp 97.6 F 08/13/24 06:00 Pulse 108 H 08/13/24 14:00 Resp 18 08/13/24 14:00 BP 134/80 08/13/24 14:00 Pulse Ox 99 08/13/24 14:00 O2 Del Method Room Air 08/13/24 06:00 08/13/24 08/13/24 08/13/24 06:59 14:59 22:59 Intake Total 240 / 240 Balance 240 / 240 Weight last 48 hrs Weight 58.145 kg Weight 58.145 kg Weight 59.024 kg Physical Exam 2 Urinary Catheter Management: Coude: Cath Placed During This Visit: yes Reason for Continuing Indwelling Catheter: Acute Urinary Retention or Obstruction Urinary Catheter Date of Insertion: 08/05/24 Urinary Catheter Time of Insertion: 04:45 Data NPU 08/04/24 23:20 08/04/24 23:20 A&P Assessment and plan (1) Acute psychosis: (2) Dementia associated with alcoholism: (3) Alcohol dependence: (4) Nicotine dependence, cigarettes, uncomplicated: (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 1. continue invega 6mg at night. Possible improvement may be seen for psychosis secondary to methamphetamine use now confirmed. 2. Encourage individual, group and milieu therapy 3. Continue q-15 minute check for safety 4. Recommend sober living treatment at the highest level of care to which the patient is willing to commit. CIWA protocol. 5. Thiamine, folate, concern about dementia from previous etoh abuse. MARIANO testing today showed evidence of requiring help in all thirteen areas of functioning. He is unable to live independently and will require 24 hour supervision. MMSE was 9/ 30 today. Will consult neurology. Patient now on 21 day hold. Involuntary Hold Information 2 96 Hour Hold: 96 Hour Involuntary Admission: Yes 96 Hour Hold Ending Date: 08/09/24 96 Hour Hold Ending Time: 00:01 Attestations NPU 2 Medical Necessity Statement*: Inpatient hospitalization is medically necessary and deemed to ?be ?the clinically appropriate intervention ?at this time.? We will monitor/initiate medications and make changes as indicated.? ?Guardianship likely to be pursued, possibly the patient's sister. The patient?s likely length of stay 7-10 days. 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
[2024-08-13 20:16] VITALS: BP 155/84; PULSE 80; RESP 16; TEMP 36.6; O2SAT 99
[2024-08-13] MEDS: paliperidone ER 6 mg Tablet PO (20:44)
[2024-08-13] MEDS: trazodone 50 mg Tablet PO (20:44)
[2024-08-13] MEDS: tamsulosin 0.4 mg Capsule PO (20:44)
[2024-08-14 06:00] VITALS: BP 127/76; PULSE 83; RESP 18; TEMP 36.5; O2SAT 98; BMI 18.9
[2024-08-14] MEDS: thiamine 100 mg Tablet PO (08:36)
[2024-08-14] MEDS: folic acid 1 mg Tablet PO (08:36)
[2024-08-14] MEDS: multivitamin therapeutic Tablet 1 TAB PO (08:36)
[2024-08-14 14:00] VITALS: BP 142/72; PULSE 84; RESP 16; TEMP 36.6; O2SAT 97
--- NOTE | 2024-08-14 18:18 | P.NPUPN_ITS ---
Subjective NPU 2 Subjective: Fred is a 62-year-old male with a history of alcohol dependence who was admitted with problems with depression, confusion and psychosis currently on invega 6mg daily. Patient appeared more active today. He had reported that he was doing better. He reported having problems with his memory. He had stated that he had spoken to his sister about getting the hell out of here . He had appeared more active and spend less time today in his room. He had continued to report having problems with his memory. He had agreed that he could not take care of himself. He continued to eat well and tolerate Ensure. There was no evidence of aggression on the unit. He had reported having used methamphetamine but could not remember when the last time he used it. Mental Status Exam 2 MSE Comments: This is an underweight white male looking older than his stated age, with limited grooming, long mcarthur and fleeting eye contact. No abnormal movements except for signficant psychomotor retardation. His gait was short stepped and narrow. He was cooperative with exam in mild to moderate distress. Speech was decreased in rate, productivity and diminished in volume. Mood described as better. His affect was odd and subdued. Thought process was linear, but superficial. Thought content: patient denies suicidal or homicidal ideation, There was no clear evidence of paranoia but no delusions noted and denies auditory and visual hallucinations. Attention span was poor. Recent and remote memory were grossly impaired. He is alert and oriented times to person but not place or time. He was unable to provide a specific date. Insight and judgment are impaired. Impulse control is impaired. Still confused regarding date, time, but knew city name, and season. Vitals/I&O/Wt Last Vital Signs Temp 97.8 F 08/14/24 14:00 Pulse 84 08/14/24 14:00 Resp 16 08/14/24 14:00 BP 142/72 08/14/24 14:00 Pulse Ox 97 08/14/24 14:00 O2 Del Method Room Air 08/14/24 14:00 Weight last 48 hrs Weight 58.145 kg Weight 58.145 kg Weight 58.145 kg Physical Exam 2 Urinary Catheter Management: Coude: Cath Placed During This Visit: yes Reason for Continuing Indwelling Catheter: Acute Urinary Retention or Obstruction Urinary Catheter Date of Insertion: 08/05/24 Urinary Catheter Time of Insertion: 04:45 Data NPU 08/04/24 23:20 08/04/24 23:20 A&P Assessment and plan (1) Acute psychosis: (2) Dementia associated with alcoholism: (3) Alcohol dependence: (4) Nicotine dependence, cigarettes, uncomplicated: (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 1. continue invega 6mg at night. Possible improvement may be seen for psychosis secondary to methamphetamine use now confirmed. 2. Encourage individual, group and milieu therapy 3. Continue q-15 minute check for safety 4. Recommend sober living treatment at the highest level of care to which the patient is willing to commit. CIWA protocol. 5. Thiamine, folate, concern about dementia from previous etoh abuse. MARIANO testing today showed evidence of requiring help in all thirteen areas of functioning. He is unable to live independently and will require 24 hour supervision. Patient likely to return home. Patient improving now. Involuntary Hold Information 2 96 Hour Hold: 96 Hour Involuntary Admission: Yes 96 Hour Hold Ending Date: 08/09/24 96 Hour Hold Ending Time: 00:01 Attestations NPU 2 Medical Necessity Statement*: Inpatient hospitalization is medically necessary and deemed to ?be ?the clinically appropriate intervention ?at this time.? We will monitor/initiate medications and make changes as indicated.? ?Guardianship likely to be pursued, possibly the patient's sister. The patient?s likely length of stay 5-7 days. 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
[2024-08-14 20:08] VITALS: BP 137/76; PULSE 85; RESP 16; O2SAT 96
[2024-08-14] MEDS: trazodone 50 mg Tablet PO (20:23)
[2024-08-14] MEDS: tamsulosin 0.4 mg Capsule PO (20:23)
[2024-08-14] MEDS: paliperidone ER 6 mg Tablet PO (20:23)
[2024-08-15 06:27] VITALS: BP 140/60; PULSE 60; RESP 16; O2SAT 98
[2024-08-15] MEDS: multivitamin therapeutic Tablet 1 TAB PO (08:37)
[2024-08-15] MEDS: folic acid 1 mg Tablet PO (08:37)
[2024-08-15] MEDS: thiamine 100 mg Tablet PO (08:37)
[2024-08-15] MEDS: hyDROXYzine 25 mg Capsule 50 MG PO (08:54)
[2024-08-15] MEDS: acetaminophen 325 mg Tablet 650 MG PO (08:55)
--- NOTE | 2024-08-15 10:04 | PC.NURSE ---
SITTING ON BED. PT IS EVASIVE WITH ASSESSMENT. PT IS NOTED TO HAVE MODERATED TONGUE FLICKING AND ROLLS IT AROUND WHEN SPEAKING. PT APPEARS UNAWARE OF THIS. RATES PAIN IN BACK /10, MED NURSE TO GIVE TYLENOL. RATES ANXIETY 05/22 AND DEPRESSION /. MED NURSE NOTIFIED TO GIVE VISTARIL 50MG ORDERED FOR ANXIETY. REPORTS HE SLEPT SO SO. STATE GOAL IS TO GO HOME. DENIES SI/HI AND AVH AT THIS TIME. ALL QUESTIONS ANSWERED AND SUPPORT WAS VOICED.
[2024-08-15 14:00] VITALS: BP 161/78; PULSE 94; RESP 18; TEMP 36.7; O2SAT 96
--- NOTE | 2024-08-15 14:45 | P.NPUPN_ITS ---
Subjective NPU 2 Subjective: Fred is a 62-year-old male with a history of alcohol dependence who was admitted with problems with depression, confusion and psychosis currently on invega 6mg daily. Patient appeared more active today and had been walking more and engaging in greater self care. Patient struggled with memory problems. He denied any mood symptoms currently. Patient has improved appetite. No constipation reported. Mental Status Exam 2 MSE Comments: This is an underweight white male looking older than his stated age, with limited grooming, long mcarthur and fleeting eye contact. No abnormal movements except for signficant psychomotor retardation. His gait was short stepped and narrow. He was cooperative with exam in mild to moderate distress. Speech was decreased in rate, productivity and diminished in volume. Mood described as better. His affect was odd and subdued. Thought process was linear, but superficial. Thought content: patient denies suicidal or homicidal ideation, There was no clear evidence of paranoia but no delusions noted and denies auditory and visual hallucinations. Attention span was poor. Recent and remote memory were grossly impaired. He is alert and oriented times to person but not place or time. He was unable to provide a specific date. Insight and judgment are impaired. Impulse control is impaired. Still confused regarding date, time, but knew city name, and season. Vitals/I&O/Wt Last Vital Signs Temp 97.8 F 08/14/24 14:00 Pulse 60 08/15/24 06:27 Resp 16 08/15/24 06:27 BP 140/60 08/15/24 06:27 Pulse Ox 98 08/15/24 06:27 O2 Del Method Room Air 08/14/24 14:00 Weight last 48 hrs Weight 58.145 kg Physical Exam 2 Urinary Catheter Management: Coude: Cath Placed During This Visit: yes Reason for Continuing Indwelling Catheter: Acute Urinary Retention or Obstruction Urinary Catheter Date of Insertion: 08/05/24 Urinary Catheter Time of Insertion: 04:45 Data NPU 08/04/24 23:20 08/04/24 23:20 A&P Assessment and plan (1) Acute psychosis: (2) Dementia associated with alcoholism: (3) Alcohol dependence: (4) Nicotine dependence, cigarettes, uncomplicated: (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 1. continue invega 6mg at night. Possible improvement may be seen for psychosis secondary to methamphetamine use now confirmed. 2. Encourage individual, group and milieu therapy 3. Continue q-15 minute check for safety 4. Recommend sober living treatment at the highest level of care to which the patient is willing to commit. CIWA protocol. 5. Thiamine, folate, concern about dementia from previous etoh abuse. MARIANO testing today showed evidence of requiring help in all thirteen areas of functioning. He is unable to live independently and will require 24 hour supervision. Patient likely to return home. Patient improving now slowly with invega 6mg. Patient positive for methamphetamine on admission. Involuntary Hold Information 2 96 Hour Hold: 96 Hour Involuntary Admission: Yes 96 Hour Hold Ending Date: 08/09/24 96 Hour Hold Ending Time: 00:01 Attestations NPU 2 Medical Necessity Statement*: Inpatient hospitalization is medically necessary and deemed to ?be ?the clinically appropriate intervention ?at this time.? We will monitor/initiate medications and make changes as indicated.? ?Guardianship likely to be pursued, possibly the patient's sister. The patient?s likely length of stay 5-7 days. 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
[2024-08-15 20:24] VITALS: BP 145/79; PULSE 70; RESP 16; TEMP 37; O2SAT 97
[2024-08-15] MEDS: trazodone 50 mg Tablet PO (20:29)
[2024-08-15] MEDS: paliperidone ER 6 mg Tablet PO (20:30)
[2024-08-15] MEDS: tamsulosin 0.4 mg Capsule PO (20:30)
[2024-08-16 05:35] VITALS: BP 172/79; PULSE 69; RESP 18; O2SAT 97
[2024-08-16] MEDS: thiamine 100 mg Tablet PO (08:05)
[2024-08-16] MEDS: folic acid 1 mg Tablet PO (08:05)
[2024-08-16] MEDS: multivitamin therapeutic Tablet 1 TAB PO (08:05)
[2024-08-16] MEDS: nicotine 2 mg Gum BUCCAL (08:50)
[2024-08-16 14:00] VITALS: BP 157/78; PULSE 86; RESP 18; TEMP 36.9; O2SAT 97
--- NOTE | 2024-08-16 17:55 | P.NPUPN_ITS ---
Subjective NPU 2 Subjective: Patient presented today reporting that he is doing okay. He identified the need for him to be able to manage his situation with sister better. We discussed the fact that he would likely be returning back home but we need to make sure we had a clear plan about how this will be successful this time given the limitations identified in his examination. Otherwise he denied any problems with his medication and reports that he is feeling well. Mental Status Exam 2 MSE Comments: This is an underweight white male looking older than his stated age, with limited grooming, long mcarthur and fleeting eye contact. No abnormal movements except for signficant psychomotor retardation. His gait was short stepped and narrow. He was cooperative with exam in mild to moderate distress. Speech was decreased in rate, productivity and diminished in volume. Mood described as better. His affect was odd and subdued. Thought process was linear, but superficial. Thought content: patient denies suicidal or homicidal ideation, There was no clear evidence of paranoia but no delusions noted and denies auditory and visual hallucinations. Attention span was poor. Recent and remote memory were grossly impaired. He is alert and oriented times to person but not place or time. He was unable to provide a specific date. Insight and judgment are impaired. Impulse control is impaired. Still confused regarding date, time, but knew city name, and season. Vitals/I&O/Wt Last Vital Signs Temp 98.4 F L 08/16/24 14:00 Pulse 86 08/16/24 14:00 Resp 18 08/16/24 14:00 BP 157/78 08/16/24 14:00 Pulse Ox 97 08/16/24 14:00 O2 Del Method Room Air 08/16/24 14:00 Physical Exam 2 Urinary Catheter Management: Coude: Cath Placed During This Visit: yes Reason for Continuing Indwelling Catheter: Acute Urinary Retention or Obstruction Urinary Catheter Date of Insertion: 08/05/24 Urinary Catheter Time of Insertion: 04:45 Data NPU 08/04/24 23:20 08/04/24 23:20 A&P Assessment and plan (1) Acute psychosis: (2) Dementia associated with alcoholism: (3) Alcohol dependence: (4) Nicotine dependence, cigarettes, uncomplicated: (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 1. Continue Invega 6 mg. 2. Continue every 15 minute checks for safety. 3. Encourage individual, group and milieu therapy. 4. Encourage sober living treatment after discharge at the highest level care to which he is willing to commit. 5. Patient improving with Invega after a positive screen for methamphetamine. Thiamine, folate, concern about dementia from previous etoh abuse. MARIANO testing this week showed evidence of requiring help in all thirteen areas of functioning. He is unable to live independently and will require 24 hour supervision. Patient likely to return home. Involuntary Hold Information 2 96 Hour Hold: 96 Hour Involuntary Admission: Yes 96 Hour Hold Ending Date: 08/09/24 96 Hour Hold Ending Time: 00:01 Attestations NPU 2 Medical Necessity Statement*: Inpatient hospitalization is medically necessary and deemed to ?be ?the clinically appropriate intervention ?at this time.? We will monitor/initiate medications and make changes as indicated.? ?Guardianship might be pursued, but the patient?s likely length of stay 5-7 days. 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
[2024-08-16 21:27] VITALS: BP 126/73; PULSE 85; RESP 18; TEMP 36.3; O2SAT 98
[2024-08-17 06:00] VITALS: BP 148/76; PULSE 75; RESP 16; O2SAT 96
[2024-08-17] MEDS: thiamine 100 mg Tablet PO (10:04)
[2024-08-17] MEDS: nicotine 2 mg Gum BUCCAL (10:04)
[2024-08-17] MEDS: folic acid 1 mg Tablet PO (10:04)
[2024-08-17] MEDS: multivitamin therapeutic Tablet 1 TAB PO (10:04)
--- NOTE | 2024-08-17 11:53 | P.NPUPN_ITS ---
Subjective NPU 2 Subjective: Patient presents today denying any significant changes and reporting that he is doing fine. He reports that he is in conversation with his family and they are reporting that they are just waiting for the treatment team to identify when discharge would be appropriate. We discussed the that we would get in touch with them and plan for discharge likely sometime after Monday. Otherwise he reports he is tolerating the medication and denied any significant problems. He denied any side effects of the medication. Mental Status Exam 2 MSE Comments: This is an underweight white male looking older than his stated age, with limited grooming, long mcarthur and fleeting eye contact. No abnormal movements except for signficant psychomotor retardation. His gait was short stepped and narrow. He was cooperative with exam in mild to moderate distress. Speech was decreased in rate, productivity and diminished in volume. Mood described as better. His affect was odd and subdued. Thought process was linear, but superficial. Thought content: patient denies suicidal or homicidal ideation, There was no clear evidence of paranoia but no delusions noted and denies auditory and visual hallucinations. Attention span was poor. Recent and remote memory were grossly impaired. He is alert and oriented times to person but not place or time. He was unable to provide a specific date. Insight and judgment are impaired. Impulse control is impaired. Still confused regarding date, time, but knew city name, and season. Vitals/I&O/Wt Last Vital Signs Temp 97.4 F L 08/16/24 21:27 Pulse 75 08/17/24 06:00 Resp 16 08/17/24 06:00 BP 148/76 08/17/24 06:00 Pulse Ox 96 08/17/24 06:00 O2 Del Method Room Air 08/17/24 06:00 Physical Exam 2 Urinary Catheter Management: Coude: Cath Placed During This Visit: yes Reason for Continuing Indwelling Catheter: Acute Urinary Retention or Obstruction Urinary Catheter Date of Insertion: 08/05/24 Urinary Catheter Time of Insertion: 04:45 Data NPU 08/04/24 23:20 08/04/24 23:20 A&P Assessment and plan (1) Acute psychosis: (2) Dementia associated with alcoholism: (3) Alcohol dependence: (4) Nicotine dependence, cigarettes, uncomplicated: (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 1. Continue Invega 6 mg. 2. Continue every 15 minute checks for safety. 3. Encourage individual, group and milieu therapy. 4. Encourage sober living treatment after discharge at the highest level care to which he is willing to commit. 5. Patient improving with Invega after a positive screen for methamphetamine. Thiamine, folate, concern about dementia from previous etoh abuse. MARIANO testing this week showed evidence of requiring help in all thirteen areas of functioning. He is unable to live independently and will require 24 hour supervision. Patient likely to return home. Involuntary Hold Information 2 96 Hour Hold: 96 Hour Involuntary Admission: Yes 96 Hour Hold Ending Date: 08/09/24 96 Hour Hold Ending Time: 00:01 Attestations NPU 2 Medical Necessity Statement*: Inpatient hospitalization is medically necessary and deemed to ?be ?the clinically appropriate intervention ?at this time.? We will monitor/initiate medications and make changes as indicated.? ?Guardianship might be pursued, but the patient?s likely length of stay 4-6 days. 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
[2024-08-17 14:00] VITALS: BP 149/77; PULSE 86; RESP 18; TEMP 36.9; O2SAT 95
[2024-08-17 19:26] VITALS: BP 160/87; PULSE 80; RESP 18; TEMP 37; O2SAT 99
[2024-08-17] MEDS: trazodone 50 mg Tablet PO (21:33)
[2024-08-17] MEDS: tamsulosin 0.4 mg Capsule PO (21:33)
[2024-08-17] MEDS: paliperidone ER 6 mg Tablet PO (21:33)
[2024-08-18 06:00] VITALS: BP 144/90; PULSE 79; RESP 18; TEMP 37; O2SAT 99; BMI 18.8
--- NOTE | 2024-08-18 08:33 | P.NPUPN_ITS ---
Subjective NPU 2 Subjective: Patient presented today reporting that he is feeling optimistic about things improving. He reports that he is hopeful that he could discharge as soon as tomorrow. We discussed that with the social work team and his supports to determine what makes the most sense. We talked about the importance of him avoiding drugs of abuse and he seemed to be somewhat ambivalent about the conversation. He denied any side effects to the medication. Mental Status Exam 2 MSE Comments: This is an underweight white male looking older than his stated age, with limited grooming, long mcarthur and fleeting eye contact. No abnormal movements except for signficant psychomotor retardation. His gait was short stepped and narrow. He was cooperative with exam in mild to moderate distress. Speech was decreased in rate, productivity and diminished in volume. Mood described as better. His affect was odd and subdued. Thought process was linear, but superficial. Thought content: patient denies suicidal or homicidal ideation, There was no clear evidence of paranoia but no delusions noted and denies auditory and visual hallucinations. Attention span was poor. Recent and remote memory were grossly impaired. He is alert and oriented times to person but not place or time. He was unable to provide a specific date. Insight and judgment are impaired. Impulse control is impaired. Still confused regarding date, time, but knew city name, and season. Vitals/I&O/Wt Last Vital Signs Temp 98.6 F 08/18/24 06:00 Pulse 79 08/18/24 06:00 Resp 18 08/18/24 06:00 BP 144/90 08/18/24 06:00 Pulse Ox 99 08/18/24 06:00 O2 Del Method Room Air 08/18/24 06:00 Weight last 48 hrs Weight 57.833 kg Physical Exam 2 Urinary Catheter Management: Coude: Cath Placed During This Visit: yes Reason for Continuing Indwelling Catheter: Acute Urinary Retention or Obstruction Urinary Catheter Date of Insertion: 08/05/24 Urinary Catheter Time of Insertion: 04:45 Data NPU 08/04/24 23:20 08/04/24 23:20 A&P Assessment and plan (1) Acute psychosis: (2) Dementia associated with alcoholism: (3) Alcohol dependence: (4) Nicotine dependence, cigarettes, uncomplicated: (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 1. Continue Invega 6 mg. 2. Continue every 15 minute checks for safety. 3. Encourage individual, group and milieu therapy. 4. Encourage sober living treatment after discharge at the highest level care to which he is willing to commit. 5. Patient improving with Invega after a positive screen for methamphetamine. Thiamine, folate, concern about dementia from previous etoh abuse. MARIANO testing this week showed evidence of requiring help in all thirteen areas of functioning. He is unable to live independently and will require 24 hour supervision. Patient likely to return home. Involuntary Hold Information 2 96 Hour Hold: 96 Hour Involuntary Admission: Yes 96 Hour Hold Ending Date: 08/09/24 96 Hour Hold Ending Time: 00:01 Attestations NPU 2 Medical Necessity Statement*: Inpatient hospitalization is medically necessary and deemed to ?be ?the clinically appropriate intervention ?at this time.? We will monitor/initiate medications and make changes as indicated.? ?Guardianship might be pursued, but the patient?s likely length of stay 3-5 days. 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
[2024-08-18] MEDS: folic acid 1 mg Tablet PO (09:37)
[2024-08-18] MEDS: multivitamin therapeutic Tablet 1 TAB PO (09:37)
[2024-08-18] MEDS: thiamine 100 mg Tablet PO (09:37)
[2024-08-18 14:00] VITALS: BP 122/69; PULSE 92; RESP 18; TEMP 37.3; O2SAT 93
[2024-08-18] MEDS: tamsulosin 0.4 mg Capsule PO (20:29)
[2024-08-18] MEDS: trazodone 50 mg Tablet PO (20:29)
[2024-08-18] MEDS: paliperidone ER 6 mg Tablet PO (20:29)
[2024-08-18 21:52] VITALS: BP 122/79; PULSE 101; RESP 18; TEMP 36.6; O2SAT 94
[2024-08-19 06:00] VITALS: BP 125/61; PULSE 96; RESP 17; O2SAT 96
--- NOTE | 2024-08-19 09:10 | PC.NURSE ---
SITTING ON BED AND IS OBSERVED TO BE CALM. PT IS NOTED TO HAVE FLAT AFFECT AND DEPRESSED MOOD. PT APPEARS TO BE INTERACTING WITH STAFF AND PEERS MORE THIS SHIFT. PT ANTICIPATES DISCHARGE TODAY WITH SISTER. DENIES SI/HI AND AVH AT THIS TIME. RATES ANXIETY 04/22 AND DEPRESSION /. PT DECLINES TAKING ANY ANTI-ANXIETY MEDICATIONS AT THIS TIME. STATES HE IS JUST JITTERY BECAUSE I'M READY TO GO. REPORTS HE TOSSED AND TURNED THROUGHOUT THE NIGHT. DENIES PAIN. STATES GOAL IS TO GET OUT OF HERE AND GO HOME. ALL QUESTIONS ANSWERED AND SUPPORT VOICED.
[2024-08-19] MEDS: multivitamin therapeutic Tablet 1 TAB PO (09:57)
[2024-08-19] MEDS: thiamine 100 mg Tablet PO (09:57)
[2024-08-19] MEDS: folic acid 1 mg Tablet PO (09:57)
--- NOTE | 2024-08-19 12:53 | W.PM.NPUDCS ---
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 He had presented to the emergency department after being brought in by EMS with confusion. He had denied having used alcohol or illicit drugs. The patient had been agitated in the emergency department and received a dose of ketamine and had been placed in the intensive care unit for monitoring on 08/05/2024. He was then subsequently transferred in the afternoon on 08/05/2024 to the neuropsychiatric unit. Patient on interview stated that he had been living with a friend Hugo for an unspecified amount of time. He had reported no recent use of methamphetamine. His urine drug screen was negative for drugs or alcohol. He had denied any thoughts of hurting himself or anyone else on admission. He had reported from time to time getting depressed. He had reported that he was frequently thinking about the past. He had reported that he had been previously caring for his mother while she had had cancer but states that she had several years ago. He had acknowledged having no recent follow-up with his psychiatrist. He reported no substantial changes since his last admission. He did report some difficulties with memory and concentration. Inpatient psychiatric history: Patient had been admitted at least 1 time in the past here on the neuropsychiatric unit in December 2022. Outpatient psychiatric history: Last seen in [facility] in August 2023. Previous medications include Invega 6 mg daily and vitamin B6 200 mg daily. Previous medications include Zyprexa as well. Current medications: None Medical history: History of SIRS, hyponatremia, asbestos exposure, hx of inability to urinate. Surgeries: left digit separation. Allergies: nkda Medications: none Substance abuse history: Per previous records patient has a history of methamphetamine use along with a history of significant alcohol consumption with a history of inpatient substance abuse treatment reported. Legal history: hx of assault to sister per records, hx of DUI, Family psychiatric history: None reported Social history: He had reported having problems with learning during his childhood. He had reported that he had been close with his mother and states that his mother had a few years ago. He had previously then resided with his sister but for unspecified reasons he was unable to live with her and states that he has been living with a man named Hugo. He reports that he is currently not on disability. 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 He had not not endorsed any previous history of no marriage and has two adult aged children who he has no contact with for many years. 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 Hospital service has been requested because of mild CPK elevation. Patient is not able to provide any history he stating that he is in the hospital to the care of his mom. When I questioned him why he thinks he needs to take care of his mom he stated she has cancer. As per the ER physician patient was found naked, constrained to a metal bench with duct tape. In the ER he is showing normal hemodynamics without any fever, mild leukocytosis, CPK trending down no signs of acidosis no creatinine elevation or signs of kidney injury, current CPK 891, pyuria noted, drug screen negative, Patient endorses to drinking 6 cans of beer every day and smoking 2 packs of cigarettes every day Trauma scan unremarkable The patient was admitted to the neuropsychiatric unit for definitive treatment of those issues. He is not currently taking any psychiatric medications. He presents today reporting his sister found him laying in the mud and thought he should get checked out which is why he presented to the psychiatric hospital. He has not been psychiatrically hospitalized, cannot remember receiving outpatient services but believes he was on psychiatric medications at one point. He reports smoking 2 packs of cigarettes a day and a can of chew a day, alcohol daily all day, denies marijuana, has tried methamphetamine and cocaine and last used a week ago. He has been to a rehab before, had 3 DUIs and possibly had some other drug and alcohol related charges. He endorses having memory issues currently and is having a hard time recalling a lot of the information asked during the interview. We discussed checking his history to see if he has been on medications before and discussed starting thiamine in case his memory issues are related to his alcohol use. Patient was a very limited and confused historian. He had 3 hospitalizations in 2017 and follow-up at [facility] for years after that. An excerpt of his last hospitalization is included below for history and context. Psychiatric History: As above. Substance Abuse History: As above. Medical History: He denies any known allergies to medications. Per his 08/16/2017 [facility] inpatient psychiatric hospitalization: Date of Service: Aug 16, 2017 Chief Complaint: Just shot my gun out in the veliz. HPI: The pt reports HPI: The patient is a 57-year-old male re-admitted on 96 hour hold for reported paranoia and homicidal ideation. Affidavits are reviewed on the chart for 96 hour hold which was filed August 14 had indicated that the patient was having apparent auditory hallucinations and paranoia at that time. Also referenced aggressive ideation from incident back in June 2017 and did not explain a timeframe for recent reported homicidal ideation/planning/preparation. He did reference that on August 14 the patient was firing his gun into the veliz and talking to people that were not there due to paranoid delusions. At the time of this interview, the patient continues to be paranoid and very irritable. He reports that he does not wish to have word associations or to be asked the same questions multiple times. He denies suicidal or homicidal ideation however he then states If I do, that's my own damn problems. . He reports that he has the right to bear arms and shoot his firearms whenever he wants. He is reporting that prior to this admission I was shootin' at some brush because I wanted to. He reports this is the 3rd time his family has placed a 96 hour hold on him. He reports that his family has bugs like TV screens, light bulbs in his house spying on him. He is disorganized talking about his antiques and [place]. He reports that he is upset about his family due to some issue regarding traveling in boat containers, pornography. Psychiatric review of systems: Pt report his mood is good and denies depression/anhedonia or suicidal ideation. He denies new particular problems with sleep or appetite. Denies any history of overt manic episode off of drugs. But urine drug screen is currently negative and he is significantly irritable and somewhat hyper with racing thoughts. He is evasive and uncooperative with answering other questions pertaining to his mood at this time. Denies any auditory or visual hallucinations but per collateral information/affidavits, he was yelling at people who weren't there in the veliz at night. He has apparent paranoid delusions expressed during interview today. He reports that his family gets upset with him when he goes to buy alcohol but then denies that he has been drinking at all for quite some time but will not specify. He denies other drug use but has a known history of methamphetamine abuse from previous admissions. He is declining to take any psychotropic medications at this time. Family reports were that he has a prior diagnosis of schizophrenia and has been noncompliant with his prior medications. Past psychiatric history: Last admission to NPU in February and again overnight in July 2017 for psychosis unspecified in the context of acute meth and alcohol intoxication. Was on Zyprexa 10mg BID during a prior admission but had refused medication during his last admission and was not exhibiting any acute psychotic symptoms during that time. He reports that Zyprexa made him feel groggy. NO OP psychiatrist. He does endorse a history of fighting but no SA. 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 Surgeries- left digit separation (webbed at hands/ feet with skin). Family history: Brother- psychosis/ DID? Social history: single, lives alone next to his family, unemployed currently, not on disability, has had recent court related to assaulting his sister but not wish to discuss the issue at this time. Hx IVDU meth, last use within the past 1-2 months, MJ occasional per history but currently refuses to answer questions. Alcohol- daily 2-12 beers daily previously reported but patient is denying any alcohol use over the past few weeks and alcohol level was negative upon admission, no complicated WD. Denies hx CD treatment. Hospital Course Hospital Course Discharge Summary: During the hospitalization, patient had routine laboratory studies which were within normal limits except for few outliers. The patient appeared quite confused throughout his hospital stay often isolating himself on the unit. He showed great improvement after many days in the hospital with the titration of paliperidone up to 6 mg daily. He did appear to show some evidence of tardive dyskinesia and B6 was provided to treat this at a dose of 200 mg daily. An Occupational Therapy evaluation had suggested that the patient would not be able to take care of himself and required significant assistance. The patient's sister was willing to file guardianship and assume responsibility for the patient. The patient on discharge had expressed that she would continue to follow the instructions of her sister and take his medication as prescribed and was also supportive of needing a guardian. Additionally, there was a general medical evaluation which was also within normal limits and revealed no new acute processes. At the time of discharge, lethality was denied and psychosis was resolving. Mood and anxiety were well managed. Patient endorsed a plan to avoid all drugs of abuse and follow-up with the aftercare recommendations of the treatment team. Patient was evaluated and deemed to be absent credible lethality, and had achieved the maximum benefit from an inpatient hospitalization, so was discharged. History of Present Illness Presenting Problem/Chief Complaint: Klaus is a 62 year old single heterosexual male who was seen for an assessment to determine a need for services after he was admitted into the neuropsychiatric unit for psychosis. Client appears today confused and with his sister who assists the client . The client states that he was admitted to the hospital after he was found constrained to a metal bench with duck tape. Client reported to the ER that he was there to take care of his mom . Client reports today that his mother and father has passed, that he stays with his sister most of the time. Client reports that he has a prior brain injury, that he has enough to eat, a warm place, drinking alcohol sometimes, has a long history of substance use and intense life experiences. Client reports that he is just content, that he gets social security, that he gets anxious and confused, and that his sister has filled for guardianship of her brother but it has not been granted. Client's sister reports that sometimes others take advantage of him and that they are working this out as a family to make sure that he is has good care. Current Psychiatric and Physical Symptoms:: At this time it is unlikely to have an accurate diagnosis for mental health and determine what is organic verses emotional/behavioral. Client appears confused, having sluggish speech, his sister reporting that they have always been close as a family, and appears to have involentary mouth movement appearing like tardive dyskinesia. Childhood and Family History Client stated We were close. pointing at his sister. Client appeared that this answered the open ended question of Tell me what it was like growing up and did not respond to prompts. Client's sister states that they grew up poor, that they have always lived in [place], that they had a brother that passed that was autistic, that the younger sister has been taking advantage of the client and that this sister, the older one has applied for custody of the client. She reports that their mother passed from health issues, that their father was a compress trucker passing away from 'being wild bill'. She reports that they have applied for home health care, medicaid, and she is hoping to just live in [place] . Client appeared during the session to nod and confirm his sisters statements. 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 Client added that he used to be on probation and completed his time. Abuse/Neglect/Trauma: None (Client and his siblings brought up being poor many times. ) Current/historical developmental milestones and/or delays:: Intellectual functioning (Clients sister reports that they all were in special classes. Client reports that he wants to learn to read and write better.) Accommodations: Literacy assistance Details: Client's sister reports that In his younger years, he was a badass and that his brain injuries are a combination of fights and working to hard. Family Psychiatric History: Other (Educational disability, autism. ) Social History Current Living Environment: Relative (Client reports that he would rather live on his own. ) Living environment is reported to be?: Good Reports Feeling: Safe Does patient need help completing personal and oral hygiene?: No Client?s interactions regarding social/peer relationships are: Family and Isolative Vocational Information: Disabled Financial Information: Disability Income Client's employment History Client reports that he liked working for [employer] for 17 years, that he got to travel, and see the world. Client reports that he quit school to get a job because he wasn't very good at school. Client reports that he would like to get a high school diploma, learn to read and write better. 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 Client reports that he used to like to work on cars. Individual's Strengths: Food, Stable Housing, Active Insurance, Transportation Support and Cooperative Individual's Obstacles: Substance Abuse, Limited Income, Low Self-Esteem, Limited Insight, Poor Support System and Other(Specify) (Self reported brain injury and noted in the discharge from the [facility]PU. ) Legal Status/History: Current legal issues denied Demographics Marital Status: single Ethnicity: Cultural Background: Client reports that his father may have been Rowan. Spiritual Pursuits: Druze Do you think of yourself as: Straight/Heterosexual Gender Identity: Male What is your pronoun?: he/him/his Language(s) Spoken: Citizen Of [place] Custody/Guardianship Client's sister attends the session and reports that the inpatient [facility] health social work professor was assisting the client to have a guardian and assisted the sister to apply for Medicaid and Health nursing home. Education Highest Education Level Reached: high school Academic Performance: Performance below grade level Extracurricular Activities: Other (Mechanics. ) Special Accommodations: Special Classroom Arrangements Disciplinary Actions: Severe Health Is Patient in Pain?: No Primary Care Provider: No (Client's sister is working on setting this up with the health social work professor. ) Does client want PCP referral list?: No Have you been seen by your primary care provider or CLINICAL REVIEW SPECIALIST in the past 12 months?: No Last Physical Exam: Unknown Other Healthcare Providers Client reports that he gets sinus headaches, needs glasses and needs his medication refilled. Client is referred to his primary care provider for medication and support. Client's Medical History: Brain Injury and Seizures (Client's sister reports that she believes that the client has silent seizures and shakes. ) Family Medical History: High Blood Pressure and Heart Disease Allergies Involuntary Hold Information 96 Hour Hold: 96 Hour Involuntary Admission: Yes 96 Hour Hold Ending Date: 08/09/24 96 Hour Hold Ending Time: 00:01 Mental Status Exam MSE Comments: This is an underweight white male looking older than his stated age, with limited grooming, long mcarthur and fleeting eye contact. No abnormal movements except for signficant psychomotor retardation. His gait was short stepped and narrow. He was cooperative with exam in mild to moderate distress. Speech was decreased in rate, productivity and diminished in volume. Mood described as better. His affect was odd and subdued. Thought process was linear, but superficial. Thought content: patient denies suicidal or homicidal ideation, There was no clear evidence of paranoia but no delusions noted and denies auditory and visual hallucinations. Attention span was poor. Recent and remote memory were grossly impaired. He is alert and oriented times to person but not place or time. He was unable to provide a specific date. Insight and judgment are impaired. Impulse control is impaired. Still confused regarding date, time, but knew city name, and season. Physical Exam Urinary Catheter Management: Coude: Cath Placed During This Visit: yes Reason for Continuing Indwelling Catheter: Acute Urinary Retention or Obstruction Urinary Catheter Date of Insertion: 08/05/24 Urinary Catheter Time of Insertion: 04:45 Discharge Data Studies Completed and Pending: Completed Studies During Hospitalization Category Date Time Status CT head wo con* 7 0450 Stat Cat Scan 08/04/24 22:42 Completed XR KUB portable 7 0342 Routine Exams 08/07/24 11:02 Completed XR chest 1V nikolas ble [id number] Stat Exams 08/04/24 22:42 Completed Radiology Impressions Chest X-Ray 08/04/24 22:42 IMPRESSION: No acute findings. Head CT 08/04/24 22:42 IMPRESSION: No acute intracranial abnormality. KUB X-Ray 08/07/24 11:02 IMPRESSION: 1. No acute findings. 2. Negative for colonic fecal stasis 3. Negative for bowel obstruction. Laboratory Results WBC 12.52 10^3/uL (3. 29-11.43) H 08/04/24 23:20 RBC 4.39 10^6/uL (3.8 5-5.65) 08/04/24 23:20 Hgb 15.50 g/dL (11.27 -16.99) 08/04/24 23:20 Hct 45.5 % (37-53) 08/04/24 23:20 MCV 103.6 fl (82-101) H 08/04/24 23:20 MCH 35.3 pg (27-33) H 08/04/24 23:20 MCHC 34.1 g/dL (30-55) 08/04/24 23:20 RDW 13.0 % (12.1-15.1 ) 08/04/24 23:20 Plt Count 218 10^3/cmm (157 -399) 08/04/24 23:20 MPV 9.1 fL (7.4-10.4) 08/04/24 23:20 Neut % (Auto) 75.1 % 08/04/24 23:20 Lymph % (Auto) 15.2 % 08/04/24 23:20 [place] % (Auto) 8.2 % 08/04/24 23:20 Eos % (Auto) 0.9 % 08/04/24 23:20 Baso % (Auto) 0.3 % 08/04/24 23:20 Neut # (Auto) 9.40 10^3/uL (1.8 -7.7) H 08/04/24 23:20 Lymph # (Auto) 1.9 10^3/uL (0.8- 4.8) 08/04/24 23:20 [place] # (Auto) 1.0 10^3/uL (0.2- 0.9) H 08/04/24 23:20 Eos # (Auto) 0.1 10^3/uL (0.0- 0.8) 08/04/24 23:20 Baso # (Auto) 0.0 10^3/uL (0.0- 0.1) 08/04/24 23:20 Nucleated RBC % (a uto) 0 % 08/04/24 23:20 Nucleated RBCs # 0.0 /100WBC 08/04/24 23:20 PT 13.30 SECONDS (12 .1-14.9) 08/04/24 23:20 INR 0.98 (0.8-1.2) 08/04/24 23:20 Sodium 136 mmol/L (136-1 45) 08/04/24 23:20 Potassium 4.0 mmol/L (3.5-5 .1) 08/04/24 23:20 Chloride 95 mmol/L (98-107 ) L 08/04/24 23:20 Carbon Dioxide 24 mmol/L (22-29) 08/04/24 23:20 Anion Gap 21.0 (5-19) H 08/04/24 23:20 BUN 11 mg/dL (8-23) 08/04/24 23:20 Creatinine 0.9 mg/dL (0.7-1. 2) 08/04/24 23:20 GFR Calculation 85.5 mL/min (90-1 30) L 08/04/24 23:20 Glucose 140 mg/dL (65-115 ) H 08/04/24 23:20 POC Glucose 105 mg/dL (70-110 ) 08/05/24 05:25 Calculated Osmolal ity 284 mOsm/kg (285- 295) L 08/04/24 23:20 Calcium 9.6 mg/dL (8.5-10 .5) 08/04/24 23:20 Magnesium 1.9 mg/dL (1.7-2. 3) 08/04/24 23:20 Total Bilirubin 0.9 mg/dL (0.15-1 .2) 08/04/24 23:20 AST 27 U/L (0-40) 08/04/24 23:20 ALT 13 U/L (0-41) 08/04/24 23:20 Alkaline Phosphata se 83 U/L (40-130) 08/04/24 23:20 Ammonia 38 umol/L (16-60) 08/05/24 00:59 Creatine Kinase 283 U/L (39-308) 08/04/24 23:20 Total Protein 7.5 g/dL (6.6-8.7 ) 08/04/24 23:20 Albumin 4.4 g/dL (3.5-5.2 ) 08/04/24 23:20 Globulin 3.1 g/dL (1.3-4.6 ) 08/04/24 23:20 TSH 1.30 uIU/mL (0.27 -4.20) 08/04/24 23:20 Urine Color Yellow (Yellow) 08/05/24 05:24 Urine Appearance Clear (CLEAR) 08/05/24 05:24 Urine pH 6.0 (5-7) 08/05/24 05:24 Ur Specific Gravit y 1.015 (1.005-1.0 30) 08/05/24 05:24 Urine Protein Trace (Negative) A 08/05/24 05:24 Urine Glucose (UA) Negative (Normal ) 08/05/24 05:24 Urine Ketones Negative (Negati ve) 08/05/24 05:24 Urine Blood 3+ (Negative) A 08/05/24 05:24 Urine Nitrate Negative (Negati ve) 08/05/24 05:24 Urine Bilirubin Negative (Negati ve) 08/05/24 05:24 Urine Urobilinogen 1.0 mg/dL (Negati ve) 08/05/24 05:24 Ur Leukocyte Xena ase Trace (Negative) A 08/05/24 05:24 Urine RBC >100 /hpf (0-2) H 08/05/24 05:24 Urine WBC 0-5 /hpf (0-5) 08/05/24 05:24 Ur Squamous Epith Cells 0-5 /hpf (0-5) 08/05/24 05:24 Amorphous Sediment Not Reportable 08/05/24 05:24 Urine Bacteria None seen /hpf (N ONE) 08/05/24 05:24 Hyaline Casts 2.46 /lpf 08/05/24 05:24 Butalbital Not Reportable 08/05/24 04:59 Opiates Screen negative 08/05/24 04:59 Codeine Not Reportable 08/05/24 04:59 Morphine Not Reportable 08/05/24 04:59 Hydrocodone Not Reportable 08/05/24 04:59 Oxycodone Not Reportable 08/05/24 04:59 Hydromorphone Not Reportable 08/05/24 04:59 Barbiturates negative 08/05/24 04:59 Phencyclidine Scre en Not Reportable 08/05/24 04:59 Phencyclidine (PCP ) negative 08/05/24 04:59 Amphetamines Scree n negative 08/05/24 04:59 Amphetamines Positive A 08/05/24 04:59 Methamphetamine 280 ng/mL 08/05/24 04:59 Methylenedioxyamph MDA negative 08/05/24 04:59 MDMA negative 08/05/24 04:59 Amobarbital Not Reportable 08/05/24 04:59 Butabarbital Not Reportable 08/05/24 04:59 Pentobarbital Not Reportable 08/05/24 04:59 Phenobarbital Not Reportable 08/05/24 04:59 Secobarbital Not Reportable 08/05/24 04:59 Alprazolam Screen Not Reportable 08/05/24 04:59 Benzodiazepines negative 08/05/24 04:59 Nordiazepam Not Reportable 08/05/24 04:59 Desalkylflurazepam Not Reportable 08/05/24 04:59 Lorazepam Level Not Reportable 08/05/24 04:59 Oxazepam Not Reportable 08/05/24 04:59 Cocaine Not Reportable 08/05/24 04:59 Cocaine Metabolite negative 08/05/24 04:59 Cocaethylene Not Reportable 08/05/24 04:59 Benzoylecgonine Co nfrm Not Reportable 08/05/24 04:59 Tetrahydrocannabin ol negative 08/05/24 04:59 Delta-9 THC Not Reportable 08/05/24 04:59 Delta-9 Carboxy TH C Not Reportable 08/05/24 04:59 Drug Screen Commen t See note 08/05/24 04:59 Ethyl Alcohol < 10 mg/dL (0-10) 08/04/24 23:20 Vitals: Last Vital Signs Temp 98 F 08/18/24 21:52 Pulse 96 08/19/24 06:00 Resp 17 08/19/24 06:00 BP 125/61 08/19/24 06:00 Pulse Ox 96 08/19/24 06:00 O2 Del Method Room Air 08/19/24 06:00 Discharge Plan Discharge Patient Disposition: Home Condition: Stable Prescriptions: New trazodone 50 mg Tablet 50 mg PO BEDTIME PRN (Reason: Sleep) 30 Days Qty: 30 1RF tamsulosin 0.4 mg Capsule 0.4 mg PO BEDTIME 30 Days Qty: 30 1RF paliperidone 6 mg Tablet Extended Release 24 Hr 6 mg PO BEDTIME 30 Days Qty: 30 1RF thiamine mononitrate (vit B1) [Vitamin B-1 (mononitrate)] 100 mg Tablet 100 mg PO DAILY 30 Days Qty: 30 1RF Discharge Orders: Discharge Order (Routine); Ordered 08/19/24 Ordered By: Cristian Brunson Discharge Diet: Regular Discharge Activity: Resume usual activity Patient Instructions: Altered Mental Status (ED), Opioid Safety Discharge Attestations NPU Time Spent in Discharge Care*: less than 30 min Specific Discharge Activities: Specific discharge activities: educating patient, discussing with oil field caser/social workers/dc planners, documenting/other paperwork and evaluating patient/reviewing data Coding Level of Care Code Acute Code for Chg Fwd Diagnoses Acute psychosis F23 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
[2024-08-19 13:00] VITALS: BP 125/61; PULSE 96; RESP 17; O2SAT 96
--- NOTE | 2024-08-19 13:03 | DCPLANNER ---
IMM completed 08/19/24 @ 1302pm. Pt was given a copy of his rights and he stated he understood his rights.
--- NOTE | 2024-08-19 14:20 | PC.NURSE ---
DISCHARGE INSTRUCTIONS GIVEN TO PT AND TO SISTER. ALL QUESTIONS ANSWERED AND SUPPORT WAS VOICED.
== END 2024-08-19 14:31 | disposition home or self-care (01) | DRG 897 ==
LOC: ER 08-05 01:18 → ICU 08-05 02:40 → NP 08-05 14:28
PROVIDERS: Admitting Provider Internal Medicine; Emergency Provider Emergency Medicine; Visit Provider Psychiatry & Neurology Psychiatry
DX: F15.251 Other stimulant dependence with stimulant-induced psychotic disorder with hallucinations (principal); F10.20 Alcohol dependence, uncomplicated; R33.9 Retention of urine, unspecified; I48.91 Unspecified atrial fibrillation; F17.210 Nicotine dependence, cigarettes, uncomplicated; Z79.899 Other long term (current) drug therapy; Z91.148 Patient's other noncompliance with medication regimen for other reason; F10.27 Alcohol dependence with alcohol-induced persisting dementia; F32.A Depression, unspecified
CPT/HCPCS: 36415; 36416; 51702; 51798; 70450; 71045; 74018; 80053; 80307; 81001; 82140; 82550; 82962; 83735; 84443; 85025; 85610; 87086; 93005; 96361; 96372; 96374; 97150; 97165; 97167; 99285; J1630; J2060; J3411; J3490; J7030